=== PATIENT | male | born 1950 | race Caucasian/White ===

== ENCOUNTER 2020-05-26 09:57 | Day surgery (SDC) | payer MEDICARE, SELFPAY ==
[2020-05-01 14:41] VITALS: BMI 26.6
--- NOTE | 2020-05-25 09:42 | P.CONAN_ITS ---
HPI - Anesthesia Eval Consult details Narrative: 70yo M for EGD and Colonoscopy: gastritis, screening Pending cardiac and pulmonary clearance [facility] Past Medical History Medical History (Updated 05/01/20 @ 14:38 by Yamila Delgado) Back pain CAD (coronary artery disease) Cardiomyopathy CHF (congestive heart failure) Chronic renal insufficiency COPD (chronic obstructive pulmonary disease) Diabetes Elevated cholesterol GERD (gastroesophageal reflux disease) HTN (hypertension) Hx of gastritis Hx of ventricular tachycardia Pacemaker Spondylosis Surgical History Surgical History (Updated 05/01/20 @ 14:23 by Yamila Delgado) AICD (automatic cardioverter/defibrillator) present H/O cystoscopy Hx of colonoscopy Hx of right inguinal hernia repair Social History Social History Smoking Status: Former smoker Use of substances other than those prescribed or required for medical reasons: No Advance Directives: No Advance Directives Information Provided: No Advance Directives on File: No Meds Allergies Allergy/AdvReac Type Severity Reaction Status Date / Time valsartan [Diovan] Allergy Unknown Verified 02/25/13 00:00 No Known Allergies Allergy Unverified 04/20/20 15:12 simvastatin AdvReac Unknown increased Verified 02/25/13 00:00 liver enzymes Home Medications Medication Instructions Recorded Confirmed Type albuterol sulfate 2 puff PO Q4-6H PRN 05/01/20 05/01/20 History amiodarone 1 tab PO DAILY 05/01/20 05/01/20 History amitriptyline 1 tab PO BEDTIME 05/01/20 05/01/20 History aspirin 1 tab PO BEDTIME 05/01/20 05/01/20 History calcium carbonate-vitamin D3 1 tab PO DAILY 05/01/20 05/01/20 History carvedilol [Coreg] 3.125 mg PO BID 05/01/20 05/01/20 History cyanocobalamin (vitamin B-12) 1 tab PO DAILY 05/01/20 05/01/20 History docusate sodium 1 cap PO DAILY PRN 05/01/20 05/01/20 History fluticasone propionate 2 spray INTRANASAL DAILY 05/01/20 05/01/20 History folic acid 1 tab PO DAILY 05/01/20 05/01/20 History furosemide 1 tab PO DAILY PRN 05/01/20 05/01/20 History glipizide mg PO 05/01/20 History insulin glargine [Lantus Solostar 10 unit SUBCUT DAILY 05/01/20 05/01/20 History U-100 Insulin] ipratropium-albuterol [Combivent INHALATION 05/01/20 History Respimat] loratadine 1 tab PO DAILY 05/01/20 05/01/20 History rosuvastatin 1 tab PO DAILY 05/01/20 05/01/20 History tramadol 1 tab PO Q12H PRN 05/01/20 05/01/20 History Exam Exam Date and Time: May 25, 2020 0942 Height,Weight and Vital Signs: Height 5 ft 5 in Weight 72.575 kg Pertinent Lab Results Pertinent Lab Results: Laboratory Tests 09/15/19 09/15/19 14:15 14:15 WBC 5.2 Hgb 12.2 L Hct 38.9 L Plt Count 289 Sodium 138 Potassium 4.5 Chloride 102 BUN 13 Creatinine 2.01 H Narrative Narrative: ECHO 02/2020: LVEF 25-30%, severe global hypokinesis, no change from 2019 ECHO
== END 2020-05-26 23:59 ==
LOC: HO.SSS 09:58
PROVIDERS: PCP Family Medicine; Visit Provider Internal Medicine Gastroenterology
DX: Z12.11 Encounter for screening for malignant neoplasm of colon (principal); K29.70 Gastritis, unspecified, without bleeding; Z53.9 Procedure and treatment not carried out, unspecified reason

== ENCOUNTER 2021-06-06 14:18 | Emergency (ER) | payer MEDICARE, SELFPAY ==
[2021-06-06] VITALS (7 sets, daily range): BP systolic 92–168; BP diastolic 25–83; PULSE 66–74; RESP 18; TEMP 36.1; O2SAT 98–100; BMI 24.4
--- NOTE | 2021-06-06 | ECG_ITS ---
Test Reason : SYNCOPE Blood Pressure : / mmHG Vent. Rate : 062 BPM Atrial Rate : 062 BPM P-R Int : 164 ms QRS Dur : 160 ms QT Int : 518 ms P-R-T Axes : 041 -67 040 degrees QTc Int : 525 ms Normal sinus rhythm Right bundle branch block Left anterior fascicular block Bifascicular block Abnormal ECG No significant changes seen Referred By: Generic ED Physician Electronically Signed By:MONTY FLORES MD
[2021-06-06 16:54] LABS: MANUAL DIFF FLAG NO
[2021-06-06 16:58] LABS: Basophils Percent Auto 0.1 % (0-2); Hematocrit 35.2 % (42.0-52.0); Hemoglobin 10.7 g/dl (14.0-18.0); Imm Gran Abs Auto 0.04 X10*3/uL (0.00-0.03); Imm Gran Pct Auto 0.6 % (0.0-0.4); Lymphocytes Absolute Auto 1.2 X10*3/uL (1.2-4.9); Mean Corpuscular HGB Conc 30.4 g/dl (31.0-36.0); Mean Corpuscular Hemoglobin 29.2 pg (27.0-33.0); Mean Corpuscular Volume 96.2 fL (80.0-98.0); Mean Platelet Volume 10.8 fL (9.4-12.4); Monocytes Absolute Auto 0.6 X10*3/uL (0.1-1.2); Monocytes Percent Auto 7.8 % (2-11); Neutrophils Absolute Auto 5.27 x10*3/uL (2.0-8.3); Neutrophils Percent Auto 74.5 % (45-73); Platelet Count 237 X10*3/uL (160-400); Red Blood Count 3.66 X10*6/uL (4.60-5.80); Red Cell Distribution Width 16.1 % (11.0-16.0); White Blood Count 7.1 X10*3/uL (4.8-10.8)
[2021-06-06 17:17] LABS: Anion Gap 10 (12-20); Blood Urea Nitrogen 17 mg/dL (9-16); Carbon Dioxide 28 mmol/L (22-29); Chloride 105 mmol/L (96-108); Creatinine Clr Calc Pharmacy 24.2; Estimated Glomerular Filt Rate 26; Glucose Random 97 mg/dL (60-115); Potassium 4.1 mmol/L (3.3-5.1); Sodium 139 mmol/L (135-145)
--- NOTE | 2021-06-06 20:09 | ED.SYNCOPE ---
HPI - Syncope General Chief Complaint: Syncope Stated Complaint: low blood pressure, low back pain Time Seen by Provider: 06/06/21 20:03 Source: patient and family Mode of arrival: ambulatory Limitations: no limitations History of Present Illness HPI narrative: Patient's history of orthostatic hypotension on my read in 10 mg 3 times a day which were increased and twice daily in the past was at the store notice back pain and passed out patient had similar episode few days ago when he was in bathroom. Symptoms been going on for several months in follow-up with habitat conservation planner and PCP no head injury no any other significant injury no chest pain or palpitation on arrival patient was positive for orthostatics patient did take his a.m. but missed his medicine at lunchtime Related Data Home Medications Medication Instructions Recorded Confirmed albuterol sulfate 90 mcg/actuation 2 puff PO Q4-6H PRN 05/01/20 05/01/20 aerosol inhaler amiodarone 200 mg tablet 1 tab PO DAILY 05/01/20 05/01/20 amitriptyline 50 mg tablet 1 tab PO BEDTIME 05/01/20 05/01/20 aspirin 81 mg tablet,delayed 1 tab PO BEDTIME 05/01/20 05/01/20 release calcium carbonate 600 mg (1,500 1 tab PO DAILY 05/01/20 05/01/20 mg)-vitamin D3 400 unit tablet carvedilol 3.125 mg tablet (Coreg) 3.125 mg PO BID 05/01/20 05/01/20 cyanocobalamin (vitamin B-12) 1 tab PO DAILY 05/01/20 05/01/20 1,000 mcg tablet docusate sodium 100 mg capsule 1 cap PO DAILY PRN 05/01/20 05/01/20 fluticasone propionate 50 2 spray INTRANASAL DAILY 05/01/20 05/01/20 mcg/actuation nasal spray,suspension folic acid 1 mg tablet 1 tab PO DAILY 05/01/20 05/01/20 furosemide 40 mg tablet 1 tab PO DAILY PRN 05/01/20 05/01/20 glipizide 10 mg tablet mg PO 05/01/20 insulin glargine 100 unit/mL (3 10 unit SUBCUT DAILY 05/01/20 05/01/20 mL) subcutaneous pen (Lantus Solostar U-100 Insulin) ipratropium 20 mcg-albuterol 100 INHALATION 05/01/20 mcg/actuation mist for inhalation (Combivent Respimat) loratadine 10 mg tablet 1 tab PO DAILY 05/01/20 05/01/20 rosuvastatin 40 mg tablet 1 tab PO DAILY 05/01/20 05/01/20 tramadol 50 mg tablet 1 tab PO Q12H PRN 05/01/20 05/01/20 Allergies Allergy/AdvReac Type Severity Reaction Status Date / Time valsartan [Diovan] Allergy Unknown Verified 02/25/13 00:00 No Known Allergies Allergy Unverified 04/20/20 15:12 simvastatin AdvReac Unknown increased Verified 02/25/13 00:00 liver enzymes Review of Systems Review of Systems: Yes all other systems are reviewed and are negative [facility] Past Medical History Medical History Back pain CAD (coronary artery disease) Cardiomyopathy CHF (congestive heart failure) Chronic renal insufficiency COPD (chronic obstructive pulmonary disease) Diabetes Elevated cholesterol GERD (gastroesophageal reflux disease) HTN (hypertension) Hx of gastritis Hx of ventricular tachycardia Pacemaker Spondylosis Surgical History AICD (automatic cardioverter/defibrillator) present H/O cystoscopy Hx of colonoscopy Hx of right inguinal hernia repair Social History Social History Alcohol intake: never Patient Tobacco Use Status: Former Tobacco user Smoked in Last 30 Days: Yes Use of substances other than those prescribed or required for medical reasons: No Advance Directives: No Physical Exam Vital Signs: Vital Signs: Last Vital Signs Temp 97 F 06/06/21 15:04 Pulse 68 06/07/21 00:09 Resp 18 06/07/21 00:00 BP 138/68 06/07/21 00:09 Pulse Ox 98 06/07/21 00:00 Body Mass Index 24.4 Appearance: Alert. Oriented X3. No acute distress. Eyes: PERRLA, No Nystagmus no pallor or icterus ENT: Pharynx normal. Oral Mucosa moist Neck: Normal inspection. Neck supple. CVS: Normal heart rate and rhythm. Pulses normal. Respiratory: No respiratory distress. Equal air entry bilateral, no wheezing/rales/rhonchi Abdomen: Soft and nontender. Bowel sounds are present, no mass palpable, no CVA tenderness Skin: Skin warm and dry. Normal skin color. Normal skin turgor. Extremities: No lower extremity edema. No calf tenderness Neuro: Oriented X 3. No motor deficit. No sensory deficit.No cerebellar signs , cranial nerves II-XII intact Course Reevaluation(s) Reevaluation #1: Patient with significant orthostatic hypotension on midodrine 10 mg 4 times a day came here with syncope episode similar to that in the past with blood pressure drops on standing. During stay in the ER patient was orthostatic but is less symptomatic received 2 L of IV fluids orthostatics improved was given 2 tablets of 10 mg mitral drain. Will discharge patient home advised to drink plenty of fluids take midodrine on time Time: 00:03 MDM - Syncope Lab Data Attestation: I reviewed the patient's lab results. Result diagrams: 06/06/21 16:49 06/06/21 16:49 Labs: Lab Results 06/06/21 06/06/21 06/06/21 Range/Units 16:49 16:49 16:49 WBC 7.1 (4.8-10.8) X10*3/uL RBC 3.66 L (4.60-5.80) X10*6/uL Hgb 10.7 L (14.0-18.0) g/dl Hct 35.2 L (42.0-52.0) % MCV 96.2 (80.0-98.0) fL MCH 29.2 (27.0-33.0) pg MCHC 30.4 L (31.0-36.0) g/dl RDW 16.1 H (11.0-16.0) % Plt Count 237 (160-400) X10*3/uL MPV 10.8 (9.4-12.4) fL Immature Gran % (Auto) 0.6 H (0.0-0.4) % Neut % (Auto) 74.5 H (45-73) % Lymph % (Auto) 17.0 L (20-40) % Bartholomew % (Auto) 7.8 (2-11) % Eos % (Auto) 0.0 (0-4) % Baso % (Auto) 0.1 (0-2) % Lymph # (Auto) 1.2 (1.2-4.9) X10*3/uL Bartholomew # (Auto) 0.6 (0.1-1.2) X10*3/uL Eos # (Auto) 0.0 (0.0-0.4) X10*3/uL Baso # (Auto) 0.0 (0.0-0.2) X10*3/uL Abs Immat Gran (auto) 0.04 H (0.00-0.03) X10*3/uL Absolute Neuts (auto) 5.27 (2.0-8.3) x10*3/uL Absolute Nucleated RBC 0.000 (0.0-0.012) X10*3/uL Nucleated RBC % (auto) 0.0 (0.0-0.2) /100WBC Sodium 139 (135-145) mmol/L Potassium 4.1 (3.3-5.1) mmol/L Chloride 105 (96-108) mmol/L Carbon Dioxide 28 (22-29) mmol/L Anion Gap 10 L (12-20) BUN 17 H (9-16) mg/dL Creatinine 2.47 H (0.5-1.4) mg/dL Estim Creat Clear Calc 24.2 Estimated GFR 26 Random Glucose 97 (60-115) mg/dL Calcium 9.0 (8.4-10.2) mg/dL Troponin I High Sens 32.0 (<3.5-35.0) ng/L ECG Data Attestation: I personally reviewed and interpreted this ECG as follows: Interpretation: Heart rate 62 beats per minute right bundle-branch block left anterior fascicular block no acute ischemic changes Discharge Plan Discharge Clinical Impression: Syncope due to orthostatic hypotension Patient Disposition: Home, Self-Care Instructions: Syncope (ED), Hypotension (ED) Additional Instructions: Drink plenty of fluids Do not miss your midodrine, take it as advised Do not stand up all of a sudden take your time and if you feel dizzy sit down Follow-up with your habitat conservation planner Prescriptions: No Action furosemide 40 mg tablet 1 tab PO DAILY PRN (Reason: Edema) RF: 0 amiodarone 200 mg tablet 1 tab PO DAILY RF: 0 glipizide 10 mg tablet PO RF: 0 cyanocobalamin (vitamin B-12) 1,000 mcg tablet 1 tab PO DAILY RF: 0 aspirin 81 mg tablet,delayed release (DR/EC) 1 tab PO BEDTIME RF: 0 tramadol 50 mg tablet 1 tab PO Q12H PRN (Reason: severe pain) RF: 0 amitriptyline 50 mg tablet 1 tab PO BEDTIME RF: 0 carvedilol [Coreg] 3.125 mg Tablet 3.125 mg PO BID RF: 0 docusate sodium 100 mg capsule 1 cap PO DAILY PRN (Reason: constipation) RF: 0 folic acid 1 mg tablet 1 tab PO DAILY RF: 0 albuterol sulfate 90 mcg/actuation HFA aerosol inhaler 2 puff PO Q4-6H PRN (Reason: wheezing) RF: 0 fluticasone propionate 50 mcg/actuation spray,suspension 2 spray intranasal DAILY RF: 0 loratadine 10 mg tablet 1 tab PO DAILY RF: 0 rosuvastatin 40 mg tablet 1 tab PO DAILY RF: 0 calcium carbonate-vitamin D3 600 mg(1,500mg) -400 unit tablet 1 tab PO DAILY RF: 0 Lantus Solostar U-100 Insulin 100 unit/mL (3 mL) insulin pen 10 unit subcut DAILY RF: 0 Combivent Respimat 20-100 mcg/actuation mist inhalation RF: 0 Interventions: ED Discharge Assessment Last Done: 06/07/21 00:11 Discharge Date/Time: 06/07/21 00:15
[2021-06-06] MEDS: Midodrine HCl 10 MG TABLET PO (21:11)
[2021-06-06] MEDS: 0.9 % Sodium Chloride 1,000 ML 999 ML IVCONT ×2 (21:11→22:45)
[2021-06-07] VITALS: BP 138/68; PULSE 67; RESP 18; O2SAT 98
--- NOTE | 2021-06-07 00:03 | PC.NURSE ---
after pt received the 2l on ns, pt was asked to stand at the bedside, bp taken wnl. provider at bedside and pt denies dizziness. need to drink water reviewed with pt. urine color has improved with ivf.
[2021-06-07 00:09] VITALS: BP 138/68; PULSE 68
[2021-06-07] MEDS: Midodrine HCl 10 MG TABLET PO (00:09)
== END 2021-06-07 00:15 | disposition home or self-care (01) ==
PROVIDERS: Emergency Provider Internal Medicine; PCP Family Medicine
DX: I95.1 Orthostatic hypotension (principal); E11.22 Type 2 diabetes mellitus with diabetic chronic kidney disease; I13.0 Hypertensive heart and chronic kidney disease with heart failure and stage 1 through stage 4 chronic kidney disease, or unspecified chronic kidney disease; N18.9 Chronic kidney disease, unspecified; I50.9 Heart failure, unspecified; I25.10 Atherosclerotic heart disease of native coronary artery without angina pectoris; J44.9 Chronic obstructive pulmonary disease, unspecified; Z95.0 Presence of cardiac pacemaker
CPT/HCPCS: 36415; 80048; 84484; 85025; 93005; 96360; 96361; 99284; 99285

== ENCOUNTER 2021-06-25 10:36 | Outpatient (REF) | payer MEDICARE, SELFPAY ==
--- NOTE | 2021-06-27 10:17 | MHC.AU.ANO ---
Adult Audiological Evaluation Date of Visit: 06/25/21 Sales Administration Specialist Used: Declined by Patient Reason for Appointment: Audiologic evaluation due to question of hearing loss. Denzel is accompanied by his granddaughter Lula who reports the family frequently needs to repeat speech and he needs the television volume to be loud. Does patient feel they have a hearing loss?: Unsure When Was Hearing Difficulty First Noticed?: Has been experiencing more difficulty over the past 5-6 months Has hearing been tested previously?: No Hearing Handicap Inventory: HHIE SCORE: 10 Based on HHIE score, patient has: Mild to moderate perceived hearing handicap Ear History: Unremarkable Medical History: Medical History: Diabetes, Heart Problems, High Blood Pressure, Orthostatic Hypotension which causes unsteadiness, Hyperlipidemia, Cardioinverter-Defibrillator, COngestive Heart Failure, COPD Medication List: Amiodarone, Midodrine, Claritin, Ventolin, Baclofen, Calcium-Vitamin D3, Flonase, Crestor, Combivent, Aspirin, Folic Acid, Lyrica, Vitamin B-12, Amitriptyline, Shingrix Otoscopy: Right Ear: Unremarkable Left Ear: Unremarkable Tympanometry: Tympanometry performed due to: To assess integrity of the middle ear system Right Ear: Normal Middle Ear System (Type A) Left Ear: Hypercompliant Middle Ear System (Type Ad) Otoacoustic Emissions Not performed at today's visit. Hearing Evaluation: Transducer(s) Used: Insert Earphones Bone Conduction Method: Conventional Audiometry Stimuli Used: Pure Tones Right Ear: Description of Hearing: Mild to moderate low frequency, sloping to moderately-severe sensorineural hearing loss. Left Ear: Description of Hearing: Mild sloping to severe sensorineural hearing loss. Speech Recognition Threshold (SRT): Method Used: Monitored Live Voice Stimuli Used: Dutch Trisyllable Words Right Ear: 35 dB HL Left Ear: 35 dB HL Word Discrimination: Method: Recorded Lists Word Lists Used: Lista Bisil?bica (Dutch) Right Ear: 92% at 75 dB HL Left Ear: 96% at 75 dB HL Interpretation of Results: With the bilateral mild sloping to severe sensorineural hearing loss, Denzel is able to hear when people speak; however, he will experience difficulty understanding what is said. Discussed Communication Strategies the family can use to improve his speech understanding and Denzel would like to try hearing aids. As Denzel has manual dexterity trouble, binaural [facility] custom [id number] rechargeable hearing aids are recommended. Recommendations: Trial with amplification is recommended. Prior authorization will be obtained from Denzel's insurance. Medical clearance from a physician is required before fitting. Hearing Aid Fitting will be scheduled when all materials arrive. Audiological re-evaluation in one year. Will send a reminder card. Diagnosis: Primary Diagnosis: H90.3 Bilateral Sensorineural Hearing Loss Services Performed: Comprehensive Audiological Evaluation (CPT 74490) Tympanometry (CPT 83044) Signature: Provider: Nikhil Naik, CCC-A
--- NOTE | 2021-06-27 11:39 | MHC.AU.HAS ---
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 Hearing Aid Prescription: Based on the individual?s shared listening needs, communication environments, dexterity, desire for connectivity, and personal preferences, the following prescription for amplification has been made: Right ear: School Bus Driver: [employer] Model: [employer] AI 1600 ITC-R Battery Size: Rechargeable Color: Black Left ear: School Bus Driver: [employer] Model: [employer] AI 1600 ITC-R Battery Size: Rechargeable Color: Black Plan of Care: Patient wishes to purchase hearing aids as prescribed Action Taken/Action Needed: [place] Impressions Taken Prior authorization to be requested Medical Clearance to be requested from PCP/ENT Hearing Instrument Fitting to be scheduled when materials arrive Primary Diagnosis: H90.3 Bilateral Sensorineural Hearing Loss Signature: Provider: Nikhil Naik, CCC-A
--- NOTE | 2021-06-27 11:41 | MHC.AU.MED ---
Medical Clearance for Hearing Instrumentation Date: 06/27/21 Patient Name: Denzel Pendleton Date of : 1950 Primary Care Provider: Referring Provider: Susy Rashid, DO We have seen your patient on 06/25/21 and have determined that they are a candidate for amplification (See accompanying report). Specifically, they would benefit from: Hearing aid use in both ears There is a statute that addresses Medical Evaluation Requirements prior to fitting a patient with a hearing aid. According to [place] statute 265 CMR:6.03(1), (a) General. Except as provided in 265 CMR 6.03(1)(b), a shearing machine tender shall not sell a hearing aid unless the prospective user has presented to the shearing machine tender a written statement signed by a licensed physician that states that the patient's hearing loss has been medically evaluated and the patient may be considered a candidate for a hearing aid. The medical evaluation must have taken place within the preceding six months. Please note: Due to the [place] Statute referenced above, we cannot accept a signature other than that of a licensed physician. DIE CAST ENGINEER and PA signatures cannot be accepted. I am in agreement with the above recommendation. There is no medical contraindication for hearing instrumentation. Physician Signature Date Physician Name (Printed)
== END 2021-06-25 10:37 | disposition home or self-care (01) ==
LOC: HO.SH 10:36
PROVIDERS: Visit Provider Family Medicine
DX: H90.3 Sensorineural hearing loss, bilateral (principal)
CPT/HCPCS: 92557; 92567; 92591; V5275

== ENCOUNTER 2021-06-27 10:13 | Emergency (ER) | payer MEDICARE, SELFPAY ==
--- NOTE | ~2021-06-27 | XR_ITS ---
EXAMINATION: XR CHEST CLINICAL INFORMATION: Productive cough, brown sputum COMPARISON: Chest radiographs 04/19/2015, 10/12/2014 TECHNIQUE: 2 views of the chest were obtained. FINDINGS: There is mild coarsening bronchiolar markings lower zones may related to bronchitis. There is no lobar or segmental airspace consolidation or groundglass opacity. The vascularity is normal. There is no effusion. There is borderline prominent cardiopericardial silhouette with the folder AICD. Multi leveled degenerative changes present thoracic spine. XR/XR chest 2V IMPRESSION: 1. Coarsening bronchiolar markings lower zones, possibly related to bronchitis. No hyperinflation, airspace consolidation, or effusion. 2. AICD. Pulmonary vascularity normal.
[2021-06-27 10:21] VITALS: BP 101/60; PULSE 90; RESP 20; TEMP 36.8; O2SAT 99; BMI 24.4
--- NOTE | 2021-06-27 10:29 | ED.GENADULT ---
HPI - General Adult General Chief complaint: Fall Stated complaint: low blood pressure Time Seen by Provider: 06/27/21 10:29 Source: patient Mode of arrival: ambulatory Limitations: language barrier History of Present Illness HPI narrative: patient states that he has fallen 10 times. Yesterday he fell in the bathroom and the kitchen. patient states he is not losing consciousness. He denies chest pain or shortness of breath. he feels too weak to get up at times. Patient feels that he has changes to his medications but doesn't know what it is. Patient states that he is coughing brown. Onset (ago): week(s) Severity: moderate Relieving factors: none Associated symptoms: malaise and weakness Related Data Home Medications Medication Instructions Recorded Confirmed albuterol sulfate 90 mcg/actuation 2 puff PO Q4-6H PRN 05/01/20 05/01/20 aerosol inhaler amiodarone 200 mg tablet 1 tab PO DAILY 05/01/20 05/01/20 amitriptyline 50 mg tablet 1 tab PO BEDTIME 05/01/20 05/01/20 aspirin 81 mg tablet,delayed 1 tab PO BEDTIME 05/01/20 05/01/20 release calcium carbonate 600 mg (1,500 1 tab PO DAILY 05/01/20 05/01/20 mg)-vitamin D3 400 unit tablet carvedilol 3.125 mg tablet (Coreg) 3.125 mg PO BID 05/01/20 05/01/20 cyanocobalamin (vitamin B-12) 1 tab PO DAILY 05/01/20 05/01/20 1,000 mcg tablet docusate sodium 100 mg capsule 1 cap PO DAILY PRN 05/01/20 05/01/20 fluticasone propionate 50 2 spray INTRANASAL DAILY 05/01/20 05/01/20 mcg/actuation nasal spray,suspension folic acid 1 mg tablet 1 tab PO DAILY 05/01/20 05/01/20 furosemide 40 mg tablet 1 tab PO DAILY PRN 05/01/20 05/01/20 glipizide 10 mg tablet mg PO 05/01/20 insulin glargine 100 unit/mL (3 10 unit SUBCUT DAILY 05/01/20 05/01/20 mL) subcutaneous pen (Lantus Solostar U-100 Insulin) ipratropium 20 mcg-albuterol 100 INHALATION 05/01/20 mcg/actuation mist for inhalation (Combivent Respimat) loratadine 10 mg tablet 1 tab PO DAILY 05/01/20 05/01/20 rosuvastatin 40 mg tablet 1 tab PO DAILY 05/01/20 05/01/20 tramadol 50 mg tablet 1 tab PO Q12H PRN 05/01/20 05/01/20 Allergies Allergy/AdvReac Type Severity Reaction Status Date / Time valsartan [Diovan] Allergy Unknown Verified 02/25/13 00:00 No Known Allergies Allergy Unverified 04/20/20 15:12 simvastatin AdvReac Unknown increased Verified 02/25/13 00:00 liver enzymes Review of Systems Constitutional: Constitutional: Reports no additional constitutional complaints Eyes: Eyes: Reports no additional eye complaints ENT: Denies dizziness Cardiovascular: Cardiovascular: Reports no additional cardiovascular complaints Respiratory: Respiratory: Reports as per HPI Gastrointestinal: Gastrointestinal: Reports no additional gastrointestinal complaints Musculoskeletal: Musculoskeletal: Reports no additional musculoskeletal complaints Integumentary/Breasts: Skin/Breast: Denies rash Neurologic: Reports system reviewed and no additional complaints, except as documented, Denies dizziness and Denies Sensory deficit (Neuro) Psychiatric: Psychiatric: Denies anxiety PMFSH Past Medical History Medical History Back pain CAD (coronary artery disease) Cardiomyopathy CHF (congestive heart failure) Chronic renal insufficiency COPD (chronic obstructive pulmonary disease) Diabetes Elevated cholesterol GERD (gastroesophageal reflux disease) HTN (hypertension) Hx of gastritis Hx of ventricular tachycardia Pacemaker Spondylosis Surgical History AICD (automatic cardioverter/defibrillator) present H/O cystoscopy Hx of colonoscopy Hx of right inguinal hernia repair Social History Social History Alcohol intake: never Patient Tobacco Use Status: Former Tobacco user Use of substances other than those prescribed or required for medical reasons: No Advance Directives: No Physical Exam Vital Signs: Vital Signs: Last Vital Signs Temp 98.3 F 06/27/21 10:21 Pulse 69 06/27/21 13:14 Resp 18 06/27/21 13:14 BP 124/68 06/27/21 13:14 Pulse Ox 98 06/27/21 13:14 Body Mass Index 24.4 Const: Other: elderly Nutritional Appearance: average body habitus Orientation/consciousness: oriented to person and patient oriented x3 Limitations: no limitations HENMT: Head: Yes normal to inspection Ears: external ears normal General nose exam: Normal external nose present Mouth: Normal oral and palatal mucosa present and oropharynx normal Throat: Yes posterior oropharynx normal Eyes: General: appearance normal, both eyes and all related structures Neck: Other: supple Neck: Yes normal visual inspection Chest: Chest palpation & inspection: normal inspection of the chest Resp: Auscultation: clear to auscultation bilaterally Cardio: Jugular venous distension: no JVD Rate: regular rate Rhythm: regular rhythm Heart sounds: S1 normal heart sound present and S2 normal heart sound present GI: Inspection: Yes normal to inspection Palpation (GI): Soft to palpation, nontender and No hepatosplenomegaly present Auscultation: normal bowel sounds : General: Yes no CVA tenderness Back/Spine/Pelvis: Back: no CVA tenderness Skin: General skin exam: no rashes or lesions noted Neuro: Other: patient ambulated in and is nonfocal General: oriented to person and patient oriented x3 Cranial nerves: Yes CN's II-XII intact bilaterally Motor exam (neuro): 5/5 motor strength present throughout Sensory Exam: No Sensory deficit (Neuro) Extrem: General: Yes normal to inspection Psych: Appearance: grossly normal Course Reevaluation(s) Reevaluation #1: labs, EKG all normal, Ua normal, did not find any acute reason for his falling Time: 15:16 Medical Decision Making Lab Data Result diagrams: 06/27/21 11:11 06/27/21 11:11 Labs: Lab Results 06/27/21 06/27/21 06/27/21 Range/Units 11:11 11:11 11:11 WBC 5.7 (4.8-10.8) X10*3/uL RBC 3.65 L (4.60-5.80) X10*6/uL Hgb 10.6 L (14.0-18.0) g/dl Hct 35.0 L (42.0-52.0) % MCV 95.9 (80.0-98.0) fL MCH 29.0 (27.0-33.0) pg MCHC 30.3 L (31.0-36.0) g/dl RDW 15.4 (11.0-16.0) % Plt Count 236 (160-400) X10*3/uL MPV 11.3 (9.4-12.4) fL Immature Gran % (Auto) 0.7 H (0.0-0.4) % Neut % (Auto) 69.0 (45-73) % Lymph % (Auto) 16.8 L (20-40) % [place]ack[place] % (Auto) 13.3 H (2-11) % Eos % (Auto) 0.0 (0-4) % Baso % (Auto) 0.2 (0-2) % Lymph # (Auto) 1.0 L (1.2-4.9) X10*3/uL Bracken # (Auto) 0.8 (0.1-1.2) X10*3/uL Eos # (Auto) 0.0 (0.0-0.4) X10*3/uL Baso # (Auto) 0.0 (0.0-0.2) X10*3/uL Abs Immat Gran (auto) 0.04 H (0.00-0.03) X10*3/uL Absolute Neuts (auto) 3.9 (2.0-8.3) x10*3/uL Absolute Nucleated RBC 0.000 (0.0-0.012) X10*3/uL Nucleated RBC % (auto) 0.0 (0.0-0.2) /100WBC Sodium 140 (135-145) mmol/L Potassium 4.0 (3.3-5.1) mmol/L Chloride 109 H (96-108) mmol/L Carbon Dioxide 22 (22-29) mmol/L Anion Gap 13 (12-20) BUN 24 H (9-16) mg/dL Creatinine 2.76 H (0.5-1.4) mg/dL Estim Creat Clear Calc 21.6 Estimated GFR 23 Random Glucose 255 H D (60-115) mg/dL Calcium 8.4 D (8.4-10.2) mg/dL Troponin I High Sens 14.1 D (<3.5-35.0) ng/L Urine Color Urine Appearance Urine pH (5.0-8.0) Ur Specific [place] (1.005-1.025) Urine Protein (NEG-TRACE) MG/DL Urine Glucose (UA) (NEG) MG/DL Urine Ketones (NEG) MG/DL Urine Blood (NEG) Urine Nitrite (NEG) Ur Leukocyte Esterase (NEG) Urine RBC (0) /HPF Urine WBC (0-4) /HPF Ur Squamous Epith Cells /LPF Amorphous Sediment /LPF Urine Bacteria /LPF Hyaline Casts /LPF Urine Mucus /LPF 06/27/ Range/Units 14:37 WBC (4.8-10.8) X10*3/uL RBC (4.60-5.80) X10*6/uL Hgb (14.0-18.0) g/dl Hct (42.0-52.0) % MCV (80.0-98.0) fL MCH (27.0-33.0) pg MCHC (31.0-36.0) g/dl RDW (11.0-16.0) % Plt Count (160-400) X10*3/uL MPV (9.4-12.4) fL Immature Gran % (Auto) (0.0-0.4) % Neut % (Auto) (45-73) % Lymph % (Auto) (20-40) % [place]ack[place] % (Auto) (2-11) % Eos % (Auto) (0-4) % Baso % (Auto) (0-2) % Lymph # (Auto) (1.2-4.9) X10*3/uL [place]acken # (Auto) (0.1-1.2) X10*3/uL Eos # (Auto) (0.0-0.4) X10*3/uL Baso # (Auto) (0.0-0.2) X10*3/uL Abs Immat Gran (auto) (0.00-0.03) X10*3/uL Absolute Neuts (auto) (2.0-8.3) x10*3/uL Absolute Nucleated RBC (0.0-0.012) X10*3/uL Nucleated RBC % (auto) (0.0-0.2) /100WBC Sodium (135-145) mmol/L Potassium (3.3-5.1) mmol/L Chloride (96-108) mmol/L Carbon Dioxide (22-29) mmol/L Anion Gap (12-20) BUN (9-16) mg/dL Creatinine (0.5-1.4) mg/dL Estim Creat Clear Calc Estimated GFR Random Glucose (60-115) mg/dL Calcium (8.4-10.2) mg/dL Troponin I High Sens (<3.5-35.0) ng/L Urine Color YELLOW Urine Appearance HAZY Urine pH 6.0 (5.0-8.0) Ur Specific [place] 1.025 (1.005-1.025) Urine Protein 2+ H (NEG-TRACE) MG/DL Urine Glucose (UA) 500 H (NEG) MG/DL Urine Ketones NEG (NEG) MG/DL Urine Blood 2+ H (NEG) Urine Nitrite NEG (NEG) Ur Leukocyte Esterase NEG (NEG) Urine RBC 1-4 (0) /HPF Urine WBC 1-4 (0-4) /HPF Ur Squamous Epith Cells 1+ /LPF Amorphous Sediment 1+ /LPF Urine Bacteria 1+ /LPF Hyaline Casts 5-9 /LPF Urine Mucus 1+ /LPF ECG Data Attestation: I personally reviewed and interpreted this ECG as follows: Interpretation: sinus 80, RBBB, no st or twave changes no change from 06/06/21 Discharge Plan Discharge Clinical Impression: Weakness, Falling Patient Disposition: Home, Self-Care Instructions: Weakness (ED) Prescriptions: No Action furosemide 40 mg tablet 1 tab PO DAILY PRN (Reason: Edema) RF: 0 amiodarone 200 mg tablet 1 tab PO DAILY RF: 0 glipizide 10 mg tablet PO RF: 0 cyanocobalamin (vitamin B-12) 1,000 mcg tablet 1 tab PO DAILY RF: 0 aspirin 81 mg tablet,delayed release (DR/EC) 1 tab PO BEDTIME RF: 0 tramadol 50 mg tablet 1 tab PO Q12H PRN (Reason: severe pain) RF: 0 amitriptyline 50 mg tablet 1 tab PO BEDTIME RF: 0 carvedilol [Coreg] 3.125 mg Tablet 3.125 mg PO BID RF: 0 docusate sodium 100 mg capsule 1 cap PO DAILY PRN (Reason: constipation) RF: 0 folic acid 1 mg tablet 1 tab PO DAILY RF: 0 albuterol sulfate 90 mcg/actuation HFA aerosol inhaler 2 puff PO Q4-6H PRN (Reason: wheezing) RF: 0 fluticasone propionate 50 mcg/actuation spray,suspension 2 spray intranasal DAILY RF: 0 loratadine 10 mg tablet 1 tab PO DAILY RF: 0 rosuvastatin 40 mg tablet 1 tab PO DAILY RF: 0 calcium carbonate-vitamin D3 600 mg(1,500mg) -400 unit tablet 1 tab PO DAILY RF: 0 Lantus Solostar U-100 Insulin 100 unit/mL (3 mL) insulin pen 10 unit subcut DAILY RF: 0 Combivent Respimat 20-100 mcg/actuation mist inhalation RF: 0 Referrals: Susy Rashid DO [Primary Care Provider] - 1 week
--- NOTE | 2021-06-27 10:44 | ECG_ITS ---
Test Reason : fall Blood Pressure : / mmHG Vent. Rate : 080 BPM Atrial Rate : 080 BPM P-R Int : 160 ms QRS Dur : 164 ms QT Int : 476 ms P-R-T Axes : 046 -69 080 degrees QTc Int : 548 ms Normal sinus rhythm Right bundle branch block Left anterior fascicular block Bifascicular block T wave abnormality, consider lateral ischemia Abnormal ECG When compared with ECG of 06-JUN-2021 16:40, No significant changes seen Referred By: Ray Sam Electronically Signed By:MONTY FLORES MD
[2021-06-27 11:14] VITALS: BP 113/62; PULSE 78; RESP 16; O2SAT 99
[2021-06-27 11:15] LABS: MANUAL DIFF FLAG NO
[2021-06-27 11:17] LABS: Basophils Percent Auto 0.2 % (0-2); Hemoglobin 10.6 g/dl (14.0-18.0); Imm Gran Abs Auto 0.04 X10*3/uL (0.00-0.03); Imm Gran Pct Auto 0.7 % (0.0-0.4); Lymphocytes Percent Auto 16.8 % (20-40); Mean Corpuscular HGB Conc 30.3 g/dl (31.0-36.0); Mean Corpuscular Volume 95.9 fL (80.0-98.0); Mean Platelet Volume 11.3 fL (9.4-12.4); Monocytes Absolute Auto 0.8 X10*3/uL (0.1-1.2); Monocytes Percent Auto 13.3 % (2-11); Neutrophils Absolute Auto 3.9 x10*3/uL (2.0-8.3); Platelet Count 236 X10*3/uL (160-400); Red Blood Count 3.65 X10*6/uL (4.60-5.80); Red Cell Distribution Width 15.4 % (11.0-16.0); White Blood Count 5.7 X10*3/uL (4.8-10.8)
[2021-06-27 11:31] LABS: Anion Gap 13 (12-20); Blood Urea Nitrogen 24 mg/dL (9-16); Calcium 8.4 mg/dL (8.4-10.2); Carbon Dioxide 22 mmol/L (22-29); Chloride 109 mmol/L (96-108); Creatinine Clr Calc Pharmacy 21.6; Estimated Glomerular Filt Rate 23; Glucose Random 255 mg/dL (60-115); Sodium 140 mmol/L (135-145)
[2021-06-27 11:38] LABS: Troponin-I High Sensitivity 14.1 ng/L (<3.5-35.0)
[2021-06-27 13:14] VITALS: BP 124/68; PULSE 69; RESP 18; O2SAT 98
--- NOTE | 2021-06-27 13:15 | PC.NURSE ---
PT resting comfortably BPs WNL.
[2021-06-27 14:53] LABS: Appearance Urine HAZY; Color Urine YELLOW; Glucose Urine UA 500 MG/DL (NEG); Leukocyte Esterase Urine NEG (NEG); Nitrite Urine NEG (NEG); Specific Gravity - Urine 1.025 (1.005-1.025); UACC Culture Trigger NO; Urine Blood 2+ (NEG); Urine Ketones NEG (NEG); Urine Protein 2+ MG/DL (NEG-TRACE)
[2021-06-27 15:03] LABS: Squamous Epithelial Cell Urine 1+ /LPF
[2021-06-27 15:04] LABS: Bacteria Urine 1+ /LPF; Mucus Urine 1+ /LPF
[2021-06-27 15:05] LABS: Amorphous Sediment Urine 1+ /LPF
== END 2021-06-27 15:38 | disposition home or self-care (01) ==
PROVIDERS: Emergency Provider Emergency Medicine; PCP Family Medicine
DX: I95.9 Hypotension, unspecified (principal); R05.9 Cough, unspecified; R53.81 Other malaise; Z91.81 History of falling; Z79.899 Other long term (current) drug therapy; Z87.891 Personal history of nicotine dependence
CPT/HCPCS: 36415; 71046; 80048; 81001; 84484; 85025; 93005; 99283; 99284

== ENCOUNTER 2021-07-11 09:18 | Outpatient (REF) | payer MEDICARE, SELFPAY ==
--- NOTE | ~2021-07-11 | US_ITS ---
EXAMINATION: ANKLE-BRACHIAL INDICES CLINICAL INFORMATION: Pain in left leg COMPARISON: None TECHNIQUE: Ankle-brachial indices were obtained bilaterally. FINDINGS: The right ankle-brachial index is 1.31. The left ankle-brachial index is 1.23. The pulse volume recordings at the ankles are normal. US/US JAYDEN complete IMPRESSION: Normal ankle-brachial indices.
== END 2021-07-11 09:19 | disposition home or self-care (01) ==
LOC: HO.US 09:18
PROVIDERS: PCP Family Medicine; Visit Provider Family Medicine
DX: M79.605 Pain in left leg (principal)
CPT/HCPCS: 93923

== ENCOUNTER 2021-07-30 12:57 | Outpatient (REF) | payer MEDICARE, SELFPAY | END 2021-07-30 12:58 | disposition home or self-care (01) | LOC: HO.HAP 12:57 | PROVIDERS: Visit Provider Family Medicine | DX: Z46.1 Encounter for fitting and adjustment of hearing aid (principal); H90.3 Sensorineural hearing loss, bilateral | CPT/HCPCS: V5011; V5020; V5160; V5259 ==

== ENCOUNTER 2021-08-13 10:30 | Outpatient (REF) | payer MEDICARE, SELFPAY | END 2021-08-13 10:31 | disposition home or self-care (01) | LOC: HO.HAP 10:30 | PROVIDERS: Visit Provider Family Medicine | DX: Z13.89 Encounter for screening for other disorder (principal) ==

== ENCOUNTER 2021-08-27 12:19 | Outpatient (REF) | payer SELFPAY ==
--- NOTE | 2021-08-27 12:48 | MHC.AU.HFU ---
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 Used: Granddaughter interpreted as she did previous appointments Right Ear: Cryptographic Clerk: [email or web address] Model: Evolve AI 1600 ITC-R Serial Number: [id number] Repair Warranty: 08/23/2024 Battery Size: Rechargeable Color: Black Type of Wax Guard: HearClear Dispensed By: [facility] Date of Fittin07/30/2021 Left Ear: Cryptographic Clerk: Jimmie Model: Evolve AI 1600 ITC-R Serial Number: [id number] Repair Warranty: 08/23/2024 Battery Size: Rechargeable Color: Black Type of Wax Guard: HearClear Dispensed By: [facility] Date of Fittin07/30/2021 Follow-Up Summary: Patient arrives today with the hearing aids in the wrong ears. When the aids are in properly, patient says he does well. He wants to wear the aids but has trouble knowing which aid goes in which ear. Sending both aids for remake to get red and blue shells with black faceplates. Recommendations: Call [facility] [phone] when remakes are in. Diagnosis Code(s): Primary Diagnosis: H90.3 Bilateral Sensorineural Hearing Loss Signature: Provider: Levi Naik, CCC-A
== END 2021-08-27 12:20 | disposition home or self-care (01) ==
LOC: HO.HAP 12:19
PROVIDERS: Visit Provider Family Medicine
DX: Z13.89 Encounter for screening for other disorder (principal)

== ENCOUNTER 2021-09-25 11:01 | Outpatient (REF) | payer SELFPAY | END 2021-09-25 11:02 | disposition home or self-care (01) | LOC: HO.HAP 11:01 | PROVIDERS: Visit Provider Family Medicine | DX: Z13.89 Encounter for screening for other disorder (principal) ==

== ENCOUNTER → 2021-10-16 10:00 | Outpatient (BNVA) | payer MEDICARE, SELFPAY | PROVIDERS: PCP Family Medicine; Visit Provider Nurse Practitioner Family | DX: G20 Parkinson's disease (principal); G90.3 Multi-system degeneration of the autonomic nervous system | CPT/HCPCS: 99212 ==

== ENCOUNTER → 2021-12-07 10:05 | Outpatient (BNVA) | payer MEDICARE, SELFPAY | PROVIDERS: PCP Family Medicine; Visit Provider Urology | DX: Z13.89 Encounter for screening for other disorder (principal) ==

== ENCOUNTER 2021-12-07 10:53 | Emergency (ER) | payer MEDICARE, SELFPAY ==
[2021-12-07] VITALS (11 sets, daily range): BP systolic 75–146; BP diastolic 39–67; PULSE 57–78; RESP 16–18; TEMP 36.4–36.7; O2SAT 95–100; BMI 25.6
--- NOTE | 2021-12-07 10:57 | ECG_ITS ---
Test Reason : HYPOTENSION Blood Pressure : / mmHG Vent. Rate : 077 BPM Atrial Rate : 077 BPM P-R Int : 166 ms QRS Dur : 180 ms QT Int : 468 ms P-R-T Axes : 003 -69 086 degrees QTc Int : 529 ms Normal sinus rhythm Right bundle branch block Left anterior fascicular block Bifascicular block Septal infarct (cited on or before 07-DEC-2021) Abnormal ECG When compared with ECG of 27-JUN-2021 11:08, Serial changes of Septal infarct Present Referred By: Generic ED Physician Electronically Signed By:DIMPLE CISSE MD
[2021-12-07 11:12] LABS: Glucose, Whole Blood 314 mg/dL (60-115)
[2021-12-07 11:14] LABS: MANUAL DIFF FLAG NO
[2021-12-07 11:18] LABS: Basophils Percent Auto 0.3 % (0-2); Eosinophils Percent Auto 0.2 % (0-4); Hematocrit 35.3 % (42.0-52.0); Imm Gran Abs Auto 0.09 X10*3/uL (0.00-0.03); Imm Gran Pct Auto 1.4 % (0.0-0.4); Lymphocytes Absolute Auto 1.3 X10*3/uL (1.2-4.9); Lymphocytes Percent Auto 19.8 % (20-40); Mean Corpuscular HGB Conc 31.2 g/dl (31.0-36.0); Mean Corpuscular Hemoglobin 28.7 pg (27.0-33.0); Mean Corpuscular Volume 92.2 fL (80.0-98.0); Mean Platelet Volume 11.4 fL (9.4-12.4); Monocytes Absolute Auto 0.7 X10*3/uL (0.1-1.2); Monocytes Percent Auto 11.7 % (2-11); Neutrophils Absolute Auto 4.2 x10*3/uL (2.0-8.3); Neutrophils Percent Auto 66.6 % (45-73); Platelet Count 238 X10*3/uL (160-400); Red Blood Count 3.83 X10*6/uL (4.60-5.80); White Blood Count 6.3 X10*3/uL (4.8-10.8)
[2021-12-07 11:35] LABS: Alanine Aminotransferase 21 U/L (0-40); Albumin Level 3.8 g/dL (3.5-5.0); Alkaline Phosphatase 134 U/L (39-117); Anion Gap 13 (12-20); Aspartate Amino Transferase 20 U/L (5-37); Bilirubin Total 0.5 mg/dL (0.0-1.0); Blood Urea Nitrogen 27 mg/dL (9-16); Calcium 9.1 mg/dL (8.4-10.2); Carbon Dioxide 21 mmol/L (22-29); Chloride 107 mmol/L (96-108); Creatinine Clr Calc Pharmacy 19.7; Estimated Glomerular Filt Rate 21; Glucose Random 338 mg/dL (60-115); Potassium 4.6 mmol/L (3.3-5.1); Sodium 136 mmol/L (135-145); Total Protein 7.2 g/dL (6.5-8.0)
[2021-12-07 15:56] LABS: Glucose, Whole Blood 268 mg/dL (60-115)
--- NOTE | 2021-12-07 16:07 | ED_ITS ---
HPI - General Adult General Chief complaint: General Medical Stated complaint: Low blood pressure/Vision loss/High blood sugar Time Seen by Provider: 12/07/21 11:04 Source: patient Mode of arrival: ambulatory Limitations: no limitations History of Present Illness HPI narrative: Patient comes to the emergency room by wheelchair. Earlier today, patient was in the urology office for a follow-up. His vitals were taking, patient's blood pressure was in the low 70s. Patient was brought to the emergency room. Shalonda ent states that sometimes he has blurry vision but this time his vision is normal. Patient is known to have episodes of hypotension, patient takes midodrine 10 mg 4 times a day. Patient skipped a dose at noon due to his appointment with Urology. At this time patient is asymptomatic, patient states that he feels well. Related Data Home Medications Medication Instructions Recorded Confirmed albuterol sulfate 90 mcg/actuation 2 puff PO Q4-6H PRN 05/01/20 10/16/21 aerosol inhaler amiodarone 200 mg tablet 1 tab PO DAILY 05/01/20 10/16/21 amitriptyline 50 mg tablet 1 tab PO BEDTIME 05/01/20 10/16/21 aspirin 81 mg tablet,delayed 1 tab PO BEDTIME 05/01/20 10/16/21 release calcium carbonate 600 mg-vitamin 1 tab PO DAILY 05/01/20 10/16/21 D3 10 mcg (400 unit) tablet carvedilol 3.125 mg tablet (Coreg) 3.125 mg PO BID 05/01/20 05/01/20 cyanocobalamin (vitamin B-12) 1 tab PO DAILY 05/01/20 10/16/21 1,000 mcg tablet docusate sodium 100 mg capsule 1 cap PO DAILY PRN 05/01/20 05/01/20 fluticasone propionate 50 2 spray INTRANASAL DAILY 05/01/20 05/01/20 mcg/actuation nasal spray,suspension folic acid 1 mg tablet 1 tab PO DAILY 05/01/20 05/01/20 furosemide 40 mg tablet 1 tab PO DAILY PRN 05/01/20 05/01/20 glipizide 10 mg tablet mg PO 05/01/20 insulin glargine 100 unit/mL (3 10 unit SUBCUT DAILY 05/01/20 05/01/20 mL) subcutaneous pen (Lantus Solostar U-100 Insulin) ipratropium 20 mcg-albuterol 100 INHALATION 05/01/20 mcg/actuation mist for inhalation (Combivent Respimat) loratadine 10 mg tablet 1 tab PO DAILY 05/01/20 05/01/20 rosuvastatin 40 mg tablet 1 tab PO DAILY 05/01/20 10/16/21 tramadol 50 mg tablet 1 tab PO Q12H PRN 05/01/20 05/01/20 folic acid 1 mg tablet 1 mg PO DAILY 10/16/21 10/16/21 midodrine 10 mg tablet 0 mg PO BID PRN 10/16/21 10/16/21 pregabalin 50 mg capsule 50 mg PO TID 10/16/21 10/16/21 alcohol swabs (Alcohol Prep Pads) 1 pad TOPICAL TID 12/07/21 blood sugar diagnostic (FreeStyle #10 ea 12/07/21 Lite Strips) lancets 33 gauge (TRUEplus Lancets) #100 ea 12/07/21 pen needle, diabetic 32 gauge x #50 ea 12/07/21/32 (BD Ultra-Fine Vidya Pen Needle) Previous Rx's Medication Instructions Recorded quetiapine 25 mg tablet 12.5 mg PO BEDTIME 28 Days #14 tab 10/16/21 Allergies Allergy/AdvReac Type Severity Reaction Status Date / Time valsartan [Diovan] Allergy Unknown Unknown Verified 12/07/21 10:30 No Known Allergies Allergy Verified 12/07/21 10:30 simvastatin AdvReac Unknown increased Verified 12/07/21 10:30 liver enzymes Review of Systems Review of Systems: Constitutional : No Weight loss, No Fever, No Chills, No Night Sweats, No Fatigue, No Malaise ENT/Mouth : No Hearing loss, No Ear Pain, No Nasal Congestion, No Sinus Pain, No Hoarseness, No sore throat, No Rhinorrhea, No Swallowing Difficulty Eyes: No Eye Pain, No Swelling, No Redness, No Foreign Body, No Discharge, earlier today had blurry vision, back to normal now. Cardiovascular : No Chest Pain, No SOB, No Dyspnea on Exertion, No Orthopnea, No Edema, No Palpitations Respiratory : No Cough, No Sputum, No Wheezing, No Smoke Exposure, No Dyspnea Gastrointestinal : No Nausea, No Vomiting, No Diarrhea, No Constipation, No abdominal Pain, No Hematochezia, No Melena Genitourinary : no irregular bleeding, No Dysuria, No Urinary Frequency, No Hematuria, No Urinary Incontinence, No Urgency, No Flank Pain, complaining of chronic difficulty urinating, No Hesitancy Musculoskeletal : No joint pain, No Myalgias, No Joint Swelling Skin : No Skin Lesions, No rash Neuro : No Weakness, No Numbness, No Paresthesias, No Loss of Consciousness, No Dizziness, No Headache Psych : No Anxiety/Panic, No Depression, No SI/HI/AH/VH, No Social Issues, Heme/Lymph: No Bruising, No Bleeding,No Lymphadenopathy Endocrine : No Polyuria, No Polydipsia, No Temperature Intolerance [facility] Past Medical History Medical History Back pain CAD (coronary artery disease) Cardiomyopathy CHF (congestive heart failure) Chronic renal insufficiency COPD (chronic obstructive pulmonary disease) Diabetes Elevated cholesterol GERD (gastroesophageal reflux disease) HTN (hypertension) Hx of gastritis Hx of ventricular tachycardia Pacemaker Spondylosis Surgical History AICD (automatic cardioverter/defibrillator) present H/O cystoscopy Hx of colonoscopy Hx of right inguinal hernia repair Social History Social History Household Members: Spouse Alcohol intake: never Patient Tobacco Use Status: Former Tobacco user Advance Directives: No Physical Exam ED Vital Signs: Vital Signs - 24 hr 12/07/21 10:58 12/07/21 16:55 12/07/21 16:58 Temperature 98.1 F 97.6 F Pulse Rate 78 64 69 Respiratory Rate 18 18 Blood Pressure 135/60 100/47 L 79/39 L Pulse Oximetry 98 100 12/07/21 17:00 12/07/21 19:55 12/07/21 20:47 Temperature 97.6 F Pulse Rate 68 57 59 Respiratory Rate 16 Blood Pressure 96/48 L 120/56 L 119/66 Pulse Oximetry 95 12/07/21 20:48 12/07/21 20:51 12/07/21 21:41 Temperature Pulse Rate 69 65 58 Respiratory Rate Blood Pressure 117/57 L 75/42 L 146/67 H Pulse Oximetry 12/07/21 21:44 12/07/21 21:46 Temperature Pulse Rate 62 67 Respiratory Rate Blood Pressure 119/53 L 125/67 Pulse Oximetry BMI result Body Mass Index 25.6 Const Other: Appearance: Alert. Oriented X3. No acute distress. Eyes: Pupils equal, round and reactive to light. ENT: Pharynx normal. Neck: Normal inspection. Neck supple. No lymph nodes noted. No crepitus CVS: Normal heart rate and rhythm. Pulses normal. Normal S1 and S2 Respiratory: No respiratory distress. Breath sounds normal. No Wheezing. No rales Abdomen: Soft and nontender. No rigidity. No distention. Skin: Skin warm and dry. Normal skin color. Normal skin turgor. Extremities: No lower extremity edema. No Lacerations. No Rash Neuro: Oriented X 3. No motor deficit. No sensory deficit. Moving all extremities. No slurred speech. CN 2 through 12 grossly intact Psych: calm, cooperative, normal affect Course Course Course Narrative: Patient's blood pressure on arrival 135/60, by time I saw the patient it was rep eated, 145 systolic. Patient asymptomatic. Some of the labs are pending Creatinine is at baseline. Troponin also at baseline pleural Patient's orthostatics were positive, patient received IV fluids and his dose of midodrine 10 mg. After IV fluids, his orthostatics no longer positive. patient is feeling much better. Patient ready for discharge. Medical Decision Making Lab Data Result diagrams: 12/07/21 11:08 12/07/21 11:08 Labs: Lab Results 12/07/21 12/07/21 12/07/21 Range/Units 11:08 11:08 11:09 WBC 6.3 (4.8-10.8) X10*3/uL RBC 3.83 L (4.60-5.80) X10*6/uL Hgb 11.0 L (14.0-18.0) g/dl Hct 35.3 L (42.0-52.0) % MCV 92.2 (80.0-98.0) fL MCH 28.7 (27.0-33.0) pg MCHC 31.2 (31.0-36.0) g/dl RDW 15.0 (11.0-16.0) % Plt Count 238 (160-400) X10*3/uL MPV 11.4 (9.4-12.4) fL Immature Gran % (Auto) 1.4 H (0.0-0.4) % Neut % (Auto) 66.6 (45-73) % Lymph % (Auto) 19.8 L (20-40) % Wallace % (Auto) 11.7 H (2-11) % Eos % (Auto) 0.2 (0-4) % Baso % (Auto) 0.3 (0-2) % Lymph # (Auto) 1.3 (1.2-4.9) X10*3/uL Wallace # (Auto) 0.7 (0.1-1.2) X10*3/uL Eos # (Auto) 0.0 (0.0-0.4) X10*3/uL Baso # (Auto) 0.0 (0.0-0.2) X10*3/uL Abs Immat Gran (auto) 0.09 H (0.00-0.03) X10*3/uL Absolute Neuts (auto) 4.2 (2.0-8.3) x10*3/uL Absolute Nucleated RBC 0.000 (0.0-0.012) X10*3/uL Nucleated RBC % (auto) 0.0 (0.0-0.2) /100WBC Sodium 136 (135-145) mmol/L Potassium 4.6 (3.3-5.1) mmol/L Chloride 107 (96-108) mmol/L Carbon Dioxide 21 L (22-29) mmol/L Anion Gap 13 (12-20) BUN 27 H (9-16) mg/dL Creatinine 3.03 H (0.5-1.4) mg/dL Estim Creat Clear Calc 19.7 Estimated GFR 21 POC Glucose 314 H (60-115) mg/dL Random Glucose 338 H (60-115) mg/dL Calcium 9.1 D (8.4-10.2) mg/dL Total Bilirubin 0.5 (0.0-1.0) mg/dL AST 20 (5-37) U/L ALT 21 (0-40) U/L Alkaline Phosphatase 134 H (39-117) U/L Troponin I High Sens (<3.5-35.0) ng/L B-Natriuretic Peptide (<100) pg/mL Total Protein 7.2 (6.5-8.0) g/dL Albumin 3.8 (3.5-5.0) g/dL Urine Color Urine Appearance Urine pH (5.0-8.0) Ur Specific [place] (1.005-1.025) Urine Protein (NEG-TRACE) MG/DL Urine Glucose (UA) (NEG) MG/DL Urine Ketones (NEG) MG/DL Urine Blood (NEG) Urine Nitrite (NEG) Ur Leukocyte Esterase (NEG) Urine RBC (0) /HPF Urine WBC (0-4) /HPF Ur Squamous Epith Cells /LPF Amorphous Sediment /LPF Urine Bacteria /LPF Granular Casts /LPF 12/07/21 12/07/21 12/07/21 Range/Units 15:53 16:27 16:27 WBC (4.8-10.8) X10*3/uL RBC (4.60-5.80) X10*6/uL Hgb (14.0-18.0) g/dl Hct (42.0-52.0) % MCV (80.0-98.0) fL MCH (27.0-33.0) pg MCHC (31.0-36.0) g/dl RDW (11.0-16.0) % Plt Count (160-400) X10*3/uL MPV (9.4-12.4) fL Immature Gran % (Auto) (0.0-0.4) % Neut % (Auto) (45-73) % Lymph % (Auto) (20-40) % Wallace % (Auto) (2-11) % Eos % (Auto) (0-4) % Baso % (Auto) (0-2) % Lymph # (Auto) (1.2-4.9) X10*3/uL Wallace # (Auto) (0.1-1.2) X10*3/uL Eos # (Auto) (0.0-0.4) X10*3/uL Baso # (Auto) (0.0-0.2) X10*3/uL Abs Immat Gran (auto) (0.00-0.03) X10*3/uL Absolute Neuts (auto) (2.0-8.3) x10*3/uL Absolute Nucleated RBC (0.0-0.012) X10*3/uL Nucleated RBC % (auto) (0.0-0.2) /100WBC Sodium (135-145) mmol/L Potassium (3.3-5.1) mmol/L Chloride (96-108) mmol/L Carbon Dioxide (22-29) mmol/L Anion Gap (12-20) BUN (9-16) mg/dL Creatinine (0.5-1.4) mg/dL Estim Creat Clear Calc Estimated GFR POC Glucose 268 H (60-115) mg/dL Random Glucose (60-115) mg/dL Calcium (8.4-10.2) mg/dL Total Bilirubin (0.0-1.0) mg/dL AST (5-37) U/L ALT (0-40) U/L Alkaline Phosphatase (39-117) U/L Troponin I High Sens 9.4 (<3.5-35.0) ng/L B-Natriuretic Peptide 115 H (<100) pg/mL Total Protein (6.5-8.0) g/dL Albumin (3.5-5.0) g/dL Urine Color YELLOW Urine Appearance CLEAR Urine pH 6.0 (5.0-8.0) Ur Specific [place] 1.025 (1.005-1.025) Urine Protein 2+ H (NEG-TRACE) MG/DL Urine Glucose (UA) >=1000 H (NEG) MG/DL Urine Ketones NEG (NEG) MG/DL Urine Blood 2+ H (NEG) Urine Nitrite NEG (NEG) Ur Leukocyte Esterase NEG (NEG) Urine RBC 0-2 (0) /HPF Urine WBC 0-2 (0-4) /HPF Ur Squamous Epith Cells TRACE /LPF Amorphous Sediment 1+ /LPF Urine Bacteria TRACE /LPF Granular Casts 5-9 /LPF 12/07/21 Range/Units 19:13 WBC (4.8-10.8) X10*3/uL RBC (4.60-5.80) X10*6/uL Hgb (14.0-18.0) g/dl Hct (42.0-52.0) % MCV (80.0-98.0) fL MCH (27.0-33.0) pg MCHC (31.0-36.0) g/dl RDW (11.0-16.0) % Plt Count (160-400) X10*3/uL MPV (9.4-12.4) fL Immature Gran % (Auto) (0.0-0.4) % Neut % (Auto) (45-73) % Lymph % (Auto) (20-40) % Wallace % (Auto) (2-11) % Eos % (Auto) (0-4) % Baso % (Auto) (0-2) % Lymph # (Auto) (1.2-4.9) X10*3/uL Wallace # (Auto) (0.1-1.2) X10*3/uL Eos # (Auto) (0.0-0.4) X10*3/uL Baso # (Auto) (0.0-0.2) X10*3/uL Abs Immat Gran (auto) (0.00-0.03) X10*3/uL Absolute Neuts (auto) (2.0-8.3) x10*3/uL Absolute Nucleated RBC (0.0-0.012) X10*3/uL Nucleated RBC % (auto) (0.0-0.2) /100WBC Sodium (135-145) mmol/L Potassium (3.3-5.1) mmol/L Chloride (96-108) mmol/L Carbon Dioxide (22-29) mmol/L Anion Gap (12-20) BUN (9-16) mg/dL Creatinine (0.5-1.4) mg/dL Estim Creat Clear Calc Estimated GFR POC Glucose 187 H (60-115) mg/dL Random Glucose (60-115) mg/dL Calcium (8.4-10.2) mg/dL Total Bilirubin (0.0-1.0) mg/dL AST (5-37) U/L ALT (0-40) U/L Alkaline Phosphatase (39-117) U/L Troponin I High Sens (<3.5-35.0) ng/L B-Natriuretic Peptide (<100) pg/mL Total Protein (6.5-8.0) g/dL Albumin (3.5-5.0) g/dL Urine Color Urine Appearance Urine pH (5.0-8.0) Ur Specific [place] (1.005-1.025) Urine Protein (NEG-TRACE) MG/DL Urine Glucose (UA) (NEG) MG/DL Urine Ketones (NEG) MG/DL Urine Blood (NEG) Urine Nitrite (NEG) Ur Leukocyte Esterase (NEG) Urine RBC (0) /HPF Urine WBC (0-4) /HPF Ur Squamous Epith Cells /LPF Amorphous Sediment /LPF Urine Bacteria /LPF Granular Casts /LPF Discharge Plan Discharge Clinical Impression: Orthostatic hypotension Patient Disposition: Home, Self-Care Instructions: Hypotension (ED) Additional Instructions: Please follow-up with your primary care physician tomorrow. If you have any worsening or new symptoms, please return to the emergency room or call 911 Prescriptions: No Action furosemide 40 mg tablet 1 tab PO DAILY PRN (Reason: Edema) 0RF amiodarone 200 mg tablet 1 tab PO DAILY 0RF glipizide 10 mg tablet PO 0RF cyanocobalamin (vitamin B-12) 1,000 mcg tablet 1 tab PO DAILY 0RF aspirin 81 mg tablet,delayed release (DR/EC) 1 tab PO BEDTIME 0RF tramadol 50 mg tablet 1 tab PO Q12H PRN (Reason: severe pain) 0RF amitriptyline 50 mg tablet 1 tab PO BEDTIME 0RF carvedilol [Coreg] 3.125 mg Tablet 3.125 mg PO BID 0RF docusate sodium 100 mg capsule 1 cap PO DAILY PRN (Reason: constipation) 0RF folic acid 1 mg tablet 1 tab PO DAILY 0RF albuterol sulfate 90 mcg/actuation HFA aerosol inhaler 2 puff PO Q4-6H PRN (Reason: wheezing) 0RF fluticasone propionate 50 mcg/actuation spray,suspension 2 spray intranasal DAILY 0RF loratadine 10 mg tablet 1 tab PO DAILY 0RF rosuvastatin 40 mg tablet 1 tab PO DAILY 0RF calcium carbonate-vitamin D3 600 mg(1,500mg) -400 unit tablet 1 tab PO DAILY 0RF Lantus Solostar U-100 Insulin 100 unit/mL (3 mL) insulin pen 10 unit subcut DAILY 0RF Combivent Respimat 20-100 mcg/actuation mist inhalation 0RF pregabalin 50 mg capsule 50 mg PO TID 0RF midodrine 10 mg tablet 0 mg PO BID PRN0RF folic acid 1 mg tablet 1 mg PO DAILY 0RF quetiapine 25 mg tablet 12.5 mg PO BEDTIME 28 Days Qty: 14 3RF (DME) lancets [TRUEplus Lancets] 33 gauge misc See Rx Instructions ea topical .MEDSUPPLY Qty: 100 0RF Rx Instructions: As directed alcohol swabs [Alcohol Prep Pads] Pads, Medicated 1 pad topical TID 0RF (DME) FreeStyle Lite Strips Strip See Rx Instructions ea Not Applicable .MEDSUPPLY Qty: 10 0RF Rx Instructions: As directed (DME) pen needle, diabetic [BD Ultra-Fine Vidya Pen Needle] 32 gauge x 5/32 needle See Rx Instructions ea subcut DAILY Qty: 50 0RF Rx Instructions: As directed
[2021-12-07 16:36] LABS: Appearance Urine CLEAR; Color Urine YELLOW; Glucose Urine UA >=1000 MG/DL (NEG); Leukocyte Esterase Urine NEG (NEG); Nitrite Urine NEG (NEG); Specific Gravity - Urine 1.025 (1.005-1.025); UACC Culture Trigger NO; Urine Blood 2+ (NEG); Urine Ketones NEG (NEG); Urine Protein 2+ MG/DL (NEG-TRACE)
[2021-12-07 16:49] LABS: Squamous Epithelial Cell Urine TRACE /LPF
[2021-12-07 16:50] LABS: Bacteria Urine TRACE /LPF
[2021-12-07 16:51] LABS: Amorphous Sediment Urine 1+ /LPF; RBC Urine 0-2 /HPF (0); WBC Urine 0-2 /HPF (0-4)
[2021-12-07 16:54] LABS: B Type Natriuretic Peptide 115 pg/mL (<100); Troponin-I High Sensitivity 9.4 ng/L (<3.5-35.0)
[2021-12-07] MEDS: Midodrine HCl 10 MG TABLET PO (17:32)
[2021-12-07 19:25] LABS: Glucose, Whole Blood 187 mg/dL (60-115)
[2021-12-07] MEDS: 0.9 % Sodium Chloride 1,000 ML 999 ML IVCONT (19:46)
== END 2021-12-07 22:22 | disposition home or self-care (01) ==
PROVIDERS: Emergency Provider Emergency Medicine; PCP Family Medicine
DX: I95.1 Orthostatic hypotension (principal); R31.29 Other microscopic hematuria; E11.22 Type 2 diabetes mellitus with diabetic chronic kidney disease; I13.0 Hypertensive heart and chronic kidney disease with heart failure and stage 1 through stage 4 chronic kidney disease, or unspecified chronic kidney disease; N18.9 Chronic kidney disease, unspecified; I50.9 Heart failure, unspecified; I25.10 Atherosclerotic heart disease of native coronary artery without angina pectoris; I42.9 Cardiomyopathy, unspecified; J44.9 Chronic obstructive pulmonary disease, unspecified; Z79.899 Other long term (current) drug therapy; Z95.810 Presence of automatic (implantable) cardiac defibrillator
CPT/HCPCS: 36415; 80053; 81001; 82947; 83880; 84484; 85025; 93005; 96360; 99212; 99284

== ENCOUNTER 2021-12-27 09:19 | Outpatient (REF) | payer OTHER, SELFPAY ==
[2021-12-27 11:14] LABS: INTERNATIONAL NORM RATIO 1.1 (0.9-1.1); Prothrombin Time 12.3 SEC (9.9-13.0)
[2021-12-28 21:32] LABS: Myeloperoxidase Antibody <1.0 AI; Proteinase 3 PR3 Antibodies <1.0 AI
[2021-12-31 15:21] LABS: Prot Elec - Albumin 3.8 g/dL (3.8-4.8); Prot Elec - Alpha1 0.4 g/dL (0.2-0.3); Prot Elec - Beta 1 0.4 g/dL (0.4-0.6); Prot Elec - Beta 2 0.4 g/dL (0.2-0.5); Prot Elec - Gamma 1.3 g/dL (0.8-1.7); Prot Elec - Total Protein 7.2 g/dL (6.1-8.1)
[2022-01-01 14:15] LABS: Smooth Muscle Antibody <20 U (<20)
[2022-01-01 15:42] LABS: Mitochondrial Antibodies NEGATIVE (NEGATIVE)
== END 2021-12-27 09:20 | disposition home or self-care (01) ==
LOC: HO.LAB 09:19
PROVIDERS: PCP Family Medicine; Referring Provider Family Medicine; Visit Provider Internal Medicine Gastroenterology
DX: Z01.818 Encounter for other preprocedural examination (principal); R74.8 Abnormal levels of other serum enzymes; K21.9 Gastro-esophageal reflux disease without esophagitis; K31.A0 Gastric intestinal metaplasia, unspecified; R14.0 Abdominal distension (gaseous); K59.09 Other constipation
CPT/HCPCS: 36415; 84165; 85610; 86015; 86021; 86255; 86256; 99212

== ENCOUNTER 2022-01-11 09:46 | Outpatient (REF) | payer OTHER, SELFPAY ==
--- NOTE | ~2022-01-11 | US_ITS ---
EXAMINATION: US ABDOMEN COMPLETE CLINICAL INFORMATION: Abdominal distention (gaseous). COMPARISON: Ultrasound abdomen 04/15/2019, CT abdomen and pelvis 05/28/2018. TECHNIQUE: Real-time imaging of the abdominal viscera. FINDINGS: PANCREAS: Normal. ABDOMINAL AORTA: The proximal, mid, and distal segments are normal in caliber. INFERIOR VENA CAVA: Visualized portions are normal. LIVER: The liver is normal in size. The liver contour is normal. There is diffuse increased liver echogenicity. No focal hepatic lesion. There is no intrahepatic biliary duct dilatation seen. There is no free fluid visualized GALLBLADDER: The gallbladder is physiologically distended. Multiple mobile gallstones are present. No evidence of gallbladder wall thickening or pericholecystic fluid. The gallbladder wall thickness is 0.28 seen. COMMON BILE DUCT: Normal in caliber measuring 0.3 cm in diameter. RIGHT KIDNEY: Normal. No hydronephrosis. No renal calculi or focal parenchymal lesions. The kidney measures 9.0 cm in maximum dimension. LEFT KIDNEY: Normal. No hydronephrosis. No renal calculi or focal parenchymal lesions. The kidney measures 9.4 cm in maximum dimension. SPLEEN: Normal. The spleen measures 10.5 cm in maximum dimension. FREE FLUID: None. US/US abdomen complete IMPRESSION: There is no free fluid. Hepatic steatosis without focal lesions. Cholelithiasis without wall thickening.
== END 2022-01-11 09:47 | disposition home or self-care (01) ==
LOC: HO.HMGCX 09:46
PROVIDERS: PCP Family Medicine; Visit Provider Internal Medicine Gastroenterology
DX: R14.0 Abdominal distension (gaseous) (principal)
CPT/HCPCS: 76700

== ENCOUNTER → 2022-01-16 10:57 | Outpatient (BNVA) | payer OTHER, SELFPAY | PROVIDERS: PCP Family Medicine; Visit Provider Anesthesiology | DX: G89.4 Chronic pain syndrome (principal); M47.816 Spondylosis without myelopathy or radiculopathy, lumbar region; M54.50 Low back pain, unspecified | CPT/HCPCS: 99202 ==

== ENCOUNTER 2022-02-26 06:13 | Outpatient (REF) | payer OTHER, SELFPAY | END 2022-02-26 06:14 | disposition home or self-care (01) | LOC: HO.RADIR 06:13 | PROVIDERS: Visit Provider Anesthesiology | DX: Z13.89 Encounter for screening for other disorder (principal) ==

== ENCOUNTER 2022-03-28 12:55 | Outpatient (REF) | payer OTHER, SELFPAY ==
--- NOTE | ~2022-03-28 | XR_ITS ---
EXAMINATION: XR LUMBOSACRAL SPINE WITH OBLIQUES CLINICAL INFORMATION: Spondylosis COMPARISON: Previous x-ray March 2020 TECHNIQUE: AP, both oblique, and lateral views of the lumbar spine. Lateral view of the lumbosacral junction. FINDINGS: There is mild curvature of the lumbar sacral spine to the right. There is mild 2 mm anterior subluxation of L4 with respect L5. Bone alignment is otherwise normal. No fracture or dislocation. There is multilevel degenerative spondylosis lower thoracic and upper lumbar spine. There is degenerative disc disease at L4-L5. There is lower lumbar spine facet arthritis. There is evidence of atherosclerotic disease. XR/XR lumbar spine 4V min IMPRESSION: Degenerative changes.
== END 2022-03-28 12:56 | disposition home or self-care (01) ==
LOC: HO.XRAY 12:55
PROVIDERS: Visit Provider Family Medicine
DX: M47.816 Spondylosis without myelopathy or radiculopathy, lumbar region (principal)
CPT/HCPCS: 72110

== ENCOUNTER → 2022-04-02 09:40 | Outpatient (BNVA) | payer MEDICARE, SELFPAY | PROVIDERS: PCP Family Medicine; Visit Provider Nurse Practitioner Family | DX: G20 Parkinson's disease (principal); G90.3 Multi-system degeneration of the autonomic nervous system | CPT/HCPCS: 99212 ==

== ENCOUNTER 2022-04-06 21:12 | Inpatient (IN) | payer MEDICARE, SELFPAY ==
--- NOTE | ~2022-04-06 | XR_ITS ---
EXAMINATION: XR CHEST CLINICAL INFORMATION: Shortness of breath COMPARISON: 06/27/2021 TECHNIQUE: Frontal view of the chest was obtained. FINDINGS: Single lead AICD stably position. Small bilateral pleural effusions with accompanying atelectasis. No pneumothorax. Normal heart size and pulmonary vascularity. No acute osseous abnormalities. XR/XR chest 1V IMPRESSION: Small bilateral pleural effusions with accompanying atelectasis.
--- NOTE | 2022-04-06 21:20 | ECG_ITS ---
Test Reason : difficulty breathing Blood Pressure : / mmHG Vent. Rate : 085 BPM Atrial Rate : 085 BPM P-R Int : 172 ms QRS Dur : 172 ms QT Int : 500 ms P-R-T Axes : 057 -69 091 degrees QTc Int : 595 ms Normal sinus rhythm Possible Left atrial enlargement Right bundle branch block Left anterior fascicular block Bifascicular block Anteroseptal infarct (cited on or before 07-DEC-2021) T wave abnormality, consider lateral ischemia Abnormal ECG When compared with ECG of 07-DEC-2021 10:55, Questionable change in initial forces of Anterior leads T wave amplitude has increased in Lateral leads QT has lengthened Referred By: Darleen Morales Electronically Signed By:CARROLL JUNIOR
[2022-04-06 21:25] VITALS: BP 132/74; BP 176/97; PULSE 104; PULSE 80; RESP 26; O2SAT 96; BMI 24.6
[2022-04-06 21:31] LABS: MANUAL DIFF FLAG NO
[2022-04-06 21:36] LABS: Basophils Percent Auto 0.3 % (0-2); Eosinophils Percent Auto 0.2 % (0-4); Hematocrit 37.7 % (42.0-52.0); Hemoglobin 11.8 g/dl (14.0-18.0); Imm Gran Abs Auto 0.08 X10*3/uL (0.00-0.03); Imm Gran Pct Auto 0.8 % (0.0-0.4); Lymphocytes Absolute Auto 2.9 X10*3/uL (1.2-4.9); Lymphocytes Percent Auto 27.6 % (20-40); Mean Corpuscular HGB Conc 31.3 g/dl (31.0-36.0); Mean Corpuscular Hemoglobin 28.8 pg (27.0-33.0); Mean Platelet Volume 11.5 fL (9.4-12.4); Monocytes Absolute Auto 0.9 X10*3/uL (0.1-1.2); Monocytes Percent Auto 8.9 % (2-11); Neutrophils Absolute Auto 6.5 x10*3/uL (2.0-8.3); Neutrophils Percent Auto 62.2 % (45-73); Platelet Count 349 X10*3/uL (160-400); Red Cell Distribution Width 15.6 % (11.0-16.0); White Blood Count 10.5 X10*3/uL (4.8-10.8)
[2022-04-06] MEDS: Albuterol Sulfate 7.5 MG, Albuterol Sulfate (0.083%) 2.5 MG 10 MG INHALE (21:38)
[2022-04-06] MEDS: methylPREDNISolone Sod Succ 125 MG/2 ML VIAL IVPUSH (21:39)
[2022-04-06 21:41] VITALS: PULSE 77; RESP 24; O2SAT 97
[2022-04-06 21:41] LABS: VBG Base Excess -0.7 mmol/L; VBG HCO3 23 mmol/L (22-26); VBG pCO2 38 mmHg; VBG pO2 130 mmHg
[2022-04-06 21:42] LABS: INTERNATIONAL NORM RATIO 1.1 (0.9-1.1); Prothrombin Time 12.5 SEC (10.0-13.1)
[2022-04-06 21:43] LABS: Venous Blood Gas Refer to POC result
[2022-04-06 22:00] VITALS: BP 120/50; PULSE 75; RESP 18; O2SAT 96
[2022-04-06 22:04] LABS: Alanine Aminotransferase 18 U/L (0-40); Alkaline Phosphatase 131 U/L (39-117); Anion Gap 17 (12-20); Aspartate Amino Transferase 26 U/L (5-37); Bilirubin Total 0.7 mg/dL (0.0-1.0); Blood Urea Nitrogen 18 mg/dL (9-16); Calcium 8.4 mg/dL (8.4-10.2); Carbon Dioxide 21 mmol/L (22-29); Chloride 106 mmol/L (96-108); Creatinine Clr Calc Pharmacy 32.2; Estimated Glomerular Filt Rate 37; Glucose Random 203 mg/dL (60-115); Potassium 3.2 mmol/L (3.3-5.1); Sodium 141 mmol/L (135-145); Total Protein 7.6 g/dL (6.5-8.0)
--- NOTE | 2022-04-06 22:07 | ED_ITS ---
HPI - SOB/Dyspnea General Chief Complaint: Dyspnea Stated Complaint: SOB Time Seen by Provider: 04/06/22 21:19 Source: patient and family Mode of arrival: EMS History of Present Illness HPI Narrative: 72-year-old male with history of COPD, diabetes, high blood pressure is brought in by EMS for complaints of worsening shortness of breath over the past 3 weeks. Patient does have some complaints right-sided abdominal pain, EMS states that he has been pale, received 1 DuoNeb EN route and had been started on CPAP. Initially, they were unable to obtain an oxygen saturation. Patient denies any fever, chills and denies any chest pain. Related Data Home Medications Medication Instructions Recorded Confirmed albuterol sulfate 90 mcg/actuation 2 puff PO Q4-6H PRN wheezing 05/01/20 04/05/22 aerosol inhaler amiodarone 200 mg tablet 1 tab PO DAILY 05/01/20 04/05/22 amitriptyline 50 mg tablet 1 tab PO BEDTIME 05/01/20 04/05/22 aspirin 81 mg tablet,delayed 1 tab PO BEDTIME 05/01/20 04/05/22 release calcium carbonate 600 mg-vitamin 1 tab PO DAILY 05/01/20 04/05/22 D3 10 mcg (400 unit) tablet fluticasone propionate 50 2 spray intranasal DAILY 05/01/20 04/05/22 mcg/actuation nasal spray,suspension insulin glargine 100 unit/mL (3 10 unit subcut DAILY 05/01/20 04/05/22 mL) subcutaneous pen (Lantus Solostar U-100 Insulin) ipratropium 20 mcg-albuterol 100 inhalation 05/01/20 12/27/21 mcg/actuation mist for inhalation (Combivent Respimat) rosuvastatin 40 mg tablet 1 tab PO DAILY 05/01/20 04/05/22 folic acid 1 mg tablet 1 mg PO DAILY 10/16/21 04/05/22 pregabalin 50 mg capsule 50 mg PO TID 10/16/21 04/05/22 alcohol swabs (Alcohol Prep Pads) 1 pad topical TID 12/07/21 12/27/21 blood sugar diagnostic (FreeStyle #10 ea 12/07/21 12/27/21 Lite Strips) lancets 33 gauge (TRUEplus Lancets) #100 ea 12/07/21 12/27/21 pen needle, diabetic 32 gauge x #50 ea 12/07/21 12/27/21/32 (BD Ultra-Fine Vidya Pen Needle) cyanocobalamin (vitamin B-12) 1,000 mcg PO DAILY 02/26/22 04/05/22 1,000 mcg tablet fludrocortisone 0.1 mg tablet 0.1 mg PO QAM 02/26/22 04/05/22 sennosides 8.6 mg tablet (senna) 17.2 mg PO BEDTIME PRN constipation 02/26/22 Previous Rx's Medication Instructions Recorded bisacodyl 5 mg tablet,delayed 10 mg PO ONCE 3 days #6 tabs 12/27/21 release (Dulcolax (bisacodyl)) polyethylene glycol 3350 17 17 g PO DAILY colon prep 1 day 12/27/21 gram/dose oral powder (Miralax) #238 grams sennosides 8.6 mg capsule (senna) 17.2 mg PO DAILY PRN constipation 12/27/21 30 days #60 caps midodrine 10 mg tablet 10 mg PO QID 30 days #120 tabs 03/11/22 Allergies Allergy/AdvReac Type Severity Reaction Status Date / Time valsartan [Diovan] Allergy Unknown Unknown Verified 04/02/22 09:58 simvastatin AdvReac Unknown increased Verified 04/02/22 09:58 liver enzymes Review of Systems Review of Systems: Pertinent positives and negatives as stated in HPI 10 point review of systems is otherwise negative. [facility] [place] Past Medical History Source: nursing notes reviewed Medical History Back pain CAD (coronary artery disease) Cardiomyopathy CHF (congestive heart failure) Chronic renal insufficiency COPD (chronic obstructive pulmonary disease) Diabetes Elevated cholesterol GERD (gastroesophageal reflux disease) HTN (hypertension) Hx of gastritis Hx of ventricular tachycardia Pacemaker Spondylosis Surgical History AICD (automatic cardioverter/defibrillator) present H/O cystoscopy Hx of colonoscopy Hx of right inguinal hernia repair Family History Family History Mother No known health problems Father No known health problems Social History Social History Household Members: Spouse Alcohol intake: never Patient Tobacco Use Status: Former Tobacco user Advance Directives: No Advance Directives Information Provided: No Physical Exam Vital Signs: Vital Signs: Last Vital Signs Pulse 77 04/06/22 23:42 Resp 21 H 04/06/22 23:42 BP 140/71 H 04/06/22 23:42 Pulse Ox 97 04/07/22 00:11 O2 Del Method 04/07/22 00:11 O2 Flow Rate 3 04/07/22 00:11 FiO2 45 04/06/22 21:25 BMI result Body Mass Index 24.6 VITAL SIGNS: Reviewed. GENERAL: Well developed, well nourished, in severe distress. HEAD: Normocephalic/atraumatic EYES: PERRLA, EOMI EARS: Ext canals without abnormality OROPHARYNX: no oral lesions noted, posterior pharynx clear NECK: Supple, no adenopathy LUNGS: decreased breath sounds, increased work of breathing, patient on CPAP, SpO2<96> CARDIOVASCULAR: Regular rate and rhythm without noted murmurs, no JVD but b ilateral 1+ lower extremity edema. ABDOMEN: Soft, non-tender, non-distended with bowel sounds. MUSCULOSKELETAL: No tenderness, deformities, or effusions noted on gross inspection. EXTREMITIES: No cyanosis, clubbing or edema. SKIN: Inspection of the skin reveals no rashes NEUROLOGIC: Alert and oriented x 4. Strength and sensation to light touch were grossly intact x 4. Course Course Course Narrative: 72-year-old male with history and clinical presentation consistent with suspected CHF exacerbation. patient was able to be finally removed from the BiPAP machine, clinically and objectively consistent with CHF exacerbation, currently requiring nasal cannula but oxygenating well and appears comfortable. Patient received Lasix. I discussed case with the inpatient hospitalist who accepts admission. MDM - SOB/Dyspnea Lab Data Result diagrams: 04/06/22 21:25 04/06/22 21:25 Labs: Lab Results 04/06/22 04/06/22 04/06/22 Range/Units 21:25 21:25 21:25 WBC 10.5 (4.8-10.8) X10*3/uL RBC 4.10 L (4.60-5.80) X10*6/uL Hgb 11.8 L (14.0-18.0) g/dl Hct 37.7 L (42.0-52.0) % MCV 92.0 (80.0-98.0) fL MCH 28.8 (27.0-33.0) pg MCHC 31.3 (31.0-36.0) g/dl RDW 15.6 (11.0-16.0) % Plt Count 349 D (160-400) X10*3/uL MPV 11.5 (9.4-12.4) fL Immature Gran % (Auto) 0.8 H (0.0-0.4) % Neut % (Auto) 62.2 (45-73) % Lymph % (Auto) 27.6 (20-40) % [place] % (Auto) 8.9 (2-11) % Eos % (Auto) 0.2 (0-4) % Baso % (Auto) 0.3 (0-2) % Lymph # (Auto) 2.9 (1.2-4.9) X10*3/uL [place] # (Auto) 0.9 (0.1-1.2) X10*3/uL Eos # (Auto) 0.0 (0.0-0.4) X10*3/uL Baso # (Auto) 0.0 (0.0-0.2) X10*3/uL Abs Immat Gran (auto) 0.08 H (0.00-0.03) X10*3/uL Absolute Neuts (auto) 6.5 (2.0-8.3) x10*3/uL Absolute Nucleated RBC 0.000 (0.0-0.012) X10*3/uL Nucleated RBC % (auto) 0.0 (0.0-0.2) /100WBC PT 12.5 (10.0-13.1) SEC INR 1.1 (0.9-1.1) VBG pH (7.32-7.43) VBG pCO2 mmHg VBG pO2 mmHg VBG HCO3 (22-26) mmol/L VBG O2 Saturation % VBG Base Excess mmol/L Sodium (135-145) mmol/L Potassium (3.3-5.1) mmol/L Chloride (96-108) mmol/L Carbon Dioxide (22-29) mmol/L Anion Gap (12-20) BUN (9-16) mg/dL Creatinine (0.5-1.4) mg/dL Estim Creat Clear Calc Estimated GFR Random Glucose (60-115) mg/dL Lactic Acid (0.5-2.0) mmol/L Calcium (8.4-10.2) mg/dL Magnesium (1.6-2.6) mg/dL Total Bilirubin (0.0-1.0) mg/dL AST (5-37) U/L ALT (0-40) U/L Alkaline Phosphatase (39-117) U/L Troponin I High Sens (<3.5-35.0) ng/L B-Natriuretic Peptide 849 H (<100) pg/mL Total Protein (6.5-8.0) g/dL Albumin (3.5-5.0) g/dL COVID-19 (SHELIA) (Negative) COVID-19 Clin Com 04/06/22 04/06/22 04/06/22 Range/Units 21:25 21:25 21:25 WBC (4.8-10.8) X10*3/uL RBC (4.60-5.80) X10*6/uL Hgb (14.0-18.0) g/dl Hct (42.0-52.0) % MCV (80.0-98.0) fL MCH (27.0-33.0) pg MCHC (31.0-36.0) g/dl RDW (11.0-16.0) % Plt Count (160-400) X10*3/uL MPV (9.4-12.4) fL Immature Gran % (Auto) (0.0-0.4) % Neut % (Auto) (45-73) % Lymph % (Auto) (20-40) % [place] % (Auto) (2-11) % Eos % (Auto) (0-4) % Baso % (Auto) (0-2) % Lymph # (Auto) (1.2-4.9) X10*3/uL [place] # (Auto) (0.1-1.2) X10*3/uL Eos # (Auto) (0.0-0.4) X10*3/uL Baso # (Auto) (0.0-0.2) X10*3/uL Abs Immat Gran (auto) (0.00-0.03) X10*3/uL Absolute Neuts (auto) (2.0-8.3) x10*3/uL Absolute Nucleated RBC (0.0-0.012) X10*3/uL Nucleated RBC % (auto) (0.0-0.2) /100WBC PT (10.0-13.1) SEC INR (0.9-1.1) VBG pH (7.32-7.43) VBG pCO2 mmHg VBG pO2 mmHg VBG HCO3 (22-26) mmol/L VBG O2 Saturation % VBG Base Excess mmol/L Sodium 141 (135-145) mmol/L Potassium 3.2 L D (3.3-5.1) mmol/L Chloride 106 (96-108) mmol/L Carbon Dioxide 21 L (22-29) mmol/L Anion Gap 17 (12-20) BUN 18 H (9-16) mg/dL Creatinine 1.83 H (0.5-1.4) mg/dL Estim Creat Clear Calc 32.2 Estimated GFR 37 Random Glucose 203 H D (60-115) mg/dL Lactic Acid 2.0 (0.5-2.0) mmol/L Calcium 8.4 D (8.4-10.2) mg/dL Magnesium 1.9 (1.6-2.6) mg/dL Total Bilirubin 0.7 (0.0-1.0) mg/dL AST 26 (5-37) U/L ALT 18 (0-40) U/L Alkaline Phosphatase 131 H (39-117) U/L Troponin I High Sens 19.0 D (<3.5-35.0) ng/L B-Natriuretic Peptide (<100) pg/mL Total Protein 7.6 (6.5-8.0) g/dL Albumin 4.0 (3.5-5.0) g/dL COVID-19 (SHELIA) (Negative) COVID-19 Clin Com 04/06/22 04/06/22 Range/Units 21:25 21:32 WBC (4.8-10.8) X10*3/uL RBC (4.60-5.80) X10*6/uL Hgb (14.0-18.0) g/dl Hct (42.0-52.0) % MCV (80.0-98.0) fL MCH (27.0-33.0) pg MCHC (31.0-36.0) g/dl RDW (11.0-16.0) % Plt Count (160-400) X10*3/uL MPV (9.4-12.4) fL Immature Gran % (Auto) (0.0-0.4) % Neut % (Auto) (45-73) % Lymph % (Auto) (20-40) % [place] % (Auto) (2-11) % Eos % (Auto) (0-4) % Baso % (Auto) (0-2) % Lymph # (Auto) (1.2-4.9) X10*3/uL [place] # (Auto) (0.1-1.2) X10*3/uL Eos # (Auto) (0.0-0.4) X10*3/uL Baso # (Auto) (0.0-0.2) X10*3/uL Abs Immat Gran (auto) (0.00-0.03) X10*3/uL Absolute Neuts (auto) (2.0-8.3) x10*3/uL Absolute Nucleated RBC (0.0-0.012) X10*3/uL Nucleated RBC % (auto) (0.0-0.2) /100WBC PT (10.0-13.1) SEC INR (0.9-1.1) VBG pH 7.40 (7.32-7.43) VBG pCO2 38 mmHg VBG pO2 130 mmHg VBG HCO3 23 (22-26) mmol/L VBG O2 Saturation 100.0 % VBG Base Excess -0.7 mmol/L Sodium (135-145) mmol/L Potassium (3.3-5.1) mmol/L Chloride (96-108) mmol/L Carbon Dioxide (22-29) mmol/L Anion Gap (12-20) BUN (9-16) mg/dL Creatinine (0.5-1.4) mg/dL Estim Creat Clear Calc Estimated GFR Random Glucose (60-115) mg/dL Lactic Acid (0.5-2.0) mmol/L Calcium (8.4-10.2) mg/dL Magnesium (1.6-2.6) mg/dL Total Bilirubin (0.0-1.0) mg/dL AST (5-37) U/L ALT (0-40) U/L Alkaline Phosphatase (39-117) U/L Troponin I High Sens (<3.5-35.0) ng/L B-Natriuretic Peptide (<100) pg/mL Total Protein (6.5-8.0) g/dL Albumin (3.5-5.0) g/dL COVID-19 (SHELIA) Negative (Negative) COVID-19 Clin Com See Note ECG Data Attestation: I personally reviewed and interpreted this ECG as follows: Prior ECG tracings: available for review Interpretation: Normal sinus rhythm, HR - 85, RBBB, no STEMI, UT is within normal limits Critical Care Time Critical Care Time Critical Care Time: Yes Total Critical Care Time: 30 Attestation: I personally attest to this time spent taking care of the patient. Discharge Plan Discharge Clinical Impression: Acute respiratory failure, CHF exacerbation, Hypoxia Patient Disposition: Admitted As Inpatient Prescriptions: No Action midodrine 10 mg tablet 10 mg PO QID 30 Days Qty: 120 6RF amiodarone 200 mg tablet 1 tab PO DAILY aspirin 81 mg tablet,delayed release (DR/EC) 1 tab PO BEDTIME amitriptyline 50 mg tablet 1 tab PO BEDTIME albuterol sulfate 90 mcg/actuation HFA aerosol inhaler 2 puff PO Q4-6H PRN (Reason: wheezing) fluticasone propionate 50 mcg/actuation spray,suspension 2 spray intranasal DAILY rosuvastatin 40 mg tablet 1 tab PO DAILY calcium carbonate-vitamin D3 600 mg(1,500mg) -400 unit tablet 1 tab PO DAILY insulin glargine [Lantus Solostar U-100 Insulin] 100 unit/mL (3 mL) insulin pen 10 unit subcut DAILY Combivent Respimat 20-100 mcg/actuation mist inhalation senna 8.6 mg capsule 17.2 mg PO DAILY PRN (Reason: constipation) 30 Days Qty: 60 2RF Rx Instructions: Take 2 capsules by mouth at bedtime as needed for constipation bisacodyl [Dulcolax (bisacodyl)] 5 mg tablet,delayed release (DR/EC) 10 mg PO ONCE 3 Days Qty: 6 0RF Rx Instructions: Take 2 tablets at 12 pm starting 3 days before colonoscopy polyethylene glycol 3350 [Miralax] 17 gram/dose powder 17 g PO DAILY 1 Days Qty: 238 0RF Rx Instructions: Mix Miralax with 64 oz(8 cups) of Crystal light. Take 2 tablets of Dulcolax qt 12 pm. Wait to have your 1st bowel movement, then begin drinking Miralax. Drink a glass of Miralax every 10-15 minutes until you are finished. You will drink at least another 4 cups of clear liquid of your choice over the next 2 hours. Please drink as many clear liquids as possible You may have clear liquids up to four hours before your procedure pregabalin 50 mg capsule 50 mg PO TID folic acid 1 mg tablet 1 mg PO DAILY (DME) lancets [TRUEplus Lancets] 33 gauge misc See Rx Instructions topical .MEDSUPPLY Qty: 100 Rx Instructions: As directed alcohol swabs [Alcohol Prep Pads] Pads, Medicated 1 pad topical TID (DME) FreeStyle Lite Strips Strip See Rx Instructions Not Applicable .MEDSUPPLY Qty: 10 Rx Instructions: As directed (DME) pen needle, diabetic [BD Ultra-Fine Vidya Pen Needle] 32 gauge x 5/32 needle See Rx Instructions subcut DAILY Qty: 50 Rx Instructions: As directed cyanocobalamin (vitamin B-12) 1,000 mcg tablet 1,000 mcg PO DAILY sennosides [senna] 8.6 mg tablet 17.2 mg PO BEDTIME PRN (Reason: constipation) fludrocortisone 0.1 mg tablet 0.1 mg PO QAM
[2022-04-06 22:23] LABS: B Type Natriuretic Peptide 849 pg/mL (<100)
[2022-04-06 22:34] LABS: COVID-19 Test Negative (Negative)
[2022-04-06 23:17] LABS: Magnesium 1.9 mg/dL (1.6-2.6)
[2022-04-06] MEDS: Furosemide 100 MG/10 ML VIAL 60 MG IVPUSH (23:32)
[2022-04-06] MEDS: Potassium Chloride/H20 10 MEQ/100 ML PIGGYBACK 100 MEQ IV (23:33)
[2022-04-06 23:42] VITALS: BP 140/71; PULSE 77; RESP 21; O2SAT 95
[2022-04-07] VITALS (12 sets, daily range): BP systolic 98–147; BP diastolic 51–76; PULSE 70–92; RESP 16–20; TEMP 36.4–37.1; O2SAT 95–100; BMI 24.9
[2022-04-07] MEDS: Potassium Chloride/H20 10 MEQ/100 ML PIGGYBACK 100 MEQ IV ×3 (01:53→05:54)
--- NOTE | 2022-04-07 03:29 | P.HPHOSP_ITS ---
History of Present Illness Date of Service: 04/07/22 Chief Complaint: sob 72-year-old male with a past medical history of hypertension, hyperlipidemia, CAD, CHF, diabetes, GERD, gastritis, history of ventricular tachycardia status post pacemaker, CKD, chronic back pain, spondylosis presented to the hospital today with a chief complaint of shortness of breath. Patient reports that the today he had an episode of acute shortness of breath, associated dry cough. Mentioned that he had severe shortness of breath that he had fell on the ground because of shortness of breath. Mentions that he has history of COPD and tried his home inhalers with no significant improvement. Denied any history of home oxygen use. Denies any nausea vomiting or diarrhea. Denies any chest pain or palpitations. Denies any urinary symptoms. Review of all other systems is negative except mentioned above ER course: Per ER team patient on presentation was in acute short of breath, was briefly on the BiPAP, as respiratory status improved patient was placed on supplemental oxygen. Chest x-ray showed bilateral small pleural effusions, noted to have mildly elevated proBNP. Given a dose of Lasix. Admitted to the hospital for further management [facility] Medical History Back pain CAD (coronary artery disease) Cardiomyopathy CHF (congestive heart failure) Chronic renal insufficiency COPD (chronic obstructive pulmonary disease) Diabetes Elevated cholesterol GERD (gastroesophageal reflux disease) HTN (hypertension) Hx of gastritis Hx of ventricular tachycardia Pacemaker Spondylosis Family History Mother No known health problems Father No known health problems Surgical History AICD (automatic cardioverter/defibrillator) present H/O cystoscopy Hx of colonoscopy Hx of right inguinal hernia repair Social History Household Members: Spouse Alcohol intake: never Patient Tobacco Use Status: Former Tobacco user Advance Directives: No Advance Directives Information Provided: No Meds Allergies Allergy/AdvReac Type Severity Reaction Status Date / Time valsartan [Diovan] Allergy Unknown Unknown Verified 04/02/22 09:58 simvastatin AdvReac Unknown increased Verified 04/02/22 09:58 liver enzymes Active Medications: Current Medications Acetaminophen (Acetaminophen 325 Mg Tablet) 650 mg PO Q6H PRN PRN Reason: Pain, Mild (Pain Scale 1-3) Albuterol/Ipratropium (Albuterol/Iprat 2.5/0.5mg 3 Ml Ampul.Neb) 3 ml INHALE RQ4H WHILE AWAKE DEVI Azithromycin (Azithromycin 500 Mg Tablet) 500 mg PO Q24H DEVI Melatonin (Melatonin 3 Mg Tablet) 6 mg PO BEDTIME PRN PRN Reason: Insomnia Methylprednisolone Sodium Succinate (Methylprednisolone Sod Succ 40 Mg/Ml Vial) 40 mg IVPUSH Q6H DEVI Senna (Sennosides 8.6 Mg Tablet) 17.2 mg PO BEDTIME PRN PRN Reason: Constipation Sodium Chloride (0.9 % Sodium Chloride Flush 3 Ml Syringe) 3 ml IVFLUSH QSHIFT [facility] Home Medications Medication Instructions Recorded Confirmed Last Taken Type albuterol sulfate 90 mcg/actuation 2 puff PO Q4-6H PRN wheezing 05/01/20 04/05/22 Unknown History aerosol inhaler amiodarone 200 mg tablet 1 tab PO DAILY 05/01/20 04/05/22 Unknown History amitriptyline 50 mg tablet 1 tab PO BEDTIME 05/01/20 04/05/22 Unknown History aspirin 81 mg tablet,delayed 1 tab PO BEDTIME 05/01/20 04/05/22 Unknown History release calcium carbonate 600 mg-vitamin 1 tab PO DAILY 05/01/20 04/05/22 Unknown History D3 10 mcg (400 unit) tablet fluticasone propionate 50 2 spray intranasal DAILY 05/01/20 04/05/22 Unknown History mcg/actuation nasal spray,suspension insulin glargine 100 unit/mL (3 10 unit subcut DAILY 05/01/20 04/05/22 Unknown History mL) subcutaneous pen (Lantus Solostar U-100 Insulin) ipratropium 20 mcg-albuterol 100 inhalation 05/01/20 12/27/21 Unknown History mcg/actuation mist for inhalation (Combivent Respimat) rosuvastatin 40 mg tablet 1 tab PO DAILY 05/01/20 04/05/22 Unknown History folic acid 1 mg tablet 1 mg PO DAILY 10/16/21 04/05/22 Unknown History pregabalin 50 mg capsule 50 mg PO TID 10/16/21 04/05/22 Unknown History alcohol swabs (Alcohol Prep Pads) 1 pad topical TID 12/07/21 12/27/21 Unknown History blood sugar diagnostic (FreeStyle #10 ea 12/07/21 12/27/21 Unknown History Lite Strips) lancets 33 gauge (TRUEplus Lancets) #100 ea 12/07/21 12/27/21 Unknown History pen needle, diabetic 32 gauge x #50 ea 12/07/21 12/27/21 Unknown History (BD Ultra-Fine Vidya Pen Needle) cyanocobalamin (vitamin B-12) 1,000 mcg PO DAILY 02/26/22 04/05/22 Unknown History 1,000 mcg tablet fludrocortisone 0.1 mg tablet 0.1 mg PO QAM 02/26/22 04/05/22 Unknown History sennosides 8.6 mg tablet (senna) 17.2 mg PO BEDTIME PRN constipation 02/26/22 Unknown History Physical Exam Vital Signs and Narrative: Vital Signs: Last Vital Signs Pulse 71 04/07/22 02:00 Resp 17 04/07/22 02:00 BP 138/74 04/07/22 02:00 Pulse Ox 99 04/07/22 02:00 O2 Del Method 04/07/22 02:00 O2 Flow Rate 3 04/07/22 00:11 FiO2 45 04/06/22 21:25 BMI result Body Mass Index 24.6 Gen: Appears be in no acute distress HEENT: NCAT, Moist mucosa. Pulmonary: Coarse breath sounds CVS: Normal S1-S2 Abdomen: BS+, Soft, Nontender Extremities: Warm well perfused Neuro: Alert and awake. Results Labs CBC and Chem 7: 04/06/22 21:25 04/06/22 21:25 Labs: Laboratory Results - last 24 hr 04/06/22 04/06/22 04/06/22 21:25 21:25 21:25 MCV 92.0 MCH 28.8 MCHC 31.3 RDW 15.6 Plt Count 349 D MPV 11.5 Immature Gran % (Auto) 0.8 H Neut % (Auto) 62.2 Lymph % (Auto) 27.6 [place] % (Auto) 8.9 Eos % (Auto) 0.2 Baso % (Auto) 0.3 Lymph # (Auto) 2.9 [place] # (Auto) 0.9 Eos # (Auto) 0.0 Baso # (Auto) 0.0 Abs Immat Gran (auto) 0.08 H Absolute Neuts (auto) 6.5 Absolute Nucleated RBC 0.000 Nucleated RBC % (auto) 0.0 PT 12.5 INR 1.1 VBG pH VBG pCO2 VBG pO2 VBG HCO3 VBG O2 Saturation VBG Base Excess Anion Gap Estim Creat Clear Calc Estimated GFR Random Glucose Lactic Acid Calcium Magnesium Total Bilirubin AST ALT Alkaline Phosphatase B-Natriuretic Peptide 849 H Total Protein Albumin COVID-19 (SHELIA) COVID-19 Clin Com 04/06/22 04/06/22 04/06/22 21:25 21:25 21:25 MCV MCH MCHC RDW Plt Count MPV Immature Gran % (Auto) Neut % (Auto) Lymph % (Auto) [place] % (Auto) Eos % (Auto) Baso % (Auto) Lymph # (Auto) [place] # (Auto) Eos # (Auto) Baso # (Auto) Abs Immat Gran (auto) Absolute Neuts (auto) Absolute Nucleated RBC Nucleated RBC % (auto) PT INR VBG pH VBG pCO2 VBG pO2 VBG HCO3 VBG O2 Saturation VBG Base Excess Anion Gap 17 Estim Creat Clear Calc 32.2 Estimated GFR 37 Random Glucose 203 H D Lactic Acid 2.0 Calcium 8.4 D Magnesium 1.9 Total Bilirubin 0.7 AST 26 ALT 18 Alkaline Phosphatase 131 H B-Natriuretic Peptide Total Protein 7.6 Albumin 4.0 COVID-19 (SHELIA) Negative COVID-19 Clin Com See Note 04/06/22 21:32 MCV MCH MCHC RDW Plt Count MPV Immature Gran % (Auto) Neut % (Auto) Lymph % (Auto) [place] % (Auto) Eos % (Auto) Baso % (Auto) Lymph # (Auto) [place] # (Auto) Eos # (Auto) Baso # (Auto) Abs Immat Gran (auto) Absolute Neuts (auto) Absolute Nucleated RBC Nucleated RBC % (auto) PT INR VBG pH 7.40 VBG pCO2 38 VBG pO2 130 VBG HCO3 23 VBG O2 Saturation 100.0 VBG Base Excess -0.7 Anion Gap Estim Creat Clear Calc Estimated GFR Random Glucose Lactic Acid Calcium Magnesium Total Bilirubin AST ALT Alkaline Phosphatase B-Natriuretic Peptide Total Protein Albumin COVID-19 (SHELIA) COVID-19 Clin Com Imaging Radiologist's Impressions: Impressions Chest X-Ray 04/07/22 02:05 IMPRESSION: Small bilateral pleural effusions with accompanying atelectasis. Assessment and Plan (1) Acute respiratory failure: Status: Acute Plan 72-year-old male with a past medical history of hypertension, hyperlipidemia, CAD, CHF, diabetes, GERD, gastritis, history of ventricular tachycardia status post pacemaker, CKD, chronic back pain, spondylosis presented to the hospital today with a chief complaint of shortness of breath. Noted to be in acute hypoxic respiratory failure. Admitted for further management. Acute hypoxic respiratory failure: In the setting of COPD/CHF Noted to have mildly elevated proBNP, small bilateral pleural effusions/atelectasis on the chest x-ray. Given a dose of Lasix in the ER. Will give the patient on Solu-Medrol IV q.i.d. Nebulizations standing and p.r.n. Diuresis based on daily assessment Continue supplemental oxygen with goal oxygen saturation 93% History of hypertension/hyperlipidemia: Continue home medications History of diabetes: Insulin sliding scale DVT prophylaxis: Lovenox Code status: Full code Quality Stroke Does the patient have a stroke diagnosis?: No VTE Prior VTE?: No VTE Risk Level:: Medical - moderate - high VTE Device Contraindication: Treatment Not Indicated VTE Drug Contraindication: N/A - Med Ordered
--- NOTE | 2022-04-07 04:41 | PC.NURSE ---
Patient c/o burning in IV. Potassium running with NS KVO @25ML/hr without much relief. Potassium lowered to a slower than prescribed rate d/t patient inability to tolerate.
[2022-04-07] MEDS: Azithromycin 500 MG TABLET PO (05:54)
[2022-04-07] MEDS: methylPREDNISolone Sod Succ 40 MG/ML VIAL IVPUSH ×3 (05:54→19:37)
[2022-04-07 06:16] LABS: MANUAL DIFF FLAG NO
[2022-04-07 06:20] LABS: Hematocrit 35.9 % (42.0-52.0); Hemoglobin 11.1 g/dl (14.0-18.0); Imm Gran Abs Auto 0.03 X10*3/uL (0.00-0.03); Imm Gran Pct Auto 0.8 % (0.0-0.4); Lymphocytes Absolute Auto 0.3 X10*3/uL (1.2-4.9); Mean Corpuscular HGB Conc 30.9 g/dl (31.0-36.0); Mean Corpuscular Hemoglobin 28.8 pg (27.0-33.0); Mean Corpuscular Volume 93.2 fL (80.0-98.0); Mean Platelet Volume 11.5 fL (9.4-12.4); Monocytes Absolute Auto 0.1 X10*3/uL (0.1-1.2); Monocytes Percent Auto 1.6 % (2-11); Neutrophils Absolute Auto 3.4 x10*3/uL (2.0-8.3); Neutrophils Percent Auto 89.6 % (45-73); Platelet Count 337 X10*3/uL (160-400); Red Blood Count 3.85 X10*6/uL (4.60-5.80); Red Cell Distribution Width 15.8 % (11.0-16.0); White Blood Count 3.8 X10*3/uL (4.8-10.8)
--- NOTE | 2022-04-07 06:26 | PHA.MEDREC ---
Pharmacy Consult ? Medication Reconciliation Pharmacy has reviewed the medication reconciliation complete MONICA Gallego. Removed duplicate meds and one time bisacodyl prescription. Elo Varner, HectorD
[2022-04-07 06:36] LABS: Anion Gap 21 (12-20); Blood Urea Nitrogen 18 mg/dL (9-16); Calcium 8.5 mg/dL (8.4-10.2); Carbon Dioxide 22 mmol/L (22-29); Chloride 104 mmol/L (96-108); Creatinine Clr Calc Pharmacy 28.7; Estimated Glomerular Filt Rate 32; Glucose Random 250 mg/dL (60-115); Potassium 4.2 mmol/L (3.3-5.1); Sodium 143 mmol/L (135-145)
[2022-04-07 08:34] LABS: Glucose, Whole Blood 197 mg/dL (60-115)
--- NOTE | 2022-04-07 08:52 | PC.NURSE ---
pt sis a/o x 4 no sob/bakari noted skin pink warm speaks in full sentences. lungs - diminished. heart sound - reegular. bs + x 4 quads, soft n/t. dr. stewart at bedside pt aware of plan of care. pt is eating breakfast. poc 197, insulin coverage 2 units.
[2022-04-07] MEDS: Insulin Lispro 100 UNIT/ML 3 ML VIAL SUBCUT ×3 (09:03→19:56)
[2022-04-07] MEDS: Midodrine HCl 10 MG TABLET PO ×4 (09:04→19:37)
[2022-04-07] MEDS: polyethylene glycoL 3350 17 GM POWD.PACK PO (09:04)
[2022-04-07] MEDS: Amiodarone HCL 200 MG TABLET PO (09:04)
[2022-04-07] MEDS: Folic Acid 1 MG TABLET PO (09:04)
[2022-04-07] MEDS: Pregabalin 50 MG CAPSULE PO ×3 (09:04→19:37)
[2022-04-07] MEDS: Atorvastatin Calcium 80 MG TABLET PO (09:04)
[2022-04-07] MEDS: 0.9 % Sodium Chloride Flush 3 ML SYRINGE IVFLUSH ×2 (09:05→15:25)
[2022-04-07] MEDS: Calcium + Vitamin D 250 MG TABLET 500 MG PO (09:05)
[2022-04-07] MEDS: Cyanocobalamin (Vitamin B-12) 1,000 MCG TABLET 1000 MCG PO (09:05)
[2022-04-07] MEDS: Insulin Glargine,Hum.rec.anlog 100 UNIT/ML 10 ML VIAL SUBCUT (09:28)
[2022-04-07] MEDS: Fludrocortisone Acetate 0.1 MG TABLET PO (10:01)
[2022-04-07] MEDS: Fluticasone Propionate Nasal 16 GM SPRAY 2 SPRAY NOSTRIL-B (10:01)
[2022-04-07] MEDS: Albuterol/Iprat 2.5/0.5MG 3 ML AMPUL.NEB INHALE ×3 (11:06→18:53)
[2022-04-07 13:08] LABS: Glucose, Whole Blood 222 mg/dL (60-115)
[2022-04-07] MEDS: QUEtiapine Fumarate 25 MG TABLET 12.5 MG PO (19:37)
[2022-04-07] MEDS: Aspirin Enteric Coated 81 MG TABLET.DR PO (19:37)
[2022-04-07] MEDS: Amitriptyline HCl 50 MG TABLET PO (19:37)
[2022-04-07] MEDS: Melatonin 3 MG TABLET 6 MG PO (19:56)
[2022-04-07 20:02] LABS: Glucose, Whole Blood 328 mg/dL (60-115)
[2022-04-08] VITALS (9 sets, daily range): BP systolic 101–136; BP diastolic 55–65; PULSE 66–88; RESP 14–20; TEMP 36.1–36.6; O2SAT 94–97
[2022-04-08] MEDS: 0.9 % Sodium Chloride Flush 3 ML SYRINGE IVFLUSH ×4 (00:12→21:23)
[2022-04-08] MEDS: methylPREDNISolone Sod Succ 40 MG/ML VIAL IVPUSH ×4 (00:12→23:28)
[2022-04-08 07:38] LABS: Glucose, Whole Blood 209 mg/dL (60-115)
[2022-04-08] MEDS: Insulin Lispro 100 UNIT/ML 3 ML VIAL SUBCUT ×4 (08:47→21:23)
[2022-04-08] MEDS: Azithromycin 500 MG TABLET PO (08:48)
[2022-04-08] MEDS: Folic Acid 1 MG TABLET PO (08:48)
[2022-04-08] MEDS: Pregabalin 50 MG CAPSULE PO ×3 (08:48→21:22)
[2022-04-08] MEDS: Fludrocortisone Acetate 0.1 MG TABLET PO (08:48)
[2022-04-08] MEDS: Amiodarone HCL 200 MG TABLET PO (08:48)
[2022-04-08] MEDS: Atorvastatin Calcium 80 MG TABLET PO (08:48)
[2022-04-08] MEDS: Midodrine HCl 10 MG TABLET PO ×4 (08:48→21:22)
[2022-04-08] MEDS: Calcium + Vitamin D 250 MG TABLET 500 MG PO (08:48)
[2022-04-08] MEDS: Cyanocobalamin (Vitamin B-12) 1,000 MCG TABLET 1000 MCG PO (08:48)
[2022-04-08] MEDS: Insulin Glargine,Hum.rec.anlog 100 UNIT/ML 10 ML VIAL SUBCUT (08:59)
[2022-04-08 11:42] LABS: Glucose, Whole Blood 236 mg/dL (60-115)
[2022-04-08] MEDS: polyethylene glycoL 3350 17 GM POWD.PACK PO (11:49)
--- NOTE | 2022-04-08 11:55 | HO.PM.IMPN ---
Subjective Subjective Date of Service: 04/08/22 Interval History: f/u sob, copd exacerbation interval history: no longer sob, comfortable, off O2 Review of Systems no sob no chest pain Physical Exam Vital Signs: Vital Signs: Last Vital Signs Temp 97.8 F 04/08/22 11:17 Pulse 77 04/08/22 11:17 Resp 19 04/08/22 11:17 BP 136/61 04/08/22 11:17 Pulse Ox 95 04/08/22 11:17 O2 Del Method 04/08/22 11:17 O2 Flow Rate 2 04/08/22 07:18 FiO2 45 04/06/22 21:25 BMI result Body Mass Index 24.9 Objective Data Active Medications Acetaminophen (Acetaminophen 325 Mg Tablet) 650 mg PO Q6H PRN PRN Reason: Pain, Mild (Pain Scale 1-3) Albuterol/Ipratropium (Albuterol/Iprat 2.5/0.5mg 3 Ml Ampul.Neb) 3 ml INHALE RQ4H WHILE AWAKE [facility] Last Admin: 04/08/22 07:52 Dose: Not Given Documented By: JOHN Non-Admin Reason: Patient Asleep Amiodarone HCl (Amiodarone Hcl 200 Mg Tablet) 200 mg PO DAILY [facility] Last Admin: 04/08/22 08:48 Dose: 200 mg Documented By: ARMANDO Amitriptyline HCl (Amitriptyline Hcl 50 Mg Tablet) 50 mg PO BEDTIME [facility] Last Admin: 04/07/22 19:37 Dose: 50 mg Documented By: CORI Aspirin (Aspirin Enteric Coated 81 Mg Tablet.) 81 mg PO BEDTIME [facility] Last Admin: 04/07/22 19:37 Dose: 81 mg Documented By: CORI Atorvastatin Calcium (Atorvastatin Calcium 80 Mg Tablet) 80 mg PO DAILY [facility] Last Admin: 04/08/22 08:48 Dose: 80 mg Documented By: ARMANDO Azithromycin (Azithromycin 500 Mg Tablet) 500 mg PO DAILY [facility] Last Admin: 04/08/22 08:48 Dose: 500 mg Documented By: ARMANDO Calcium Carbonate/Cholecalciferol (Calcium + Vitamin D 250 Mg Tablet) 500 mg PO DAILY [facility] Last Admin: 04/08/22 08:48 Dose: 500 mg Documented By: ARMANDO Cyanocobalamin (Cyanocobalamin (Vitamin B-12) 1,000 Mcg Tablet) 1,000 mcg PO DAILY [facility] Last Admin: 04/08/22 08:48 Dose: 1,000 mcg Documented By: ARMANDO Dextrose (Dextrose 50 % 25 Gm/50 Ml Syringe) 25 gm IVPUSH Q15M PRN; Protocol PRN Reason: per Hypoglycemia Standing Ord. Fludrocortisone Acetate (Fludrocortisone Acetate 0.1 Mg Tablet) 0.1 mg PO DAILY [facility] Last Admin: 04/08/22 08:48 Dose: 0.1 mg Documented By: ARMANDO Fluticasone Propionate (Fluticasone Propionate Nasal 16 Gm [place]) 2 spray NOSTRIL-B DAILY [facility] Last Admin: 04/08/22 08:49 Dose: Not Given Documented By: ARMANDO Non-Admin Reason: Patient Refused Folic Acid (Folic Acid 1 Mg Tablet) 1 mg PO DAILY [facility] Last Admin: 04/08/22 08:48 Dose: 1 mg Documented By: ARMANDO Glucose (Glucose Gel 15 Gm Gel..Gram.) 15 gm PO Q15M PRN; Protocol PRN Reason: per Hypoglycemia Standing Ord. Insulin Glargine (Insulin Glargine,Hum.Rec.Anlog 100 Unit/Ml 10 Ml Vial) 5 unit SUBCUT DAILY [facility] Last Admin: 04/08/22 08:59 Dose: 5 unit Documented By: ARMANDO Insulin Human Lispro (Insulin Lispro 100 Unit/Ml 3 Ml Vial) 0 unit SUBCUT QIDACHS [facility]; Protocol Last Admin: 04/08/22 11:49 Dose: 4 unit Documented By: ARMANDO Melatonin (Melatonin 3 Mg Tablet) 6 mg PO BEDTIME PRN PRN Reason: Insomnia Last Admin: 04/07/22 19:56 Dose: 6 mg Documented By: CORI Methylprednisolone Sodium Succinate (Methylprednisolone Sod Succ 40 Mg/Ml Vial) 40 mg IVPUSH Q6H [facility] Last Admin: 04/08/22 11:50 Dose: 40 mg Documented By: ARMANDO Midodrine (Midodrine Hcl 10 Mg Tablet) 10 mg PO QID [facility] Last Admin: 04/08/22 11:50 Dose: 10 mg Documented By: ARMANDO Polyethylene Glycol (Polyethylene Glycol 3350 17 Gm Powd.Pack) 17 gm PO DAILY [facility] Last Admin: 04/08/22 11:49 Dose: 17 gm Documented By: ARMANDO Pregabalin (Pregabalin 50 Mg Capsule) 50 mg PO TID [facility] Last Admin: 04/08/22 08:48 Dose: 50 mg Documented By: ARMANDO Quetiapine Fumarate (Quetiapine Fumarate 25 Mg Tablet) 12.5 mg PO BEDTIME [facility] Last Admin: 04/07/22 19:37 Dose: 12.5 mg Documented By: CORI Senna (Sennosides 8.6 Mg Tablet) 17.2 mg PO BEDTIME PRN PRN Reason: Constipation Senna (Sennosides 8.6 Mg Tablet) 17.2 mg PO BEDTIME PRN PRN Reason: constipation Sodium Chloride (0.9 % Sodium Chloride Flush 3 Ml Syringe) 3 ml IVFLUSH QSHIFT [facility] Last Admin: 04/08/22 08:49 Dose: 3 ml Documented By: ARMANDO Labs CBC & Chem 7: 04/07/22 06:10 04/07/22 06:10 Labs: Laboratory Results - last 24 hr 04/07/22 04/07/22 04/08/22 13:05 19:52 07:22 POC Glucose 222 H 328 H 209 H 04/08/22 11:19 POC Glucose 236 H Microbiology Microbiology Results: Microbiology 04/06/22 21:49 Blood Culture - Preliminary Blood - Venous No growth after 24 hours. 04/06/22 21:49 Blood Culture - Preliminary Blood - Venous No growth after 24 hours. Assessment and Plan (1) Acute respiratory failure: Status: Acute (2) CHF exacerbation: Status: Acute (3) Hypoxia: Status: Acute Plan 72-year-old male with a past medical history of hypertension, hyperlipidemia, CAD, CHF, diabetes, GERD, gastritis, history of ventricular tachycardia status post pacemaker, CKD, chronic back pain, spondylosis presented to the hospital today with a chief complaint of shortness of breath.? Noted to be in acute hypoxic respiratory failure.? Admitted for further management.? Acute hypoxic respiratory failure: In the setting of COPD/CHF Noted to have mildly elevated proBNP, small bilateral pleural effusions/atelectasis on the chest x-ray.? Given a dose of Lasix in the ER.? Will give the patient on Solu-Medrol IV q.i.d. Nebulizations standing and p.r.n. Diuresis based on daily assessment Continue supplemental oxygen with goal oxygen saturation 93% History of hypertension/hyperlipidemia: Continue home medications History of diabetes:? Insulin sliding scale DVT prophylaxis:? Lovenox Code status:? Full code Quality Stroke Does the patient have a stroke diagnosis?: No VTE Prior VTE?: No VTE Risk Level:: Medical - moderate - high VTE Device Contraindication: Treatment Not Indicated VTE Drug Contraindication: N/A - Med Ordered
[2022-04-08] MEDS: Albuterol/Iprat 2.5/0.5MG 3 ML AMPUL.NEB INHALE ×3 (11:57→20:05)
--- NOTE | 2022-04-08 13:53 | MHC.CM.PN ---
IMM 04/08/22 Male 72 DX Spondylosis Patient lives with his . He uses a walker. He has a [facility] [employer] thru [facility]. He has been vaccinated. A HCP was documented and placed on chart. DP resume [employer] will transport home at discharge.
[2022-04-08 16:20] LABS: Glucose, Whole Blood 215 mg/dL (60-115)
[2022-04-08 20:20] LABS: Glucose, Whole Blood 283 mg/dL (60-115)
[2022-04-08] MEDS: Aspirin Enteric Coated 81 MG TABLET.DR PO (21:22)
[2022-04-08] MEDS: QUEtiapine Fumarate 25 MG TABLET 12.5 MG PO (21:22)
[2022-04-08] MEDS: Amitriptyline HCl 50 MG TABLET PO (21:22)
[2022-04-09] VITALS (10 sets, daily range): BP systolic 93–136; BP diastolic 51–71; PULSE 72–80; RESP 16–20; TEMP 36.4–36.9; O2SAT 94–99
[2022-04-09] MEDS: methylPREDNISolone Sod Succ 40 MG/ML VIAL IVPUSH ×3 (05:51→16:24)
[2022-04-09 07:38] LABS: Glucose, Whole Blood 190 mg/dL (60-115)
[2022-04-09] MEDS: polyethylene glycoL 3350 17 GM POWD.PACK PO (08:01)
[2022-04-09] MEDS: Azithromycin 500 MG TABLET PO (08:02)
[2022-04-09] MEDS: Cyanocobalamin (Vitamin B-12) 1,000 MCG TABLET 1000 MCG PO (08:02)
[2022-04-09] MEDS: Fludrocortisone Acetate 0.1 MG TABLET PO (08:02)
[2022-04-09] MEDS: Folic Acid 1 MG TABLET PO (08:02)
[2022-04-09] MEDS: Midodrine HCl 10 MG TABLET PO ×4 (08:02→21:38)
[2022-04-09] MEDS: Pregabalin 50 MG CAPSULE PO ×3 (08:02→21:37)
[2022-04-09] MEDS: Atorvastatin Calcium 80 MG TABLET PO (08:02)
[2022-04-09] MEDS: Amiodarone HCL 200 MG TABLET PO (08:02)
[2022-04-09] MEDS: Calcium + Vitamin D 250 MG TABLET 500 MG PO (08:02)
[2022-04-09] MEDS: Insulin Lispro 100 UNIT/ML 3 ML VIAL SUBCUT ×4 (08:03→21:37)
[2022-04-09] MEDS: Insulin Glargine,Hum.rec.anlog 100 UNIT/ML 10 ML VIAL SUBCUT (08:03)
[2022-04-09] MEDS: 0.9 % Sodium Chloride Flush 3 ML SYRINGE IVFLUSH ×2 (08:03→16:25)
[2022-04-09 09:53] LABS: Hematocrit 35.3 % (42.0-52.0); Hemoglobin 10.8 g/dl (14.0-18.0); Mean Corpuscular HGB Conc 30.6 g/dl (31.0-36.0); Mean Corpuscular Hemoglobin 28.4 pg (27.0-33.0); Mean Corpuscular Volume 92.9 fL (80.0-98.0); Mean Platelet Volume 11.7 fL (9.4-12.4); Platelet Count 325 X10*3/uL (160-400); Red Cell Distribution Width 16.4 % (11.0-16.0)
[2022-04-09 10:13] LABS: Anion Gap 15 (12-20); Blood Urea Nitrogen 41 mg/dL (9-16); Calcium 8.6 mg/dL (8.4-10.2); Carbon Dioxide 26 mmol/L (22-29); Chloride 102 mmol/L (96-108); Estimated Glomerular Filt Rate 30; Glucose Random 283 mg/dL (60-115); Potassium 5.2 mmol/L (3.3-5.1); Sodium 138 mmol/L (135-145)
[2022-04-09 10:15] LABS: B Type Natriuretic Peptide 332 pg/mL (<100)
[2022-04-09] MEDS: Albuterol/Iprat 2.5/0.5MG 3 ML AMPUL.NEB INHALE ×3 (11:19→18:58)
[2022-04-09 11:26] LABS: Glucose, Whole Blood 212 mg/dL (60-115)
[2022-04-09] MEDS: Heparin Sodium,Porcine 5,000 UNIT/ML VIAL 5000 UNIT SUBCUT (12:37)
[2022-04-09 16:03] LABS: Glucose, Whole Blood 199 mg/dL (60-115)
--- NOTE | 2022-04-09 19:24 | P.PNIM_ITS ---
Subjective Subjective Date of Service: 04/09/22 Interval History: copd/chf Review of Systems Patient still is short of breath is minimal exertion, has some dry cough, denies any chest pain or abdominal pain or nausea vomiting. Physical Exam Vital Signs: Vital Signs: Last Vital Signs Temp 97.5 F 04/09/22 19:04 Pulse 80 04/09/22 19:04 Resp 18 04/09/22 19:04 BP 119/60 04/09/22 19:04 Pulse Ox 98 04/09/22 19:04 O2 Del Method 04/09/22 19:04 O2 Flow Rate 2 04/09/22 19:04 FiO2 45 04/06/22 21:25 BMI result Body Mass Index 24.9 Appearance: Alert.? Oriented X3.? not in distress.?. cvs: rrr, [id number] , no murmur res:diminshed at bases ,has few rales at bases abd: no rebound or guarding ,nt, bs present. ext pulses present , no cyanosis. neuro: axo3 , nonfocal. Objective Data Active Medications Acetaminophen (Acetaminophen 325 Mg Tablet) 650 mg PO Q6H PRN PRN Reason: Pain, Mild (Pain Scale 1-3) Albuterol/Ipratropium (Albuterol/Iprat 2.5/0.5mg 3 Ml Ampul.Neb) 3 ml INHALE RQ4H WHILE AWAKE [facility] Last Admin: 04/09/22 18:58 Dose: 3 ml Documented By: KAYKAY Amiodarone HCl (Amiodarone Hcl 200 Mg Tablet) 200 mg PO DAILY [facility] Last Admin: 04/09/22 08:02 Dose: 200 mg Documented By: ARMANDO Amitriptyline HCl (Amitriptyline Hcl 50 Mg Tablet) 50 mg PO BEDTIME [facility] Last Admin: 04/08/22 21:22 Dose: 50 mg Documented By: BALA Aspirin (Aspirin Enteric Coated 81 Mg Tablet.) 81 mg PO BEDTIME [facility] Last Admin: 04/08/22 21:22 Dose: 81 mg Documented By: BALA Atorvastatin Calcium (Atorvastatin Calcium 80 Mg Tablet) 80 mg PO DAILY [facility] Last Admin: 04/09/22 08:02 Dose: 80 mg Documented By: ARMANDO Azithromycin (Azithromycin 500 Mg Tablet) 500 mg PO DAILY [facility] Last Admin: 04/09/22 08:02 Dose: 500 mg Documented By: ARMANDO Calcium Carbonate/Cholecalciferol (Calcium + Vitamin D 250 Mg Tablet) 500 mg PO DAILY [facility] Last Admin: 04/09/22 08:02 Dose: 500 mg Documented By: ARMANDO Cyanocobalamin (Cyanocobalamin (Vitamin B-12) 1,000 Mcg Tablet) 1,000 mcg PO DAILY [facility] Last Admin: 04/09/22 08:02 Dose: 1,000 mcg Documented By: ARMANDO Dextrose (Dextrose 50 % 25 Gm/50 Ml Syringe) 25 gm IVPUSH Q15M PRN; Protocol PRN Reason: per Hypoglycemia Standing Ord. Fludrocortisone Acetate (Fludrocortisone Acetate 0.1 Mg Tablet) 0.1 mg PO DAILY [facility] Last Admin: 04/09/22 08:02 Dose: 0.1 mg Documented By: ARMANDO Fluticasone Propionate (Fluticasone Propionate Nasal 16 Gm [place]) 2 spray NOSTRIL-B DAILY [facility] Last Admin: 04/09/22 08:04 Dose: Not Given Documented By: ARMANDO Non-Admin Reason: Patient Refused Folic Acid (Folic Acid 1 Mg Tablet) 1 mg PO DAILY [facility] Last Admin: 04/09/22 08:02 Dose: 1 mg Documented By: ARMANDO Glucose (Glucose Gel 15 Gm Gel..Gram.) 15 gm PO Q15M PRN; Protocol PRN Reason: per Hypoglycemia Standing Ord. Heparin Sodium (Porcine) (Heparin Sodium,Porcine 5,000 Unit/Ml Vial) 5,000 unit SUBCUT Q8H [facility] Last Admin: 04/09/22 18:40 Dose: Not Given Documented By: ARMANDO Non-Admin Reason: Patient Refused Insulin Glargine (Insulin Glargine,Hum.Rec.Anlog 100 Unit/Ml 10 Ml Vial) 5 unit SUBCUT DAILY [facility] Last Admin: 04/09/22 08:03 Dose: 5 unit Documented By: ARAMNDO Insulin Human Lispro (Insulin Lispro 100 Unit/Ml 3 Ml Vial) 0 unit SUBCUT QIDACHS [facility]; Protocol Last Admin: 04/09/22 16:25 Dose: 2 unit Documented By: ARMANDO Melatonin (Melatonin 3 Mg Tablet) 6 mg PO BEDTIME PRN PRN Reason: Insomnia Last Admin: 04/07/22 19:56 Dose: 6 mg Documented By: CORI Methylprednisolone Sodium Succinate (Methylprednisolone Sod Succ 40 Mg/Ml Vial) 40 mg IVPUSH Q6H [facility] Last Admin: 04/09/22 16:24 Dose: 40 mg Documented By: ARMANDO Midodrine (Midodrine Hcl 10 Mg Tablet) 10 mg PO QID [facility] Last Admin: 04/09/22 16:25 Dose: 10 mg Documented By: ARMANDO Polyethylene Glycol (Polyethylene Glycol 3350 17 Gm Powd.Pack) 17 gm PO DAILY [facility] Last Admin: 04/09/22 08:01 Dose: 17 gm Documented By: ARMANDO Pregabalin (Pregabalin 50 Mg Capsule) 50 mg PO TID [facility] Last Admin: 04/09/22 16:25 Dose: 50 mg Documented By: ARMANDO Quetiapine Fumarate (Quetiapine Fumarate 25 Mg Tablet) 12.5 mg PO BEDTIME [facility] Last Admin: 04/08/22 21:22 Dose: 12.5 mg Documented By: BALA Senna (Sennosides 8.6 Mg Tablet) 17.2 mg PO BEDTIME PRN PRN Reason: Constipation Senna (Sennosides 8.6 Mg Tablet) 17.2 mg PO BEDTIME PRN PRN Reason: constipation Sodium Chloride (0.9 % Sodium Chloride Flush 3 Ml Syringe) 3 ml IVFLUSH QSHIFT [facility] Last Admin: 04/09/22 16:25 Dose: 3 ml Documented By: ARMANDO Sodium Zirconium Cyclosilicate (Sodium Zirconium Cyclosilicate 5 Gm Powd.Pack) 5 gm PO ONCE ONE Stop: 04/09/22 19:23 Labs CBC & Chem 7: 04/09/22 09:37 04/09/22 09:37 Labs: Laboratory Results - last 24 hr 04/08/22 04/09/22 04/09/22 20:18 07:18 09:37 MCV 92.9 MCH 28.4 MCHC 30.6 L RDW 16.4 H Plt Count 325 MPV 11.7 Absolute Nucleated RBC 0.000 Nucleated RBC % (auto) 0.0 Anion Gap Estim Creat Clear Calc Estimated GFR POC Glucose 283 H 190 H Random Glucose Calcium B-Natriuretic Peptide 04/09/22 04/09/22 04/09/22 09:37 09:37 11:07 MCV MCH MCHC RDW Plt Count MPV Absolute Nucleated RBC Nucleated RBC % (auto) Anion Gap 15 Estim Creat Clear Calc 27.0 Estimated GFR 30 POC Glucose 212 H Random Glucose 283 H Calcium 8.6 B-Natriuretic Peptide 332 H 04/09/22 15:54 MCV MCH MCHC RDW Plt Count MPV Absolute Nucleated RBC Nucleated RBC % (auto) Anion Gap Estim Creat Clear Calc Estimated GFR POC Glucose 199 H Random Glucose Calcium B-Natriuretic Peptide Microbiology Microbiology Results: Microbiology 04/06/22 21:49 Blood Culture - Preliminary Blood - Venous No growth after 48 hours. 04/06/22 21:49 Blood Culture - Preliminary Blood - Venous No growth after 48 hours. Assessment and Plan (1) Acute respiratory failure: Status: Acute (2) CHF exacerbation: Status: Acute (3) COPD exacerbation: Status: Acute Plan 72-year-old male with a past medical history of hypertension, hyperlipidemia, CAD, CHF, diabetes, GERD, gastritis, history of ventricular tachycardia status post pacemaker, CKD, chronic back pain, spondylosis presented to the hospital today with a chief complaint of shortness of breath.? Noted to be in acute hypoxic respiratory failure.? Admitted for further management.? Acute hypoxic respiratory failure: In the setting of COPD/CHF with low ef (35%)possible systolic disfuction. Noted to have mildly elevated proBNP, small bilateral pleural effusions/atelectasis on the chest x-ray.? Given a dose of Lasix in the ER.? Will give the patient on Solu-Medrol IV q.i.d. Nebulizations standing and p.r.n. Diuresis based on daily assessment -i/o is total 2.5liter neg will continue iv lasix,echo Continue supplemental oxygen with goal oxygen saturation 93% Mild elevated leukocytosis secondary to some steroids use. History of hypertension/hyperlipidemia: Continue home medications History of diabetes:? Insulin sliding scale DVT prophylaxis:? Lovenox Code status:? Full code inaptient need : Acute hypoxic respiratory failure sec to chf /copd excetebation Quality Stroke Does the patient have a stroke diagnosis?: No VTE Prior VTE?: No VTE Risk Level:: Medical - moderate - high VTE Device Contraindication: Treatment Not Indicated VTE Drug Contraindication: N/A - Med Ordered
[2022-04-09 19:54] LABS: Glucose, Whole Blood 260 mg/dL (60-115)
[2022-04-09] MEDS: Aspirin Enteric Coated 81 MG TABLET.DR PO (21:38)
[2022-04-09] MEDS: QUEtiapine Fumarate 25 MG TABLET 12.5 MG PO (21:38)
[2022-04-09] MEDS: Sodium Zirconium Cyclosilicate 5 GM POWD.PACK PO (21:38)
[2022-04-09] MEDS: Amitriptyline HCl 50 MG TABLET PO (21:41)
[2022-04-10] VITALS (9 sets, daily range): BP systolic 120–123; BP diastolic 59–68; PULSE 71–80; RESP 16–20; TEMP 36–36.6; O2SAT 92–98
[2022-04-10] MEDS: methylPREDNISolone Sod Succ 40 MG/ML VIAL IVPUSH ×4 (00:15→17:08)
[2022-04-10] MEDS: Heparin Sodium,Porcine 5,000 UNIT/ML VIAL 5000 UNIT SUBCUT ×3 (00:15→17:09)
[2022-04-10] MEDS: 0.9 % Sodium Chloride Flush 3 ML SYRINGE IVFLUSH ×2 (00:16→08:48)
[2022-04-10 06:31] LABS: Hematocrit 34.4 % (42.0-52.0); Hemoglobin 10.5 g/dl (14.0-18.0); Mean Corpuscular HGB Conc 30.5 g/dl (31.0-36.0); Mean Platelet Volume 11.3 fL (9.4-12.4); Platelet Count 279 X10*3/uL (160-400); Red Blood Count 3.62 X10*6/uL (4.60-5.80); Red Cell Distribution Width 16.2 % (11.0-16.0); White Blood Count 10.3 X10*3/uL (4.8-10.8)
[2022-04-10 06:50] LABS: B Type Natriuretic Peptide 583 pg/mL (<100)
--- NOTE | 2022-04-10 07:00 | CA_ITS ---
Transthoracic Echocardiogram Patient (Last, First, Middle): Denzel Pendleton, Gender: Male Date of : 1950 Age: 72 Procedure Date: 04/10/2022 Procedure Type: Transthoracic Echocardiogram Location: [facility] [place] Height: 165.1 cm Weight: 67.59 kg BSA: 1.75 m2 Heart Rate: bpm BP: 120 / 68 mmHg Continuous Dryout Operator: TO Referring MD: Anthony Alan MD Symptoms: chf Study Quality: Fair ECG Rhythm: Sinus Conclusions: - There is normal left ventricular wall thickness. The left ventricular systolic function is severely decreased. The visually estimated ejection fraction is between 20-25%. - The basal anteroseptal and mid anteroseptal segments are hypokinetic. - The inferior wall, the apex, and apical septum segments are akinetic. - Normal right ventricular cavity size and systolic function. - Significantly elevated right atrial pressure. Findings Procedure Information Contrast agent, definity, is being given per protocol without apparent complications. Left Ventricle There is normal left ventricular wall thickness. The left ventricular systolic function is severely decreased. The visually estimated ejection fraction is between 20-25%. There is evidence of regional wall motion abnormalities. There is moderate global hypokinesis. There is paradoxical septal motion consistent with a right ventricular pacemaker. Diastolic function is indeterminate on the basis of available data. Left ventricle is dilated. Wall Motion Rest Echo Findings The basal anteroseptal and mid anteroseptal segments are hypokinetic. The inferior wall, the apex, and apical septum segments are akinetic. Right Ventricle Normal right ventricular cavity size and systolic function. Atria The left atrium is moderately dilated. Aortic Valve Normal aortic valve structure and function. There is no aortic valve stenosis. There is no aortic valve regurgitation. Mitral Valve Normal mitral valve structure and function. There is trace mitral valve regurgitation. There is no mitral valve stenosis. Pulmonic Valve Normal pulmonic valve structure and function. There is trace pulmonic valve regurgitation. Tricuspid Valve Normal tricuspid valve structure and function. There is mild tricuspid valve regurgitation. Significantly elevated right atrial pressure. There is no evidence of pulmonary hypertension. Great Vessels All visible segments of the aorta are normal in size. The visualized portions of the pulmonary artery and branches are normal. Venous The inferior vena cava is dilated and collapses less than 50% with inspiration. Pericardium/Pleural There is no evidence of pericardial effusion. Prior Study Comparison No prior study available for comparison. Measurements 2D Linear Measurements IVSd: 0.90 0.6-0.9/0.6-1.0 cm LVIDd: 6.19 3.9-5.3/4.2-5.9 cm LVIDd Index: 3.54 2.4-3.2/2.2-3.1 cm/m2 LVIDs: 4.34 2.0-3.6 cm LVPWd: 0.97 0.7-1.1 cm LA Diam: 4.10 2.7-3.8/3.0-4.0 cm LAIDs Index: 2.34 1.5-2.3 cm/m2 LV Mass: 297.28 67-162/88-224 g LV Mass Index: 169.87 43-95/49-115 g/m2 LVOT Diam: 2.00 3.0+(-)1.3 cm 2D Systolic Function EF 4C: 31.10 >55% EF 2C: 32.30 >55% EF BiP: 32.00 >55% Mitral Valve MV Pk E: 1.07 MV PK A: 0.89 MV Decel Time: 208.00 E/A: 1.20 E'Lateral: 5.44 E'Medial: 7.62 E/E' Med: 14.00 E/E' Lat: 19.70 PHT: 61.00 MVA PHT: 3.61 Decel [place]: 5.14 Aortic Valve AoV Pk Ronnie: 1.40 AoV Mn Ronnie: 1.04 AoV VTI: 0.33 AoV Pk Grad: 8.00 Aov Mn Grad: 5.00 DELROY Cont.VTI: 1.79 LVOT LVOT Pk Ronnie: 0.89 LVOT Mn Ronine: 0.55 LVOT VTI: 0.19 LVOT Pk Grad: 3.00 LVOT Mn Grad: 1.00 LVOT Diam: 2.00 LVOT Area: 3.14 Diastolic Function MV Pk E: 1.07 MV Pk A: 0.89 E/A: 1.20 E'Medial: 7.62 E/E' Med: 14.00 E' Laterial: 5.44 E/E' Lat: 19.70 Right Ventricle TAPSE (mm): 18.40 TVS' Ronnie: 11.00 Tricuspid Valve TR Pk Ronnie: 2.14 TR Pk Grad: 18.00 RA Press: 8.00 RVSP: 36.00 Great Vessels Aorta Sinus of Valsalva: 3.71 2.0-3.[address] [place]: 2.37 1.7-3.4 cm Ao Asc: 3.30 2.1-3.4 cm Updated in Other Vendor System with Status of Final Raj Roldan MD electronically signed on 04/10/2022 5:07:00 PM with status of Final
[2022-04-10 07:03] LABS: Anion Gap 16 (12-20); Blood Urea Nitrogen 42 mg/dL (9-16); Calcium 8.1 mg/dL (8.4-10.2); Carbon Dioxide 24 mmol/L (22-29); Chloride 105 mmol/L (96-108); Creatinine Clr Calc Pharmacy 30.8; Estimated Glomerular Filt Rate 35; Glucose Random 224 mg/dL (60-115); Potassium 4.6 mmol/L (3.3-5.1); Sodium 140 mmol/L (135-145)
[2022-04-10 07:22] LABS: Glucose, Whole Blood 214 mg/dL (60-115)
[2022-04-10] MEDS: Albuterol/Iprat 2.5/0.5MG 3 ML AMPUL.NEB INHALE ×4 (07:43→18:54)
--- NOTE | 2022-04-10 08:11 | P.CDIC_ITS ---
CDI Concurrent Query Documentation Clarification: PHYSICIAN'S DOCUMENTATION REQUEST Date of Query: 04/10/22811 Patient Name: Denzel Pendleton Admit Date: 04/07/22 Dear Doctor, A review of the medical record indicates additional documentation may be needed. Please review below and update the documentation accordingly. Clinical Indicators: Risk Factors/Clinical Indicators/Treatments Diabetic - POC glucose - 328 283 IV Insulin Please clarify the following regarding Diabetes Mellitus (DM): Diabetes - Type I, Type II or other * Hyperglycemia * Hypoglycemia * No complications of DM * Other complication ? please specify * Unable to determine Use of terms such as suspected, likely, concern for, or probable (associated with a specific diagnosis that is being evaluated, monitored, or treated as if it exists) are acceptable and can be coded in the inpatient setting, when documented at the time of discharge. Thank you, Betty Parekh [facility], CDIS Extension: [phone] Please use your independent medical judgment in providing your response. THIS QUERY IS PART OF THE PERMANENT MEDICAL RECORD Provider Response: Other Other Diagnosis: dmtype 2.
--- NOTE | 2022-04-10 08:17 | MHC.CDI.CONC ---
CDI Concurrent Query Documentation Clarification: PHYSICIAN'S DOCUMENTATION REQUEST Date of Query: 04/10/22 0817 Patient Name: Denzel Pendleton Admit Date: 04/07/22 Dear Doctor, A review of the medical record indicates additional documentation may be needed. Please review below and update the documentation accordingly. Clinical Indicators: Risk Factors/Clinical Indicators/Treatments Labs: potassium 5.2 H [place] Based on the above, could you clarify in the Progress Notes the appropriate diagnosis, if significant, that supports the above abnormalities and additional evaluation, monitoring, and/or treatment rendered: Hyperkalemia or other etiology of lab findings Labs indicate a diagnosis of (please specify) Other (please specify) Unable to determine Use of terms such as suspected, likely, concern for, or probable (associated with a specific diagnosis that is being evaluated, monitored, or treated as if it exists) are acceptable and can be coded in the inpatient setting, when documented at the time of discharge. Thank you, Betty Parekh [facility], CDIS Extension: [phone] Please use your independent medical judgment in providing your response. THIS QUERY IS PART OF THE PERMANENT MEDICAL RECORD Provider Response: Other Other Diagnosis: hyperkalemia
[2022-04-10] MEDS: Pregabalin 50 MG CAPSULE PO ×3 (08:46→21:49)
[2022-04-10] MEDS: Atorvastatin Calcium 80 MG TABLET PO (08:46)
[2022-04-10] MEDS: Midodrine HCl 10 MG TABLET PO ×4 (08:46→21:49)
[2022-04-10] MEDS: Fludrocortisone Acetate 0.1 MG TABLET PO (08:46)
[2022-04-10] MEDS: Azithromycin 500 MG TABLET PO (08:46)
[2022-04-10] MEDS: Amiodarone HCL 200 MG TABLET PO (08:47)
[2022-04-10] MEDS: polyethylene glycoL 3350 17 GM POWD.PACK PO (08:47)
[2022-04-10] MEDS: Folic Acid 1 MG TABLET PO (08:47)
[2022-04-10] MEDS: Calcium + Vitamin D 250 MG TABLET 500 MG PO (08:47)
[2022-04-10] MEDS: Cyanocobalamin (Vitamin B-12) 1,000 MCG TABLET 1000 MCG PO (08:47)
[2022-04-10] MEDS: Insulin Glargine,Hum.rec.anlog 100 UNIT/ML 10 ML VIAL SUBCUT (08:48)
[2022-04-10] MEDS: Insulin Lispro 100 UNIT/ML 3 ML VIAL SUBCUT ×4 (08:48→21:49)
[2022-04-10] MEDS: Furosemide 20 MG/2 ML VIAL IVPUSH (08:48)
--- NOTE | 2022-04-10 10:22 | P.CDIC_ITS ---
CDI Concurrent Query Documentation Clarification: PHYSICIAN'S DOCUMENTATION REQUEST Date of Query: 04/10/22 1022 Patient Name: Denzel Pendleton Admit Date: 04/07/22 Dear Doctor, A review of the medical record indicates additional documentation may be needed. Please review below and update the documentation accordingly. Clinical Indicators: Documentation in the record includes the diagnosis of CKD. Risk Factors/Clinical Indicators/Treatments H&P: 04/08 - PMH: Chronic renal insufficiency Plan - CKD CR: 2.18 GFR: 30 BUN: 41 IV fluids Please clarify which of the following most accurately represents the patient's renal status: * Chronic kidney disease Stage 1-5 (specify stage) * Acute on chronic kidney disease Stage 1-5 * Other (please specify) * Unable to determine Criteria for BRENDA* Stages of Chronic Kidney Disease* 1. Increase in serum creatinine by ? 0.3 mg/dL Level Description GFR (?26.5 micromol/L) within 48 hours, or G1 Normal or High > 90 2. Increase in serum creatinine to ?1.5 times baseline, G2 Mildly decreased 60 ? 89 which is known or presumed to have occurred within 7 days, or G3a Mildly to moderately decreased 45 ? 59 3. Urine volume <0.5 mL/kg/hour for six hours G3b Moderately to severely decreased 30 - 44 G4 Severely decreased 15 ? 29 G5 Kidney failure < 15 *Source: Kidney Disease: Improving Global Outcomes (KDIGO) 2012 Use of terms such as suspected, likely, concern for, or probable (associated with a specific diagnosis that is being evaluated, monitored, or treated as if it exists) are acceptable and can be coded in the inpatient setting, when docum ented at the time of discharge. Thank you, Betty Parekh [facility], CDIS Extension: [phone] Please use your independent medical judgment in providing your response. THIS QUERY IS PART OF THE PERMANENT MEDICAL RECORD Provider Response: Other Other Diagnosis: ckd -possible stage 3.
[2022-04-10 12:12] LABS: Glucose, Whole Blood 251 mg/dL (60-115)
--- NOTE | 2022-04-10 13:23 | MHC.CM.PN ---
Per ROUNDS discussion, Patient is not yet medically cleared for dc (IV Lasix, IV Solu Medrol); Home/resume agile tester is the goal and CM will continue to follow.
--- NOTE | 2022-04-10 15:39 | HO.PM.IMPN ---
Subjective Subjective Date of Service: 04/10/22 Interval History: copd/chf Review of Systems sob similar to yesterday has dry cough Denies any chest pain or nausea or vomiting or abdominal pain. Physical Exam Vital Signs: Vital Signs: Last Vital Signs Temp 96.8 F 04/10/22 15:33 Pulse 75 04/10/22 15:33 Resp 20 04/10/22 15:33 BP 123/60 04/10/22 15:33 Pulse Ox 95 04/10/22 15:33 O2 Del Method 04/10/22 15:33 O2 Flow Rate 2 04/10/22 11:14 FiO2 45 04/06/22 21:25 BMI result Body Mass Index 24.9 Appearance: Alert.? Oriented X3.? not in distress.?. cvs: rrr, [id number] , no murmur res:diminshed at bases ,has few rales at bases abd: no rebound or guarding ,nt, bs present. ext pulses present , no cyanosis. neuro: axo3 , nonfocal. Objective Data Active Medications Acetaminophen (Acetaminophen 325 Mg Tablet) 650 mg PO Q6H PRN PRN Reason: Pain, Mild (Pain Scale 1-3) Albuterol/Ipratropium (Albuterol/Iprat 2.5/0.5mg 3 Ml Ampul.Neb) 3 ml INHALE RQ4H WHILE AWAKE [facility] Last Admin: 04/10/22 12:04 Dose: 3 ml Documented By: EVGENY Amiodarone HCl (Amiodarone Hcl 200 Mg Tablet) 200 mg PO DAILY [facility] Last Admin: 04/10/22 08:47 Dose: 200 mg Documented By: MALORIE Amitriptyline HCl (Amitriptyline Hcl 50 Mg Tablet) 50 mg PO BEDTIME [facility] Last Admin: 04/09/22 21:41 Dose: 50 mg Documented By: GEETA Aspirin (Aspirin Enteric Coated 81 Mg Tablet.Dr) 81 mg PO BEDTIME [facility] Last Admin: 04/09/22 21:38 Dose: 81 mg Documented By: GEETA Atorvastatin Calcium (Atorvastatin Calcium 80 Mg Tablet) 80 mg PO DAILY [facility] Last Admin: 04/10/22 08:46 Dose: 80 mg Documented By: MALORIE Azithromycin (Azithromycin 500 Mg Tablet) 500 mg PO DAILY [facility] Last Admin: 04/10/22 08:46 Dose: 500 mg Documented By: MALORIE Calcium Carbonate/Cholecalciferol (Calcium + Vitamin D 250 Mg Tablet) 500 mg PO DAILY [facility] Last Admin: 04/10/22 08:47 Dose: 500 mg Documented By: MALORIE Cyanocobalamin (Cyanocobalamin (Vitamin B-12) 1,000 Mcg Tablet) 1,000 mcg PO DAILY [facility] Last Admin: 04/10/22 08:47 Dose: 1,000 mcg Documented By: MALORIE Dextrose (Dextrose 50 % 25 Gm/50 Ml Syringe) 25 gm IVPUSH Q15M PRN; Protocol PRN Reason: per Hypoglycemia Standing Ord. Fludrocortisone Acetate (Fludrocortisone Acetate 0.1 Mg Tablet) 0.1 mg PO DAILY [facility] Last Admin: 04/10/22 08:46 Dose: 0.1 mg Documented By: MALORIE Fluticasone Propionate (Fluticasone Propionate Nasal 16 Gm [place]) 2 spray NOSTRIL-B DAILY [facility] Last Admin: 04/10/22 08:58 Dose: Not Given Documented By: MALORIE Non-Admin Reason: Med Not Available Folic Acid (Folic Acid 1 Mg Tablet) 1 mg PO DAILY [facility] [place] Last Admin: 04/10/22 08:47 Dose: 1 mg Documented By: MALORIE Furosemide (Furosemide 20 Mg/2 Ml Vial) 20 mg IVPUSH DAILY [facility]; Protocol Last Admin: 04/10/22 08:48 Dose: 20 mg Documented By: MALORIE Glucose (Glucose Gel 15 Gm Gel..Gram.) 15 gm PO Q15M PRN; Protocol PRN Reason: per Hypoglycemia Standing Ord. Heparin Sodium (Porcine) (Heparin Sodium,Porcine 5,000 Unit/Ml Vial) 5,000 unit SUBCUT Q8H [facility] Last Admin: 04/10/22 08:47 Dose: 5,000 unit Documented By: MALORIE Insulin Glargine (Insulin Glargine,Hum.Rec.Anlog 100 Unit/Ml 10 Ml Vial) 5 unit SUBCUT DAILY [facility] [place] Last Admin: 04/10/22 08:48 Dose: 5 unit Documented By: MALORIE Insulin Human Lispro (Insulin Lispro 100 Unit/Ml 3 Ml Vial) 0 unit SUBCUT QIDACHS [facility] [place]; Protocol Last Admin: 04/10/22 12:23 Dose: 6 unit Documented By: MALORIE Melatonin (Melatonin 3 Mg Tablet) 6 mg PO BEDTIME PRN PRN Reason: Insomnia Last Admin: 04/07/22 19:56 Dose: 6 mg Documented By: CORI Methylprednisolone Sodium Succinate (Methylprednisolone Sod Succ 40 Mg/Ml Vial) 40 mg IVPUSH Q6H [facility] [place] Last Admin: 04/10/22 12:23 Dose: 40 mg Documented By: MALORIE Midodrine (Midodrine Hcl 10 Mg Tablet) 10 mg PO QID [facility] Last Admin: 04/10/22 12:23 Dose: 10 mg Documented By: MALORIE Polyethylene Glycol (Polyethylene Glycol 3350 17 Gm Powd.Pack) 17 gm PO DAILY [facility] Last Admin: 04/10/22 08:47 Dose: 17 gm Documented By: MALORIE Pregabalin (Pregabalin 50 Mg Capsule) 50 mg PO TID [facility] [place] Last Admin: 04/10/22 15:37 Dose: 50 mg Documented By: MALORIE Quetiapine Fumarate (Quetiapine Fumarate 25 Mg Tablet) 12.5 mg PO BEDTIME [facility] Last Admin: 04/09/22 21:38 Dose: 12.5 mg Documented By: GEETA Senna (Sennosides 8.6 Mg Tablet) 17.2 mg PO BEDTIME PRN PRN Reason: Constipation Senna (Sennosides 8.6 Mg Tablet) 17.2 mg PO BEDTIME PRN PRN Reason: constipation Sodium Chloride (0.9 % Sodium Chloride Flush 3 Ml Syringe) 3 ml IVFLUSH QSHIFT [facility] Last Admin: 04/10/22 15:37 Dose: 3 ml Documented By: MALORIE Labs CBC & Chem 7: 04/10/22 05:53 04/10/22 05:53 Labs: Laboratory Results - last 24 hr 04/09/22 04/09/22 04/10/22 15:54 19:46 05:53 MCV 95.0 MCH 29.0 MCHC 30.5 L RDW 16.2 H Plt Count 279 MPV 11.3 Absolute Nucleated RBC 0.000 Nucleated RBC % (auto) 0.0 Anion Gap Estim Creat Clear Calc Estimated GFR POC Glucose 199 H 260 H Random Glucose Calcium B-Natriuretic Peptide 04/10/22 04/10/22 04/10/22 05:53 05:53 07:12 MCV MCH MCHC RDW Plt Count MPV Absolute Nucleated RBC Nucleated RBC % (auto) Anion Gap 16 Estim Creat Clear Calc 30.8 Estimated GFR 35 POC Glucose 214 H Random Glucose 224 H Calcium 8.1 L B-Natriuretic Peptide 583 H 04/10/22 11:12 MCV MCH MCHC RDW Plt Count MPV Absolute Nucleated RBC Nucleated RBC % (auto) Anion Gap Estim Creat Clear Calc Estimated GFR POC Glucose 251 H Random Glucose Calcium B-Natriuretic Peptide Assessment and Plan (1) COPD exacerbation: Status: Acute (2) Diabetes: Status: Acute (3) Acute respiratory failure: Status: Acute (4) CHF exacerbation: Status: Acute Plan 72-year-old male with a past medical history of hypertension, hyperlipidemia, CAD, CHF, diabetes, GERD, gastritis, history of ventricular tachycardia status post pacemaker, CKD, chronic back pain, spondylosis presented to the hospital today with a chief complaint of shortness of breath.? Noted to be in acute hypoxic respiratory failure.? Admitted for further management.? Acute hypoxic respiratory failure: In the setting of COPD/CHF with low ef (35%)possible systolic disfuction. Noted to have mildly elevated proBNP, small bilateral pleural effusions/atelectasis on the chest x-ray.? Given a dose of Lasix in the ER.? Will give the patient on Solu-Medrol IV q.i.d. Nebulizations standing and p.r.n. Diuresis based on daily assessment -i/o is total 3.5liter neg will continue iv? lasix,echo pending Continue supplemental oxygen with goal oxygen saturation 93% ? Mild elevated leukocytosis secondary to some steroids use. History of hypertension/hyperlipidemia: Continue home medications. History of diabetes possible type 2:?fs slactuating, Insulin sliding scale/adjusted lantus. ckd possible stage 3: moniter bmp. Hyperkalemia resolved with Lokelma. DVT prophylaxis:? Lovenox Code status:? Full code inaptient need : Acute hypoxic respiratory failure sec to chf /copd excetebation Quality Stroke Does the patient have a stroke diagnosis?: No VTE Prior VTE?: No VTE Risk Level:: Medical - moderate - high VTE Device Contraindication: Treatment Not Indicated VTE Drug Contraindication: N/A - Med Ordered
[2022-04-10 16:16] LABS: Glucose, Whole Blood 216 mg/dL (60-115)
[2022-04-10 21:09] LABS: Glucose, Whole Blood 188 mg/dL (60-115)
[2022-04-10] MEDS: Amitriptyline HCl 50 MG TABLET PO (21:49)
[2022-04-10] MEDS: Aspirin Enteric Coated 81 MG TABLET.DR PO (21:49)
[2022-04-10] MEDS: QUEtiapine Fumarate 25 MG TABLET 12.5 MG PO (21:49)
[2022-04-11] VITALS (10 sets, daily range): BP systolic 118–142; BP diastolic 56–70; PULSE 68–75; RESP 14–28; TEMP 35.7–36.6; O2SAT 93–97
[2022-04-11] MEDS: Heparin Sodium,Porcine 5,000 UNIT/ML VIAL 5000 UNIT SUBCUT ×3 (01:07→16:15)
[2022-04-11] MEDS: methylPREDNISolone Sod Succ 40 MG/ML VIAL IVPUSH ×2 (01:07→05:57)
[2022-04-11] MEDS: 0.9 % Sodium Chloride Flush 3 ML SYRINGE IVFLUSH ×3 (01:07→16:53)
[2022-04-11] MEDS: Albuterol/Iprat 2.5/0.5MG 3 ML AMPUL.NEB INHALE ×4 (07:13→20:53)
[2022-04-11 07:22] LABS: Glucose, Whole Blood 189 mg/dL (60-115)
[2022-04-11] MEDS: Pregabalin 50 MG CAPSULE PO ×3 (08:12→20:37)
[2022-04-11] MEDS: Azithromycin 500 MG TABLET PO (08:12)
[2022-04-11] MEDS: Folic Acid 1 MG TABLET PO (08:13)
[2022-04-11] MEDS: Amiodarone HCL 200 MG TABLET PO (08:13)
[2022-04-11] MEDS: Fludrocortisone Acetate 0.1 MG TABLET PO (08:13)
[2022-04-11] MEDS: Calcium + Vitamin D 250 MG TABLET 500 MG PO (08:13)
[2022-04-11] MEDS: Midodrine HCl 10 MG TABLET PO ×4 (08:13→20:37)
[2022-04-11] MEDS: Atorvastatin Calcium 80 MG TABLET PO (08:13)
[2022-04-11] MEDS: polyethylene glycoL 3350 17 GM POWD.PACK PO (08:13)
[2022-04-11] MEDS: Cyanocobalamin (Vitamin B-12) 1,000 MCG TABLET 1000 MCG PO (08:13)
[2022-04-11] MEDS: Furosemide 20 MG/2 ML VIAL IVPUSH (08:14)
[2022-04-11] MEDS: Insulin Lispro 100 UNIT/ML 3 ML VIAL SUBCUT ×4 (08:17→20:37)
[2022-04-11] MEDS: Insulin Glargine,Hum.rec.anlog 100 UNIT/ML 10 ML VIAL 8 UNIT SUBCUT (08:18)
[2022-04-11] MEDS: predniSONE 20 MG TABLET 40 MG PO (09:27)
--- NOTE | 2022-04-11 10:06 | P.CONCA_ITS ---
History of Present Illness History of Present Illness Date of Service: 04/11/22 Requesting physician: Anthony Alan Chief complaint: Acute systolic heart failure Narrative: 72-year-old gentleman who is presenting for sudden-onset shortness of breath. He has background history of COPD, diabetes, reported history of coronary disease and previous DC, Parkinson's disease and permanent pacemaker. He developed shortness of breath and came to the hospital. His chest x-ray showed bilateral effusions. He was treated for COPD and was also given diuretics. He underwent echocardiography which showed EF of 20 25% we were consulted. No previous echocardiography in our system. 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 I reviewed his chart in [facility] system. He underwent cardiac catheterization in 2006 when it appears he presented with acute DC. He had plaque rupture in the proximal LAD and apical LAD was occluded. He underwent PCI to proximal LAD. He had echocardiography in 2019 which showed EF of 15 20%. He follows up with Dr. Bush. He is feeling better after diuretics. Clinically looks euvolemic. He is on fludrocortisone and midodrine outpatient. He also has been on amiodarone. [facility] Past Medical History Medical History Back pain CAD (coronary artery disease) Cardiomyopathy CHF (congestive heart failure) Chronic renal insufficiency COPD (chronic obstructive pulmonary disease) Diabetes Elevated cholesterol GERD (gastroesophageal reflux disease) HTN (hypertension) Hx of gastritis Hx of ventricular tachycardia Pacemaker Spondylosis Family History Family History Mother No known health problems Father No known health problems Surgical History Surgical History AICD (automatic cardioverter/defibrillator) present H/O cystoscopy Hx of colonoscopy Hx of right inguinal hernia repair Social History Social History Household Members: Spouse Housing: House Do you presently have visiting nurse or other home services: Yes Alcohol intake: never Patient Tobacco Use Status: Former Tobacco user Smoked in Last 30 Days: No Patient Interested in Nicotine Replacement: No Patient Given Instructions on How to Stop Smoking: No Second Hand Smoke Exposure: No Use of substances other than those prescribed or required for medical reasons: No Currently Displaying Signs/Symptoms of Drug Intoxication Withdrawal: No Have you been hit, kicked, punched, or otherwise hurt by someone within the past year? If so, by whom?: No Do you feel safe in your current relationship?: Yes Is there a partner from a previous relationship who is making you feel unsafe now?: No Are you made to feel afraid or neglected: No Advance Directives: No Advance Directives Information Provided: No Do you have thoughts of harming others: None Do you have a plan to hurt others: No Plan Recently lost weight without trying: No How much weight loss: Not applicable Eating poorly because of decreased appetite: No Nutrition screen score: 0 Nutrition Risks: No Nutritional Risk Poor oral hygiene: No service: No Current occupational status: disabled Meds Allergies Allergy/AdvReac Type Severity Reaction Status Date / Time valsartan [Diovan] Allergy Unknown Unknown Verified 04/02/22 09:58 simvastatin AdvReac Unknown increased Verified 04/02/22 09:58 liver enzymes Active Medications: Current Medications Acetaminophen (Acetaminophen 325 Mg Tablet) 650 mg PO Q6H PRN PRN Reason: Pain, Mild (Pain Scale 1-3) Albuterol/Ipratropium (Albuterol/Iprat 2.5/0.5mg 3 Ml Ampul.Neb) 3 ml INHALE RQ4H WHILE AWAKE [facility] Last Admin: 04/11/22 07:13 Dose: 3 ml Amiodarone HCl (Amiodarone Hcl 200 Mg Tablet) 200 mg PO DAILY [facility] Last Admin: 04/11/22 08:13 Dose: 200 mg Amitriptyline HCl (Amitriptyline Hcl 50 Mg Tablet) 50 mg PO BEDTIME [facility] Last Admin: 04/10/22 21:49 Dose: 50 mg Aspirin (Aspirin Enteric Coated 81 Mg Tablet.Dr) 81 mg PO BEDTIME [facility] Last Admin: 04/10/22 21:49 Dose: 81 mg Atorvastatin Calcium (Atorvastatin Calcium 80 Mg Tablet) 80 mg PO DAILY [facility] Last Admin: 04/11/22 08:13 Dose: 80 mg Azithromycin (Azithromycin 500 Mg Tablet) 500 mg PO DAILY [facility] Last Admin: 04/11/22 08:12 Dose: 500 mg Calcium Carbonate/Cholecalciferol (Calcium + Vitamin D 250 Mg Tablet) 500 mg PO DAILY [facility] Last Admin: 04/11/22 08:13 Dose: 500 mg Cyanocobalamin (Cyanocobalamin (Vitamin B-12) 1,000 Mcg Tablet) 1,000 mcg PO DAILY [facility] Last Admin: 04/11/22 08:13 Dose: 1,000 mcg Dextrose (Dextrose 50 % 25 Gm/50 Ml Syringe) 25 gm IVPUSH Q15M PRN; Protocol PRN Reason: per Hypoglycemia Standing Ord. Fludrocortisone Acetate (Fludrocortisone Acetate 0.1 Mg Tablet) 0.1 mg PO DAILY [facility] Last Admin: 04/11/22 08:13 Dose: 0.1 mg Fluticasone Propionate (Fluticasone Propionate Nasal 16 Gm [place]) 2 spray NOSTRIL-B DAILY [facility] Last Admin: 04/11/22 08:30 Dose: Not Given Folic Acid (Folic Acid 1 Mg Tablet) 1 mg PO DAILY [facility] Last Admin: 04/11/22 08:13 Dose: 1 mg Glucose (Glucose Gel 15 Gm Gel..Gram.) 15 gm PO Q15M PRN; Protocol PRN Reason: per Hypoglycemia Standing Ord. Heparin Sodium (Porcine) (Heparin Sodium,Porcine 5,000 Unit/Ml Vial) 5,000 unit SUBCUT Q8H [facility] Last Admin: 04/11/22 08:13 Dose: 5,000 unit Insulin Glargine (Insulin Glargine,Hum.Rec.Anlog 100 Unit/Ml 10 Ml Vial) 8 unit SUBCUT DAILY [facility] Last Admin: 04/11/22 08:18 Dose: 8 unit Insulin Human Lispro (Insulin Lispro 100 Unit/Ml 3 Ml Vial) 0 unit SUBCUT QIDACHS [facility]; Protocol Last Admin: 04/11/22 08:17 Dose: 2 unit Melatonin (Melatonin 3 Mg Tablet) 6 mg PO BEDTIME PRN PRN Reason: Insomnia Last Admin: 04/07/22 19:56 Dose: 6 mg Midodrine (Midodrine Hcl 10 Mg Tablet) 10 mg PO QID [facility] Last Admin: 04/11/22 08:13 Dose: 10 mg Polyethylene Glycol (Polyethylene Glycol 3350 17 Gm Powd.Pack) 17 gm PO DAILY [facility] Last Admin: 04/11/22 08:13 Dose: 17 gm Prednisone (Prednisone 20 Mg Tablet) 40 mg PO DAILY [facility] Last Admin: 04/11/22 09:27 Dose: 40 mg Pregabalin (Pregabalin 50 Mg Capsule) 50 mg PO TID [facility] Last Admin: 04/11/22 08:12 Dose: 50 mg Quetiapine Fumarate (Quetiapine Fumarate 25 Mg Tablet) 12.5 mg PO BEDTIME [facility] Last Admin: 04/10/22 21:49 Dose: 12.5 mg Senna (Sennosides 8.6 Mg Tablet) 17.2 mg PO BEDTIME PRN PRN Reason: Constipation Senna (Sennosides 8.6 Mg Tablet) 17.2 mg PO BEDTIME PRN PRN Reason: constipation Sodium Chloride (0.9 % Sodium Chloride Flush 3 Ml Syringe) 3 ml IVFLUSH QSHIFT [facility] Last Admin: 04/11/22 08:14 Dose: 3 ml Home Medications Medication Instructions Recorded Confirmed Last Taken Type albuterol sulfate 90 mcg/actuation 2 puff PO Q4-6H PRN wheezing 05/01/20 04/07/22 Unknown History aerosol inhaler amiodarone 200 mg tablet 1 tab PO DAILY 05/01/20 04/07/22 Unknown History amitriptyline 50 mg tablet 1 tab PO BEDTIME 05/01/20 04/07/22 Unknown History aspirin 81 mg tablet,delayed 1 tab PO BEDTIME 05/01/20 04/07/22 Unknown History release calcium carbonate 600 mg-vitamin 1 tab PO DAILY 05/01/20 04/07/22 Unknown History D3 10 mcg (400 unit) tablet fluticasone propionate 50 2 spray intranasal DAILY 05/01/20 04/07/22 Unknown History mcg/actuation nasal spray,suspension ipratropium 20 mcg-albuterol 100 1 puff inhalation NEEDED PRN 05/01/20 04/07/22 Unknown History mcg/actuation mist for inhalation Shortness Of Breath (Combivent Respimat) rosuvastatin 40 mg tablet 1 tab PO DAILY 05/01/20 04/07/22 Unknown History folic acid 1 mg tablet 1 mg PO DAILY 10/16/21 04/07/22 Unknown History pregabalin 50 mg capsule 50 mg PO TID 10/16/21 04/07/22 Unknown History blood sugar diagnostic (FreeStyle #10 ea 12/07/21 12/27/21 Unknown History Lite Strips) lancets 33 gauge (TRUEplus Lancets) #100 ea 12/07/21 12/27/21 Unknown History pen needle, diabetic 32 gauge x #50 ea 12/07/21 12/27/21 Unknown History (BD Ultra-Fine Vidya Pen Needle) cyanocobalamin (vitamin B-12) 1,000 mcg PO DAILY 02/26/22 04/07/22 Unknown History 1,000 mcg tablet fludrocortisone 0.1 mg tablet 0.1 mg PO QAM 02/26/22 04/07/22 Unknown History sennosides 8.6 mg tablet (senna) 17.2 mg PO BEDTIME PRN constipation 02/26/22 04/07/22 Unknown History insulin glargine 100 unit/mL 5 unit subcut DAILY 04/07/22 04/07/22 Unknown History subcutaneous cartridge quetiapine 25 mg tablet 12.5 mg PO BEDTIME 04/07/22 04/07/22 Unknown History Physical Exam Vital Signs: Vital Signs: Last Vital Signs Temp 97 F 04/11/22 07:37 Pulse 69 04/11/22 07:37 Resp 18 04/11/22 07:37 BP 119/62 04/11/22 07:37 Pulse Ox 95 04/11/22 07:37 O2 Del Method 04/11/22 07:37 O2 Flow Rate 1 04/11/22 07:37 FiO2 45 04/06/22 21:25 BMI result Body Mass Index 24.9 GENERAL APPEARANCE: in no acute distress, pleasant. NECK: no carotid bruit, no jugular venous distention. SKIN: no suspicious lesions, warm and dry. HEART: no murmurs, regular rate and rhythm. LUNGS: clear to auscultation bilaterally. ABDOMEN: soft, nontender. EXTREMITIES: no edema. PERIPHERAL PULSES: equal. NEUROLOGIC: No gross deficits, AAO X 3 Objective Labs and Meds Result diagrams: 04/10/22 05:53 04/10/22 05:53 Lab results: Laboratory Results - last 24 hr 04/10/22 04/10/22 04/10/22 11:12 16:05 21:06 POC Glucose 251 H 216 H 188 H 04/11/22 07:07 POC Glucose 189 H Assessment and Plan (1) CHF exacerbation: Status: Acute Plan 72-year-old gentleman who had previous myocardial infarction in 2006 and based on echocardiography in 2019 had ejection fraction of 15-20%. He also has a pacemaker. He also had ventricular tachycardia in the past based on chart review and has been on amiodarone. He has Parkinson's disease and has been on fludrocortisone and midodrine. It is possible that he has dysautonomia but is difficult to say what his exact reason he is on these medications. In any case the fludrocortisone should be stopped for now. Start him on 40 mg Lasix once a day. He has allergy to valsartan so it appears he cannot get Entresto. I would let him see Dr. Bush in follow-up. Based on his ECHO at [facility], this is not a new problem and he has known cardiomyopathy. Signing off for now. Thank you for allowing me to participate in the care of your patient. Please feel free to contact me if you have any questions. Procedures Date of Service Date of Service: 04/11/22
[2022-04-11 11:18] LABS: Glucose, Whole Blood 286 mg/dL (60-115)
--- NOTE | 2022-04-11 15:02 | HO.PM.IMPN ---
Subjective Subjective Date of Service: 04/11/22 Interval History: chf /copd excerebation, Review of Systems sob seems improving has drycough Physical Exam Vital Signs: Vital Signs: Last Vital Signs Temp 96.3 F L 04/11/22 12:00 Pulse 75 04/11/22 12:00 Resp 18 04/11/22 12:00 BP 127/60 04/11/22 12:00 Pulse Ox 96 04/11/22 12:00 O2 Del Method 04/11/22 12:00 O2 Flow Rate 1 04/11/22 12:00 FiO2 45 04/06/22 21:25 BMI result Body Mass Index 24.9 ?Appearance: Alert.? Oriented X3.? not in distress.?. cvs: rrr, [id number] , no murmur res:diminshed at bases , few sacttere d rales abd: no rebound or guarding ,nt, bs present. ext pulses present , no cyanosis. neuro: axo3 , nonfocal. Objective Data Active Medications Acetaminophen (Acetaminophen 325 Mg Tablet) 650 mg PO Q6H PRN PRN Reason: Pain, Mild (Pain Scale 1-3) Albuterol/Ipratropium (Albuterol/Iprat 2.5/0.5mg 3 Ml Ampul.Neb) 3 ml INHALE RQ4H WHILE AWAKE [facility] Last Admin: 04/11/22 11:24 Dose: 3 ml Documented By: MAYCO Amiodarone HCl (Amiodarone Hcl 200 Mg Tablet) 200 mg PO DAILY [facility] Last Admin: 04/11/22 08:13 Dose: 200 mg Documented By: MALORIE Amitriptyline HCl (Amitriptyline Hcl 50 Mg Tablet) 50 mg PO BEDTIME [facility] Last Admin: 04/10/22 21:49 Dose: 50 mg Documented By: ANTONIO Aspirin (Aspirin Enteric Coated 81 Mg Tablet.) 81 mg PO BEDTIME [facility] Last Admin: 04/10/22 21:49 Dose: 81 mg Documented By: ANTONIO Atorvastatin Calcium (Atorvastatin Calcium 80 Mg Tablet) 80 mg PO DAILY [facility] Last Admin: 04/11/22 08:13 Dose: 80 mg Documented By: MALORIE Azithromycin (Azithromycin 500 Mg Tablet) 500 mg PO DAILY [facility] Last Admin: 04/11/22 08:12 Dose: 500 mg Documented By: MALORIE Calcium Carbonate/Cholecalciferol (Calcium + Vitamin D 250 Mg Tablet) 500 mg PO DAILY [facility] Last Admin: 04/11/22 08:13 Dose: 500 mg Documented By: MALORIE Cyanocobalamin (Cyanocobalamin (Vitamin B-12) 1,000 Mcg Tablet) 1,000 mcg PO DAILY [facility] Last Admin: 04/11/22 08:13 Dose: 1,000 mcg Documented By: MALORIE Dextrose (Dextrose 50 % 25 Gm/50 Ml Syringe) 25 gm IVPUSH Q15M PRN; Protocol PRN Reason: per Hypoglycemia Standing Ord. Fludrocortisone Acetate (Fludrocortisone Acetate 0.1 Mg Tablet) 0.1 mg PO DAILY [facility] Last Admin: 04/11/22 08:13 Dose: 0.1 mg Documented By: MALORIE Fluticasone Propionate (Fluticasone Propionate Nasal 16 Gm [place]) 2 spray NOSTRIL-B DAILY [facility] Last Admin: 04/11/22 08:30 Dose: Not Given Documented By: MALORIE Non-Admin Reason: Med Not Available Folic Acid (Folic Acid 1 Mg Tablet) 1 mg PO DAILY [facility] Last Admin: 04/11/22 08:13 Dose: 1 mg Documented By: MALORIE Glucose (Glucose Gel 15 Gm Gel..Gram.) 15 gm PO Q15M PRN; Protocol PRN Reason: per Hypoglycemia Standing Ord. Heparin Sodium (Porcine) (Heparin Sodium,Porcine 5,000 Unit/Ml Vial) 5,000 unit SUBCUT Q8H [facility] Last Admin: 04/11/22 08:13 Dose: 5,000 unit Documented By: MALORIE Insulin Glargine (Insulin Glargine,Hum.Rec.Anlog 100 Unit/Ml 10 Ml Vial) 8 unit SUBCUT DAILY [facility] Last Admin: 04/11/22 08:18 Dose: 8 unit Documented By: MALORIE Insulin Human Lispro (Insulin Lispro 100 Unit/Ml 3 Ml Vial) 0 unit SUBCUT QIDACHS [facility]; Protocol Last Admin: 04/11/22 12:03 Dose: 6 unit Documented By: MALORIE Melatonin (Melatonin 3 Mg Tablet) 6 mg PO BEDTIME PRN PRN Reason: Insomnia Last Admin: 04/07/22 19:56 Dose: 6 mg Documented By: CORI Midodrine (Midodrine Hcl 10 Mg Tablet) 10 mg PO QID [facility] Last Admin: 04/11/22 12:03 Dose: 10 mg Documented By: MALORIE Polyethylene Glycol (Polyethylene Glycol 3350 17 Gm Powd.Pack) 17 gm PO DAILY [facility] Last Admin: 04/11/22 08:13 Dose: 17 gm Documented By: MALORIE Prednisone (Prednisone 20 Mg Tablet) 40 mg PO DAILY [facility] Last Admin: 04/11/22 09:27 Dose: 40 mg Documented By: MALORIE Pregabalin (Pregabalin 50 Mg Capsule) 50 mg PO TID [facility] Last Admin: 04/11/22 14:18 Dose: 50 mg Documented By: MALORIE Quetiapine Fumarate (Quetiapine Fumarate 25 Mg Tablet) 12.5 mg PO BEDTIME [facility] Last Admin: 04/10/22 21:49 Dose: 12.5 mg Documented By: ANTONIO Senna (Sennosides 8.6 Mg Tablet) 17.2 mg PO BEDTIME PRN PRN Reason: Constipation Senna (Sennosides 8.6 Mg Tablet) 17.2 mg PO BEDTIME PRN PRN Reason: constipation Sodium Chloride (0.9 % Sodium Chloride Flush 3 Ml Syringe) 3 ml IVFLUSH QSHIFT [facility] Last Admin: 04/11/22 08:14 Dose: 3 ml Documented By: MALORIE Labs CBC & Chem 7: 04/10/22 05:53 04/10/22 05:53 Labs: Laboratory Results - last 24 hr 04/10/22 04/10/22 04/11/22 16:05 21:06 07:07 POC Glucose 216 H 188 H 189 H 04/11/22 11:00 POC Glucose 286 H Assessment and Plan (1) COPD exacerbation: Status: Acute (2) Acute respiratory failure: Status: Acute (3) CHF exacerbation: Status: Acute Plan 72-year-old male with a past medical history of hypertension, hyperlipidemia, CAD, CHF, diabetes, GERD, gastritis, history of ventricular tachycardia status post pacemaker, CKD, chronic back pain, spondylosis presented to the hospital today with a chief complaint of shortness of breath.? Noted to be in acute hypoxic respiratory failure.? Admitted for further management.? Acute hypoxic respiratory failure: In the setting of COPD/CHF with low ef (35%)possible systolic disfuction. Noted to have mildly elevated proBNP, small bilateral pleural effusions/atelectasis on the chest x-ray.? Given a dose of Lasix in the ER.? Will give the patient on Solu-Medrol IV q.i.d. Nebulizations standing and p.r.n. Diuresis based on daily assessment -i/o is total 4liter neg will continue iv? lasix,echo pending Continue supplemental oxygen with goal oxygen saturation 93% ? Mild elevated leukocytosis secondary to some steroids use. echo ef: 20% ?cmp added cardiology eval History of hypertension/hyperlipidemia: Continue home medications. History of diabetes possible type 2:?fs slactuating, Insulin sliding scale/adjusted lantus. ckd possible stage 3: neema collier. ? Hyperkalemia resolved with Lokelma. DVT prophylaxis:? Lovenox Code status:? Full code inaptient need : Acute hypoxic respiratory failure sec to chf /copd excetebation,abnormal echo Quality Stroke Does the patient have a stroke diagnosis?: No VTE Prior VTE?: No VTE Risk Level:: Medical - moderate - high VTE Device Contraindication: Treatment Not Indicated VTE Drug Contraindication: N/A - Med Ordered
[2022-04-11 16:27] LABS: Glucose, Whole Blood 231 mg/dL (60-115)
[2022-04-11 20:13] LABS: Glucose, Whole Blood 163 mg/dL (60-115)
[2022-04-11] MEDS: QUEtiapine Fumarate 25 MG TABLET 12.5 MG PO (20:37)
[2022-04-11] MEDS: Amitriptyline HCl 50 MG TABLET PO (20:37)
[2022-04-11] MEDS: Aspirin Enteric Coated 81 MG TABLET.DR PO (20:37)
[2022-04-12] VITALS (7 sets, daily range): BP systolic 113–125; BP diastolic 59–68; PULSE 65–91; RESP 16–20; TEMP 36.2–36.6; O2SAT 92–99
[2022-04-12] MEDS: Heparin Sodium,Porcine 5,000 UNIT/ML VIAL 5000 UNIT SUBCUT ×2 (01:13→08:52)
[2022-04-12] MEDS: 0.9 % Sodium Chloride Flush 3 ML SYRINGE IVFLUSH ×2 (01:13→08:50)
[2022-04-12] MEDS: Albuterol/Iprat 2.5/0.5MG 3 ML AMPUL.NEB INHALE ×2 (07:11→11:17)
[2022-04-12 07:26] LABS: Glucose, Whole Blood 155 mg/dL (60-115)
[2022-04-12] MEDS: Insulin Lispro 100 UNIT/ML 3 ML VIAL SUBCUT ×2 (08:50→11:56)
[2022-04-12] MEDS: Insulin Glargine,Hum.rec.anlog 100 UNIT/ML 10 ML VIAL 8 UNIT SUBCUT (08:50)
[2022-04-12] MEDS: Folic Acid 1 MG TABLET PO (08:51)
[2022-04-12] MEDS: Amiodarone HCL 200 MG TABLET PO (08:51)
[2022-04-12] MEDS: Atorvastatin Calcium 80 MG TABLET PO (08:51)
[2022-04-12] MEDS: Calcium + Vitamin D 250 MG TABLET 500 MG PO (08:51)
[2022-04-12] MEDS: Midodrine HCl 10 MG TABLET PO ×2 (08:51→14:13)
[2022-04-12] MEDS: Pregabalin 50 MG CAPSULE PO ×2 (08:51→14:13)
[2022-04-12] MEDS: Cyanocobalamin (Vitamin B-12) 1,000 MCG TABLET 1000 MCG PO (08:51)
[2022-04-12] MEDS: predniSONE 20 MG TABLET 40 MG PO (08:51)
[2022-04-12] MEDS: polyethylene glycoL 3350 17 GM POWD.PACK PO (08:51)
[2022-04-12] MEDS: Azithromycin 500 MG TABLET PO (08:51)
[2022-04-12 11:36] LABS: Glucose, Whole Blood 194 mg/dL (60-115)
--- NOTE | 2022-04-12 13:52 | PM.DS ---
DS: Providers Provider Date of Service: 04/12/22 Date of admission: 04/07/22 03:23 Primary care physician: Susy Rashid DO Consults: 04/11/22 08:43 Consult to Cardiology Routine Consulting Provider: aRj Roldan Reason for consultation: chf new?,abnormal echo Has provider been notified: No DS: Diagnosis Discharge Diagnosis (1) COPD exacerbation: Status: Acute (2) Acute respiratory failure: Status: Acute (3) CHF exacerbation: Status: Acute DS: Summary Hospital Course Hospital Course: 72-year-old male with a past medical history of hypertension, hyperlipidemia, CAD, CHF, diabetes, GERD, gastritis, history of ventricular tachycardia status post pacemaker, CKD, chronic back pain, spondylosis presented to the hospital today with a chief complaint of shortness of breath.? Noted to be in acute hypoxic respiratory failure.? Admitted for further management.? hopsital course: Acute hypoxemic respiratory failure possibly related to COPD exacerbation also have component of possible systolic CHF exacerbation. Patient was treated with nebs, steroids, antibiotics-seems to be improved. Home oxygen evaluation was done does not qualify. CHF kolb patient received IV diuresis -responded well. Seen by Cardiology and recommended-to follow up outpatient with patient's own street light repairer helper Dr. Bush. echo done ( please see imaging section)seems similar to before. Also added p.o. Lasix upon discharge. plan: Please complete the course of steroids, Monitor renal function and electrolytes out patiently with PCP since on Lasix. Further management of cardiomyopathy and CHF out patiently with street light repairer helper Dr. Bush. Above management discussed with the patient in detail length she understand and in agreement with the above plan, time spent 50 minutes and 50% time spent on counseling. Time Spent with Patient Time attestation: Total time spent providing and/or coordinating discharge services: Discharge coordination time: Greater than 30 minutes Quality: Safe Use of Opioids Does Pt have an Active Cancer Diagnosis on the Problem List?: No Quality: Stroke Does the patient have a stroke diagnosis?: No Physical Exam Vital Signs: Vital Signs: Last Vital Signs Temp 97.2 F 04/12/22 11:33 Pulse 80 04/12/22 11:33 Resp 20 04/12/22 11:33 BP 125/64 04/12/22 11:33 Pulse Ox 96 04/12/22 11:33 O2 Del Method 04/12/22 11:33 O2 Flow Rate 2 04/12/22 11:33 FiO2 45 04/06/22 21:25 BMI result Body Mass Index 24.9 Appearance: Alert.? Oriented X3.? not in distress.?. cvs: rrr, [id number] , no murmur res:clear to ausculatation,nor rales or wheezing. abd: no rebound or guarding ,nt, bs present. ext pulses present , no cyanosis. neuro: axo3 , nonfocal. DS: Data Data Completed and Pending Labs on day of discharge: Laboratory Results - last 24 hr 04/11/22 04/11/22 04/12/22 16:02 20:03 07:23 POC Glucose 231 H 163 H 155 H 04/12/22 11:31 POC Glucose 194 H ? 04/09/22 04/09/22 04/10/22 ? 15:54 19:46 05:53 MCV ? ? ?95.0 MCH ? ? ?29.0 MCHC ? ? ?30.5 L RDW ? ? ?16.2 H Plt Count ? ? ?279 MPV ? ? ?11.3 Absolute Nucleated RBC ? ? ?0.000 Nucleated RBC % (auto) ? ? ?0.0 Anion Gap ? ? ? Estim Creat Clear Calc ? ? ? Estimated GFR ? ? ? POC Glucose ?199 H ?260 H ? Random Glucose ? ? ? Calcium ? ? ? B-Natriuretic Peptide ? 04/10/22 04/10/22 04/10/22 ? 05:53 05:53 07:12 MCV ? ? ? MCH ? ? ? MCHC ? ? ? RDW ? ? ? Plt Count ? ? ? MPV ? ? ? Absolute Nucleated RBC ? ? ? Nucleated RBC % (auto) ? ? ? Anion Gap ?16 ? ? Estim Creat Clear Calc ?30.8 ? ? Estimated GFR ?35 ? ? POC Glucose ? ? ?214 H Random Glucose ?224 H ? ? Calcium ?8.1 L ? ? B-Natriuretic Peptide ? ?583 H ? ? 04/10/22 ? 11:12 MCV ? MCH ? MCHC ? RDW ? Plt Count ? MPV ? Absolute Nucleated RBC ? Nucleated RBC % (auto) ? Anion Gap ? Estim Creat Clear Calc ? Estimated GFR ? POC Glucose ?251 H Random Glucose ? Calcium ? B-Natriuretic Peptide ? Additional Comments Additional comments: ?XR/XR chest 1V IMPRESSION: Small bilateral pleural effusions with accompanying atelectasis. echo: - There is normal left ventricular wall thickness.? The left ? ? ventricular systolic function is severely decreased.? The? visually estimated ejection fraction is between 20-25%.? - The basal anteroseptal and mid anteroseptal segments are ? ? ? hypokinetic. ? - The inferior wall, the apex, and apical septum segments are? ? akinetic.? - Normal right ventricular cavity size and systolic function.? ? - Significantly elevated right atrial pressur Discharge Plan Discharge Anticipated Discharge Date/Time: 04/08/22 11:17 Patient Disposition: Home, Self-Care Discharge Diagnosis: Possible systolic CHF, COPD exacerbation. Referrals: Javier Bush MD [Physician] - 1 Week (follow up outpatiently) PhysicianJuan Jose [Physician] - 1 Week Discharge Medications: New prednisone 20 mg tablet 20 mg PO DAILY 2 Days Qty: 2 0RF furosemide [Lasix] 40 mg tablet 40 mg PO DAILY Qty: 30 0RF Continued midodrine 10 mg tablet 10 mg PO QID 30 Days Qty: 120 6RF amiodarone 200 mg tablet 1 tab PO DAILY aspirin 81 mg tablet,delayed release (DR/EC) 1 tab PO BEDTIME amitriptyline 50 mg tablet 1 tab PO BEDTIME albuterol sulfate 90 mcg/actuation HFA aerosol inhaler 2 puff PO Q4-6H PRN (Reason: wheezing) rosuvastatin 40 mg tablet 1 tab PO DAILY calcium carbonate-vitamin D3 600 mg(1,500mg) -400 unit tablet 1 tab PO DAILY Combivent Respimat 20-100 mcg/actuation mist 1 puff inhalation NEEDED PRN (Reason: Shortness Of Breath) quetiapine 25 mg Tablet 12.5 mg PO BEDTIME Rx Instructions: 1/2 of 25mg tab insulin glargine 100 unit/mL Cartridge 5 unit SUBCUT DAILY polyethylene glycol 3350 [Miralax] 17 gram/dose powder 17 g PO DAILY 1 Days Qty: 238 0RF Rx Instructions: Mix Miralax with 64 oz(8 cups) of Crystal light. Take 2 tablets of Dulcolax qt 12 pm. Wait to have your 1st bowel movement, then begin drinking Miralax. Drink a glass of Miralax every 10-15 minutes until you are finished. You will drink at least another 4 cups of clear liquid of your choice over the next 2 hours. Please drink as many clear liquids as possible You may have clear liquids up to four hours before your procedure pregabalin 50 mg capsule 50 mg PO TID folic acid 1 mg tablet 1 mg PO DAILY (DME) lancets [TRUEplus Lancets] 33 gauge misc See Rx Instructions topical .MEDSUPPLY Qty: 100 Rx Instructions: As directed (DME) FreeStyle Lite Strips Strip See Rx Instructions Not Applicable .MEDSUPPLY Qty: 10 Rx Instructions: As directed (DME) pen needle, diabetic [BD Ultra-Fine Vidya Pen Needle] 32 gauge x 5/32 needle See Rx Instructions subcut DAILY Qty: 50 Rx Instructions: As directed cyanocobalamin (vitamin B-12) 1,000 mcg tablet 1,000 mcg PO DAILY sennosides [senna] 8.6 mg tablet 17.2 mg PO BEDTIME PRN (Reason: constipation) fludrocortisone 0.1 mg tablet 0.1 mg PO QAM Discontinued fluticasone propionate 50 mcg/actuation spray,suspension 2 spray intranasal DAILY Discharge Orders: Discharge Order (Routine); Ordered 04/12/22 Ordered By: Anthony Alan Diet: Advance to usual diet Activity on Discharge: As tolerated Stand Alone Forms: Patient Portal Discharge page Care Plan Goals: Acute hypoxemic respiratory failure possibly related to COPD exacerbation also have component of possible systolic CHF exacerbation. Patient was treated with nebs, steroids, antibiotics-seems to be improved. Home oxygen evaluation was done does not qualify. CHF kolb patient received IV diuresis -responded well. Seen by Cardiology and recommended-to follow up outpatient with patient's own street light repairer helper Dr. Bush. Also added p.o. Lasix upon discharge. Health Concerns: If patient develops new shortness of breath or fever or cough or any new symptoms please come to the nearest emergency room for further evaluation. Plan of Treatment: Monitor BMP out patiently, continue Lasix, complete course steroids. Follow-up with Cardiology out patiently Assessment: As above. Discharge Date/Time: 04/12/22 16:34
--- NOTE | 2022-04-12 14:01 | MHC.CM.PN ---
PT TO DC HOME TODAY WITH NO NEW SERVICES HE WILL SELF RESUME [employer] TO TRANSPORT
== END 2022-04-12 16:34 | disposition home or self-care (01) | DRG 291 ==
LOC: HO.ED 04-07 01:50 → HO.EDOVER 04-07 03:30 → HO.IMC 04-07 17:25
PROVIDERS: Internal Medicine; Admitting Provider Hospitalist; Emergency Provider Student in an Organized Health Care Education/Training Program; PCP Family Medicine; Visit Provider Internal Medicine
DX: I13.0 Hypertensive heart and chronic kidney disease with heart failure and stage 1 through stage 4 chronic kidney disease, or unspecified chronic kidney disease (principal); I50.23 Acute on chronic systolic (congestive) heart failure; J96.01 Acute respiratory failure with hypoxia; J44.1 Chronic obstructive pulmonary disease with (acute) exacerbation; I47.2 Ventricular tachycardia; I42.9 Cardiomyopathy, unspecified; I25.10 Atherosclerotic heart disease of native coronary artery without angina pectoris; E78.5 Hyperlipidemia, unspecified; K21.9 Gastro-esophageal reflux disease without esophagitis; E11.65 Type 2 diabetes mellitus with hyperglycemia; E87.5 Hyperkalemia; E11.22 Type 2 diabetes mellitus with diabetic chronic kidney disease; N18.30 Chronic kidney disease, stage 3 unspecified; G20 Parkinson's disease; Z20.822 Contact with and (suspected) exposure to COVID-19; I25.2 Old myocardial infarction; Z95.810 Presence of automatic (implantable) cardiac defibrillator; Z87.891 Personal history of nicotine dependence; Z79.82 Long term (current) use of aspirin; Z79.4 Long term (current) use of insulin; Z79.52 Long term (current) use of systemic steroids; Z79.899 Other long term (current) drug therapy
CPT/HCPCS: 36415; 71045; 80048; 80053; 82803; 82947; 83605; 83735; 83880; 84484; 85025; 85027; 85610; 87040; 87635; 93005; 93306; 94640; 97161; 99285; J1940; J2920; J2930; Q9957

== ENCOUNTER 2022-07-31 10:55 | Outpatient (REF) | payer OTHER, SELFPAY ==
--- NOTE | ~2022-07-31 | XR_ITS ---
EXAMINATION: XR CHEST CLINICAL INFORMATION: Cough. Covid infection. COMPARISON: Previous chest x-ray most recent April 2022 TECHNIQUE: 2 views of the chest were obtained. FINDINGS: The cardiac and mediastinal contours are stable. There is a left subclavian pacemaker AICD device that appears unchanged. The lungs are clear. There is a small right pleural effusion. There is no pneumothorax. There are degenerative changes of the spine. XR/XR chest 2V IMPRESSION: Small right pleural effusion.
== END 2022-07-31 10:56 | disposition home or self-care (01) ==
LOC: HO.XRAY 10:55
PROVIDERS: PCP Family Medicine; Visit Provider Emergency Medicine
DX: U07.1 COVID-19 (principal); R05.9 Cough, unspecified
CPT/HCPCS: 71046

== ENCOUNTER → 2022-11-28 13:20 | Outpatient (BNVA) | payer OTHER, SELFPAY | PROVIDERS: PCP Family Medicine; Visit Provider Hospitalist | DX: Z23 Encounter for immunization (principal); J44.9 Chronic obstructive pulmonary disease, unspecified; I42.9 Cardiomyopathy, unspecified; I50.9 Heart failure, unspecified; R06.00 Dyspnea, unspecified | CPT/HCPCS: 90471; 90677; 99202 ==

== ENCOUNTER 2023-01-12 00:35 | Inpatient (IN) | payer OTHER, SELFPAY ==
[2023-01-12] VITALS (10 sets, daily range): BP systolic 109–160; BP diastolic 53–94; PULSE 67–92; RESP 16–28; TEMP 36.1–36.7; O2SAT 83–100; BMI 23.3; BMI 24.8
--- NOTE | ~2023-01-12 | XR_ITS ---
EXAMINATION: XR CHEST CLINICAL INFORMATION: Acute dyspnea COMPARISON: 07/23/2022 TECHNIQUE: Frontal view of the chest was obtained. FINDINGS: Left chest wall pacer with lead overlying the right ventricle. Cardiac leads overlie the chest. The lungs are well expanded. Increased hazy opacity of the right base. Bronchial wall thickening. No pneumothorax. Blunting at the right costophrenic angle appears chronic. No definite pleural effusion. The cardiomediastinal silhouette is unchanged. XR/XR chest 1V IMPRESSION: Bronchial wall thickening can be seen with a small airways process such as asthma or atypical/viral infection. Increased hazy opacity at the right base could represent superimposed atelectasis or pneumonia.
--- NOTE | ~2023-01-12 | XR_ITS ---
EXAMINATION: XR CHEST CLINICAL INFORMATION: Follow-up post diuresis COMPARISON: Previous chest x-ray most recent from yesterday TECHNIQUE: Frontal view of the chest was obtained. FINDINGS: The cardiac silhouette is upper normal in size but stable. Left subclavian pacemaker AICD device appears unchanged. MEMS device projects over the left pulmonary hilum. There is interval decrease in pulmonary venous redistribution and perihilar airspace disease suggestive of improving pulmonary edema. No pleural effusion. Degenerative changes of the spine. XR/XR chest 1V IMPRESSION: Improving pulmonary edema
--- NOTE | 2023-01-12 00:43 | ECG_ITS ---
Test Reason : SOB Blood Pressure : / mmHG Vent. Rate : 090 BPM Atrial Rate : 090 BPM P-R Int : 156 ms QRS Dur : 166 ms QT Int : 456 ms P-R-T Axes : 063 -66 101 degrees QTc Int : 557 ms Poor data quality Normal sinus rhythm Possible Left atrial enlargement Right bundle branch block Left anterior fascicular block Bifascicular block Left ventricular hypertrophy with repolarization abnormality ( R in aVL ) Abnormal ECG When compared with ECG of 06-APR-2022 21:11, Poor data quality in current ECG precludes serial comparison Referred By: Mane Livingston Electronically Signed By:Raj Roldan
--- NOTE | 2023-01-12 01:22 | ED_ITS ---
HPI - SOB/Dyspnea General Chief Complaint: Dyspnea Stated Complaint: shortness of breath/chest pain Time Seen by Provider: 01/12/23 00:39 Source: patient and EMS Mode of arrival: EMS Limitations: no limitations History of Present Illness HPI Narrative: 72-year-old male with history of COPD and coronary artery disease presents with shortness of breath. Symptoms started today. They are severe. They are associated with orthopnea, PND, dyspnea on exertion. He also has been describing a sharp right-sided chest pain. Pain is brief and intermittent. Not associated with exertion. Patient has a nonproductive cough. He has had no fevers or chills. No sick contacts. Related Data Home Medications Medication Instructions Recorded Confirmed albuterol sulfate 90 mcg/actuation 2 puff PO Q4-6H PRN wheezing 05/01/20 04/07/22 aerosol inhaler amiodarone 200 mg tablet 1 tab PO DAILY 05/01/20 04/07/22 aspirin 81 mg tablet,delayed 1 tab PO BEDTIME 05/01/20 04/07/22 release calcium carbonate 600 mg-vitamin 1 tab PO DAILY 05/01/20 04/07/22 D3 10 mcg (400 unit) tablet pregabalin 50 mg capsule 50 mg PO TID 10/16/21 04/07/22 blood sugar diagnostic (FreeStyle #10 ea 12/07/21 12/27/21 Lite Strips) lancets 33 gauge (TRUEplus Lancets) #100 ea 12/07/21 12/27/21 pen needle, diabetic 32 gauge x #50 ea 12/07/21 12/27/21 5/32 (BD Ultra-Fine Vidya Pen Needle) cyanocobalamin (vitamin B-12) 1,000 mcg PO DAILY 02/26/22 04/07/22 1,000 mcg tablet fludrocortisone 0.1 mg tablet 0.1 mg PO QAM 02/26/22 04/07/22 insulin glargine 100 unit/mL 5 unit subcut DAILY 04/07/22 04/07/22 subcutaneous cartridge atorvastatin 80 mg tablet 80 mg PO DAILY 11/28/22 nebulizers 11/28/22 Previous Rx's Medication Instructions Recorded polyethylene glycol 3350 17 17 g PO DAILY colon prep 1 day 12/27/21 gram/dose oral powder (Miralax) #238 grams midodrine 10 mg tablet 10 mg PO QID 30 days #120 tabs 03/11/22 furosemide 40 mg tablet (Lasix) 40 mg PO DAILY #30 tabs 04/12/22 fluticasone fur. 100 mcg-umeclid 1 inh inhalation DAILY 30 days #60 11/28/22 62.5 mcg-vilant 25 mcg ea inhalat.powder (Trelegy Ellipta) Allergies Allergy/AdvReac Type Severity Reaction Status Date / Time valsartan [Diovan] Allergy Unknown Unknown Verified 11/28/22 13:35 simvastatin AdvReac Unknown increased Verified 11/28/22 13:35 liver enzymes Review of Systems Review of Systems: CONSTITUTIONAL: Denies weight loss, fever and chills. HEENT: Denies changes in vision and hearing. RESPIRATORY: Positive for SOB and cough. CV: Denies palpitations positive CP. GI: Denies abdominal pain, nausea, vomiting and diarrhea. : Denies dysuria and urinary frequency. MSK: Denies myalgia and joint pain. SKIN: Denies rash and pruritus. NEUROLOGICAL: Denies headache and syncope. PSYCHIATRIC: Denies recent changes in mood. Denies anxiety and depression. All other ROS are negative unless in HPI PMFSH Past Medical History Medical History Back pain CAD (coronary artery disease) Cardiomyopathy CHF (congestive heart failure) Chronic renal insufficiency COPD (chronic obstructive pulmonary disease) Diabetes Dyspnea Elevated cholesterol GERD (gastroesophageal reflux disease) HTN (hypertension) Hx of gastritis Hx of ventricular tachycardia Pacemaker Parkinson disease Pleural effusion due to congestive heart failure Spondylosis Surgical History AICD (automatic cardioverter/defibrillator) present H/O cystoscopy Hx of colonoscopy Hx of right inguinal hernia repair Family History Family History Mother No known health problems Father No known health problems Social History Social History Household Members: Spouse Housing: House Do you presently have visiting nurse or other home services: Yes Alcohol intake: never Patient Tobacco Use Status: Former Tobacco user Second Hand Smoke Exposure: No Advance Directives: No Advance Directives Information Provided: Yes service: No Current occupational status: disabled Physical Exam Vital Signs: Vital Signs: Last Vital Signs Temp 98.0 F 01/12/23 01:18 Pulse 88 01/12/23 01:18 Resp 23 H 01/12/23 01:18 BP 158/88 H 01/12/23 01:18 Pulse Ox 90 L 01/12/23 01:18 O2 Del Method Nasal Cannula 01/12/23 01:18 O2 Flow Rate 4 01/12/23 01:18 BMI result Body Mass Index 23.3 GEN: Well developed, moderate acute distress, alert, oriented HEENT: Normocephalic, atraumatic, normal external ears, nose appears normal, no oropharyngeal edema or exudates Eyes: Normal to appearance Neck: Supple, no lymphadenopathy Respiratory: Unable to talk in complete sentences, accessory muscle use, t achypnea, crackles throughout all lung jain Cardiovascular: Regular rate and rhythm, no murmurs rubs or gallops Abdomen: Soft, nontender, nondistended, no guarding, no rebound Back: No CVA tenderness Extremities: No clubbing cyanosis positive 1+ pitting edema Neurologic: No focal neurologic deficits, cranial nerves 2-12 intact, strength is 5/5 bilaterally Skin: No rash Course Course Course Narrative: Patient presents with shortness breath, orthopnea, PND and lower extremity edema. Cardiac examination revealed regular rate rhythm, lungs crackles throughout all lung jain. Suspect CHF based on x-ray. Patient is hypoxic however, he is on oxygen at home and does have a history of COPD. I believe patient in fact has CHF exacerbation as opposed to COPD exacerbation. Will treat with Lasix and nitro paste and re-evaluate. Based on the way the patient appears, patient will likely need to be admitted to the hospital. Reevaluation(s) Reevaluation #1: Will put patient on CPAP for CHF. Applying Nitropaste and IV lasix Time: 01:26 Medical Decision Making Medical Decision Making MDM Narrative: 72-year-old male with history of COPD and CHF presents with shortness of breath. Differential diagnosis includes CHF, pulmonary edema, pneumonia, pleural effusion, cardiac, bronchitis, PE Plan: Chest x-ray, laboratory analysis, EKG Disposition: Likely admission Differential Diagnosis Differential Diagnoses: The differential diagnosis associated with the presentation includes (See above) Admission/Observation Consideration of admission/observation: Escalation of care including admission/observation considered Consult Healthcare Provider Management of the patient was discussed with: Hospitalist Lab Data MDM Lab Attestation statement: I reviewed the patient's lab results. 01/12/23 01:19 01/12/23 01:19 Independent Interpretation I performed an independent interpretation of an: EKG (Normal sinus rhythm heart rate 90, right bundle-branch block, poor baseline what is interpretable is similar to 04/06/2022) and Plain X-Ray (Chest: Pulmonary edema consistent with CHF possible small pleural effusions) Independent Historian Clinical information obtained from an independent historian. History obtained from or confirmed by: EMS External Record Review External record reviewed: Prior outpatient radiology Conclusions: - There is normal left ventricular wall thickness.? The left ? ? ventricular systolic function is severely decreased.? The? visually estimated ejection fraction is between 20-25%.? - The basal anteroseptal and mid anteroseptal segments are ? ? ? hypokinetic. ? - The inferior wall, the apex, and apical septum segments are? ? akinetic.? - Normal right ventricular cavity size and systolic function.? ? - Significantly elevated right atrial pressure.? Prescription Management I considered prescription management with: Antibiotic Chronic Conditions Patient?s care impacted by: Other (CHF) Critical Care Time Critical Care Time Critical Care Time: Yes Total Critical Care Time: 40 Attestation: Critical care time with bedside evaluation, reassessment, review of medical data, interpretation medical data, medical intervention for potentially life- threatening or severe morbid risk condition. Discharge Plan Discharge Clinical Impression: CHF exacerbation Patient Disposition: Admitted As Inpatient
[2023-01-12 01:32] LABS: MANUAL DIFF FLAG NO
[2023-01-12 01:35] LABS: Basophils Percent Auto 0.2 % (0-2); Hematocrit 36.2 % (42.0-52.0); Imm Gran Abs Auto 0.04 X10*3/uL (0.00-0.03); Imm Gran Pct Auto 0.7 % (0.0-0.4); Lymphocytes Absolute Auto 1.4 X10*3/uL (1.2-4.9); Lymphocytes Percent Auto 25.7 % (20-40); Mean Corpuscular HGB Conc 30.4 g/dl (31.0-36.0); Mean Corpuscular Hemoglobin 26.3 pg (27.0-33.0); Mean Corpuscular Volume 86.6 fL (80.0-98.0); Mean Platelet Volume 11.4 fL (9.4-12.4); Monocytes Absolute Auto 0.5 X10*3/uL (0.1-1.2); Monocytes Percent Auto 9.1 % (2-11); Neutrophils Absolute Auto 3.6 x10*3/uL (2.0-8.3); Neutrophils Percent Auto 64.3 % (45-73); Platelet Count 326 X10*3/uL (160-400); Red Blood Count 4.18 X10*6/uL (4.60-5.80); Red Cell Distribution Width 18.7 % (11.0-16.0); White Blood Count 5.6 X10*3/uL (4.8-10.8)
[2023-01-12] MEDS: Furosemide 40 MG/4 ML VIAL IVPUSH ×3 (01:41→16:39)
[2023-01-12] MEDS: Nitroglycerin 2 % Oint 1 GM Packet 1 INCH TRANSDERMA (01:41)
[2023-01-12 01:43] LABS: Lactic Acid 1.9 mmol/L (0.5-2.0)
[2023-01-12 01:45] LABS: VBG Base Excess 7.2 mmol/L; VBG HCO3 33 mmol/L (22-26); VBG pCO2 51 mmHg; VBG pH 7.41 (7.32-7.43); VBG pO2 37 mmHg
[2023-01-12 01:46] LABS: Venous Blood Gas Refer to POC result
[2023-01-12 01:48] LABS: Alanine Aminotransferase 16 U/L (0-40); Albumin Level 4.2 g/dL (3.5-5.0); Alkaline Phosphatase 147 U/L (39-117); Anion Gap 13 (12-20); Aspartate Amino Transferase 23 U/L (5-37); Blood Urea Nitrogen 19 mg/dL (9-16); COVID-19 Test Negative (Negative); Calcium 9.3 mg/dL (8.4-10.2); Carbon Dioxide 30 mmol/L (22-29); Chloride 103 mmol/L (96-108); Creatinine Clr Calc Pharmacy 30.2; Estimated Glomerular Filt Rate 34; Glucose Random 243 mg/dL (60-115); IDNOW Serial# BCCEAD1C; Potassium 3.2 mmol/L (3.3-5.1); Sodium 143 mmol/L (135-145)
--- NOTE | 2023-01-12 01:50 | PC.NURSE ---
pt currently on c-pap. tolerating well. iv established, medicated with lasix and [place]
[2023-01-12 01:53] LABS: Troponin-I High Sensitivity 20.2 ng/L (<3.5-35.0)
[2023-01-12] MEDS: Potassium Chloride Packet 20 MEQ PACKET 40 MEQ PO ×2 (02:07→03:53)
[2023-01-12 02:23] LABS: B Type Natriuretic Peptide 1679 pg/mL (<100)
[2023-01-12 02:51] LABS: Appearance Urine Clear; Color Urine Yellow; Glucose Urine UA 250 mg/dL (Negative); Leukocyte Esterase Urine Negative (Negative); Nitrite Urine Negative (Negative); PH 7.5 (5.0-9.0); Urine Blood Negative (Negative); Urine Ketones Negative (Negative); Urine Protein Negative (Neg-Trace)
--- NOTE | 2023-01-12 03:10 | P.HPHOSP_ITS ---
History of Present Illness Date of Service: 01/12/23 Chief Complaint: Dyspnea This is a 72-year-old male with pertinent history of congestive heart failure with reduced ejection fraction, insulin-dependent diabetes mellitus, chronic hypoxemic respiratory failure due to COPD, mixed hyperlipidemia who presents to the emergency department for evaluation of dyspnea. Patient states he woke up from sleep due to shortness of breath. It started on the day of presentation. Admits orthopnea and PND. Also has bilateral lower extremity edema. Denies fever, chills, cough. States he is compliant with his p.o. medications including Lasix. He denies nausea, vomiting, abdominal pain, palpitations, changes in urinary or bowel habits. In the emergency department, BNP found to be significantly elevated and x-ray concerning for pulmonary edema. Patient was placed on non-rebreather in the ER Review of Systems Constitutional: Constitutional: Reports no additional constitutional complaints Cardiovascular: Cardiovascular: Reports orthopnea and Reports paroxysmal nocturnal dyspnea Respiratory: Respiratory: Reports no additional respiratory complaints Gastrointestinal: Gastrointestinal: Reports no additional gastrointestinal complaints Genitourinary: Genitourinary: Reports no additional male genitourinary complaints [facility] Medical History (Updated 01/12/23 @ 03:14 by Daniel Cyr MD) Back pain CAD (coronary artery disease) Cardiomyopathy CHF (congestive heart failure) Chronic renal insufficiency COPD (chronic obstructive pulmonary disease) Diabetes Dyspnea Elevated cholesterol GERD (gastroesophageal reflux disease) HTN (hypertension) Hx of gastritis Hx of ventricular tachycardia Pacemaker Parkinson disease Pleural effusion due to congestive heart failure Spondylosis Family History Mother No known health problems Father No known health problems Surgical History AICD (automatic cardioverter/defibrillator) present H/O cystoscopy Hx of colonoscopy Hx of right inguinal hernia repair Social History Household Members: Spouse Housing: House Do you presently have visiting nurse or other home services: Yes Alcohol intake: never Patient Tobacco Use Status: Former Tobacco user Second Hand Smoke Exposure: No Advance Directives: No Advance Directives Information Provided: Yes service: No Current occupational status: disabled Meds Allergies Allergy/AdvReac Type Severity Reaction Status Date / Time valsartan [Diovan] Allergy Unknown Unknown Verified 11/28/22 13:35 simvastatin AdvReac Unknown increased Verified 11/28/22 13:35 liver enzymes Active Medications: Current Medications Pharmacy Consult (Consult Rx Perform Med Rec) 1 each MISCELLANE ONCE PRN PRN Reason: Consult order Home Medications Medication Instructions Recorded Confirmed Last Taken Type albuterol sulfate 90 mcg/actuation 2 puff PO Q4-6H PRN wheezing 05/01/20 04/07/22 Unknown History aerosol inhaler amiodarone 200 mg tablet 1 tab PO DAILY 05/01/20 04/07/22 Unknown History aspirin 81 mg tablet,delayed 1 tab PO BEDTIME 05/01/20 04/07/22 Unknown History release calcium carbonate 600 mg-vitamin 1 tab PO DAILY 05/01/20 04/07/22 Unknown History D3 10 mcg (400 unit) tablet pregabalin 50 mg capsule 50 mg PO TID 10/16/21 04/07/22 Unknown History blood sugar diagnostic (FreeStyle #10 ea 12/07/21 12/27/21 Unknown History Lite Strips) lancets 33 gauge (TRUEplus Lancets) #100 ea 12/07/21 12/27/21 Unknown History pen needle, diabetic 32 gauge x #50 ea 12/07/21 12/27/21 Unknown History (BD Ultra-Fine Vidya Pen Needle) cyanocobalamin (vitamin B-12) 1,000 mcg PO DAILY 02/26/22 04/07/22 Unknown History 1,000 mcg tablet fludrocortisone 0.1 mg tablet 0.1 mg PO QAM 02/26/22 04/07/22 Unknown History insulin glargine 100 unit/mL 5 unit subcut DAILY 04/07/22 04/07/22 Unknown History subcutaneous cartridge atorvastatin 80 mg tablet 80 mg PO DAILY 11/28/22 Unknown History nebulizers 11/28/22 Unknown History Physical Exam Vital Signs and Narrative: Vital Signs: Last Vital Signs Temp 98.0 F 01/12/23 01:18 Pulse 88 01/12/23 01:18 Resp 28 H 01/12/23 01:35 BP 158/88 H 01/12/23 01:18 Pulse Ox 90 L 01/12/23 01:18 O2 Del Method Nasal Cannula 06/11/23 01:18 O2 Flow Rate 4 01/12/23 01:18 BMI result Body Mass Index 23.3 Elderly male lying in bed in mild distress on supplemental oxygen DVT present Regular rate and rhythm, S1-S2 heard Bilateral crackles without wheezing Abdomen soft nontender, no guarding, no rigidity Patient is awake, alert and oriented to self, place, time and person ; no focal motor deficit Psych: Normal mood Bilateral pedal edema Results Labs 01/12/23 01:19 01/12/23 01:19 Labs: Laboratory Results - last 24 hr 01/12/23 01/12/23 01/12/23 01:19 01:19 01:19 MCV 86.6 MCH 26.3 L MCHC 30.4 L RDW 18.7 H Plt Count 326 MPV 11.4 Immature Gran % (Auto) 0.7 H Neut % (Auto) 64.3 Lymph % (Auto) 25.7 [place] % (Auto) 9.1 Eos % (Auto) 0.0 Baso % (Auto) 0.2 Lymph # (Auto) 1.4 [place] # (Auto) 0.5 Eos # (Auto) 0.0 Baso # (Auto) 0.0 Abs Immat Gran (auto) 0.04 H Absolute Neuts (auto) 3.6 Absolute Nucleated RBC 0.000 Nucleated RBC % (auto) 0.0 VBG pH VBG pCO2 VBG pO2 VBG HCO3 VBG O2 Saturation VBG Base Excess Anion Gap 13 Estim Creat Clear Calc 30.2 Estimated GFR 34 Random Glucose 243 H Lactic Acid 1.9 Calcium 9.3 D Total Bilirubin 1.0 AST 23 ALT 16 Alkaline Phosphatase 147 H Troponin I High Sens B-Natriuretic Peptide Total Protein 8.0 Albumin 4.2 Urine Color Urine Appearance Urine pH Ur Specific [place] Urine Protein Urine Glucose (UA) Urine Ketones Urine Blood Urine Nitrite Ur Leukocyte Esterase COVID-19 ([facility]) COVID-19 Clin Com 01/12/23 01/12/23 01/12/23 01:19 01:19 01:19 MCV MCH MCHC RDW Plt Count MPV Immature Gran % (Auto) Neut % (Auto) Lymph % (Auto) [place] % (Auto) Eos % (Auto) Baso % (Auto) Lymph # (Auto) [place] # (Auto) Eos # (Auto) Baso # (Auto) Abs Immat Gran (auto) Absolute Neuts (auto) Absolute Nucleated RBC Nucleated RBC % (auto) VBG pH VBG pCO2 VBG pO2 VBG HCO3 VBG O2 Saturation VBG Base Excess Anion Gap Estim Creat Clear Calc Estimated GFR Random Glucose Lactic Acid Calcium Total Bilirubin AST ALT Alkaline Phosphatase Troponin I High Sens 20.2 B-Natriuretic Peptide 1679 H Total Protein Albumin Urine Color Urine Appearance Urine pH Ur Specific [place] Urine Protein Urine Glucose (UA) Urine Ketones Urine Blood Urine Nitrite Ur Leukocyte Esterase COVID-19 ([facility]) Negative COVID-19 Clin Com See Note 01/12/23 01/12/23 01:30 02:42 MCV MCH MCHC RDW Plt Count MPV Immature Gran % (Auto) Neut % (Auto) Lymph % (Auto) [place] % (Auto) Eos % (Auto) Baso % (Auto) Lymph # (Auto) [place] # (Auto) Eos # (Auto) Baso # (Auto) Abs Immat Gran (auto) Absolute Neuts (auto) Absolute Nucleated RBC Nucleated RBC % (auto) VBG pH 7.41 VBG pCO2 51 VBG pO2 37 VBG HCO3 33 H VBG O2 Saturation 51.0 VBG Base Excess 7.2 Anion Gap Estim Creat Clear Calc Estimated GFR Random Glucose Lactic Acid Calcium Total Bilirubin AST ALT Alkaline Phosphatase Troponin I High Sens B-Natriuretic Peptide Total Protein Albumin Urine Color Yellow Urine Appearance Clear Urine pH 7.5 Ur Specific [place] 1.010 Urine Protein Negative Urine Glucose (UA) 250 H Urine Ketones Negative Urine Blood Negative Urine Nitrite Negative Ur Leukocyte Esterase Negative COVID-19 ([facility]) COVID-19 Clin Com Imaging Radiologist's Impressions: Impressions Chest X-Ray 01/12/23 01:08 IMPRESSION: Bronchial wall thickening can be seen with a small airways process such as asthma or atypical/viral infection. Increased hazy opacity at the right base could represent superimposed atelectasis or pneumonia. Assessment and Plan (1) CHF (congestive heart failure): Status: Acute Plan This is a 72-year-old male with pertinent history of congestive heart failure with reduced ejection fraction, insulin-dependent diabetes mellitus, chronic hypoxemic respiratory failure due to COPD, mixed hyperlipidemia who presents to the emergency department for evaluation of dyspnea. #. Acute on chronic hypoxemic respiratory failure due to acute exacerbation of congestive heart failure with reduced ejection fraction. Will admit patient and initiate IV Lasix. Obtaining echocardiogram and consult Cardiology. Low-salt diet and strict I's and O's. Monitor oxygen saturation and wean as tolerated, maintain oxygen saturation greater than 88% #. Insulin-dependent diabetes mellitus with hyperglycemia. Initiating Accu- Cheks with sliding scale insulin before meals and at bedtime #. Chronic kidney disease. Creatinine at baseline. Monitor creatinine and urine output with IV diuresis. Avoid nephrotoxins #. Chronic obstructive pulmonary disease. No exacerbation on admission. Continue home inhalers #. Mixed hyperlipidemia. On statin #. Hypokalemia. Repleted #. Chronic normocytic anemia Med rec pending DVT prophylaxis: Lovenox Full code Cardiac diet Admit as inpatient and will require two night minimum hospital stay for supplemental oxygen and IV diuresis Time Spent With Patient Time: Total time managing care of this patient today ____ minutes. Quality Stroke Does the patient have a stroke diagnosis?: No VTE Prior VTE?: No VTE Risk Level:: Medical - moderate - high VTE Device Contraindication: Treatment Not Indicated VTE Drug Contraindication: N/A - Med Ordered
[2023-01-12] MEDS: Enoxaparin Sodium 30 MG/0.3 ML SYRINGE SUBCUT (03:53)
--- NOTE | 2023-01-12 04:02 | PC.NURSE ---
c-pap d/c per pt. resp therapy aware, placed on 4 liters of o2 NC
[2023-01-12 05:04] LABS: MANUAL DIFF FLAG NO
[2023-01-12 05:05] LABS: Basophils Percent Auto 0.2 % (0-2); Eosinophils Percent Auto 0.1 % (0-4); Hematocrit 37.1 % (42.0-52.0); Hemoglobin 11.2 g/dl (14.0-18.0); Imm Gran Abs Auto 0.03 X10*3/uL (0.00-0.03); Imm Gran Pct Auto 0.4 % (0.0-0.4); Lymphocytes Absolute Auto 1.5 X10*3/uL (1.2-4.9); Lymphocytes Percent Auto 18.1 % (20-40); Mean Corpuscular HGB Conc 30.2 g/dl (31.0-36.0); Mean Corpuscular Hemoglobin 26.4 pg (27.0-33.0); Mean Corpuscular Volume 87.3 fL (80.0-98.0); Mean Platelet Volume 11.1 fL (9.4-12.4); Monocytes Absolute Auto 0.9 X10*3/uL (0.1-1.2); Monocytes Percent Auto 10.3 % (2-11); Neutrophils Absolute Auto 5.8 x10*3/uL (2.0-8.3); Neutrophils Percent Auto 70.9 % (45-73); Platelet Count 337 X10*3/uL (160-400); Red Blood Count 4.25 X10*6/uL (4.60-5.80); Red Cell Distribution Width 18.9 % (11.0-16.0); White Blood Count 8.2 X10*3/uL (4.8-10.8)
[2023-01-12 05:28] LABS: Anion Gap 15 (12-20); Blood Urea Nitrogen 17 mg/dL (9-16); Calcium 9.2 mg/dL (8.4-10.2); Carbon Dioxide 29 mmol/L (22-29); Chloride 105 mmol/L (96-108); Creatinine Clr Calc Pharmacy 32.3; Estimated Glomerular Filt Rate 37; Glucose Random 179 mg/dL (60-115); Potassium 4.1 mmol/L (3.3-5.1); Sodium 145 mmol/L (135-145)
[2023-01-12] MEDS: Albuterol/Iprat 2.5/0.5MG 3 ML AMPUL.NEB INHALE ×3 (08:07→15:28)
--- NOTE | 2023-01-12 08:45 | P.PNIM_ITS ---
Subjective Subjective Date of Service: 01/12/23 Interval History: sob improving Physical Exam Vital Signs: Vital Signs: Last Vital Signs Temp 97.3 F 01/12/23 07:24 Pulse 77 01/12/23 08:09 Resp 16 01/12/23 08:09 BP 137/77 01/12/23 07:24 Pulse Ox 100 01/12/23 07:24 O2 Del Method Nasal Cannula 01/12/23 07:24 O2 Flow Rate 5 01/12/23 07:24 BMI result Body Mass Index 23.3 minimal accesory muscle,s ao times 3 crackles Objective Data Active Medications Acetaminophen (Acetaminophen 325 Mg Tablet) 650 mg PO Q6H PRN PRN Reason: Pain, Mild (Pain Scale 1-3) Albuterol/Ipratropium (Albuterol/Iprat 2.5/0.5mg 3 Ml Ampul.Neb) 3 ml INHALE Q4H PRN PRN Reason: Wheezing Albuterol/Ipratropium (Albuterol/Iprat 2.5/0.5mg 3 Ml Ampul.Neb) 3 ml INHALE RQ4H WHILE AWAKE [facility] Last Admin: 01/12/23 08:07 Dose: 3 ml Documented By: MICHAEL Enoxaparin Sodium (Enoxaparin Sodium 30 Mg/0.3 Ml Syringe) 30 mg SUBCUT Q24H [facility] Last Admin: 01/12/23 03:53 Dose: 30 mg Documented By: NARESH Furosemide (Furosemide 40 Mg/4 Ml Vial) 40 mg IVPUSH BID@0900,1800 [facility]; Protocol Glucose (Glucose Gel 15 Gm Gel..Gram.) 15 gm PO Q15M PRN; Protocol PRN Reason: per Hypoglycemia Standing Ord. Dextrose (D10) 250 mls @ 750 mls/hr IV Q15M PRN; Protocol PRN Reason: per Hypoglycemia Standing Ord. Insulin Human Lispro (Insulin Lispro 100 Unit/Ml 3 Ml Vial) 0 unit SUBCUT QIDACHS [facility]; Protocol Melatonin (Melatonin 3 Mg Tablet) 6 mg PO BEDTIME PRN PRN Reason: Insomnia Ondansetron HCl (Ondansetron Hcl 4 Mg/2 Ml Vial) 4 mg IVPUSH Q8H PRN PRN Reason: Nausea and Vomiting Pharmacy Consult (Consult Rx Perform Med Rec) 1 each MISCELLANE ONCE PRN PRN Reason: Consult order Sodium Chloride (0.9 % Sodium Chloride Flush 3 Ml Syringe) 3 ml IVFLUSH QSHIFT [facility] Labs 01/12/23 04:58 01/12/23 04:58 Labs: Laboratory Results - last 24 hr 01/12/23 01/12/23 01/12/23 01:19 01:19 01:19 MCV 86.6 MCH 26.3 L MCHC 30.4 L RDW 18.7 H Plt Count 326 MPV 11.4 Immature Gran % (Auto) 0.7 H Neut % (Auto) 64.3 Lymph % (Auto) 25.7 [place] % (Auto) 9.1 Eos % (Auto) 0.0 Baso % (Auto) 0.2 Lymph # (Auto) 1.4 [place] # (Auto) 0.5 Eos # (Auto) 0.0 Baso # (Auto) 0.0 Abs Immat Gran (auto) 0.04 H Absolute Neuts (auto) 3.6 Absolute Nucleated RBC 0.000 Nucleated RBC % (auto) 0.0 VBG pH VBG pCO2 VBG pO2 VBG HCO3 VBG O2 Saturation VBG Base Excess Anion Gap 13 Estim Creat Clear Calc 30.2 Estimated GFR 34 Random Glucose 243 H Lactic Acid 1.9 Calcium 9.3 D Total Bilirubin 1.0 AST 23 ALT 16 Alkaline Phosphatase 147 H Troponin I High Sens B-Natriuretic Peptide Total Protein 8.0 Albumin 4.2 Urine Color Urine Appearance Urine pH Ur Specific [place] Urine Protein Urine Glucose (UA) Urine Ketones Urine Blood Urine Nitrite Ur Leukocyte Esterase COVID-19 ([facility]) COVID-19 Clin Com 01/12/23 01/12/23 01/12/23 01:19 01:19 01:19 MCV MCH MCHC RDW Plt Count MPV Immature Gran % (Auto) Neut % (Auto) Lymph % (Auto) [place] % (Auto) Eos % (Auto) Baso % (Auto) Lymph # (Auto) [place] # (Auto) Eos # (Auto) Baso # (Auto) Abs Immat Gran (auto) Absolute Neuts (auto) Absolute Nucleated RBC Nucleated RBC % (auto) VBG pH VBG pCO2 VBG pO2 VBG HCO3 VBG O2 Saturation VBG Base Excess Anion Gap Estim Creat Clear Calc Estimated GFR Random Glucose Lactic Acid Calcium Total Bilirubin AST ALT Alkaline Phosphatase Troponin I High Sens 20.2 B-Natriuretic Peptide 1679 H Total Protein Albumin Urine Color Urine Appearance Urine pH Ur Specific [place] Urine Protein Urine Glucose (UA) Urine Ketones Urine Blood Urine Nitrite Ur Leukocyte Esterase COVID-19 ([facility]) Negative COVID-19 Clin Com See Note 01/12/23 01/12/23 01/12/23 01:30 02:42 04:58 MCV 87.3 MCH 26.4 L MCHC 30.2 L RDW 18.9 H Plt Count 337 MPV 11.1 Immature Gran % (Auto) 0.4 Neut % (Auto) 70.9 Lymph % (Auto) 18.1 L [place] % (Auto) 10.3 Eos % (Auto) 0.1 Baso % (Auto) 0.2 Lymph # (Auto) 1.5 [place] # (Auto) 0.9 Eos # (Auto) 0.0 Baso # (Auto) 0.0 Abs Immat Gran (auto) 0.03 Absolute Neuts (auto) 5.8 Absolute Nucleated RBC 0.000 Nucleated RBC % (auto) 0.0 VBG pH 7.41 VBG pCO2 51 VBG pO2 37 VBG HCO3 33 H VBG O2 Saturation 51.0 VBG Base Excess 7.2 Anion Gap Estim Creat Clear Calc Estimated GFR Random Glucose Lactic Acid Calcium Total Bilirubin AST ALT Alkaline Phosphatase Troponin I High Sens B-Natriuretic Peptide Total Protein Albumin Urine Color Yellow Urine Appearance Clear Urine pH 7.5 Ur Specific [place] 1.010 Urine Protein Negative Urine Glucose (UA) 250 H Urine Ketones Negative Urine Blood Negative Urine Nitrite Negative Ur Leukocyte Esterase Negative COVID-19 ([facility]) COVID-19 Clin Com 01/12/23 04:58 MCV MCH MCHC RDW Plt Count MPV Immature Gran % (Auto) Neut % (Auto) Lymph % (Auto) [place] % (Auto) Eos % (Auto) Baso % (Auto) Lymph # (Auto) [place] # (Auto) Eos # (Auto) Baso # (Auto) Abs Immat Gran (auto) Absolute Neuts (auto) Absolute Nucleated RBC Nucleated RBC % (auto) VBG pH VBG pCO2 VBG pO2 VBG HCO3 VBG O2 Saturation VBG Base Excess Anion Gap 15 Estim Creat Clear Calc 32.3 Estimated GFR 37 Random Glucose 179 H Lactic Acid Calcium 9.2 Total Bilirubin AST ALT Alkaline Phosphatase Troponin I High Sens B-Natriuretic Peptide Total Protein Albumin Urine Color Urine Appearance Urine pH Ur Specific [place] Urine Protein Urine Glucose (UA) Urine Ketones Urine Blood Urine Nitrite Ur Leukocyte Esterase COVID-19 ([facility]) COVID-19 Clin Com Assessment and Plan (1) CHF (congestive heart failure): Status: Acute Plan 72M PMH chronic systolic chf, chronic hypoxic respiratory failure due to copd, hld, dm, presented with sob acute on chronic hypoxic respiratory failure due to chf with reduced EF IV lasix, echo, cardio eval wean o2 as toelrated copd stbale, nebs as needed CKD IV at baseline, monitor history of VT s/p aicd hypokalemia replace and monitor DM insulin, pocs dvt prophylaxis - lovenox full code reason for continued hospitalization:iv diuresis, weaning o2 Time Spent With Patient Time: Total time managing care of this patient today ____ minutes. Quality Stroke Does the patient have a stroke diagnosis?: No VTE Prior VTE?: No VTE Risk Level:: Medical - moderate - high VTE Device Contraindication: Treatment Not Indicated VTE Drug Contraindication: N/A - Med Ordered
[2023-01-12 09:00] LABS: Glucose, Whole Blood 178 mg/dL (60-115)
[2023-01-12] MEDS: Acetaminophen 325 MG TABLET 650 MG PO (09:01)
[2023-01-12] MEDS: 0.9 % Sodium Chloride Flush 3 ML SYRINGE IVFLUSH ×3 (09:02→20:05)
--- NOTE | 2023-01-12 11:40 | PM.CNCAR ---
History of Present Illness History of Present Illness Date of Service: 01/12/23 Requesting physician: Tejinder Conrad Chief complaint: Dyspnea Narrative: [age] gentleman with known history of cardiomyopathy and congestive heart failure who is presenting with shortness of breath. He said he was doing fine till yesterday when he started having wheezing. He does have background of asthma by report. Is saying that his breathing worsened after that he came to the emergency department. He was felt to be volume overloaded and was started on IV diuretics. His BNP was elevated too. It appears he follows with the [facility]. Is denying any dietary noncompliance. Denying any chest discomfort or any other complaints currently. On IV diuretics. Still on supplemental oxygen. [facility] Past Medical History Medical History (Updated 01/12/23 @ 03:14 by Daniel Cry MD) Back pain CAD (coronary artery disease) Cardiomyopathy CHF (congestive heart failure) Chronic renal insufficiency COPD (chronic obstructive pulmonary disease) Diabetes Dyspnea Elevated cholesterol GERD (gastroesophageal reflux disease) HTN (hypertension) Hx of gastritis Hx of ventricular tachycardia Pacemaker Parkinson disease Pleural effusion due to congestive heart failure Spondylosis Family History Family History Mother No known health problems Father No known health problems Surgical History Surgical History AICD (automatic cardioverter/defibrillator) present H/O cystoscopy Hx of colonoscopy Hx of right inguinal hernia repair Social History Social History Household Members: Spouse Housing: House Do you presently have visiting nurse or other home services: Yes Alcohol intake: never Patient Tobacco Use Status: Former Tobacco user Second Hand Smoke Exposure: No service: No Current occupational status: disabled Meds Allergies Allergy/AdvReac Type Severity Reaction Status Date / Time valsartan [Diovan] Allergy Unknown Unknown Verified 11/28/22 13:35 simvastatin AdvReac Unknown increased Verified 11/28/22 13:35 liver enzymes Active Medications: Current Medications Acetaminophen (Acetaminophen 325 Mg Tablet) 650 mg PO Q6H PRN PRN Reason: Pain, Mild (Pain Scale 1-3) Last Admin: 01/12/23 09:01 Dose: 650 mg Albuterol/Ipratropium (Albuterol/Iprat 2.5/0.5mg 3 Ml Ampul.Neb) 3 ml INHALE Q4H PRN PRN Reason: Wheezing Albuterol/Ipratropium (Albuterol/Iprat 2.5/0.5mg 3 Ml Ampul.Neb) 3 ml INHALE RQ4H WHILE [facility]WAKE [facility] Last Admin: 01/12/23 11:33 Dose: 3 ml Enoxaparin Sodium (Enoxaparin Sodium 30 Mg/0.3 Ml Syringe) 30 mg SUBCUT Q24H [facility] Last Admin: 01/12/23 03:53 Dose: 30 mg Furosemide (Furosemide 40 Mg/4 Ml Vial) 40 mg IVPUSH BID@0900,1800 [facility]; Protocol Last Admin: 01/12/23 09:02 Dose: 40 mg Glucose (Glucose Gel 15 Gm Gel..Gram.) 15 gm PO Q15M PRN; Protocol PRN Reason: per Hypoglycemia Standing Ord. Dextrose (D10) 250 mls @ 750 mls/hr IV Q15M PRN; Protocol PRN Reason: per Hypoglycemia Standing Ord. Insulin Human Lispro (Insulin Lispro 100 Unit/Ml 3 Ml Vial) 0 unit SUBCUT QIDACHS [facility]; Protocol Last Admin: 01/12/23 08:56 Dose: Not Given Melatonin (Melatonin 3 Mg Tablet) 6 mg PO BEDTIME PRN PRN Reason: Insomnia Ondansetron HCl (Ondansetron Hcl 4 Mg/2 Ml Vial) 4 mg IVPUSH Q8H PRN PRN Reason: Nausea and Vomiting Pharmacy Consult (Consult Rx Perform Med Rec) 1 each MISCELLANE ONCE PRN PRN Reason: Consult order Sodium Chloride (0.9 % Sodium Chloride Flush 3 Ml Syringe) 3 ml IVFLUSH QSHIFT [facility] Last Admin: 01/12/23 09:02 Dose: 3 ml Home Medications Medication Instructions Recorded Confirmed Last Taken Type albuterol sulfate 90 mcg/actuation 2 puff PO Q4-6H PRN wheezing 05/01/20 04/07/22 Unknown History aerosol inhaler amiodarone 200 mg tablet 1 tab PO DAILY 05/01/20 04/07/22 Unknown History aspirin 81 mg tablet,delayed 1 tab PO BEDTIME 05/01/20 04/07/22 Unknown History release calcium carbonate 600 mg-vitamin 1 tab PO DAILY 05/01/20 04/07/22 Unknown History D3 10 mcg (400 unit) tablet pregabalin 50 mg capsule 50 mg PO TID 10/16/21 04/07/22 Unknown History blood sugar diagnostic (FreeStyle #10 ea 12/07/21 12/27/21 Unknown History Lite Strips) lancets 33 gauge (TRUEplus Lancets) #100 ea 12/07/21 12/27/21 Unknown History pen needle, diabetic 32 gauge x #50 ea 12/07/21 12/27/21 Unknown History (BD Ultra-Fine Vidya Pen Needle) cyanocobalamin (vitamin B-12) 1,000 mcg PO DAILY 02/26/22 04/07/22 Unknown History 1,000 mcg tablet fludrocortisone 0.1 mg tablet 0.1 mg PO QAM 02/26/22 04/07/22 Unknown History insulin glargine 100 unit/mL 5 unit subcut DAILY 04/07/22 04/07/22 Unknown History subcutaneous cartridge atorvastatin 80 mg tablet 80 mg PO DAILY 11/28/22 Unknown History nebulizers 11/28/22 Unknown History Physical Exam Vital Signs: Vital Signs: Last Vital Signs Temp 97.3 F 01/12/23 07:24 Pulse 67 01/12/23 11:35 Resp 18 01/12/23 11:35 BP 137/77 01/12/23 07:24 Pulse Ox 100 01/12/23 07:24 O2 Del Method Nasal Cannula 01/12/23 07:24 O2 Flow Rate 5 01/12/23 07:24 BMI result Body Mass Index 23.3 GENERAL APPEARANCE: in no acute distress, pleasant. On supplemental oxygen. NECK: no carotid bruit, + jugular venous distention. SKIN: no suspicious lesions, warm and dry. HEART: no murmurs, regular rate and rhythm. LUNGS: Mild expiratory wheezes. ABDOMEN: soft, nontender. EXTREMITIES: no edema. PERIPHERAL PULSES: equal. NEUROLOGIC: No gross deficits, AAO X 3 Objective Labs and Meds 01/12/23 04:58 01/12/23 04:58 Lab results: Laboratory Results - last 24 hr 01/12/23 01/12/23 01/12/23 01:19 01:19 01:19 WBC 5.6 RBC 4.18 L Hgb 11.0 L Hct 36.2 L MCV 86.6 MCH 26.3 L MCHC 30.4 L RDW 18.7 H Plt Count 326 MPV 11.4 Immature Gran % (Auto) 0.7 H Neut % (Auto) 64.3 Lymph % (Auto) 25.7 Faulk % (Auto) 9.1 Eos % (Auto) 0.0 Baso % (Auto) 0.2 Lymph # (Auto) 1.4 Faulk # (Auto) 0.5 Eos # (Auto) 0.0 Baso # (Auto) 0.0 Abs Immat Gran (auto) 0.04 H Absolute Neuts (auto) 3.6 Absolute Nucleated RBC 0.000 Nucleated RBC % (auto) 0.0 VBG pH VBG pCO2 VBG pO2 VBG HCO3 VBG O2 Saturation VBG Base Excess Sodium 143 Potassium 3.2 L D Chloride 103 Carbon Dioxide 30 H Anion Gap 13 BUN 19 H Creatinine 1.95 H Estim Creat Clear Calc 30.2 Estimated GFR 34 POC Glucose Random Glucose 243 H Lactic Acid 1.9 Calcium 9.3 D Total Bilirubin 1.0 AST 23 ALT 16 Alkaline Phosphatase 147 H Troponin I High Sens B-Natriuretic Peptide Total Protein 8.0 Albumin 4.2 Urine Color Urine Appearance Urine pH Ur Specific [place] Urine Protein Urine Glucose (UA) Urine Ketones Urine Blood Urine Nitrite Ur Leukocyte Esterase COVID-19 (SHELIA) COVID-19 Clin Com 01/12/23 01/12/23 01/12/23 01:19 01:19 01:19 WBC RBC Hgb Hct MCV MCH MCHC RDW Plt Count MPV Immature Gran % (Auto) Neut % (Auto) Lymph % (Auto) Faulk % (Auto) Eos % (Auto) Baso % (Auto) Lymph # (Auto) Faulk # (Auto) Eos # (Auto) Baso # (Auto) Abs Immat Gran (auto) Absolute Neuts (auto) Absolute Nucleated RBC Nucleated RBC % (auto) VBG pH VBG pCO2 VBG pO2 VBG HCO3 VBG O2 Saturation VBG Base Excess Sodium Potassium Chloride Carbon Dioxide Anion Gap BUN Creatinine Estim Creat Clear Calc Estimated GFR POC Glucose Random Glucose Lactic Acid Calcium Total Bilirubin AST ALT Alkaline Phosphatase Troponin I High Sens 20.2 B-Natriuretic Peptide 1679 H Total Protein Albumin Urine Color Urine Appearance Urine pH Ur Specific [place] Urine Protein Urine Glucose (UA) Urine Ketones Urine Blood Urine Nitrite Ur Leukocyte Esterase COVID-19 ([facility]HELIA) Negative COVID-19 Clin Com See Note 01/12/23 01/12/23 01/12/23 01:30 02:42 04:58 WBC 8.2 RBC 4.25 L Hgb 11.2 L Hct 37.1 L MCV 87.3 MCH 26.4 L MCHC 30.2 L RDW 18.9 H Plt Count 337 MPV 11.1 Immature Gran % (Auto) 0.4 Neut % (Auto) 70.9 Lymph % (Auto) 18.1 L Faulk % (Auto) 10.3 Eos % (Auto) 0.1 Baso % (Auto) 0.2 Lymph # (Auto) 1.5 Faulk # (Auto) 0.9 Eos # (Auto) 0.0 Baso # (Auto) 0.0 Abs Immat Gran (auto) 0.03 Absolute Neuts (auto) 5.8 Absolute Nucleated RBC 0.000 Nucleated RBC % (auto) 0.0 VBG pH 7.41 VBG pCO2 51 VBG pO2 37 VBG HCO3 33 H VBG O2 Saturation 51.0 VBG Base Excess 7.2 Sodium Potassium Chloride Carbon Dioxide Anion Gap BUN Creatinine Estim Creat Clear Calc Estimated GFR POC Glucose Random Glucose Lactic Acid Calcium Total Bilirubin AST ALT Alkaline Phosphatase Troponin I High Sens B-Natriuretic Peptide Total Protein Albumin Urine Color Yellow Urine Appearance Clear Urine pH 7.5 Ur Specific [place] 1.010 Urine Protein Negative Urine Glucose (UA) 250 H Urine Ketones Negative Urine Blood Negative Urine Nitrite Negative Ur Leukocyte Esterase Negative COVID-19 ([facility]HELIA) COVID-19 Clin Com 01/12/23 01/12/23 04:58 08:55 WBC RBC Hgb Hct MCV MCH MCHC RDW Plt Count MPV Immature Gran % (Auto) Neut % (Auto) Lymph % (Auto) Faulk % (Auto) Eos % (Auto) Baso % (Auto) Lymph # (Auto) Faulk # (Auto) Eos # (Auto) Baso # (Auto) Abs Immat Gran (auto) Absolute Neuts (auto) Absolute Nucleated RBC Nucleated RBC % (auto) VBG pH VBG pCO2 VBG pO2 VBG HCO3 VBG O2 Saturation VBG Base Excess Sodium 145 Potassium 4.1 D Chloride 105 Carbon Dioxide 29 Anion Gap 15 BUN 17 H Creatinine 1.82 H Estim Creat Clear Calc 32.3 Estimated GFR 37 POC Glucose 178 H Random Glucose 179 H Lactic Acid Calcium 9.2 Total Bilirubin AST ALT Alkaline Phosphatase Troponin I High Sens B-Natriuretic Peptide Total Protein Albumin Urine Color Urine Appearance Urine pH Ur Specific [place] Urine Protein Urine Glucose (UA) Urine Ketones Urine Blood Urine Nitrite Ur Leukocyte Esterase COVID-19 ([facility]IA) COVID-19 Clin Com Imaging Radiologist's impression: Impressions Chest X-Ray 01/12/23 01:08 IMPRESSION: Bronchial wall thickening can be seen with a small airways process such as asthma or atypical/viral infection. Increased hazy opacity at the right base could represent superimposed atelectasis or pneumonia. Assessment and Plan (1) CHF (congestive heart failure): Status: Acute Plan [age] year gentleman presenting for wheezing and shortness of breath. Clinically volume overloaded and heart failure. Agree with IV diuretics currently. Blood pressure control is reasonable. It appears he is on midodrine and Florinef for history of orthostasis. Florinef definitely is a problem because it is going to lead to volume overload. 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 He has known history of coronary disease and should be on baby aspirin. Thank you for allowing me to participate in the care of your patient. Please feel free to contact me if you have any questions. Time Spent With Patient Time: Total time managing care of this patient today ____ minutes. Procedures Date of Service Date of Service: 01/12/23
[2023-01-12 11:54] LABS: Glucose, Whole Blood 170 mg/dL (60-115)
--- NOTE | 2023-01-12 14:36 | PHA.MEDREC ---
Pharmacy Consult ? Medication Reconciliation Pharmacy has completed the medication reconciliation. spoke with patients granddaughter who obtained his medications from his house. She was able to confirm his meds over the phone.
[2023-01-12 16:16] LABS: Glucose, Whole Blood 160 mg/dL (60-115)
[2023-01-12] MEDS: Insulin Lispro 100 UNIT/ML 3 ML VIAL SUBCUT ×2 (16:39→20:02)
[2023-01-12 20:00] LABS: Glucose, Whole Blood 197 mg/dL (60-115)
[2023-01-12] MEDS: Aspirin Enteric Coated 81 MG TABLET.DR PO (20:02)
[2023-01-12] MEDS: Pregabalin 50 MG CAPSULE PO (20:02)
[2023-01-13] VITALS (7 sets, daily range): BP systolic 125–139; BP diastolic 60–65; PULSE 63–86; RESP 16–18; TEMP 36–37; O2SAT 92–98
[2023-01-13] MEDS: Enoxaparin Sodium 30 MG/0.3 ML SYRINGE SUBCUT (05:00)
[2023-01-13 05:12] LABS: Hematocrit 31.7 % (42.0-52.0); Hemoglobin 9.9 g/dl (14.0-18.0); Mean Corpuscular HGB Conc 31.2 g/dl (31.0-36.0); Mean Corpuscular Volume 86.4 fL (80.0-98.0); Mean Platelet Volume 10.6 fL (9.4-12.4); Platelet Count 255 X10*3/uL (160-400); Red Blood Count 3.67 X10*6/uL (4.60-5.80); Red Cell Distribution Width 18.7 % (11.0-16.0)
[2023-01-13 05:24] LABS: Anion Gap 13 (12-20); Blood Urea Nitrogen 17 mg/dL (9-16); Calcium 9.4 mg/dL (8.4-10.2); Carbon Dioxide 31 mmol/L (22-29); Chloride 103 mmol/L (96-108); Creatinine Clr Calc Pharmacy 34.2; Estimated Glomerular Filt Rate 39; Glucose Fasting 118 mg/dL (60-99); Potassium 3.5 mmol/L (3.3-5.1); Sodium 143 mmol/L (135-145)
--- NOTE | 2023-01-13 07:00 | CA_ITS ---
Transthoracic Echocardiogram Patient (Last, First, Middle): Denzel Pendleton, Gender: Male Date of : 1950 Age: 72 Procedure Date: 01/13/2023 Procedure Type: Transthoracic Echocardiogram Location: S3E Height: 165.1 cm Weight: 67.59 kg BSA: 1.75 m2 Heart Rate: 82 bpm BP: 139 / 65 mmHg Header Set Up Operator: Referring MD: Daniel Cyr MD Cns: Frederick Mcknight MD Symptoms: CHF Study Quality: Fair/Contrast ECG Rhythm: Sinus Conclusions: - 1. Mildly dilated left ventricle with severely reduced LV ejection fraction 15-20% with pseudonormal filling pattern 2. At least mildly dilated left atrium 3. Cardiac valvular Dopplers within normal limits 4. Normal calculated RV systolic pressure 5. No gross pericardial effusion Findings Procedure Information Contrast agent, definity, is being given per protocol without apparent complications. Left Ventricle Mildly increased left ventricular cavity size. There is normal left ventricular wall thickness. The left ventricular systolic function is severely decreased. The visually estimated ejection fraction is between 15 20%. There is evidence of regional wall motion abnormalities. Spectral Doppler is indicative of a pseudonormal filling pattern. E/E prime ratio is between 8 and 15 consistent with indeterminate filling pressures. Right Ventricle Normal right ventricular cavity size and systolic function. There is an ICD wire seen in the right ventricle. Atria The left atrium is mildly dilated. Interatrial shunt cannot be excluded. The right atrium is likely dilated. Aortic Valve Normal aortic valve structure and function. There is no aortic valve stenosis. There is no aortic valve regurgitation. Mitral Valve There is mild anterior and posterior mitral leaflet thickening. There is trace mitral valve regurgitation. There is no mitral valve stenosis. Pulmonic Valve The pulmonic valve is likely normal. There is trace pulmonic valve regurgitation. Tricuspid Valve Normal tricuspid valve structure. The right ventricular systolic pressure is normal. The right ventricular systolic pressure is 28 mmHg. Normal right atrial pressure. There is no evidence of pulmonary hypertension. Great Vessels All visible segments of the aorta are normal in size. The pulmonary artery was not well visualized. Venous The inferior vena cava is normal in size. Pericardium/Pleural There is no evidence of pericardial effusion. Prior Study Comparison Changes noted compared to prior study dated: 04/10/2022. LV systolic function is further reduced Measurements 2D Linear Measurements IVSd: 1.10 0.6-0.9/0.6-1.0 cm LVIDd: 6.16 3.9-5.3/4.2-5.9 cm LVIDd Index: 3.52 2.4-3.2/2.2-3.1 cm/m2 LVIDs: 4.86 2.0-3.6 cm LVPWd: 1.02 0.7-1.1 cm LA Diam: 4.40 2.7-3.8/3.0-4.0 cm LAIDs Index: 2.51 1.5-2.3 cm/m2 LV Mass: 347.28 67-162/88-224 g LV Mass Index: 198.44 43-95/49-115 g/m2 LVOT Diam: 2.10 3.0+(-)1.3 cm 2D Systolic Function EF 4C: 28.20 >55% EF 2C: 6.92 >55% EF BiP: 18.30 >55% Mitral Valve MV Pk E: 0.85 MV PK A: 0.86 MV Decel Time: 195.00 E/A: 1.00 E'Lateral: 7.40 E'Medial: 4.57 E/E' Med: 18.70 E/E' Lat: 11.50 PHT: 57.00 MVA PHT: 3.86 Decel [place]: 4.38 Aortic Valve AoV Pk Ronnie: 1.81 AoV Mn Ronnie: 1.13 AoV VTI: 0.38 AoV Pk Grad: 13.00 Aov Mn Grad: 7.00 DELROY Cont.VTI: 1.55 LVOT LVOT Pk Ronnie: 0.87 LVOT Mn Ronnie: 0.61 LVOT VTI: 0.17 LVOT Pk Grad: 3.00 LVOT Mn Grad: 2.00 LVOT Diam: 2.10 LVOT Area: 3.46 Diastolic Function MV Pk E: 0.85 MV Pk A: 0.86 E/A: 1.00 E'Medial: 4.57 E/E' Med: 18.70 E' Laterial: 7.40 E/E' Lat: 11.50 Right Ventricle TAPSE (mm): 21.90 TVS' Ronnie: 12.30 Tricuspid Valve TR Pk Ronnie: 2.52 TR Pk Grad: 25.00 RA Press: 3.00 RVSP: 28.00 Great Vessels Aorta Sinus of Valsalva: 3.50 2.0-3.5 cm Ao Asc: 3.00 2.1-3.4 cm Pulmonary Valve PV Pk Ronnie: 1.10 Peak PV Grad: 5.00 Updated in Other Vendor System with Status of Final Frederick Mcknight MD electronically signed on 01/13/2023 2:11:47 PM with status of Final
[2023-01-13 07:13] LABS: Glucose, Whole Blood 116 mg/dL (60-115)
[2023-01-13] MEDS: 0.9 % Sodium Chloride Flush 3 ML SYRINGE IVFLUSH ×3 (07:32→21:28)
[2023-01-13] MEDS: Atorvastatin Calcium 80 MG TABLET PO (07:32)
[2023-01-13] MEDS: Pregabalin 50 MG CAPSULE PO ×3 (07:32→21:26)
[2023-01-13] MEDS: Amiodarone HCL 200 MG TABLET PO (07:32)
[2023-01-13] MEDS: Cyanocobalamin (Vitamin B-12) 1,000 MCG TABLET 1000 MCG PO (07:33)
[2023-01-13] MEDS: Furosemide 40 MG/4 ML VIAL IVPUSH (07:33)
[2023-01-13] MEDS: Albuterol/Iprat 2.5/0.5MG 3 ML AMPUL.NEB INHALE ×2 (07:47→20:03)
--- NOTE | 2023-01-13 07:57 | HO.PM.IMPN ---
Subjective Subjective Date of Service: 01/13/23 Interval History: epigatric pain, productive cough sob much better Physical Exam Vital Signs: Vital Signs: Last Vital Signs Temp 98 F 01/13/23 07:04 Pulse 72 01/13/23 07:49 Resp 16 01/13/23 07:49 BP 139/65 01/13/23 07:04 Pulse Ox 97 01/13/23 07:04 O2 Del Method Room Air 01/13/23 07:04 O2 Flow Rate 5 01/12/23 07:24 BMI result Body Mass Index 24.8 General: AO X 3, no acute distress Resp: CTA bilateral, no accessory muscles used CVS: S1,S2,RRR GI: soft, non tender, non distended Neuro: motor grossly intact, alert Psych: appropriate affect, appropriate insight Objective Data Active Medications Acetaminophen (Acetaminophen 325 Mg Tablet) 650 mg PO Q6H PRN PRN Reason: Pain, Mild (Pain Scale 1-3) Last Admin: 01/12/23 09:01 Dose: 650 mg Documented By: GEOVANNA Albuterol/Ipratropium (Albuterol/Iprat 2.5/0.5mg 3 Ml Ampul.Neb) 3 ml INHALE Q4H PRN PRN Reason: Wheezing Albuterol/Ipratropium (Albuterol/Iprat 2.5/0.5mg 3 Ml Ampul.Neb) 3 ml INHALE RQ4H WHILE AWAKE [facility] Last Admin: 01/13/23 07:47 Dose: 3 ml Documented By: YOSVANY Amiodarone HCl (Amiodarone Hcl 200 Mg Tablet) 200 mg PO DAILY [facility] Last Admin: 01/13/23 07:32 Dose: 200 mg Documented By: KAM Aspirin (Aspirin Enteric Coated 81 Mg Tablet.) 81 mg PO BEDTIME [facility] Last Admin: 01/12/23 20:02 Dose: 81 mg Documented By: ALICIA Atorvastatin Calcium (Atorvastatin Calcium 80 Mg Tablet) 80 mg PO DAILY [facility] Last Admin: 01/13/23 07:32 Dose: 80 mg Documented By: KAM Cyanocobalamin (Cyanocobalamin (Vitamin B-12) 1,000 Mcg Tablet) 1,000 mcg PO DAILY [facility] Last Admin: 01/13/23 07:33 Dose: 1,000 mcg Documented By: KAM Enoxaparin Sodium (Enoxaparin Sodium 30 Mg/0.3 Ml Syringe) 30 mg SUBCUT Q24H [facility] Last Admin: 01/13/23 05:00 Dose: 30 mg Documented By: ALICIA Furosemide (Furosemide 40 Mg/4 Ml Vial) 40 mg IVPUSH BID@0900,1800 [facility]; Protocol Last Admin: 01/13/23 07:33 Dose: 40 mg Documented By: KAM Glucose (Glucose Gel 15 Gm Gel..Gram.) 15 gm PO Q15M PRN; Protocol PRN Reason: per Hypoglycemia Standing Ord. Dextrose (D10) 250 mls @ 750 mls/hr IV Q15M PRN; Protocol PRN Reason: per Hypoglycemia Standing Ord. Insulin Human Lispro (Insulin Lispro 100 Unit/Ml 3 Ml Vial) 0 unit SUBCUT QIDACHS [facility]; Protocol Last Admin: 01/13/23 07:32 Dose: Not Given Documented By: KAM Non-Admin Reason: No Insulin Coverage Melatonin (Melatonin 3 Mg Tablet) 6 mg PO BEDTIME PRN PRN Reason: Insomnia Ondansetron HCl (Ondansetron Hcl 4 Mg/2 Ml Vial) 4 mg IVPUSH Q8H PRN PRN Reason: Nausea and Vomiting Pharmacy Consult (Consult Rx Perform Med Rec) 1 each MISCELLANE ONCE PRN PRN Reason: Consult order Pregabalin (Pregabalin 50 Mg Capsule) 50 mg PO TID [facility] Last Admin: 01/13/23 07:32 Dose: 50 mg Documented By: KAM Sodium Chloride (0.9 % Sodium Chloride Flush 3 Ml Syringe) 3 ml IVFLUSH QSHIFT [facility] Last Admin: 01/13/23 07:32 Dose: 3 ml Documented By: KAM Labs 01/13/23 05:01 01/13/23 05:01 Labs: Laboratory Results - last 24 hr 01/12/23 01/12/23 01/12/23 08:55 11:51 16:13 MCV MCH MCHC RDW Plt Count MPV Absolute Nucleated RBC Nucleated RBC % (auto) Anion Gap Estim Creat Clear Calc Estimated GFR POC Glucose 178 H 170 H 160 H Fasting Glucose Calcium Magnesium 01/12/23 01/13/23 01/13/23 19:37 05:01 05:01 MCV 86.4 MCH 27.0 MCHC 31.2 RDW 18.7 H Plt Count 255 MPV 10.6 Absolute Nucleated RBC 0.000 Nucleated RBC % (auto) 0.0 Anion Gap 13 Estim Creat Clear Calc 34.2 Estimated GFR 39 POC Glucose 197 H Fasting Glucose 118 H Calcium 9.4 Magnesium 2.0 01/13/23 07:03 MCV MCH MCHC RDW Plt Count MPV Absolute Nucleated RBC Nucleated RBC % (auto) Anion Gap Estim Creat Clear Calc Estimated GFR POC Glucose 116 H Fasting Glucose Calcium Magnesium Microbiology Microbiology Results: Microbiology 01/12/23 01:19 Blood Culture - Preliminary Blood - Venous No growth after 24 hours. 01/12/23 01:25 Blood Culture - Preliminary Blood - Venous No growth after 24 hours. Assessment and Plan (1) CHF (congestive heart failure): Status: Acute Plan 72M PMH chronic systolic chf, chronic hypoxic respiratory failure due to copd, hld, dm, presented with sob acute on chronic hypoxic respiratory failure due to chf with reduced EF improved, change to po lasix now off o2 check repeat CXR copd stable, nebs as needed CKD IV at baseline, monitor history of VT s/p aicd hypokalemia replace and monitor DM insulin, pocs orhtostatic hypotension hodling midodrine and florinef, monitor dvt prophylaxis - lovenox full code reason for continued hospitalization:still with sob, epigastric pain Time Spent With Patient Time: Total time managing care of this patient today ____ minutes. Quality Stroke Does the patient have a stroke diagnosis?: No VTE Prior VTE?: No VTE Risk Level:: Medical - moderate - high VTE Device Contraindication: Treatment Not Indicated VTE Drug Contraindication: N/A - Med Ordered
[2023-01-13] MEDS: Omeprazole 20 MG CAPSULE.DR PO (09:14)
[2023-01-13 11:04] LABS: Glucose, Whole Blood 231 mg/dL (60-115)
--- NOTE | 2023-01-13 11:14 | PM.PNCARD ---
Subjective Subjective Date of Service: 01/13/23 Principal diagnosis: Decompensated congestive heart failure Interval history: Patient says he is breathing better but still appears to be short of breath. Diuresing well. Overall negative balance of about 2400 cc. Blood pressure is stable at this point time. His creatinine is marginally improved. No significant arrhythmias. Denies any chest pain or lightheadedness. Last echocardiogram done here showed LVEF of about 25% with regional wall motion abnormality. He follows with [facility]. Review of Systems Constitutional: Reports no additional constitutional complaints Cardiovascular: Denies rapid heart rate, Denies lightheadedness, Denies Loss of Consciousness and Reports dyspnea Respiratory: Reports no additional respiratory complaints and Reports dyspnea Gastrointestinal: Reports no additional gastrointestinal complaints Musculoskeletal: Reports no additional musculoskeletal complaints Reports system reviewed and no additional complaints, except as documented Allergic/Immunologic: Reports no additional allergic/immunologic complaints Physical Exam Vital Signs: Last Vital Signs Temp 98 F 01/13/23 07:04 Pulse 72 01/13/23 07:49 Resp 16 01/13/23 07:49 BP 139/65 01/13/23 07:04 Pulse Ox 97 01/13/23 07:04 O2 Del Method Room Air 01/13/23 07:04 O2 Flow Rate 5 01/12/23 07:24 BMI result Body Mass Index 24.8 Const General: cooperative, alert, awake and in distress mild and respiratory Nutritional Appearance: thin Orientation/consciousness: patient oriented x3 Neck Neck: Yes trachea midline, Yes supple and Yes JVD Resp Effort & Inspection: normal respiratory effort Auscultation: rales bilateral at the base Cardio Jugular venous distension: JVD Palpation: abnormal PMI displaced PMI Rate: regular rate Rhythm: regular rhythm Heart sounds: S1 normal heart sound present, S2 normal heart sound present, no click, no gallops, no murmurs and no rubs GI Auscultation: normal bowel sounds Neuro General: patient oriented x3 and no focal motor deficits Objective Labs and Meds 01/13/23 05:01 01/13/23 05:01 Lab results: Laboratory Results - last 24 hr 01/12/23 01/12/23 01/12/23 11:51 16:13 19:37 WBC RBC Hgb Hct MCV MCH MCHC RDW Plt Count MPV Absolute Nucleated RBC Nucleated RBC % (auto) Sodium Potassium Chloride Carbon Dioxide Anion Gap BUN Creatinine Estim Creat Clear Calc Estimated GFR POC Glucose 170 H 160 H 197 H Fasting Glucose Calcium Magnesium 01/13/23 01/13/23 01/13/23 05:01 05:01 07:03 WBC 6.0 RBC 3.67 L Hgb 9.9 L Hct 31.7 L MCV 86.4 MCH 27.0 MCHC 31.2 RDW 18.7 H Plt Count 255 MPV 10.6 Absolute Nucleated RBC 0.000 Nucleated RBC % (auto) 0.0 Sodium 143 Potassium 3.5 Chloride 103 Carbon Dioxide 31 H Anion Gap 13 BUN 17 H Creatinine 1.72 H Estim Creat Clear Calc 34.2 Estimated GFR 39 POC Glucose 116 H Fasting Glucose 118 H Calcium 9.4 Magnesium 2.0 01/13/23 10:58 WBC RBC Hgb Hct MCV MCH MCHC RDW Plt Count MPV Absolute Nucleated RBC Nucleated RBC % (auto) Sodium Potassium Chloride Carbon Dioxide Anion Gap BUN Creatinine Estim Creat Clear Calc Estimated GFR POC Glucose 231 H Fasting Glucose Calcium Magnesium Imaging Radiologist's impression: Impressions Chest X-Ray 01/13/23 09:30 IMPRESSION: Improving pulmonary edema Progress Note: A&P Assessment and plan (1) CHF exacerbation: Status: Acute Assessment and Plan: Patient with decompensated congestive heart failure with prior severe LV systolic dysfunction suspected to be ischemic cardiomyopathy. Clinically improving and diuresing. Continue IV diuresis for 1 more day. Strict intake and output chart needs to be pursued. Continue monitor renal function and would trend BNP tomorrow. He has had intolerance to neurohormonal modulation the past. This could be an issue. Add Jardiance 10 mg to his regimen. Also can add low-dose metoprolol 12.5 mg b.i.d. starting tomorrow. Listed as having valsartan allergy, unclear whether this is due to hypotension order allergic reaction. He also has renal insufficiency and would add low-dose hydralazine 10 mg b.i.d. for afterload reduction. Follow blood pressure closely. Will continue to follow with you Time Spent With Patient Time: Total time managing care of this patient today ____ minutes. Progress Note: Quality Stroke Does the patient have a stroke diagnosis?: No Procedures Date of Service Date of Service: 01/13/23
--- NOTE | 2023-01-13 11:28 | MHC.CM.PN ---
PT REPORTS HE LIVES WITH HIS AND HAS [employer] DAILY HE REPORTS HE USES A WALKER TO AMBULATE AND NO OTHER DME PT HAS A HCP ON FILE AND VERIFIED TO BE ACCURATE HIS PCP IS [facility] IMM DELIVERED DCP: HOME RESUME [employer] TO TRANSPORT PER MD ROUNDS, PT WILL POSSIBLE DC ON Friday01/14/23
[2023-01-13] MEDS: Insulin Lispro 100 UNIT/ML 3 ML VIAL SUBCUT (11:36)
[2023-01-13 16:15] LABS: Glucose, Whole Blood 92 mg/dL (60-115)
[2023-01-13] MEDS: Furosemide 40 MG TABLET PO (17:14)
[2023-01-13 21:03] LABS: Glucose, Whole Blood 148 mg/dL (60-115)
[2023-01-13] MEDS: oxyCODONE HCl Immed Release 5 MG TABLET PO (21:26)
[2023-01-13] MEDS: Aspirin Enteric Coated 81 MG TABLET.DR PO (21:27)
[2023-01-14 03:51] VITALS: BP 128/60; PULSE 65; RESP 18; TEMP 37.1; O2SAT 98
[2023-01-14 05:35] LABS: Hematocrit 32.9 % (42.0-52.0); Hemoglobin 9.9 g/dl (14.0-18.0); Mean Corpuscular HGB Conc 30.1 g/dl (31.0-36.0); Mean Corpuscular Hemoglobin 26.3 pg (27.0-33.0); Mean Corpuscular Volume 87.5 fL (80.0-98.0); Mean Platelet Volume 11.1 fL (9.4-12.4); Platelet Count 237 X10*3/uL (160-400); Red Blood Count 3.76 X10*6/uL (4.60-5.80); Red Cell Distribution Width 18.6 % (11.0-16.0); White Blood Count 4.3 X10*3/uL (4.8-10.8)
[2023-01-14] MEDS: Enoxaparin Sodium 30 MG/0.3 ML SYRINGE SUBCUT (05:57)
[2023-01-14 06:00] LABS: Anion Gap 14 (12-20); Blood Urea Nitrogen 19 mg/dL (9-16); Calcium 9.2 mg/dL (8.4-10.2); Carbon Dioxide 30 mmol/L (22-29); Chloride 101 mmol/L (96-108); Creatinine Clr Calc Pharmacy 34.2; Estimated Glomerular Filt Rate 39; Glucose Fasting 96 mg/dL (60-99); Potassium 3.2 mmol/L (3.3-5.1); Sodium 142 mmol/L (135-145)
[2023-01-14 07:16] VITALS: BP 132/64; PULSE 67; RESP 16; TEMP 36.8; O2SAT 94
[2023-01-14 07:23] LABS: Glucose, Whole Blood 105 mg/dL (60-115)
[2023-01-14] MEDS: Furosemide 40 MG TABLET PO (07:30)
[2023-01-14] MEDS: Atorvastatin Calcium 80 MG TABLET PO (07:30)
[2023-01-14] MEDS: Amiodarone HCL 200 MG TABLET PO (07:30)
[2023-01-14] MEDS: Potassium Chloride ER 20 MEQ TAB.ER.PRT 40 MEQ PO (07:30)
[2023-01-14] MEDS: Pregabalin 50 MG CAPSULE PO (07:30)
[2023-01-14] MEDS: Cyanocobalamin (Vitamin B-12) 1,000 MCG TABLET 1000 MCG PO (07:30)
[2023-01-14] MEDS: 0.9 % Sodium Chloride Flush 3 ML SYRINGE IVFLUSH (07:31)
[2023-01-14] MEDS: Albuterol/Iprat 2.5/0.5MG 3 ML AMPUL.NEB INHALE (08:09)
[2023-01-14 08:12] VITALS: PULSE 81; RESP 18; O2SAT 98
--- NOTE | 2023-01-14 08:25 | P.DS_ITS ---
DS: Providers Provider Date of Service: 01/14/23 Date of admission: 01/12/23 03:09 Primary care physician: Susy Rashid DO Consults: 01/12/23 03:15 Consult to Cardiology Routine Consulting Provider: [facility] Reason for consultation: CHF Has provider been notified: Yes DS: Diagnosis Discharge Diagnosis (1) CHF exacerbation: Status: Acute DS: Summary Hospital Course Hospital Course: from initial hpi: 72-year-old male with pertinent history of congestive heart failure with reduced ejection fraction, insulin-dependent diabetes mellitus, chronic hypoxemic respiratory failure due to COPD, mixed hyperlipidemia who presents to the emergency department for evaluation of dyspnea.? Patient states he woke up from sleep due to shortness of breath.? It started on the day of presentation.? Admits orthopnea and PND.? Also has bilateral lower extremity edema.? Denies fever, chills, cough.? States he is compliant with his p.o. medications including Lasix.? He denies nausea, vomiting, abdominal pain, palpitations, changes in urinary or bowel habits. In the emergency department, BNP found to be significantly elevated and x-ray concerning for pulmonary edema.? Patient was placed on non-rebreather in the ER hospital course: patient was admitted for acute on chronic hypoxic respiratory failure due to reduced EF. was treated with iv lasix and hypoxia and sob resolved. changed back to oral lasix. for history of orthostatic hypotension, florinef was disconitnued and midodrine held as patient currently normotensive. for copd was stable. for CKDIV remained at baseline. for history of VT he is s/p aicd. for hypokalemia he received replacement. for DM was continued on insulin. patient is feeling better and will be discharged home. Time Spent with Patient Time attestation: Total time managing care of this patient today ____ minutes. Discharge coordination time: Greater than 30 minutes Quality: Safe Use of Opioids Does Pt have an Active Cancer Diagnosis on the Problem List?: No Quality: Stroke Does the patient have a stroke diagnosis?: No Physical Exam Vital Signs: Vital Signs: Last Vital Signs Temp 98.2 F 01/14/23 07:16 Pulse 81 01/14/23 08:12 Resp 18 01/14/23 08:12 BP 132/64 01/14/23 07:16 Pulse Ox 94 01/14/23 07:16 O2 Del Method Room Air 01/14/23 07:16 O2 Flow Rate 5 01/12/23 07:24 BMI result Body Mass Index 24.8 Const: General: cooperative, alert, awake and in distress mild and respiratory Nutritional Appearance: thin Orientation/consciousness: patient oriented x3 Neck: Neck: Yes trachea midline, Yes supple and Yes JVD Resp: Effort & Inspection: normal respiratory effort Auscultation: rales bilateral at the base Cardio: Jugular venous distension: JVD Palpation: abnormal PMI displaced PMI Rate: regular rate Rhythm: regular rhythm Heart sounds: S1 normal heart sound present, S2 normal heart sound present, no click, no gallops, no murmurs and no rubs GI: Auscultation: normal bowel sounds Neuro: General: patient oriented x3 and no focal motor deficits DS: Data Data Completed and Pending Completed studies during hospitalization [Text1]: Procedures Assistance with Respiratory Ventilation, Less than 24 Consecutive Hours, Continuous Positive Airway Pressure (04/07/22) Labs on day of discharge: Laboratory Results - last 24 hr 01/13/23 01/13/23 01/13/23 10:58 16:10 20:59 WBC RBC Hgb Hct MCV MCH MCHC RDW Plt Count MPV Absolute Nucleated RBC Nucleated RBC % (auto) Sodium Potassium Chloride Carbon Dioxide Anion Gap BUN Creatinine Estim Creat Clear Calc Estimated GFR POC Glucose 231 H 92 148 H Fasting Glucose Calcium 01/14/23 01/14/23 01/14/23 04:55 04:55 07:19 WBC 4.3 L RBC 3.76 L Hgb 9.9 L Hct 32.9 L MCV 87.5 MCH 26.3 L MCHC 30.1 L RDW 18.6 H Plt Count 237 MPV 11.1 Absolute Nucleated RBC 0.000 Nucleated RBC % (auto) 0.0 Sodium 142 Potassium 3.2 L Chloride 101 Carbon Dioxide 30 H Anion Gap 14 BUN 19 H Creatinine 1.72 H Estim Creat Clear Calc 34.2 Estimated GFR 39 POC Glucose 105 Fasting Glucose 96 Calcium 9.2 Preliminary micro results at discharge 01/12/23 01:19 Blood Culture - Preliminary Blood - Venous No growth after 48 hours. 01/12/23 01:25 Blood Culture - Preliminary Blood - Venous No growth after 48 hours. Discharge Plan Discharge Anticipated Discharge Date/Time: 01/14/23 08:22 Patient Disposition: Home, Self-Care Discharge Diagnosis: chf Referrals: Susy Rashid DO [Primary Care Provider] - 1 Week Discharge Medications: Continued amiodarone 200 mg tablet 1 tab PO DAILY aspirin 81 mg tablet,delayed release (DR/EC) 1 tab PO BEDTIME albuterol sulfate 90 mcg/actuation HFA aerosol inhaler 2 puff PO Q4-6H PRN (Reason: wheezing) calcium carbonate-vitamin D3 600 mg(1,500mg) -400 unit tablet 1 tab PO DAILY furosemide 40 mg tablet 40 mg PO DAILY@1200 albuterol sulfate 2.5 mg /3 mL (0.083 %) solution for nebulization 2.5 mg inhalation Q4H PRN (Reason: wheezing) trazodone 50 mg tablet 50 mg PO BEDTIME acetaminophen [Pain Relief ES (acetaminophen)] 500 mg tablet 500 mg PO Q6H PRN (Reason: pain) ferrous sulfate [FeroSul] 325 mg (65 mg iron) tablet 325 mg PO DAILY docusate sodium 100 mg capsule 100 mg PO BID PRN (Reason: Constipation) budesonide 0.5 mg/2 mL suspension for nebulization 0.5 mg inhalation BID loratadine 10 mg tablet 10 mg PO DAILY PRN (Reason: Allergy Symptoms) insulin glargine [Lantus Solostar U-100 Insulin] 100 unit/mL (3 mL) insulin pen 7 unit subcut DAILY furosemide [Lasix] 40 mg tablet 60 mg PO QAM pregabalin 50 mg capsule 50 mg PO TID (DME) lancets [TRUEplus Lancets] 33 gauge misc See Rx Instructions topical .MEDSUPPLY Qty: 100 Rx Instructions: As directed (DME) FreeStyle Lite Strips Strip See Rx Instructions Not Applicable .MEDSUPPLY Qty: 10 Rx Instructions: As directed (DME) pen needle, diabetic [BD Ultra-Fine Vidya Pen Needle] 32 gauge x 5/32 needle See Rx Instructions subcut DAILY Qty: 50 Rx Instructions: As directed cyanocobalamin (vitamin B-12) 1,000 mcg tablet 1,000 mcg PO DAILY atorvastatin 80 mg tablet 80 mg PO DAILY (DME) nebulizers Misc See Rx Instructions .ROUTE Rx Instructions: As directed Trelegy Ellipta 100-62.5-25 mcg blister with device 1 inh inhalation DAILY 30 Days Qty: 60 11RF Discontinued midodrine 10 mg tablet 10 mg PO TID fludrocortisone 0.1 mg tablet 0.1 mg PO QAM Discharge Orders: Discharge Order (Routine); Ordered 01/14/23 Ordered By: Tejinder Conrad Diet: Advance to usual diet Activity on Discharge: As tolerated Stand Alone Forms: Patient Portal Discharge page Care Plan Goals: recovery Health Concerns: chf Plan of Treatment: stopped florinef, holding midodrine as currently normotensive Assessment: see above
--- NOTE | 2023-01-14 09:30 | MHC.CM.PN ---
pt dcd home no skilled servceis needed
--- NOTE | 2023-01-14 10:04 | P.PNCA_ITS ---
Subjective Subjective Date of Service: 01/14/23 Principal diagnosis: Decompensated congestive heart failure Interval history: Patient breathing a lot better. Blood pressures remained stable. Currently off Florinef which is appropriate given his severe cardiomyopathy and heart failure syndrome and should be completely discontinued in the future. Also blood pres sure remained stable of midodrine therapy. Review of Systems Review of Systems Yes all other systems are reviewed and are negative Physical Exam Vital Signs: Last Vital Signs Temp 98.2 F 01/14/23 07:16 Pulse 81 01/14/23 08:12 Resp 18 01/14/23 08:12 BP 132/64 01/14/23 07:16 Pulse Ox 94 01/14/23 07:16 O2 Del Method Room Air 01/14/23 07:16 O2 Flow Rate 5 01/12/23 07:24 BMI result Body Mass Index 24.8 Const General: cooperative, alert, awake and in distress mild and respiratory Nutritional Appearance: thin Orientation/consciousness: patient oriented x3 Neck Neck: Yes trachea midline, Yes supple and Yes JVD Resp Effort & Inspection: normal respiratory effort Auscultation: rales bilateral at the base Cardio Jugular venous distension: JVD Palpation: abnormal PMI displaced PMI Rate: regular rate Rhythm: regular rhythm Heart sounds: S1 normal heart sound present, S2 normal heart sound present, no click, no gallops, no murmurs and no rubs GI Auscultation: normal bowel sounds Neuro General: patient oriented x3 and no focal motor deficits Objective Labs and Meds 01/14/23 04:55 01/14/23 04:55 Lab results: Laboratory Results - last 24 hr 01/13/23 01/13/23 01/13/23 10:58 16:10 20:59 WBC RBC Hgb Hct MCV MCH MCHC RDW Plt Count MPV Absolute Nucleated RBC Nucleated RBC % (auto) Sodium Potassium Chloride Carbon Dioxide Anion Gap BUN Creatinine Estim Creat Clear Calc Estimated GFR POC Glucose 231 H 92 148 H Fasting Glucose Calcium 01/14/23 01/14/23 01/14/23 04:55 04:55 07:19 WBC 4.3 L RBC 3.76 L Hgb 9.9 L Hct 32.9 L MCV 87.5 MCH 26.3 L MCHC 30.1 L RDW 18.6 H Plt Count 237 MPV 11.1 Absolute Nucleated RBC 0.000 Nucleated RBC % (auto) 0.0 Sodium 142 Potassium 3.2 L Chloride 101 Carbon Dioxide 30 H Anion Gap 14 BUN 19 H Creatinine 1.72 H Estim Creat Clear Calc 34.2 Estimated GFR 39 POC Glucose 105 Fasting Glucose 96 Calcium 9.2 Progress Note: A&P Assessment and plan (1) CHF exacerbation: Status: Acute Assessment and Plan: Acute congestive heart failure in this elderly gentleman with severe ischemic cardiomyopathy with LVEF of 15-20%. Follows with Dr. Bush as outpatient. Will repeat his BNP this morning to see if there is more than 50% reduction then admission BNP. He should not be on Florinef therapy as outpatient continue diuretic regimen. Currently not on any neurohormonal modulation as yet recorded low blood pressures outpatient blood pressures remained stable. Holding midod rine therapy. Advised to monitor blood pressure at home and maintain a log. As outpatient blood pressure remained stable consider addition of afterload reduction with hydralazine slowly and gradually up titrating it. Heart failure management was discussed. Daily weight monitoring avoidance of salt loading was discussed additional diuretics as need be. Consider phase 2 cardiac rehabilitation as outpatient for systolic heart failure. Will sign of the case. Patient ready for discharge. Time Spent With Patient Time: Total time managing care of this patient today ____ minutes. Progress Note: Quality Stroke Does the patient have a stroke diagnosis?: No Procedures Date of Service Date of Service: 01/14/23
== END 2023-01-14 10:30 | disposition home or self-care (01) | DRG 682 ==
LOC: HO.ED 01:51 → HO.EDOVER 03:13 → HO.S3 13:50
PROVIDERS: Admitting Provider Student in an Organized Health Care Education/Training Program; Emergency Provider Emergency Medicine; PCP Family Medicine; Visit Provider Internal Medicine
DX: I12.9 Hypertensive chronic kidney disease with stage 1 through stage 4 chronic kidney disease, or unspecified chronic kidney disease (principal); I50.23 Acute on chronic systolic (congestive) heart failure; J96.21 Acute and chronic respiratory failure with hypoxia; N18.4 Chronic kidney disease, stage 4 (severe); I47.20 Ventricular tachycardia, unspecified; E11.22 Type 2 diabetes mellitus with diabetic chronic kidney disease; E87.6 Hypokalemia; I25.5 Ischemic cardiomyopathy; I25.10 Atherosclerotic heart disease of native coronary artery without angina pectoris; G20 Parkinson's disease; J44.9 Chronic obstructive pulmonary disease, unspecified; E78.2 Mixed hyperlipidemia; D63.1 Anemia in chronic kidney disease; I95.1 Orthostatic hypotension; Z20.822 Contact with and (suspected) exposure to COVID-19; Z95.0 Presence of cardiac pacemaker; Z99.81 Dependence on supplemental oxygen; Z87.891 Personal history of nicotine dependence; Z79.4 Long term (current) use of insulin; Z79.51 Long term (current) use of inhaled steroids; Z79.82 Long term (current) use of aspirin; Z79.899 Other long term (current) drug therapy
CPT/HCPCS: 36415; 71045; 80048; 80053; 81003; 82803; 82947; 83605; 83735; 83880; 84484; 85025; 85027; 87040; 87635; 93005; 93306; 94640; 99285; J1650; J1940; Q9957

== ENCOUNTER 2023-01-15 09:40 | Outpatient (REF) | payer OTHER, SELFPAY ==
--- NOTE | ~2023-01-15 | CT_ITS ---
EXAMINATION: CT HEAD WITHOUT CONTRAST CLINICAL INFORMATION: Memory loss. COMPARISON: Head CT dated 04/13/2018. TECHNIQUE: Contiguous axial imaging was performed from the skullbase to vertex without intravenous administration of contrast. This CT examination was performed using dose optimization techniques as appropriate, variously including the following: *Automated exposure control *Adjustment of mA and/or kV according to patient size (this includes techniques or standardized protocols for targeted exams where dose is matched to indication/reason for exam; i.e. extremities or head) *Use of iterative reconstruction technique DLP: 757 mGy-cm. FINDINGS: There is no evidence of acute intracranial hemorrhage or territorial infarction. No abnormal mass effect or midline shift is seen. No extra-axial fluid collections are identified. Chronic infarct again visible in the left parietal-occipital lobe region. Mild chronic white matter microangiopathy and generalized parenchymal volume loss noted with concordant ex vacuo prominence of the ventricles, further mildly increased since the previous exam. The osseous structures and soft tissues are normal. The mastoid air cells and visualized portions of the paranasal sinuses are fairly well aerated. CT/CT head/brain wo IV con IMPRESSION: No acute intracranial hemorrhage or territorial infarction. Mildly progressed generalized parenchymal volume loss and ex vacuo dilatation of the ventricles. Mild chronic white matter microangiopathy. 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
== END 2023-01-15 09:41 | disposition home or self-care (01) ==
LOC: HO.CT 09:40
PROVIDERS: PCP Family Medicine; Visit Provider Family Medicine
DX: R41.3 Other amnesia (principal)
CPT/HCPCS: 70450

== ENCOUNTER 2023-02-14 12:12 | Outpatient (REF) | payer OTHER, SELFPAY ==
[2023-02-14 12:45] LABS: MANUAL DIFF FLAG NO
[2023-02-14 14:28] LABS: Basophils Percent Auto 0.7 % (0-2); Eosinophils Percent Auto 0.7 % (0-4); Hematocrit 36.4 % (42.0-52.0); Imm Gran Abs Auto 0.03 X10*3/uL (0.00-0.03); Imm Gran Pct Auto 0.7 % (0.0-0.4); Lymphocytes Absolute Auto 1.5 X10*3/uL (1.2-4.9); Lymphocytes Percent Auto 35.6 % (20-40); Mean Corpuscular HGB Conc 30.2 g/dl (31.0-36.0); Mean Corpuscular Hemoglobin 27.5 pg (27.0-33.0); Mean Platelet Volume 11.7 fL (9.4-12.4); Monocytes Absolute Auto 0.8 X10*3/uL (0.1-1.2); Monocytes Percent Auto 17.6 % (2-11); Neutrophils Absolute Auto 1.9 x10*3/uL (2.0-8.3); Neutrophils Percent Auto 44.7 % (45-73); Platelet Count 240 X10*3/uL (160-400); White Blood Count 4.3 X10*3/uL (4.8-10.8)
[2023-02-14 14:34] LABS: Estimated Average Glucose 120 mg/dL; Hemoglobin A1c % 5.8 %
[2023-02-14 15:42] LABS: Anion Gap 12 (12-20); Blood Urea Nitrogen 25 mg/dL (9-16); Carbon Dioxide 30 mmol/L (22-29); Chloride 104 mmol/L (96-108); Estimated Glomerular Filt Rate 33; Iron 109 mcg/dL (45-160); Percent Iron Saturation 39 % (15-50); Potassium 4.1 mmol/L (3.3-5.1); Sodium 142 mmol/L (135-145); Total Iron Binding Capacity 277 mcg/dL (228-428); Unsaturated Iron Binding 168 ug/dL; Uric Acid 7.6 mg/dL (3.4-7.0); Vitamin D 25-OH Total 39.6 ng/mL (>30)
[2023-02-17 15:24] LABS: Calcium (PTHI) 8.8 mg/dL (8.6-10.3); PTHI 58 pg/mL (16-77)
== END 2023-02-14 12:13 | disposition home or self-care (01) ==
LOC: HO.LAB 12:12
PROVIDERS: PCP Family Medicine; Visit Provider Physician Assistant
DX: E11.22 Type 2 diabetes mellitus with diabetic chronic kidney disease (principal); N18.32 Chronic kidney disease, stage 3b; I95.89 Other hypotension; I50.9 Heart failure, unspecified; D50.8 Other iron deficiency anemias; E87.70 Fluid overload, unspecified
CPT/HCPCS: 36415; 80051; 82306; 82565; 83036; 83540; 83970; 84520; 84550; 85025

== ENCOUNTER 2023-02-17 15:47 | Outpatient (REF) | payer OTHER, SELFPAY ==
[2023-02-17 16:00] LABS: Appearance Urine Clear; Color Urine Yellow; Glucose Urine UA 250 mg/dL (Negative); Leukocyte Esterase Urine Negative (Negative); Nitrite Urine Negative (Negative); Specific Gravity - Urine 1.025 (1.005-1.025); UMIC TRIGGER UA YES; Urine Blood Negative (Negative); Urine Ketones Negative (Negative); Urine Protein 30 (1+) mg/dL (Neg-Trace)
[2023-02-17 16:05] LABS: Bacteria Urine None Seen (None Seen); Hyaline Casts Urine 0-2 /LPF (0-2); RBC Urine 0-2 /HPF (0-2); Squamous Epithelial Cell Urine 0-2 /HPF (0-2); WBC Urine 0-5 /HPF (0-5)
[2023-02-17 16:58] LABS: Creatinine Urine 145.46 mg/dL; Protein/Creatinine Ratio, Ur 0.18 (<0.2); Total Protein Urine Random 26 mg/dL (<12)
== END 2023-02-17 15:48 | disposition home or self-care (01) ==
LOC: HO.LNP 15:47
PROVIDERS: Visit Provider Physician Assistant
DX: N18.32 Chronic kidney disease, stage 3b (principal); I95.89 Other hypotension; I50.9 Heart failure, unspecified; D50.8 Other iron deficiency anemias; E87.70 Fluid overload, unspecified
CPT/HCPCS: 81001; 84156

== ENCOUNTER 2023-02-18 08:56 | Outpatient (REF) | payer OTHER, SELFPAY ==
--- NOTE | 2023-02-18 12:55 | PFT_ITS ---
FLOWS: 1. FEV1 83% of predicted at 2.19 L. 2. FVC 71% of predicted at 2.53 L. 3. FEV1 to FVC ratio of 0.87. 4. No bronchodilator response. LUNG VOLUMES: 1. Total lung capacity 80% of predicted at 4.87 L. 2. Residual volume 106% of predicted at 2.35 L. 3. Slow vital capacity 66% of predicted at 2.51 L. 4. Expiratory reserve volume 44% of predicted at 0.42 L. 5. Diffusion capacity is moderately decreased, diffusion capacity corrects to normal after adjustment for alveolar ventilation. IMPRESSION: No obstructive or restrictive ventilatory defect. No bronchodilator response. Khanh Holbrook MD AP/MODL / [id number]
== END 2023-02-18 08:57 | disposition home or self-care (01) ==
LOC: HO.RESP 08:56
PROVIDERS: PCP Family Medicine; Visit Provider Hospitalist
DX: J44.9 Chronic obstructive pulmonary disease, unspecified (principal)
CPT/HCPCS: 94010; 94727; 94729

== ENCOUNTER → 2023-02-18 12:55 | Outpatient (BNV) | payer OTHER, SELFPAY | PROVIDERS: PCP Family Medicine; Visit Provider Internal Medicine Pulmonary Disease | DX: J44.9 Chronic obstructive pulmonary disease, unspecified (principal) | CPT/HCPCS: 94060; 94727; 94729 ==

== ENCOUNTER 2023-02-21 10:02 | Outpatient (AMB) | payer OTHER, SELFPAY ==
[2023-02-21 10:04] VITALS: BP 132/68; PULSE 60; O2SAT 98; BMI 24.0
--- NOTE | 2023-02-21 10:04 | MHC.OFFVIS ---
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 He is status post ICD placement. The patient has had multiple hospitalizations at [facility]. The last time was back in October 2022 where he was taken via ambulance to the hospital. The patient was noted to have a CT scan with bilateral pleural effusions right more than left. He has had thoracentesis in the past although he did not require this time. The patient also had mild emphysema and a small area of pneumonia. The patient was treated and now doing well. Does complaint of dyspnea on exertion. Moderate severity. Also complains of a cough which is usually nonproductive in nature. The patient has not had any pulmonary function studies. During the visit we did go for brief walking oximetry the patient maintain a pulse ox of 96-97% with activity which is reassuring. The patient did not have significant shortness of breath. He did go to [place] for his cardiac disease and he did undergo a study although we do not have the name of the study other results. His family does with them will provide us with the results. 02/21/2023 the patient is here for pulmonary follow-up visit. Overall the patient is doing about the same. Still has dyspnea on exertion. [id number] severity. Primarily with activity. Does get better with rest. The patient did undergo pulmonary function studies which I personally reviewed with him. 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 Explained to him that this is likely the result of underlying pulmonary vascular disease and his congestive heart failure. No evidence of any obstruction or restriction on his PFTs. He also underwent a chest x-ray in January 2023 demonstrating interval improvement of pulmonary edema which is reassuring. At this point most of his symptoms are related to his underlying cardiac disease. He is currently on Trelegy inhaler which also is providing some relief. [facility] Medical History (Updated 01/12/23 @ 03:14 by Daniel Cyr MD) Back pain CAD (coronary artery disease) Cardiomyopathy CHF (congestive heart failure) Chronic renal insufficiency COPD (chronic obstructive pulmonary disease) Diabetes Dyspnea Elevated cholesterol GERD (gastroesophageal reflux disease) HTN (hypertension) Hx of gastritis Hx of ventricular tachycardia Pacemaker Parkinson disease Pleural effusion due to congestive heart failure Spondylosis Surgical History AICD (automatic cardioverter/defibrillator) present H/O cystoscopy Hx of colonoscopy Hx of right inguinal hernia repair Family History Mother No known health problems Father No known health problems Social History Household Members: Spouse Housing: Apartment Do you presently have visiting nurse or other home services: Yes Alcohol intake: never Patient Tobacco Use Status: Former Tobacco user Second Hand Smoke Exposure: No service: No Current occupational status: disabled Review of Systems Const Denies fever(s), Reports headache(s) and Denies weight loss Eyes Denies eye discharge and Denies irritation ENT Reports Normal hearing present, Denies dysphagia, Denies dizziness and Reports headache(s) Card Reports chest pain, Denies leg edema, Reports dyspnea on exertion and Reports other (Palpitations) Resp Denies cough, Reports dyspnea on exertion and Denies wheezing GI Denies abdominal pain, Reports hematochezia, Denies change in bowel habits, Reports constipation, Denies dysphagia, Reports early satiety and Denies heartburn Denies dysuria Musc Denies back pain and Reports arthralgias Skin/Breast Denies pruritus, Denies rash and Denies jaundice Neuro Reports Normal hearing present, Denies Abnormal speech present, Denies dizziness, Reports headache(s) and Denies seizure-like activity Psych Denies anxiety, Denies depression and Denies panic attacks Endo Denies cold intolerance, Denies flushing and Denies heat intolerance Chase/Lymph Denies easy bleeding and Denies easy bruising Aller/Immun Denies wheezing Physical Exam Vital Signs: Last Vital Signs Pulse 60 02/21/23 10:04 BP 132/68 02/21/23 10:04 Pulse Ox 98 07/21/23 10:04 Oxygen Delivery Method Room Air 02/21/23 10:04 BMI result Body Mass Index 24.0 Const General: no acute distress Orientation/consciousness: patient oriented x3 HEENT Head: Yes normocephalic Eyes Sclerae: sclerae normal Pupils: Equal, round and reactive pupils present Neck Neck: Yes supple Chest Chest palpation & inspection: normal inspection of the chest Resp Effort & Inspection: normal respiratory effort Auscultation: diminished lung sounds Cardio Rate: regular rate Rhythm: regular rhythm Heart sounds: S1 normal heart sound present, S2 normal heart sound present and no murmurs GI Palpation (GI): Soft to palpation Skin General skin exam: no rashes or lesions noted Neuro General: patient oriented x3 and moves all extremities Cranial nerves: Yes Equal, round and reactive pupils present and Yes Normal hearing present Speech: No Abnormal speech present Extrem General: Yes no clubbing, cyanosis or edema Psych Appearance: grossly normal Mental Status: mental status grossly normal Assessment & Plan Assessment & Plan (1) COPD (chronic obstructive pulmonary disease): Code(s): J44.9 - Chronic obstructive pulmonary disease, unspecified (2) Cardiomyopathy: Code(s): I42.9 - Cardiomyopathy, unspecified (3) Dyspnea: Code(s): R06.00 - Dyspnea, unspecified (4) Pleural effusion due to congestive heart failure: Code(s): I50.9 - Heart failure, unspecified Plan conitnue Tremariah NICHO as needed Will benefit from Pulmonary rehab cardiac work up in [place] F/U 2-3 months Medications: Discontinued furosemide 40 mg PO DAILY 30 tabs 0RF midodrine 10 mg PO QID 30 days 120 tabs 6RF Coding Level of Care Code Est Pt Level 4 (60149) Diagnoses COPD (chronic obstructive pulmonary disease) J44.9 Cardiomyopathy I42.9 Dyspnea R06.00 Pleural effusion due to congestive heart failure I50.9 Time Spent (min) 18
== END 2023-02-21 10:39 | disposition home or self-care (01) ==
PROVIDERS: PCP Family Medicine; Visit Provider Hospitalist
DX: J44.9 Chronic obstructive pulmonary disease, unspecified (principal); I42.9 Cardiomyopathy, unspecified; R06.00 Dyspnea, unspecified; I50.9 Heart failure, unspecified
CPT/HCPCS: 99214

== ENCOUNTER → 2023-02-21 10:02 | Outpatient (BNVA) | payer OTHER, SELFPAY | PROVIDERS: Visit Provider Hospitalist | DX: J44.9 Chronic obstructive pulmonary disease, unspecified (principal); R06.00 Dyspnea, unspecified; I42.9 Cardiomyopathy, unspecified; I50.9 Heart failure, unspecified; Z79.899 Other long term (current) drug therapy | CPT/HCPCS: 99212 ==

== ENCOUNTER 2023-03-25 08:26 | Outpatient (REF) | payer OTHER, SELFPAY ==
--- NOTE | ~2023-03-25 | US_ITS ---
EXAMINATION: US ABDOMEN COMPLETE CLINICAL INFORMATION: Fatty liver. COMPARISON: Ultrasound abdomen complete 01/11/2022 and 04/15/2019. CT abdomen and pelvis without and with contrast 05/28/2018. TECHNIQUE: Real-time imaging of the abdominal viscera. FINDINGS: PANCREAS: Normal. ABDOMINAL AORTA: The proximal, mid, and distal segments are normal in caliber. INFERIOR VENA CAVA: Visualized portions are normal. LIVER: The liver is normal in size. The liver contour is normal. There is diffuse increased liver parenchymal echogenicity. No focal hepatic lesion. There is no intrahepatic biliary duct dilatation seen. GALLBLADDER: An 8 mm gallstone is situated at the neck portion. The gallbladder is physiologically distended without evidence of sludge, polyps, wall thickening or pericholecystic fluid. COMMON BILE DUCT: Normal in caliber measuring 0.4 cm in diameter. RIGHT KIDNEY: There is pelviectasis, without ashley hydronephrosis. No hydronephrosis. No renal calculi or focal parenchymal lesions. The kidney measures 8.5 cm in maximum dimension. LEFT KIDNEY: There are renal vascular calcifications. No hydronephrosis. No renal calculi or focal parenchymal lesions. The kidney measures 8.9 cm in maximum dimension. SPLEEN: Normal. The spleen measures 10.3 cm in maximum dimension. FREE FLUID: None. US/US abdomen complete IMPRESSION: 1. There is generalized increase in hepatic echotexture, consistent with fatty infiltration or hepatocellular disease. Please correlate clinically. Provided history of fatty infiltration noted. No focal hepatic mass or intrahepatic biliary dilatation is seen. 2. There is cholelithiasis.
== END 2023-03-25 08:27 | disposition home or self-care (01) ==
LOC: HO.US 08:26
PROVIDERS: Visit Provider Family Medicine
DX: K76.0 Fatty (change of) liver, not elsewhere classified (principal)
CPT/HCPCS: 76700

== ENCOUNTER 2023-08-21 10:04 | Outpatient (REF) | payer OTHER, SELFPAY ==
[2023-08-21 11:46] LABS: Appearance Urine Clear; Color Urine Yellow; Glucose Urine UA >=1000 mg/dL (Negative); Leukocyte Esterase Urine Negative (Negative); Nitrite Urine Negative (Negative); UMIC TRIGGER UA YES; Urine Blood Negative (Negative); Urine Ketones Negative (Negative); Urine Protein Negative (Neg-Trace)
[2023-08-21 11:52] LABS: MANUAL DIFF FLAG NO
[2023-08-21 12:08] LABS: Bacteria Urine None Seen (None Seen); Hyaline Casts Urine 0-2 /LPF (0-2); RBC Urine 0-2 /HPF (0-2); Squamous Epithelial Cell Urine 0-2 /HPF (0-2); WBC Urine 0-5 /HPF (0-5)
[2023-08-21 12:09] LABS: Basophils Percent Auto 0.6 % (0-2); Eosinophils Percent Auto 0.6 % (0-4); Hematocrit 41.9 % (42.0-52.0); Hemoglobin 13.1 g/dl (14.0-18.0); Imm Gran Abs Auto 0.04 X10*3/uL (0.00-0.03); Imm Gran Pct Auto 0.6 % (0.0-0.4); Lymphocytes Absolute Auto 2.3 X10*3/uL (1.2-4.9); Lymphocytes Percent Auto 36.2 % (20-40); Mean Corpuscular HGB Conc 31.3 g/dl (31.0-36.0); Mean Corpuscular Hemoglobin 28.8 pg (27.0-33.0); Mean Corpuscular Volume 92.1 fL (80.0-98.0); Mean Platelet Volume 11.5 fL (9.4-12.4); Monocytes Percent Auto 15.4 % (2-11); Neutrophils Percent Auto 46.6 % (45-73); Platelet Count 232 X10*3/uL (160-400); Red Blood Count 4.55 X10*6/uL (4.60-5.80); Red Cell Distribution Width 15.9 % (11.0-16.0); White Blood Count 6.4 X10*3/uL (4.8-10.8)
[2023-08-21 12:16] LABS: Estimated Average Glucose 123 mg/dL; Hemoglobin A1c % 5.9 % (<6.0)
[2023-08-21 12:42] LABS: Alanine Aminotransferase 12 U/L (0-40); Albumin Level 4.3 g/dL (3.5-5.0); Alkaline Phosphatase 154 U/L (39-117); Aspartate Amino Transferase 20 U/L (5-37); Bilirubin Direct 0.3 mg/dL (0.0-0.5); Bilirubin Total 0.7 mg/dL (0.0-1.0); Iron 69 mcg/dL (45-160); Percent Iron Saturation 26 % (15-50); Total Iron Binding Capacity 261 mcg/dL (228-428); Total Protein 8.5 g/dL (6.5-8.0); Unsaturated Iron Binding 192 ug/dL; Uric Acid 6.9 mg/dL (3.4-7.0); Vitamin D 25-OH Total 23.6 ng/mL (>30)
[2023-08-21 13:03] LABS: Parathyroid Hormone Intact 278.9 pg/mL (8.7-77.1)
[2023-08-21 13:06] LABS: Creatinine Urine 26.77 mg/dL; Total Protein Urine Random < 7 mg/dL (<12)
== END 2023-08-21 10:05 | disposition home or self-care (01) ==
LOC: HO.HHCL 10:04
PROVIDERS: Visit Provider Physician Assistant
DX: N18.32 Chronic kidney disease, stage 3b (principal); E11.21 Type 2 diabetes mellitus with diabetic nephropathy; D50.8 Other iron deficiency anemias; I95.89 Other hypotension; I50.9 Heart failure, unspecified
CPT/HCPCS: 36415; 80076; 81001; 82306; 82570; 83036; 83540; 83970; 84156; 84550; 85025

== ENCOUNTER 2023-09-12 09:53 | Outpatient (AMB) | payer MEDICARE, MEDICAID, SELFPAY ==
[2023-09-12 10:16] VITALS: PULSE 60; O2SAT 98; BMI 25.0
--- NOTE | 2023-09-12 10:16 | MHC.OFFVIS ---
Intake Vital Signs 09/12/23 10:16 Height 5 ft 5 in Weight 150 lb BMI 25.0 Pulse 60 Pulse Source Pulse Oximeter Pulse Oximetry (%) 98 Oxygen Delivery Method Room Air Intake Visit Reasons: COPD Mortgage Funder Required: No Allergies valsartan [Diovan] Allergy (Unknown, Verified 09/12/23 10:17) Unknown simvastatin Adverse Reaction (Unknown, Verified 09/12/23 10:17) increased liver enzymes HPI HPI Comments History of Present Illness Details The patient is a 73 year within the home history of COPD in addition to cardiomyopathy with EF of 10%. He is status post ICD placement. The patient has had multiple hospitalizations at [facility]. The last time was back in October 2022 where he was taken via ambulance to the hospital. The patient was noted to have a CT scan with bilateral pleural effusions right more than left. He has had thoracentesis in the past although he did not require this time. The patient also had mild emphysema and a small area of pneumonia. The patient was treated and now doing well. Does complaint of dyspnea on exertion. Moderate severity. Also complains of a cough which is usually nonproductive in nature. The patient has not had any pulmonary function studies. During the visit we did go for brief walking oximetry the patient maintain a pulse ox of 96-97% with activity which is reassuring. The patient did not have significant shortness of breath. He did go to [place] for his cardiac disease and he did undergo a study although we do not have the name of the study other results. His family does with them will provide us with the results. 02/21/2023 the patient is here for pulmonary follow-up visit. Overall the patient is doing about the same. Still has dyspnea on exertion. [id number] severity. Primarily with activity. Does get better with rest. The patient did undergo pulmonary function studies which I personally reviewed with him. 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 Explained to him that this is likely the result of underlying pulmonary vascular disease and his congestive heart failure. No evidence of any obstruction or restriction on his PFTs. He also underwent a chest x-ray in January 2023 demonstrating interval improvement of pulmonary edema which is reassuring. At this point most of his symptoms are related to his underlying cardiac disease. He is currently on Trelegy inhaler which also is providing some relief. 09/12/2023 the patient is here for a pulmonary follow-up visit. Overall the patient is doing fairly well. He continues uses Trelegy inhaler. This has been affecting beneficial. The patient however has not been active and has not been walking. He did started lifting some weights and then started developing some chest pain so therefore he stopped. He is currently being evaluated locally for his cardiac situation. He was supposed to follow in [place] but for some reason did not make the appointment. The patient will undergo a stress test. If his stress test is normal he should continue to stay busy with aerobic activity. I did give him some ideas of ways to do that. The patient had PFTs. They are reassuring. No evidence of any obstruction. His chest x-ray was also demonstrating pulmonary edema. I will have him repeat the x-ray to make sure we have a new baseline. Otherwise patient is doing well will follow-up in a year's time [facility] Medical History (Updated 09/14/23 @ 19:17 by Salvatore Mcfadden MD) Pleural effusion due to congestive heart failure Dyspnea Parkinson disease Diabetes GERD (gastroesophageal reflux disease) Hx of ventricular tachycardia Cardiomyopathy Pacemaker Hx of gastritis Spondylosis Chronic renal insufficiency Back pain COPD (chronic obstructive pulmonary disease) Elevated cholesterol CHF (congestive heart failure) CAD (coronary artery disease) HTN (hypertension) Surgical History Hx of colonoscopy H/O cystoscopy Hx of right inguinal hernia repair AICD (automatic cardioverter/defibrillator) present Family History Mother No known health problems Father No known health problems Social History Household Members: Spouse Housing: Apartment Do you presently have visiting nurse or other home services: Yes Alcohol intake: never Patient Tobacco Use Status: Former Tobacco user Second Hand Smoke Exposure: No service: No Current occupational status: disabled Review of Systems Const Denies fever(s) and Denies weight loss Eyes Denies eye discharge and Denies irritation ENT Reports Normal hearing present, Denies dysphagia and Denies dizziness Card Reports chest pain, Denies leg edema, Reports dyspnea on exertion and Reports other (Palpitations) Resp Reports cough, Reports dyspnea on exertion and Denies wheezing GI Denies abdominal pain, Reports hematochezia, Denies change in bowel habits, Reports constipation, Denies dysphagia, Reports early satiety and Denies heartburn Musc Denies back pain and Reports arthralgias Skin/Breast Denies pruritus, Denies rash and Denies jaundice Neuro Reports Normal hearing present, Denies Abnormal speech present, Denies dizziness and Denies seizure-like activity Psych Denies anxiety, Denies depression and Denies panic attacks Endo Denies cold intolerance, Denies flushing and Denies heat intolerance Chase/Lymph Denies easy bleeding and Denies easy bruising Aller/Immun Denies wheezing Physical Exam Vital Signs: Last Vital Signs Pulse 60 09/12/23 10:16 Pulse Ox 98 09/12/23 10:16 Oxygen Delivery Method Room Air 09/12/23 10:16 BMI result Body Mass Index 25.0 Const General: no acute distress Orientation/consciousness: patient oriented x3 HEENT Head: Yes normocephalic Eyes Sclerae: sclerae normal Pupils: Equal, round and reactive pupils present Neck Neck: Yes supple Chest Chest palpation & inspection: normal inspection of the chest Resp Effort & Inspection: normal respiratory effort Auscultation: diminished lung sounds Cardio Rate: regular rate Rhythm: regular rhythm Heart sounds: S1 normal heart sound present, S2 normal heart sound present and no murmurs GI Palpation (GI): Soft to palpation Skin General skin exam: no rashes or lesions noted Neuro General: patient oriented x3 and moves all extremities Cranial nerves: Yes Equal, round and reactive pupils present and Yes Normal hearing present Speech: No Abnormal speech present Extrem General: Yes no clubbing, cyanosis or edema Psych Appearance: grossly normal Mental Status: mental status grossly normal Assessment & Plan Assessment & Plan (1) COPD (chronic obstructive pulmonary disease): Code(s): J44.9 - Chronic obstructive pulmonary disease, unspecified Qualifiers: COPD type: emphysema Emphysema type: centrilobular Qualified Code(s): J43.2 - Centrilobular emphysema (2) Cardiomyopathy: Code(s): I42.9 - Cardiomyopathy, unspecified Qualifiers: Cardiomyopathy type: unspecified Qualified Code(s): I42.9 - Cardiomyopathy, unspecified (3) Dyspnea: Code(s): R06.00 - Dyspnea, unspecified Qualifiers: Dyspnea type: dyspnea on exertion Qualified Code(s): R06.09 - Other forms of dyspnea (4) Pleural effusion due to congestive heart failure: Code(s): I50.9 - Heart failure, unspecified Plan conitnue Bhavana NICHO as needed Will benefit from Pulmonary rehab cardiac work up in [facility] F/U 10-12 months Coding Level of Care Code Est Pt Level 4 (39019) Diagnoses Centrilobular emphysema J43.2 COPD type: emphysema Emphysema type: centrilobular Cardiomyopathy, unspecified type I42.9 Cardiomyopathy type: unspecified Dyspnea on exertion R06.09 Dyspnea type: dyspnea on exertion Pleural effusion due to congestive heart failure I50.9 Time Spent (min) 17
== END 2023-09-12 10:30 | disposition home or self-care (01) ==
PROVIDERS: PCP Family Medicine; Visit Provider Hospitalist
DX: J43.2 Centrilobular emphysema (principal); I42.9 Cardiomyopathy, unspecified; R06.09 Other forms of dyspnea; I50.9 Heart failure, unspecified
CPT/HCPCS: 99214

== ENCOUNTER → 2023-09-12 09:53 | Outpatient (BNVA) | payer MEDICARE, MEDICAID, SELFPAY | PROVIDERS: PCP Family Medicine; Visit Provider Hospitalist | DX: J43.2 Centrilobular emphysema (principal); R06.09 Other forms of dyspnea; I42.9 Cardiomyopathy, unspecified; I50.9 Heart failure, unspecified | CPT/HCPCS: 99212 ==

== ENCOUNTER 2023-11-20 10:40 | Outpatient (AMB) | payer OTHER, SELFPAY ==
--- NOTE | 2023-11-20 10:49 | MHC.OFFVIS ---
Vital Signs 11/20/23 10:51 Height 5 ft 5 in Weight 147 lb BMI 24.5 BP 106/56 L Blood Pressure Location Lt brachial Position Sitting Pulse 63 Intake Visit Reasons: pt req appointment Intake Note: Patient request follow up for pre colonoscopy screening. Patient denies any GI issues. Spray Worker Required: No Accompanied by: Self / Same As Patient Allergies valsartan [Diovan] Allergy (Unknown, Verified 11/20/23 10:49) Unknown simvastatin Adverse Reaction (Unknown, Verified 11/20/23 10:49) increased liver enzymes Medication List - Last Reconciled 11/20/23 by Juventino Lopes MD acetaminophen (Pain Relief Extra Strength (acetaminophen)) 500 mg PO Q6H PRN albuterol sulfate 90 mcg/actuation 2 puffs PO Q4-6H PRN albuterol sulfate 2.5 mg inhalation Q4H PRN amiodarone 1 tab PO DAILY aspirin 1 tab PO BEDTIME atorvastatin 80 mg PO DAILY blood sugar diagnostic (FreeStyle Lite Strips) As directed budesonide 0.5 mg inhalation BID calcium carbonate-vitamin D3 600 mg-10 mcg (400 unit) 1 tab PO DAILY cyanocobalamin (vitamin B-12) 1,000 mcg PO DAILY dapagliflozin propanediol (Farxiga) 5 mg PO DAILY docusate sodium 100 mg PO BID PRN donepezil 5 mg PO BEDTIME mltbqtrhovo-bgldjvqnj-dqlyrmnz 100-62.5-25 mcg (Trelegy Ellipta) 1 inh inhalation DAILY 30 days furosemide 40 mg PO DAILY@1200 insulin aspart U-100 (Novolog FlexPen U-100 Insulin aspart) 1 sliding scale dose subcut USEASDIRECTD insulin glargine (Lantus Solostar U-100 Insulin) 7 units subcut DAILY lancets (TRUEplus Lancets) As directed nebulizers As directed pen needle, diabetic (BD Ultra-Fine Vidya Pen Needle) As directed pregabalin 50 mg PO TID trazodone 50 mg PO BEDTIME HPI HPI pt req appointment: Details: GI CLINIC VISIT FOR THIS 73-YEAR-OLD POLISH-SPEAKING MALE FOR FOLLOW-UP OF elevated Alk Phosphatase, gastric intestinal metaplasia and colon cancer screening. Patient was scheduled for an upper endoscopy and colonoscopy on 01/18/20 and was a no-show for his appointment. Has not completed lab tests ordered after his last GI Televisit. Pt states someone called him to cancel his procedures?CHRONIC ILLNESSES: coronary artery disease, gastritis, hyperlipidemia, hypertension, diabetes mellitus ?low back pain, congestive heart failure, s/p ICD, microscopic hematuria, COPD ?LABS IN [facility]: 09/15/19 REVIEWED MILD ANEMIA, PLT 289, 12/31/18 mild anemia, CREATININE 2.01, NORMAL LFTS EXCEPT ELEVATED ALKALINE PHOSPHATASE OF 165. Iron studies consistent with anemia of chronic disease with ferritin of 133, chronic mild elevation of alkaline phosphatase in the 120-170 range ?Alkaline for phosphatase isoenzymes showed normal liver fraction of 60 ?IMAGING STUDIES: 04/22 abdominal ultrasound showed: ?LIVER: There is diffuse increased liver parenchymal echogenicity, consistent with hepatic steatosis. The liver is normal in size and contour. No biliary ductal dilatation. ?GALLBLADDER: The gallbladder is physiologically distended. There is an echogenic gallstone measuring 0.7 x 0.8 x 0.6 cm. There is borderline gallbladder wall thickening. No pericholecystic fluid seen. ?TODAY'S VISIT Pt is accompanied by his grand daughter, Lula ([phone]) His GD interpreted for the patient to understand some [place]ian Constipation improved with a stool softeners. Denies rectal bleeding. PAST VISITS: Complains of constipation - has a BM once a day with straining Taking a powder and a stool softener which is not helping Had an episode of rectal bleeding associated with straining Denies dysphagia, heartburn, nausea or vomiting, change in appetite or weight. ?Patient denies change in bowel habits, black stools. ?Denies past history of Jaundice or liver disease. ?Denies known family history of liver disease ?Denies known FH of colon polyps, colon cancer or GI malignancy ?Denies a history of loud snoring, sleep apnea or past problems with anesthesia ?Pt has CAD and COPD. ?Ready to schedule his EGD and Colonoscopy ?Does not have prep at home. ?Needs labs when he comes for his colonoscopy appt ?PAST GI HISTORY BY REVIEW OF MEDICAL RECORDS: ?2009 EGD and colonoscopy were performed by Dr. Pacheco which showed superficial gastritis. Colonoscopy was normal with good prep ?Gastric biopsies showed moderate chronic gastritis with intestinal metaplasia PFSH Medical History (Updated 09/14/23 @ 19:17 by Salvatore Mcfadden MD) Pleural effusion due to congestive heart failure Dyspnea Parkinson disease Diabetes GERD (gastroesophageal reflux disease) Hx of ventricular tachycardia Cardiomyopathy Pacemaker Hx of gastritis Spondylosis Chronic renal insufficiency Back pain COPD (chronic obstructive pulmonary disease) Elevated cholesterol CHF (congestive heart failure) CAD (coronary artery disease) HTN (hypertension) Surgical History Hx of colonoscopy H/O cystoscopy Hx of right inguinal hernia repair AICD (automatic cardioverter/defibrillator) present Family History Mother No known health problems Father No known health problems Social History Household Members: Spouse Housing: Apartment Do you presently have visiting nurse or other home services: Yes Alcohol intake: never Patient Tobacco Use Status: Former Tobacco user Second Hand Smoke Exposure: No service: No Current occupational status: disabled Review of Systems Const All systems reviewed & are unremarkable except as noted in HPI and below Physical Exam Vital Signs: Last Vital Signs Pulse 63 11/20/23 10:51 BP 106/56 L 11/20/23 10:51 BMI result Body Mass Index 24.5 Const General: healthy appearing and no acute distress Nutritional Appearance: average body habitus Orientation/consciousness: patient oriented x3 Limitations: language barrier HEENT Head: Yes normal to inspection Ears: hearing grossly normal bilaterally Eyes Sclerae: sclerae normal Pupils: Equal, round and reactive pupils present Neck Neck: Yes normal visual inspection Chest Chest palpation & inspection: normal inspection of the chest Resp Effort & Inspection: normal respiratory effort Auscultation: clear to auscultation bilaterally Cardio Palpation: normal PMI Rate: regular rate Rhythm: regular rhythm Heart sounds: S1 normal heart sound present, S2 normal heart sound present and no murmurs GI Palpation (GI): Soft to palpation, nontender and No hepatosplenomegaly present Auscultation: normal bowel sounds Rectal Exam - Male: Yes deferred Skin General skin exam: no rashes or lesions noted Neuro General: patient oriented x3, gait normal and moves all extremities Cranial nerves: Yes Equal, round and reactive pupils present Psych Appearance: grossly normal Mental Status: mental status grossly normal Assessment & Plan Assessment & Plan (1) GERD (gastroesophageal reflux disease): Code(s): K21.9 - Gastro-esophageal reflux disease without esophagitis Category: Medical (2) Colon cancer screening: Code(s): Z12.11 - Encounter for screening for malignant neoplasm of colon Category: Medical (3) Gastric intestinal metaplasia: Code(s): K31.A0 - Gastric intestinal metaplasia, unspecified Category: Medical (4) Elevated alkaline phosphatase level: Code(s): R74.8 - Abnormal levels of other serum enzymes Category: Medical (5) Chronic constipation: Code(s): K59.09 - Other constipation Category: Medical Plan 73 year old Gibraltarian-speaking male with coronary artery disease, gastritis, hyperlipidemia, hypertension, diabetes mellitus, low back pain, congestive heart failure, s/p ICD, microscopic hematuria, COPD referred for evaluation of chronic mild elevated alkaline phosphatase with normal remaining LFTs. Increase in alkaline phosphatase may be secondary to primary biliary cholangitis, autoimmune cholangitis or related to medications. Additional lab tests will be obtained for further workup. Patient was diagnosed with intestinal metaplasia on past EGD with biopsies and repeat EGD will be scheduled. Patient is at average risk for colon cancer, denies any known family history of colon polyps or cancer and had a negative colonoscopy 10 years ago. He is over due for her repeat screening colonoscopy (scheduled 2 yrs ago and cancelled since he was not feeling well). EGD and colonoscopy procedures and potential complications including bleeding, perforation, drug reaction, aspiration and missed diagnosis were reviewed with the patient who would like to proceed. Patient has COPD, CHF and has a defibrillator and needs pulmonary and cardiology clearance prior to his procedures. His Grand Daughter Lula ([phone]) is requesting that she be contacted to schedule all his appointments since pt is forgetful 11/20/23 Pt is accompanied by his grand daughter, Lula ([phone]) His GD interpreted for the patient to understand some [place]ian Constipation improved with a stool softeners. Denies rectal bleeding. Pt advised to have stool cologuard checked since last colon was negative and he is high risk for anesthesia (Cardiomyopathy, COPD and EF of 15-20% with pseudonormal filling pattern on echocardiogram) I will contact the pt with Cologuard results. FU in 6 months. Orders: Referrals Cologuard Test Z12.11 - Encounter for screening for malignant neoplasm of colon
[2023-11-20 10:51] VITALS: BP 106/56; PULSE 63; BMI 24.5
== END 2023-11-20 11:32 | disposition home or self-care (01) ==
PROVIDERS: PCP Family Medicine; Visit Provider Internal Medicine Gastroenterology
DX: K21.9 Gastro-esophageal reflux disease without esophagitis (principal); Z12.11 Encounter for screening for malignant neoplasm of colon; K31.A0 Gastric intestinal metaplasia, unspecified; R74.8 Abnormal levels of other serum enzymes; K59.09 Other constipation
CPT/HCPCS: 99214

== ENCOUNTER → 2023-11-20 10:40 | Outpatient (BNVA) | payer OTHER, SELFPAY | PROVIDERS: PCP Family Medicine; Visit Provider Internal Medicine Gastroenterology | DX: Z12.11 Encounter for screening for malignant neoplasm of colon (principal); K21.9 Gastro-esophageal reflux disease without esophagitis; K31.A0 Gastric intestinal metaplasia, unspecified; K59.09 Other constipation; R74.8 Abnormal levels of other serum enzymes | CPT/HCPCS: 99212 ==

== ENCOUNTER 2024-03-23 11:20 | Outpatient (REF) | payer OTHER, SELFPAY | END 2024-03-23 11:21 | disposition home or self-care (01) | LOC: HO.HHCL 11:20 | PROVIDERS: Visit Provider Family Medicine | DX: Z13.89 Encounter for screening for other disorder (principal) ==

== ENCOUNTER 2024-10-27 11:27 | Outpatient (REF) | payer OTHER, SELFPAY ==
[2024-10-27 13:39] LABS: MANUAL DIFF FLAG NO
[2024-10-27 13:52] LABS: Basophils Absolute Auto 0.1 X10*3/uL (0.0-0.2); Basophils Percent Auto 0.8 % (0-2); Eosinophils Percent Auto 0.1 % (0-4); Hematocrit 38.5 % (42.0-52.0); Imm Gran Pct Auto 2.5 % (0.0-0.4); Lymphocytes Absolute Auto 1.6 X10*3/uL (1.2-4.9); Lymphocytes Percent Auto 20.5 % (20-40); Mean Corpuscular HGB Conc 31.2 g/dl (31.0-36.0); Mean Corpuscular Hemoglobin 29.3 pg (27.0-33.0); Mean Corpuscular Volume 94.1 fL (80.0-98.0); Mean Platelet Volume 11.5 fL (9.4-12.4); Monocytes Absolute Auto 1.1 X10*3/uL (0.1-1.2); Monocytes Percent Auto 14.1 % (2-11); Platelet Count 314 X10*3/uL (160-400); Red Blood Count 4.09 X10*6/uL (4.60-5.80); Red Cell Distribution Width 15.1 % (11.0-16.0)
[2024-10-27 13:57] LABS: Estimated Average Glucose 148 mg/dL; Hemoglobin A1c % 6.8 % (<6.0)
[2024-10-27 14:21] LABS: Alanine Aminotransferase 18 U/L (0-40); Albumin Level 4.1 g/dL (3.5-5.0); Alkaline Phosphatase 145 U/L (39-117); Anion Gap 12 (12-20); Aspartate Amino Transferase 28 U/L (5-37); Bilirubin Direct 0.3 mg/dL (0.0-0.5); Bilirubin Total 0.6 mg/dL (0.0-1.0); Blood Urea Nitrogen 28 mg/dL (9-16); Carbon Dioxide 27 mmol/L (22-29); Chloride 107 mmol/L (96-108); Cholesterol 142 mg/dL (<200); Estimated Glomerular Filt Rate 27; Ferritin 145 ng/mL (20-250); Glucose Random 179 mg/dL (60-115); HDL Cholesterol 30 mg/dL (>40); Iron 43 mcg/dL (45-160); LDL Cholesterol Calculated 77 mg/dL (<100); Percent Iron Saturation 18 % (15-50); Potassium 4.1 mmol/L (3.3-5.1); Sodium 142 mmol/L (135-145); Thyroid Stimulating Hormone 1.02 uIU/mL (0.32-4.0); Total Iron Binding Capacity 241 mcg/dL (228-428); Total Protein 8.1 g/dL (6.5-8.0); Triglycerides 178 mg/dL (<150); Unsaturated Iron Binding 198 ug/dL; Vitamin D 25-OH Total 31.2 ng/mL (>30)
[2024-10-27 14:32] LABS: Folate 8.4 ng/mL (> or = 4.0); Vitamin B12 812 pg/mL (200-900)
[2024-10-28 11:24] LABS: Alpha Fetoprotein 3.5 ng/mL (<6.1)
== END 2024-10-27 11:28 | disposition home or self-care (01) ==
LOC: HO.HHCL 11:27
PROVIDERS: Visit Provider Family Medicine
DX: E11.22 Type 2 diabetes mellitus with diabetic chronic kidney disease (principal); N18.30 Chronic kidney disease, stage 3 unspecified; K76.0 Fatty (change of) liver, not elsewhere classified; Z79.4 Long term (current) use of insulin
CPT/HCPCS: 36415; 80048; 80061; 80076; 82105; 82306; 82607; 82728; 82746; 83036; 83540; 84439; 84443; 85025

== ENCOUNTER 2024-11-26 10:37 | Outpatient (AMB) | payer OTHER, SELFPAY ==
[2024-11-26 10:39] VITALS: BP 124/68; PULSE 62; O2SAT 100; BMI 24.6
--- NOTE | 2024-11-26 10:39 | MHC.OFFVIS ---
Vital Signs 11/26/24 10:39 Height 5 ft 5 in Weight 147 lb 11.355 oz BMI 24.6 BP 124/68 Blood Pressure Location Lt brachial Position Sitting Pulse 62 Pulse Source Pulse Oximeter Pulse Oximetry (%) 100 Oxygen Delivery Method Room Air Intake Visit Reasons: 1yr F/U Emphysema Allergies valsartan [Diovan] Allergy (Unknown, Verified 11/26/24 10:41) Unknown simvastatin Adverse Reaction (Unknown, Verified 11/26/24 10:41) increased liver enzymes HPI Comments Details: The patient is a 74 year within the home history of COPD in addition to cardiomyopathy with EF of 10%. He is status post ICD placement. The patient has had multiple hospitalizations at [facility]. The last time was back in October 2022 where he was taken via ambulance to the hospital. The patient was noted to have a CT scan with bilateral pleural effusions right more than left. He has had thoracentesis in the past although he did not require this time. The patient also had mild emphysema and a small area of pneumonia. The patient was treated and now doing well. Does complaint of dyspnea on exertion. Moderate severity. Also complains of a cough which is usually nonproductive in nature. The patient has not had any pulmonary function studies. During the visit we did go for brief walking oximetry the patient maintain a pulse ox of 96-97% with activity which is reassuring. The patient did not have significant shortness of breath. He did go to [facility] for his cardiac disease and he did undergo a study although we do not have the name of the study other results. His family does with them will provide us with the results. 02/21/2023 the patient is here for pulmonary follow-up visit. Overall the patient is doing about the same. Still has dyspnea on exertion. [id number] severity. Primarily with activity. Does get better with rest. The patient did undergo pulmonary function studies which I personally reviewed with him. 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 Explained to him that this is likely the result of underlying pulmonary vascular disease and his congestive heart failure. No evidence of any obstruction or restriction on his PFTs. He also underwent a chest x-ray in January 2023 demonstrating interval improvement of pulmonary edema which is reassuring. At this point most of his symptoms are related to his underlying cardiac disease. He is currently on Trelegy inhaler which also is providing some relief. 11/26/2024 the patient is here for a pulmonary follow-up visit. Overall the patient is doing fairly well. He is not using the Trelegy inhaler. But, he does use the albuterol inhaler several times a day. We need to optimize his respiratory therapy. He does not like the powdered inhalers. The patient however has not been active and has not been walking. He is currently being evaluated locally for his cardiac condition and was also seen in [facility]. The patient had PFTs. They are reassuring. No evidence of any obstruction. His chest x-ray was also demonstrating pulmonary edema. I will have him repeat the x-ray to make sure we have a new baseline. Otherwise patient is doing well will follow-up in 6 months. [facility] Medical History (Updated 09/14/23 @ 19:17 by Salvatore Mcfadden MD) Pleural effusion due to congestive heart failure Dyspnea Parkinson disease Diabetes GERD (gastroesophageal reflux disease) Hx of ventricular tachycardia Cardiomyopathy Pacemaker Hx of gastritis Spondylosis Chronic renal insufficiency Back pain COPD (chronic obstructive pulmonary disease) Elevated cholesterol CHF (congestive heart failure) CAD (coronary artery disease) HTN (hypertension) Surgical History Hx of colonoscopy H/O cystoscopy Hx of right inguinal hernia repair AICD (automatic cardioverter/defibrillator) present Family History Mother No known health problems Father No known health problems Social History Household Members: Spouse Housing: Apartment Do you presently have visiting nurse or other home services: Yes Alcohol intake: never Patient Tobacco Use Status: Former Tobacco user Second Hand Smoke Exposure: No service: No Current occupational status: disabled Review of Systems Const Denies chills, Denies fatigue, Denies fever(s), Denies weight gain and Denies weight loss Eyes Denies eye discharge and Denies irritation ENT Reports Normal hearing present and Denies dizziness Card Denies chest pain, Denies leg edema, Denies lightheadedness, Denies palpitations, Reports dyspnea on exertion, Denies orthopnea and Denies other Resp Reports cough, Reports dyspnea on exertion and Reports wheezing GI Denies hematochezia and Denies change in stool character Musc Denies abnormal gait, Denies muscle weakness, Denies numbness, Denies radiating pain into limb and Denies tingling Skin/Breast Denies pruritus, Denies rash and Denies jaundice Neuro Reports Normal hearing present, Denies Abnormal speech present, Denies abnormal gait, Denies dizziness, Denies numbness and Denies tingling Psych Denies anxiety, Denies depression and Denies panic attacks Endo Denies fatigue and Denies palpitations Chase/Lymph Denies easy bleeding and Denies easy bruising Aller/Immun Reports wheezing Physical Exam Vital Signs: Last Vital Signs Pulse 62 11/26/24 10:39 BP 124/68 11/26/24 10:39 Pulse Ox 100 11/26/24 10:39 Oxygen Delivery Method Room Air 11/26/24 10:39 BMI result Body Mass Index 24.6 Const General: no acute distress Orientation/consciousness: patient oriented x3 HEENT Head: Yes normocephalic Eyes Sclerae: sclerae normal Pupils: Equal, round and reactive pupils present Neck Neck: Yes supple Chest Chest palpation & inspection: normal inspection of the chest Resp Effort & Inspection: normal respiratory effort Auscultation: diminished lung sounds Cardio Rate: regular rate Rhythm: regular rhythm Heart sounds: S1 normal heart sound present, S2 normal heart sound present and no murmurs GI Palpation (GI): Soft to palpation Skin General skin exam: no rashes or lesions noted Neuro General: patient oriented x3 and moves all extremities Cranial nerves: Yes Equal, round and reactive pupils present and Yes Normal hearing present Speech: No Abnormal speech present Extrem General: Yes no clubbing, cyanosis or edema Psych Appearance: grossly normal Mental Status: mental status grossly normal Assessment & Plan Assessment & Plan (1) COPD (chronic obstructive pulmonary disease): Code(s): J44.9 - Chronic obstructive pulmonary disease, unspecified Category: Medical Qualifiers: COPD type: emphysema Emphysema type: centrilobular Qualified Code(s): J43.2 - Centrilobular emphysema (2) Cardiomyopathy: Code(s): I42.9 - Cardiomyopathy, unspecified Category: Medical Qualifiers: Cardiomyopathy type: unspecified Qualified Code(s): I42.9 - Cardiomyopathy, unspecified (3) Dyspnea: Code(s): R06.00 - Dyspnea, unspecified Category: Medical Qualifiers: Dyspnea type: dyspnea on exertion Qualified Code(s): R06.09 - Other forms of dyspnea (4) Pleural effusion due to congestive heart failure: Code(s): I50.9 - Heart failure, unspecified Category: Medical Plan stop Trelegy start Bevespi 2 puff BID NICHO as needed CXR F/U 10-12 months Medications: New glycopyrrolate-formoterol 9-4.8 mcg (Bevespi Aerosphere) 2 puffs inhalation Q12H 30 days 10.7 grams 11RF albuterol sulfate 90 mcg/actuation 2 inhalations inhalation Q6H 30 days PRN 18 grams 12RF shortness of breath or wheezing J44.9 - Chronic obstructive pulmonary disease, unspecified Discontinued [id number]-[id number] 100-62.5-25 mcg (Trelegy Ellipta) Discontinued Reason: Entered in error 1 inh inhalation DAILY 30 days 60 ea 11RF J44.9 - Chronic obstructive pulmonary disease, unspecified Coding Level of Care Code Est Pt Level 4 (86139) Diagnoses Centrilobular emphysema J43.2 COPD type: emphysema Emphysema type: centrilobular Cardiomyopathy, unspecified type I42.9 Cardiomyopathy type: unspecified Dyspnea on exertion R06.09 Dyspnea type: dyspnea on exertion Pleural effusion due to congestive heart failure I50.9 Time Spent (min) 16
--- OUTSIDE RECORDS SUMMARY | 2024-11-26 11:16 | XMS_ITS | Data Portability ---
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 Patient reports 2+ LE, 5 lb weight gain since d/c from hospital 1 week ago for CHF exacerbation. Pt reports adherence to diuretic regimen and notes taking med this AM. On exam, VSS, Lung sounds clear b/l, LE: 2+ pitting edema appreciated. POC CMP Cr 1.3, K 3.8 Given K 18tfif0 and lasix 20mg IV x 1 with sig improvement Acute of chronic exacerbation of HF, sig improvement with IV dose. Primary care team should consider optimizing diuretic regimen to avoid fluid overload. Alarm symptoms reviewed, pt advised to call 911 if onset. Care team, please f/u w patient in 2-3 days. [email or web address] Not available 08/23/2022 14:18:32 10/17/2022 10/17/2022 As noted, we were called to see this patient regarding concerns of cough and wheeze. Evaluation in the field was performed by my intermodal customer service colleague, as noted above, I provided real-time direction and supervision for this visit. The evaluation revealed NAD, mild end expiratory wheeze sat of 100% on RA . Impression: Likely Asthma flare with mild wheezing. PT doing well with HFA Given dose of steroids and prescribed 40mg PO prednisone burst Plan: PRednisone burst and albuterol every 4-6 hours as needed. Primary care, consider: CXR if symptoms not improving Disposition: We discussed the diagnostic uncertainty of home visits and the risk associated with this. In this case, the patient and I felt this to be an acceptable and reasonable amount of risk given the benefit of avoiding an ED visit. We discussed the need to seek care urgently/emergen tly in the setting of any new or worsening serious symptoms, particularly increased SOB [email or web address] Not available 10/17/2022 20:11:18 01/09/2023 01/09/2023 As noted, we were called to see this patient regarding concerns of right hip to leg pain. Evaluation in the field was performed by my intermodal customer service colleague, as noted above, I provided real-time direction and supervision for this visit. The evaluation revealed pain consistent with prior sciatica flares, last one several years ago. vitals and exam otherwise unremarkable. Impression: sciatica flare Plan: plan for toradol x1 (30mg IM) now and starting aleve for afew days. Disposition: We discussed the diagnostic uncertainty of home visits and the risk associated with this. In this case, the patient and I felt this to be an acceptable and reasonable amount of risk given the benefit of avoiding an ED visit. We discussed the need to seek care urgently/emergen tly in the setting of any new or worsening serious symptoms, particularly worsening pain, inability to ambulate. [email or web address] Not available 01/09/2023 15:28:37 01/16/2023 01/16/2023 I provided real -time medical direction via phone for this encounter, and was available for additional phone based assistance as needed. I have reviewed and agree with the Assessment and Plan as documented by the Mat Cleaning Machine Operator. Patient given the opportunity to ask questions. Advised if develops CP/severe SOB/turning blue/ AMS/ syncope/ hi fever to call 911- he verbalized understanding of instructions Not available 01/16/2023 17:29:50 Plan of Treatment Reminders Order Date Submit Date Provider Last Modified By Organization Details Last Modified Time Details Appointments None recorded. Lab cmp, whole blood + arden 2022 023 Replaced by [facility], [address] [place] [address], [phone] 10:19:15 Referral None recorded. Procedures None recorded. Surgeries None recorded. Imaging None recorded. Medication Orders naproxen 250 mg tablet 2022 023 [facility], [address] [place] [address], [id number], 3 15:31:29 prednisone 20 mg tablet 2022 023 [facility], [address], [place], [place], [phone], 3 16:11:27 furosemide 10 mg/mL injection syringe 2022 023 [email or web address] Not available 3 14:19:21 Patient TargetsNo targets recorded. Patient InstructionsNo instructions recorded. Reason for Referral None Reported. Results Created Date Observation Date Name Description Value Unit Range Abnormal Flag Note LastModifiedBy Organization Detail LastModifiedTime 06/14/20 22 06/19/2022 CULTU RE, URINE , ROUTI NE culture, urine, routine SEE NOTE CULTU RE, URINE , ROUTI NE Micro Numbe r: [id number] Test Statu s: Final Speci men Sourc e: Urine Speci men Quali ty: Adequ ate Resul t: Mixed genit al thomas isola mulugeta. These super ficia l bacte karlos are not indic ative of a urina ry tract infec tion. No furth er organ ism ident ifica tion is warra nted on this speci men. If clini aria indic ated, recol lect clean -catc h, mid-s tream urine and trans bryanna immed iatel y to Urine Cultu re Trans port Tube. Not Available [facility] [address] [place] [address] B, [place], [address], 06/19/2022 23:28:52 06/14/20 22 06/14/2022 BMP, serum or plasm a BUN 16 Not Available Main - Ins m[place]get[place] [address] [place] [address], [phone] 06/14/2022 14:44:53 06/14/20 22 06/14/2022 BMP, serum or plasm a Ca I ANNELIESE: 1. 19 Not Available Main - Inst ed [address] [place] [address], [phone] 06/14/2022 14:44:53 06/14/20 22 06/14/2022 BMP, serum or plasm a CI- 102 Not Available Main - Ins [address], [phone] 06/14/2022 14:44:53 06/14/20 22 06/14/2022 BMP, serum or plasm a CRE 1.9( last in old record was 2) Not Available Main - Inst ed [address] [place] [address], [phone] 06/14/2022 14:44:53 06/14/20 22 06/14/2022 BMP, serum or plasm a GLU 130 Not Available Main - Ins [address], [phone] 06/14/2022 14:44:53 06/14/20 22 06/14/2022 BMP, serum or plasm a K+ 3.6 Not Available Main - Ins [address], [phone] 06/14/2022 14:44:53 06/14/20 22 06/14/2022 BMP, serum or plasm a Na+ 143 Not Available Main - Ins [address], [address] 06/14/2022 14:44:53 06/14/20 22 06/14/2022 BMP, serum or plasm a tCO2 27 Not Available Main - Ins [address], [phone] 06/14/2022 14:44:53 06/14/20 22 06/14/2022 urina lysis , dipst ick Leukocytes neg Not Available Main - [address], [address] 06/14/2022 14:39:48 06/14/20 22 06/14/2022 urina lysis , dipst ick Nitrite negati ve Not Available Main - Inst ed [address] [place] [address], [phone] 06/14/2022 14:39:48 06/14/20 22 06/14/2022 urina lysis , dipst ick Urobilinogen neg Not Available [facility] [address] [place] [address], [phone] 06/14/2022 14:39:48 06/14/20 22 06/14/2022 urina lysis , dipst ick Protein trace Not Available Main - Ins [address], [phone] 06/14/2022 14:39:48 06/14/20 22 06/14/2022 urina lysis , dipst ick pH 5 Not Available Main - Ins [address], [phone] 06/14/2022 14:39:48 06/14/20 22 06/14/2022 urina lysis , dipst ick Blood neg Not Available Main - Ins [address], [phone] 06/14/2022 14:39:48 06/14/20 22 06/14/2022 urina lysis , dipst ick Specific [place] 1.010 Not Available Main - Insted [address] [place] [address], [phone] 06/14/2022 14:39:48 06/14/20 22 06/14/2022 urina lysis , dipst ick Ketone neg Not Available Main - Ins [address], [address] 06/14/2022 14:39:48 06/14/20 22 06/14/2022 urina lysis , dipst ick Bilirubin neg Not Available Main - I nsted [address] [place] [address], [phone] 06/14/2022 14:39:48 06/14/20 22 06/14/2022 urina lysis , dipst ick Glucose neg Not Available Main - Ins [address], [address] 06/14/2022 14:39:48 06/14/20 22 06/14/2022 urina lysis , dipst ick Appearance clear Not Available Main - Inst[facility] [address] [place] [address], [phone] 06/14/2022 14:39:48 06/14/20 22 06/14/2022 urina lysis , dipst ick Color yellow Not Available Main - Ins [address], [phone] 06/14/2022 14:39:48 Result Notes None recorded. Medical Equipment None Reported. Allergies Allergen ID Allergen Name Allergen Category Reaction Reaction Severity Criticality Documentation Date Start Date Code Code System Note Provider Name and Address Organization Details Recorded Time 1263 lisinopri l medicatio n cough Not available Not available 06/14/2022 43228 RxNorm Candi York MD [address] [facility],[address], [place], [phone] , [employer], [employer] 2 14:37:41 Medications Name Sig Start Date Stop Date Status Note LastModified by Organization Details LastModified Time medbox status USE DIRECTED active Not Available Not Available No t Available pulse oximet airial [id number] USE EVERY MORNING AND AT BEDTIME DIRECTED active Not Available Not Available Not Available quetiapine 25 mg tablet TAKE 1/2 TABLET BY MOUTH AT BEDTIME active Not Available Not Available No t Available amoxicillin 500 mg capsule TAKE 1 CAPSULE BY MOUTH EVERY 8 HOURS FOR 7 DAYS active Not Available Not Available No t Available furosemide 40 mg tablet TAKE 1 AND 1/2 TABLETS BY MOUTH IN THE MORNING and TAKE 1 TABLET BY MOUTH EVERYDAY AT NOON active Not Available Not Available No t Available fluticasone 250 mcg-salmeter ol 50 mcg/dose blistr powdr for inhalation INHALE 1 PUFF BY MOUTH TWICE DAILY. RINSE MOUTH AFTER USING. active Not Available Not Available No t Available atorvastatin 80 mg tablet TAKE 1 TABLET BY MOUTH EVERY EVENING (for cholesterol ) active Not Available Not Available No t Available torsemide 20 mg tablet TAKE 1 TABLET BY MOUTH ONCE DAILY PER SLIDING SCALE active Not Available Not Available No t Available albuterol sulfate 2.5 mg/3 mL (0.083 %) solution for nebulization active Not Available Not Available Not Available trazodone 50 mg tablet TAKE 1 TABLET BY MOUTH AT BEDTIME active Not Available Not Available No t Available amiodarone 200 mg tablet TAKE 1 TABLET BY MOUTH EVERY MORNING active Not Available Not Available No t Available senna 8.6 mg tablet TAKE 2 TABLETS BY MOUTH AT BEDTIME NEEDED FOR CONSTIPATIO N active Not Available Not Available No t Available prednisone 20 mg tablet Take 2 tablet(s) every day by oral route for 4 days. active Not Available Not Available No t Available naproxen 250 mg tablet TAKE 1 TABLET BY MOUTH TWICE DAILY WITH FOOD FOR 5 DAYS active Not Available Not Available No t Available cyanocobalam in (vit B-12) 1,000 mcg tablet TAKE 1 TABLET BY MOUTH EVERY DAY active Not Available Not Available No t Available aspirin 81 mg tablet,delay ed release TAKE 1 TABLET BY MOUTH EVERY EVENING active Not Available Not Available No t Available amitriptylin e 50 mg tablet TAKE 1 TABLET BY MOUTH AT BEDTIME active Not Available Not Available No t Available tamsulosin 0.4 mg capsule TAKE 1 CAPSULE BY MOUTH EVERY DAY active Not Available Not Available No t Available benzonatate 100 mg capsule TAKE 1 CAPSULE BY MOUTH THREE TIMES DAILY IN THE MORNING, AT NOON, AND AT BEDTIME NEEDED FOR COUGH active Not Available Not Available No t Available lidocaine 5 % topical patch APPLY 1 PATCH TO AFFECTED AREA NEEDED FOR MILD PAIN. WEAR FOR 12 HOURS THEN REMOVE FOR 12 HOURS. REPEAT DAILY. active Not Available Not Available No t Available docusate sodium 100 mg capsule TAKE 1 CAPSULE BY MOUTH TWICE DAILY IN THE MORNING AND IN THE EVENING NEEDED FOR CONSTIPATIO N active Not Available Not Available No t Available budesonide 0.5 mg/2 mL suspension for nebulization INHALE 1 AMPULE USING A NEBULIZER TWICE DAILY. RINSE MOUTH AFTER USING. active Not Available Not Available No t Available folic acid 1 mg tablet TAKE 1 TABLET BY MOUTH EVERYDAY AT NOON active Not Available Not Available No t Available bisacodyl 5 mg tablet,delay ed release TAKE 2 TABLETS BY MOUTH EVERY DAY AT NOON, STARTING 3 DAYS BEFORE COLONOSCOPY active Not Available Not Available Not Available furosemide 20 mg tablet TAKE 1 TABLET DIRECTED BY DOCTOR FOR INCREASE PAP READINGS active Not Available Not Available No t Available polyethylene glycol 3350 17 gram/dose oral powder MIX WITH 64 OUNCES OF CRYSTAL LIGHT. TAKE 2 TABS OF DULCOLAX 1200 THE DAY BEFOR THE SURGERY. THEN TAKE BY MOUTH 1 GLASS OF CRYSTAL LIGHT MIX EVERY 10-15 MINUTES UNTIL FINISHED. active Not Available Not Available No t Available albuterol sulfate HFA 90 mcg/actuatio n aerosol inhaler INHALE 2 PUFFS BY MOUTH EVERY 4 HOURS NEEDED FOR WHEEZING OR SHORTNESS OF BREATH active Not Available Not Available No t Available fluticasone propionate 50 mcg/actuatio n nasal spray,suspen roselia USE 2 SPRAYS IN EACH NOSTRIL ONCE DAILY active Not Available Not Available N ot Available fludrocortis one 0.1 mg tablet TAKE 1 TABLET BY MOUTH EVERY MORNING active Not Available Not Available No t Available loratadine 10 mg tablet TAKE 1 TABLET BY MOUTH EVERY MORNING active Not Available Not Available No t Available amoxicillin 875 mg-potassium clavulanate 125 mg tablet TAKE 1 TABLET BY MOUTH EVERY TWELVE HOURS UNTIL FINISHED (START 08/16/22-FIN KITTY 08/18/22) active Not Available Not Available No t Available midodrine 10 mg tablet TAKE 1 TABLET BY MOUTH THREE TIMES DAILY IN THE MORNING, EVENING, AND BEDTIME active Not Available Not Available Not Available rosuvastatin 40 mg tablet TAKE 1 TABLET BY MOUTH EVERY EVENING (for cholesterol ) active Not Available Not Available No t Available Alcohol Prep Pads USE DIRECTED FOUR TIMES DAILY active Not Available Not Available No t Available Pain Relief Extra Strength (acetaminoph en) 500 mg tablet TAKE 1 TABLET BY MOUTH EVERY 6 HOURS NEEDED FOR PAIN active Not Available Not Available No t Available pregabalin 50 mg capsule TAKE 1 CAPSULE BY MOUTH THREE TIMES DAILY IN THE MORNING, EVENING, AND BEDTIME active Not Available Not Available Not Available calcium 600 mg (as carbonate)-v itamin D3 10 mcg (400 unit) tablet TAKE 1 TABLET BY MOUTH EVERYDAY AT NOON active Not Available Not Available No t Available FreeStyle Lite Strips TEST BLOOD SUGAR THREE TIMES DAILY active Not Available Not Available Not Available FeroSul 325 mg (65 mg iron) tablet TAKE 1 TABLET BY MOUTH EVERY MORNING WITH FOOD OR ORANGE JUICE active Not Available Not Available No t Available Lantus Solostar U-100 Insulin 100 unit/mL (3 mL) subcutaneous pen INJECT 5 UNITS SUBCUTANEOU SLY EVERY DAY active Not Available Not Available No t Available FreeStyle [place] Lite kit TEST BLOOD SUGAR THREE TIMES DAILY active Not Available Not Available Not Available BD Ultra-Fine Vidya Pen Needle 32 gauge x /32 USE DAILY WITH LANTUS active Not Available Not Available Not Available Combivent Respimat 20 mcg-100 mcg/actuatio n solution for inhalation INHALE 1 PUFF 4 TIMES A DAY, MAY TAKE ADDITIONAL PUFFS NEEDED. (MAX OF 6 PUFFS PER DAY) active Not Available Not Available No t Available TRUEplus Lancets 33 gauge TEST BLOOD SUGAR THREE TIMES DAILY active Not Available Not Available Not Available Anoro Ellipta 62.5 mcg-25 mcg/actuatio n powder for inhalation INHALE 1 PUFF DAILY active Not Available Not Available N ot Available Incruse Ellipta 62.5 mcg/actuatio n powder for inhalation INHALE 1 PUFF EVERY DAY AT THE SAME TIME active Not Available Not Available No t Available Trelegy Ellipta 100 mcg-62.5 mcg-25 mcg powder for inhalation INHALE 1 PUFF EVERY DAY AT THE SAME TIME active Not Available Not Available No t Available Vitals Date Recorded Respiratory rate Body weight Heart rate Oxygen saturation Oxygen saturation in Arterial blood by Pulse oximetry Body temperature Systolic blood pressure Diastolic blood pressure Provider Name and Address Organization Details Last Updated DateTime 3 14 /min 55341.6 56 g 64 /min 100 % 100 % 98 [degF] 132 mm[Hg] 69 mm[Hg] Not Available [facility] - [facility] 3 15:21:11 Date Recorded Heart rate Body temperature Body weight Oxygen saturation Oxygen saturation in Arterial blood by Pulse oximetry Respiratory rate Systolic blood pressure Diastolic blood pressure Provider Name and Address Organization Details Last Updated DateTime 3 59 /min 97.7 [degF] 23475.8 4 g 99 % 99 % 16 /min 117 mm[Hg] 61 mm[Hg] Not Available [facility] - [facility] 3 17:24:58 Date Recorded Respiratory rate Heart rate Oxygen saturation Oxygen saturation in Arterial blood by Pulse oximetry Body temperature Systolic blood pressure Diastolic blood pressure Provider Name and Address Organization Details Last Updated DateTime 2 18 /min 67 /min 98 % 98 % 98.4 [degF] 112 mm[Hg] 68 mm[Hg] Not Available [facility] - [facility] 2 14:21:54 Date Recorded Body temperature Oxygen saturation Oxygen saturation in Arterial blood by Pulse oximetry Respiratory rate Heart rate Body temperature Heart rate Oxygen saturation Oxygen saturation in Arterial blood by Pulse oximetry Respiratory rate Respiratory rate Body temperature Oxygen saturation Oxygen saturation in Arterial blood by Pulse oximetry Heart rate Systolic blood pressure Diastolic blood pressure Systolic blood pressure Diastolic blood pressure Systolic blood pressure Diastolic blood pressure Provider Name and Address Organization Details Last Updated DateTime 3 96.6 [degF] 96 % 96 % 20 /min 91 /min 96.6 [degF] 91 /min 96 % 96 % 20 /min 20 /min 96.6 [degF] 96 % 96 % 91 /min 146 mm[Hg] 60 mm[Hg] 146 mm[Hg] 60 mm[Hg] 146 mm[Hg] 60 mm[Hg] Not Available [facility] - [facility] 3 13:25:40 Date Recorded Body weight Oxygen saturation Oxygen saturation in Arterial blood by Pulse oximetry Body temperature Respiratory rate Heart rate Respiratory rate Oxygen saturation Oxygen saturation in Arterial blood by Pulse oximetry Heart rate Body weight Body temperature Systolic blood pressure Diastolic blood pressure Systolic blood pressure Diastolic blood pressure Provider Name and Address Organization Details Last Updated DateTime 3 69495.8 8 g 100 % 100 % 98 [degF] 14 /min 64 /min 14 /min 100 % 100 % 64 /min 97552.8 8 g 98 [degF] 112 mm[Hg] 58 mm[Hg] 112 mm[Hg] 58 mm[Hg] Not Available [facility] - [facility] 3 16:07:38 Social History None recorded. Functional Status None recorded. Mental Status None recorded. Family History Nothing Reported. Medical History No medical history recorded. Past Encounters Encounter ID Performer Location Encounter Start Date Encounter Closed Date Diagnosis/Indication Diagnosis SNOMED-CT Code Diagnosis ICD10 Code Diagnosis Note [id number] Pepe Hugo MD Main - [facility] [address] [place] [phone] 06/13/2022 16:47:10 06/17/2022 13:00:27 Dysuria 69347128 R30.0 Unable to urinate. Will request visit tomorrow for repeat visit to obtain and collect urine [id number] Candi York MD Main - [facility] [address] [place] [phone] 06/14/2022 14:34:20 06/17/2022 12:23:23 Low back pain 017840776 M54.50 dark urine resolved-? if transient blood ? possible passed nephrolith iasis/will send uc to [facility] make sure no subtle infection- will call if +/ will check BUN cr- done and appears stable ckd- aware to f/u w/ PCP Friday- Advised if develops fever/ recurrent dark urine or increasing pain to be rechecked at once. [id number] Pepe Hugo MD Main - [facility] [address] [place] [phone] 07/11/2022 14:16:07 07/15/2022 11:03:24 Dyspnea 640502225 R06.00 Wellness check. Vitals stable. No s/s of heart failure. Continue on current meds [id number] Marina De Leon MD Main - [facility] [address] [place] [phone] 08/23/2022 11:30:25 08/27/2022 19:51:48 Acute on chronic systolic heart failure [id number] I50.23 [id number] Tripp Jean-Baptiste MD Main - [facility] [address] [place] [phone] 10/17/2022 16:01:49 10/21/2022 10:49:23 Exacerbation of moderate persistent asthma 269112062 J45.41 [id number] ARMEN VARGAS MD Main - [facility] [address] [place] [phone] 01/09/2023 15:20:56 01/10/2023 10:53:49 Sciatica 31169240 M54.31 [id number] Candi York MD Main - [facility] [address] [place] [phone] 01/16/2023 17:24:56 01/17/2023 10:03:16 Weight gain 9365616 R63.5 advised to monitor weight- continue meds-reinf orced : low salt diet- call for another visit if he develops s/s- no evidence of acute CHF at this time Health Concerns Section Related Observation LastModified by Organization Detai ls LastModified Time None Recorded Concern Status LastModified by Organization Details LastModified Time None Recorded Advance Directives Directive None Recorded Payers Encounter Date Sequence Insurance Name Policy Number Policy Garber Covered Member ID Garber Member ID Guarantor Name 07/11/2022 1 [facility] - DOS PRIOR TO 2022 - DUAL ELIGIBLE (MEDICARE REPLACEMENT/AD VANTAGE - HMO) Denzel Pendleton [id number] Denzel Pendleton 08/23/2022 1 [facility] [employer] - DOS PRIOR TO 2022 - DUAL ELIGIBLE (MEDICARE REPLACEMENT/AD VANTAGE - HMO) Denzel Pendleton [id number] Denzel Pendleton 10/17/2022 1 [facility] - DOS PRIOR TO 2022 - DUAL ELIGIBLE (MEDICARE REPLACEMENT/AD VANTAGE - HMO) Denzel Pendleton [id number] Denzel Pendleton 01/09/2023 1 [facility] [employer] - DOS ON OR AFTER 2022 - DUAL ELIGIBLE - JAIL OPTIONS AND ONE CARE (MEDICARE REPLACEMENT/AD VANTAGE - HMO) Denzel Pendleton [id number] Denzel Pendleton 01/16/2023 1 [facility] DOS ON OR AFTER 2022 - DUAL ELIGIBLE - JAIL OPTIONS AND ONE CARE (MEDICARE REPLACEMENT/AD VANTAGE - HMO) Denzel Pendleton [id number] Denzel Pendleton Notes Date Note Type Note Provider Name and Address Organization Details Recorded Time 07/11/2022 text/html HPI: Bilingual male with 2 recent hospitalizations for CHF, second hospitalization for CHF and COPD, patient seen today for a routine F/U he reports 2 days of cough, non-productive and 1 day of mild SOB, afebrile, weight at baseline, VSS, some mild JVD seen, lungs clear. Pleas note member historically presents with cough and JVD, no rales or rhonchi. ...................... ...................... ...................... ...................... ...................... ...................... ......... CRC Nursing Assessment: Comments: [facility] Clinical Support ...................... ...................... ...................... ...................... ...................... ...................... ......... Mat Cleaning Machine Operator Note: Pt states he feels fine and just has his regular cough. Denies being SOB, CP, recent weight gain, edema or anything else out of normal. Pt states he gets a little sob when laying down flat, Pt advised to sleep in a more elevated position. C consulted. Red flags discussed ...................... ...................... ...................... ...................... ...................... ...................... ......... Disposition: Fulfilled Pepe Hugo MD [address] [place] [address],[address], [place], [phone], [facility] Referral[facility]IM 07/12/2022 00:27:12 08/23/2022 text/html HPI: Member admitted to [facility] on 08/12/22-08/15/22 for PNA, Lasix was decreased during hospitalization to 20 mg daily, member has had a 3.8 pound weight gain, has lower extremity edema and developed a non-productive cough. PCP was called for Lasix adjustment, she wanted member to be sent back to hospital for Lasix adjustment, member does not want to go to ED ...................... ...................... ...................... ...................... ...................... ...................... ......... CRC Nursing Assessment: Comments: CRC RN did not require any additional information to process this visit. ...................... ...................... ...................... ...................... ...................... ...................... ......... Mat Cleaning Machine Operator Note: ~ Narrative Pt found price to baseline in home. Pt presented normal skin color, temp and condition with patent airway and normal respirations. Pt reports bilateral lower extremity edema for four days with pain in his right leg. Pt appeared in mild discomfort. Labs drawn. Pt given 20MEQ K PO. Pt given 20MG lasix IV. Pt reports improvement with medications. Pt encouraged to follow up with PCP and continue supportive care. ...................... ...................... ...................... ...................... ...................... ...................... ......... Disposition: Fulfilled Marina De Leon MD [address] [place] [address],[address], [place], [address], [employer] Referral.IM 08/23/2022 16:08:42 10/17/2022 text/html [facility] Nursing Assessment: Reason For Request: Covid Flu Like symptoms Chills Runny nose Patient Reports: COPD; Sputum increase ; Cough Denies: Cough, fever greater than 2 days Lower extremity swelling History of asthma, increased use of inhaler COVID Exposure Shortness of breath with exertion Pain with inspiration Chief Complaints: Cough, Fever/Chills, Headache PMH: CHF, COPD/Asthma, Diabetes, Heart Disease, Hypertension Allergies: No Known Comments: Members [facility]NA calling on his behalf to place a referral, member identified via /name. Per nurse member having flu/covid like symptoms. Member with productive cough with greenish phlegm, congestion, runny nose and headache. Member does not wear o2, has no sob, does use an inhaler, no swelling in his legs. Denies fever, but does have the chills, no n/v/d. Member would like to be assessed. ...................... ...................... ...................... ...................... ...................... ...................... ......... Mat Cleaning Machine Operator Note From Hosea Falcon: CO cold like symptoms. Pt was AOX4. No chest pn, neg SOB. Pt has had a productive cough for the last week or so. Yellowish/brown sputum. Pt has been his inhalers to help clear his chest. Slight wheezing heard in upper left lobe, all others clear. Pt was given an Rx of prednisone to help with inflammation. Pt was given 60mg of predisone PO ...................... ...................... ...................... ...................... ...................... ...................... ......... Disposition: Fulfilled Tripp Jean-Baptiste MD [address] [facility],[address], [place], [address], RANDEE POOL 10/17/2022 20:11:39 01/09/2023 text/html HPI: Pt severe pain radiating from right hip down to ankle for the past 2 days>taking tylenol and other over the counter with no improvements. ...................... ...................... ...................... ...................... ...................... ...................... ......... [facility] Nursing Assessment: Comments: Member who woke up 2 days ago with right hip to ankle pain. Member denies fall, trauma or strenuous activity. No redness, warmth or deformities noted. Chronic LE edema, but at baseline. Member is still having pain today upon VNA arrival, has attempted OTC medication with no relief, and now has a limp. Member would like to be evaluated. ...................... ...................... ...................... ...................... ...................... ...................... ......... Mat Cleaning Machine Operator Note From uQincy Hwang: Pt reports two days of traumatic right hip pain that travels down his right leg. Pt sts he has had this pain about two years ago but never saw an MD and the pain resolved on its own. Pt is taking APAP with no relief. Has not tried NSAID's. Pt is alert, no distress. Afebrile. Neuro exam normal. Limp favoring right side. No bruising or evidence of trauma to lower back or leg. No LLE. Strong distal pulses. Pt's sx c/w sciatica. Pt treated with 30 mg IM ketorolac in the right deltoid and naproxen script to pharmacy. Pt advised to only take naproxen for 3 days and if pain persists, to flu with PCP's office. ...................... ...................... ...................... ...................... ...................... ...................... ......... Disposition: Fulfilled ARMEN VARGAS MD [address] [facility],[address], [place], [address], [employer] 01/09/2023 21:07:18 01/16/2023 text/html HPI: Telugu speaking, 72-year-old male member that was treated at [facility] for CHF and Hypoxemia from 01/12/23 ? Discharge Date: 01/14/23, reporting fast wt gain, yesterday 137 and today 141.6, stated asymptomatic but is worried due to having ? severe asthma attack that made him call an ambulance on 01/12. Has a history significant for chronic systolic heart failure as well as COPD and diabetes. Denied fever, chills, stated edema resolved, and has poor appetite and some tiredness today. Other DX below. 1. COPD (chronic obstructive pulmonary disease) - J44.9 2. Cough - R05.9 3. Seasonal allergies - J30.2 4. Coronary artery disease - I25.10 5. Hyperlipemia - E78.5 6. Current use of aspirin - Z79.82 7. Ischemic cardiomyopathy - I25.5 8. Chronic systolic (congestive) heart failure - I50.22 9. Hypotension - I95.9 10. Pacemaker - Z95.0 11. Type 2 diabetes mellitus with diabetic chronic kidney disease, unspecified CKD stage, unspecified whether residential insulin use - E11.22, Recommended by CDI 12. Chronic kidney disease, stage 3b - N18.32 13. Other iron deficiency anemia - D50.8 14. Current use of insulin - Z79.4 15. Chronic gastritis - K29.50 16. Parkinson disease - G20 17. Memory impairment - R41.3 18. Insomnia, idiopathic - F51.01 19. Poor sleep hygiene - Z72.821 20. Bilateral primary osteoarthritis of knee - M17.0 ...................... ...................... ...................... ...................... ...................... ...................... ......... [facility] Nursing Assessment: Comments: Review request no further information needed to process visitSEGMD: Pat has been taking meds- he has no co- no cp/ no sob at rest or exertion- no f/c/sweats- admits to eating more past few days ? contributing to weight gain.................. ...................... ...................... ...................... ...................... ...................... ............. Mat Cleaning Machine Operator Note From Hosea Falcon: Follow - up visit post 3 day hospital stay due to CH exacerbation. Initial dispatch was for unk weight gain and possible medication adjustment. Pt states he has no complaints. Neg Chest pr/SOB/NVD. Pt has been eating more since leaving the hospital, no issues with food intake or fluid intake. Pt states that he feels perfectly fine . AOX4, Neg edema. Vital signs normal, Lungs ZANE. Pt is med compliant. Discussed with Pt on when to go to ED or call 911. Educated Pt on supportive care. Pt understood all instructions. ...................... ...................... ...................... ...................... ...................... ...................... ......... Disposition: Fulfilled Candi York MD [address] [facility],[address], [place], [address], JOZEF - Referral.IM 01/16/2023 17:46:48
--- OUTSIDE RECORDS SUMMARY | 2024-11-26 11:16 | XMS_ITS | Encounter Summary ---
Author Organization [facility], Address [address] [place] [address] Phone Care Team Providers Care Outdoor Education Teacher Name Role Phone Susy Rashid DO Primary Care Provider Unava ilable Encounter Details Date Type Department Care Team (Late st Contact Info) Description 08/07/2021 Documentation Only [facility], [address] [place] [phone] Alek Rinaldi MD [address] [place] [phone] Social History Tobacco Use Types Packs/Day Years Used Date Smoking Tobacco: Former Comments:Smoking History Inf o:Every day Alcohol Use Standard Drinks/Week Comments No 0 (1 standard drink = 0.6 oz pur e alcohol) Sex and Gender Information Value Date Recorded Sex Assigned at Not on file Legal Sex Male 4:31 PM EST Gender Identity Not on file Sexual Orientation Not on file documented as of this encounter Plan of Treatment Not on file documented as of this encounter Visit Diagnoses Not on filedocumented in this encounter Care Teams Outdoor Education Teacher Relationship Specialty Start Date End Date Susy Rashid DO PCP - General 06/08/19 documented as of this encounter
--- OUTSIDE RECORDS SUMMARY | 2024-11-26 11:16 | XMS_ITS | Encounter Summary ---
Author Organization [facility], Address [address] [place] [address] Phone Care Team Providers Care Salt Cutter Name Role Phone Susy Rashid DO Primary Care Provider Unava ilable Encounter Details Date Type Department Care Team (Late st Contact Info) Description 11/16/2024 Documentation Only [facility], [address] [place] [address] Marbella Kumar [address] [place] [phone] Social History Tobacco Use Types Packs/Day Years [...] on filedocumented in this encounter Care Teams Salt Cutter Relationship Specialty Start Date End Date Susy Rashid DO PCP - General 06/08/19 documented as of this encounter
--- OUTSIDE RECORDS SUMMARY | 2024-11-26 11:16 | XMS_ITS | Encounter Summary ---
Author Organization [facility], Address [address] [place] [address] Phone Care Team Providers Care Drums Teacher Name Role Phone Susy Rashid DO Primary Care Provider Unava ilable Encounter Details Date Type Department Care Team (Late st Contact Info) Description 02/18/2023 Documentation Only [facility], [address] [place] [address] Leander Fernández PA Social History Tobacco Use Types Packs/Day Years [...] on filedocumented in this encounter Care Teams Drums Teacher Relationship Specialty Start Date End Date Susy Rashid DO PCP - General 06/08/19 documented as of this encounter
--- OUTSIDE RECORDS SUMMARY | 2024-11-26 11:16 | XMS_ITS | Encounter Summary ---
Author Organization [facility], Address [address] [place] [address] Phone Care Team Providers Care Public Safety Dispatcher Name Role Phone uSsy Rashid DO Primary Care Provider Unava ilable Encounter Details Date Type Department Care Team (Late st Contact Info) Description 06/24/2022 Office Communication [facility], [address] [place] [phone] Alek Rinaldi MD [address] [place] [phone] Social History Tobacco Use Types Packs/Day Years [...] on file documented as of this encounter Miscellaneous Notes * Telephone Encounter - Ana Mcfadden [place] - 07/02/2022 3:12 PM EST Its all set documented in this encounter Plan of Treatment Not on file documented as of this encounter Visit Diagnoses Not on filedocumented in this encounter Care Teams Public Safety Dispatcher Relationship Specialty Start Date End Date Susy Rashid DO PCP - General 06/08/19 documented as of this encounter
--- OUTSIDE RECORDS SUMMARY | 2024-11-26 11:16 | XMS_ITS | Encounter Summary ---
Author Organization [employer] [facility] Address [address] 7t [place] [address] Care Team Providers Care Wash Helper Name Role Phone Susy Rashid DO Primary Care Provider [phone] Reason for Visit * Reason Comments Med Refill Encounter Details Date Type Department Care Team ([facility] Contact Info) Description 11/16/2022 Refill [facility] [address] [place], [place] [phone] Susy Rashid DO [address] [place] [address] Social History Tobacco Use Types Packs/Day Years Used Date Smoking Tobacco: Never Passive Smoke Exposure: Never Smokeless Tobacco: Never Alcohol Use Standard Drinks/Week Comments Never 0 (1 standard drink = 0.6 oz pur e alcohol) Depression Answer Date Recorded Patient Health Questionnaire-9 Score 2 10/24/2022 Depression Answer Date Recorded Patient Health Questionnaire-2 Score 1 10/24/2022 Sex and Gender Information Value Date Recorded Sex Assigned at Male 06/03/2022 10:16 AM EDT Legal Sex Male 10:16 AM EDT Gender Identity Male 06/03/2022 10:16 AM EDT Sexual Orientation Straight 06/03/2022 10 :16 AM EDT COVID-19 Exposure Response Date Recorded In the last 10 days, have yo u been in contact with someone who was confirmed or suspected to have Coronavirus/COVID-19? No / Unsure 10/24/2022 11:02 AM EDT documented as of this encounter Plan of Treatment Not on file documented as of this encounter Visit Diagnoses Not on filedocumented in this encounter Additional Health Concerns Assessment Noted Time PHQ-9 Depression Total Score: 2 10/25/19 23 12:24 PM EDT documented as of this encounter Care Teams Wash Helper Relationship Specialty Start Date End Date Susy Rashid DO [address] [place] [address] PCP - General Family Medicine 07/16/12 documented as of this encounter
--- OUTSIDE RECORDS SUMMARY | 2024-11-26 11:16 | XMS_ITS | Encounter Summary ---
Author Organization [facility], Address [address] [place] [address] Phone Care Team Providers Care Dust Mill Operator Name Role Phone Susy Rashid DO Primary Care Provider Unava ilable Encounter Details Date Type Department Care Team (Late st Contact Info) Description 08/07/2021 Documentation Only [facility], [address] [place] [phone] Alek Rinaldi MD [address] [place] [phone] Social History Tobacco Use Types Packs/Day Years [...] on filedocumented in this encounter Care Teams Dust Mill Operator Relationship Specialty Start Date End Date Susy Rashid DO PCP - General 06/08/19 documented as of this encounter
--- OUTSIDE RECORDS SUMMARY | 2024-11-26 11:16 | XMS_ITS | Encounter Summary ---
Author Organization [facility], Address [address] [place] [address] Phone Care Team Providers Care Mysql Dba Name Role Phone Susy Rashid DO Primary Care Provider Unava ilable Encounter Details Date Type Department Care Team (Late st Contact Info) Description 02/18/2023 Documentation Only [facility], [address] [place] [address] Leander Fernández PA Social History [...] on filedocumented in this encounter Care Teams Mysql Dba Relationship Specialty Start Date End Date Susy Rashid DO PCP - General 06/08/19 documented as of this encounter
--- OUTSIDE RECORDS SUMMARY | 2024-11-26 11:16 | XMS_ITS | Encounter Summary ---
Author Organization [employer] Address [address] [place] [address] Care Team Providers Care Seat Joiner Name Role Phone Susy Rashid DO Primary Care Provider [phone] Encounter Details Date Type Department Care Team ([facility] st Contact Info) Description 08/15/2022 Orders Only [facility] [address] [place], [place] [phone] Susy Ayala LPN Social History Tobacco Use Types Packs/Day Years Used Date Smoking Tobacco: Never Smokeless Tobacco: Never Sex and Gender Information Value Date Recorded [...] suspected to have Coronavirus/COVID-19? No / Unsure 07/30/2022 9:37 AM EST documented as of this encounter Plan of Treatment Not on file documented as of this encounter Visit Diagnoses Not on filedocumented in this encounter Care Teams Seat Joiner Relationship Specialty Start Date End Date Susy Rashid DO [address] [place] [address] PCP - General Family Medicine 07/16/12 documented as of this encounter
--- OUTSIDE RECORDS SUMMARY | 2024-11-26 11:16 | XMS_ITS | Encounter Summary ---
Author Organization [employer] Address [address] [place] [address] Care Team Providers Care City Wellness Coordinator Name Role Phone Susy Rashid DO Primary Care Provider + [phone] Reason for Visit * Reason Comments Med Refill Encounter Details Date Type Department Care Team ([facility] Contact Info) Description 04/07/2024 Refill [facility] [address] [place], [place] [phone] Susy Rashid DO [address] [place] [address] Neuropathy Social History Tobacco Use Types Packs/Day Years Used Date Smoking Tobacco: Former Cigarettes Passive Smoke Exposure: Never Smokeless Tobacco: Never Comments:Stop 10 years ago Alcohol Use Standard Drinks/Week Comments Never 0 (1 standard drink = 0.6 oz pur e alcohol) Depression Answer Date Recorded Patient Health Questionnaire-9 Score 2 10/24/2022 Housing Stability Answer Date Recorded What is your housing situation today? I have mago sarabia 05/20/[address] you li ve. Do you have problems with any of the following? None of the above 05/20/2023 Food Insecurity Answer Date Recorded Within the past 12 months, y ou worried that your food would run out before you got money to buy more: Never True 05/20/2023 Within the past 12 months,th e food you bought just didn't last and you didn't have enough money to get more: Never True Transportation Answer Date Recorded In the past 12 months, has l ack of transportation kept you from medical appts, meetings, work or from getting things needed for daily living? No 05/20/2023 Utilities Answer Date Recorded In the past 12 months, has t he electric, gas, oil or water company threatened to shut off services in your home? No 05/20/2023 Depression Answer Date Recorded Patient Health Questionnaire-2 Score 1 10/24/2022 Sex and Gender Information Value Date Recorded Sex Assigned at Male 06/03/2022 10:16 AM EDT Legal Sex Male 10:16 AM EDT Gender Identity Male 06/03/2022 10:16 AM EDT Sexual Orientation Straight 06/03/2022 10 :16 AM EDT documented as of this encounter Plan of Treatment Not on file documented as of this encounter Visit Diagnoses Diagnosis Neuropathy Mononeuritis of unspecified site documented in this encounter Additional Health Concerns Assessment Noted Time PHQ-9 Depression Total Score: 2 10/25/19 23 12:24 PM EDT documented as of this encounter Care Teams City Wellness Coordinator Relationship Specialty Start Date End Date Susy Rashid DO [address] [place] [address] PCP - General Family Medicine 07/16/12 documented as of this encounter
--- OUTSIDE RECORDS SUMMARY | 2024-11-26 11:16 | XMS_ITS | Encounter Summary ---
Author Organization [facility], Address [address] [place] [address] Phone Care Team Providers Care Entertainment Musician Name Role Phone Susy Rashid DO Primary Care Provider Unava ilable Encounter Details Date Type Department Care Team (Late st Contact Info) Description 08/25/2023 Documentation Only [facility], [address] [place] [address] Kim De Luna [address] [place] [address] Social History Tobacco Use Types Packs/Day Years [...] on filedocumented in this encounter Care Teams Entertainment Musician Relationship Specialty Start Date End Date Susy Rashid DO PCP - General 06/08/19 documented as of this encounter
--- OUTSIDE RECORDS SUMMARY | 2024-11-26 11:16 | XMS_ITS | Encounter Summary ---
Author Organization [facility], Address [address] [place] [address] Phone Care Team Providers Care Bell Ringer Name Role Phone Susy Rashid DO Primary Care Provider Unava ilable Encounter Details Date Type Department Care Team (Late st Contact Info) Description 02/18/2023 Documentation Only [facility], [address] [place] [address] Leander Fernández PA Social History [...] on filedocumented in this encounter Care Teams Bell Ringer Relationship Specialty Start Date End Date Susy Rashid DO PCP - General 06/08/19 documented as of this encounter
--- OUTSIDE RECORDS SUMMARY | 2024-11-26 11:16 | XMS_ITS | Encounter Summary ---
Author Organization [employer] Address [address] [facility] [address] [place] [address] Care Team Providers Care Credit Union Teller Name Role Phone Susy Rashid DO Primary Care Provider + [phone] Reason for Visit * Reason Comments Med Refill Encounter Details Date Type Department Care Team ([facility] Contact Info) Description 12/12/2023 Refill [facility] [address] [place], [place] [phone] Susy Rashid DO [address] [place], [place] [phone] Neuropathy Social History Tobacco Use Types Packs/Day [...] documented as of this encounter Care Teams Credit Union Teller Relationship Specialty Start Date End Date Susy Rashid DO [address] [place] [address] PCP - General Family Medicine 07/16/12 documented as of this encounter
--- OUTSIDE RECORDS SUMMARY | 2024-11-26 11:16 | XMS_ITS | Encounter Summary ---
Author Organization [facility], Address [address] [place] [address] Phone Care Team Providers Care Etcher Electrolytic Name Role Phone Susy Rashid DO Primary Care Provider Unava ilable Encounter Details Date Type Department Care Team (Late st Contact Info) Description 08/08/2021 Documentation Only [facility], [address] [place] [phone] Alek Rinaldi MD [address] [place] [phone] Social History Tobacco Use Types Packs/Day Years [...] on filedocumented in this encounter Care Teams Etcher Electrolytic Relationship Specialty Start Date End Date Susy Rashid DO PCP - General 06/08/19 documented as of this encounter
--- OUTSIDE RECORDS SUMMARY | 2024-11-26 11:16 | XMS_ITS | Encounter Summary ---
Author Organization [facility], Address [address] [place] [address] Phone Care Team Providers Care Desk Editor Name Role Phone Susy Rashid DO Primary Care Provider Unava ilable Encounter Details Date Type Department Care Team (Late st Contact Info) Description 08/06/2021 Documentation Only [facility], [address] [place] [phone] Alek Rinaldi MD [address] [place] [phone] Social History Tobacco Use Types Packs/Day Years [...] on filedocumented in this encounter Care Teams Desk Editor Relationship Specialty Start Date End Date Susy Rashid DO PCP - General 06/08/19 documented as of this encounter
--- OUTSIDE RECORDS SUMMARY | 2024-11-26 11:16 | XMS_ITS | Encounter Summary ---
Author Organization [employer] Address [address] 7[address] [place] [address] Care Team Providers Care Brush Maker Machine Name Role Phone Susy Rashid DO Primary Care Provider [phone] Reason for Visit * Reason Onset Date Comments Call Back Request 06/09/2023 Encounter Details Date Type Department Care Team ([facility] Contact Info) Description 06/09/2023 Telephone [facility] [address] [place], [place] [phone] Susy Rashid DO [address] [place], [place] [phone] Call Back Request Social History Tobacco Use Types Packs/Day Years [...] AM EDT documented as of this encounter Miscellaneous Notes * Telephone Encounter - Aline Gonzalez - 06/09/2023 4:18 PM EST Tc from robert with [facility] requesting a call in regards to orders. States they received recent orders but have yet to receive the older ones and would like to know why they have not been signed. Please contact robert at [phone] documented in this encounter Plan of Treatment Not on file documented as of this encounter Visit Diagnoses Not on filedocumented in this encounter Additional Health Concerns Assessment Noted Time PHQ-9 Depression Total Score: 2 10/25/19 23 12:24 PM EDT documented as of this encounter Care Teams Brush Maker Machine Relationship Specialty Start Date End Date Susy Rashid DO [address] [place] [address] PCP - General Family Medicine 07/16/12 documented as of this encounter
--- OUTSIDE RECORDS SUMMARY | 2024-11-26 11:16 | XMS_ITS | Encounter Summary ---
Author Organization [facility], Address [address] [place] [address] Phone Care Team Providers Care Supervisor Corduroy Cutting Name Role Phone Susy Rashid DO Primary Care Provider Unava ilable Encounter Details Date Type Department Care Team (Late st Contact Info) Description 02/13/2022 Office Communication [facility], [address] [place] [phone] Alek Rinaldi MD [address] [place] [phone] Social History Tobacco Use Types Packs/Day Years [...] on filedocumented in this encounter Care Teams Supervisor Corduroy Cutting Relationship Specialty Start Date End Date Susy Rashid DO PCP - General 06/08/19 documented as of this encounter
--- OUTSIDE RECORDS SUMMARY | 2024-11-26 11:16 | XMS_ITS | Clinical Summary ---
Author Organization [employer] Address [address] [facility] [address] [place] [address] Care Team Providers Care Spiritual Counselor Name Role Phone GaySusy Primary Care Provider + [phone] Allergies Active Allergy Reactions Criticality Noted Date Comments Lisinopril Cough Other reaction(s): Other (see comments) Simvastatin 11/28/2022 Other reaction(s): increased liver enzymes Valsartan 11/28/2022 Other reaction(s): Unknown Medications Misc. Devices (Pulse Oximeter For Finger) miscIndication s:COVID-19 virus infection 1 each in the morning and at bedtime. 1 each 022 Active Blood Glucose Monitoring Suppl (VoltaixStyle [place] Lite) w/Device kit TEST BLOOD SUGAR THREE TIMES DAILY 022 Active glucose-vitami n C 4-6 GM-MG oral gel chew 2-4 tablets PO as needed for hypoglycemia 021 Active amiodarone (Pacerone) 200 MG tablet Take 1 tablet by mouth in the morning. 023 Active furosemide (Lasix) 40 MG tablet TAKE 1 AND 1/2 TABLETS BY MOUTH IN THE MORNING and TAKE 1 TABLET BY MOUTH EVERYDAY AT NOON 023 Active folic acid (Folvite) 1 MG tabletIndicati ons:Anemia, unspecified type TAKE 1 TABLET BY MOUTH EVERYDAY AT NOON 90 tablet 1 023 Active budesonide (Pulmicort) 0.5 MG/2ML nebulizer solution Take 2 mL (0.5 mg) by nebulization 2 times daily. Rinse mouth with water after use to reduce aftertaste and incidence of candidiasis. Do not swallow. 120 mL 5 023 Active albuterol (2.5 MG/3ML) 0.083% nebulizer solution Take 3 mL (2.5 mg) by nebulization every 4 (four) hours if needed for wheezing. 75 mL 3 023 Active docusate sodium (Colace) 100 MG capsuleIndicat ions:Anemia, unspecified type Take 1 capsule (100 mg) by mouth if needed in the morning and at bedtime for constipation. 60 capsule 023 Active Trelegy Ellipta 100-62.5-25 MCG/ACT aerosol powder Take 1 puff by mouth 1 (one) time each day at the same time. Active albuterol 108 (90 Base) MCG/ACT inhalerIndicat ions:Cough in adult patient INHALE 2 PUFFS BY MOUTH EVERY 4 HOURS NEEDED FOR WHEEZING OR SHORTNESS OF BREATH 8.5 g 1 Active FREESTYLE LITE test strip TEST BLOOD SUGAR THREE TIMES DAILY 100 strip 11 Active lidocaine (Lidoderm) 5 % patch APPLY 1 PATCH TO AFFECTED AREA NEEDED FOR MILD PAIN. WEAR FOR 12 HOURS THEN REMOVE FOR 12 HOURS. REPEAT DAILY. 30 patch 5 Active Continuous Glucose [employer] Sheets Supervisor (FreeStyle Simón 2 [place]) device SCAN SENSOR EVERY 8 HOURS 1 each Active triamcinolone (Nasacort) 55 MCG/ACT nasal inhaler Administer 2 sprays into each nostril Once per day. 16.5 g 024 2024 Active Ketotifen Fumarate (Alaway) 0.035 % solution Administer 1 drop into affected eye(s) if needed in the morning and at bedtime (eye itching/allergies ). 10 mL 2 Active Alcohol Swabs (Alcohol Prep) 70 % pads USE DIRECTED FOUR TIMES DAILY 100 each Active TRUEplus Lancets 33G misc TEST BLOOD SUGAR THREE TIMES DAILY 100 each 11 Active Farxiga 5 MG TAKE 1 TABLET BY MOUTH EVERY MORNING 30 tablet 11 Active TechLite Plus Pen [place] 32G X 4 MM misc USE DIRECTED THREE TIMES DAILY 100 each 5 11/20/2 024 Active pregabalin (Lyrica) 50 MG capsuleIndicat ions:Neuropath y TAKE 1 CAPSULE BY MOUTH THREE TIMES DAILY IN THE MORNING, EVENING, AND BEDTIME 90 capsule 3 Active Continuous Glucose Sensor (FreeStyle Simón 2 Sensor) miscIndication s:Type 2 diabetes mellitus with stage 3 chronic kidney disease, with long-term current use of insulin, unspecified whether stage 3a or 3b CKD (CMS/HCC) APPLY 1 SENSOR EVERY 14 DAYS 2 each Active glucose blood (FreeStyle Precision [place] Test) test strip Use to test blood sugar 3 times daily 100 each 025 2025 Active Calcium Carb-Cholecalc iferol 600-10 MG-MCG tabletIndicati ons:Osteopenia , unspecified location TAKE 1 TABLET BY MOUTH EVERYDAY AT NOON 90 tablet 1 Active Aspirin Low Dose 81 MG EC tablet TAKE 1 TABLET BY MOUTH EVERY EVENING 90 tablet Active Ferrous Sulfate (iron) 325 (65 Fe) MG tabletIndicati ons:Anemia, unspecified type TAKE 1 TABLET BY MOUTH EVERY MORNING WITH FOOD OR ORANGE JUICE 30 tablet Active ammonium lactate (Lac-Hydrin) 12 % lotion apply topically to the affected area(s) twice daily Active Baqsimi One Pack 3 MG/DOSE nasal powder USE 1 SPRAY (3MG) IN ONE NOSTRIL FOR A PATIENT WITH SEVERE HYPOGLYCEMIA WHO IS NOT RESPONSIVE AND UNABLE SELF-TREAT WITH GLUCOSE. AFTERWARDS TURN ON SIDE. MAY REPEAT IN 15MINUTES IF PATIENT DOES NOT RESPOND. Active insulin aspart (NovoLOG FLEXPEN) 100 UNIT/ML pen INJECT 14 UNITS SUBCUTANEOUSLY BEFORE DINNER ONLY 15 mL 3 Active cetirizine (ZyrTEC) 10 MG tablet Take 1 tablet (10 mg) by mouth Once per day. 30 tablet 025 2025 Active donepezil (Aricept) 10 MG tablet Take 1 tablet (10 mg) by mouth at bedtime. 30 tablet 025 2025 Active cyanocobalamin (Vitamin B-12) 1000 MCG tablet Take 1 tablet (1,000 mcg) by mouth every other day. 15 tablet 11 025 Active traZODone (Desyrel) 50 MG tabletIndicati ons:Insomnia, unspecified type TAKE 1 TABLET BY MOUTH AT BEDTIME 30 tablet 1 025 Active atorvastatin (Lipitor) 80 MG tablet TAKE 1 TABLET BY MOUTH EVERY EVENING ((for cholesterol)) 90 tablet 1 025 Active cyanocobalamin (Vitamin B-12) 1000 MCG tablet TAKE 1 TABLET BY MOUTH EVERY DAY 90 tablet 1 024 2024 Discontinued(R eorder (will not trigger notification to Pharmacy)) atorvastatin (Lipitor) 80 MG tablet TAKE 1 TABLET BY MOUTH EVERY EVENING (for cholesterol) 90 tablet 1 024 2024 Discontinued traZODone (Desyrel) 50 MG tabletIndicati ons:Insomnia, unspecified type TAKE 1 TABLET BY MOUTH AT BEDTIME 30 tablet 1 025 2024 Discontinued Active Problems Problem Noted Date Diagnosed Date Chronic allergic rhinitis 04/29/2024 Alzheimer's disease 12/08/2023 Healthcare maintenance 12/08/2023 Peripheral polyneuropathy 07/08/2023 CKD (chronic kidney disease), stage III 05/09/20 Chronic constipation 03/03/2023 Gastric intestinal metaplasia 03/03/2023 Parkinson's disease 03/03/2023 Lumbar spondylolysis 03/03/2023 Fatty liver 03/03/2023 History of CVA (cerebrovascular accident) 2022 Cerebral microvascular disease 03/03/2023 History of hypertension 10/24/2022 Microscopic hematuria 10/24/2022 Ischemic cardiomyopathy 10/24/2022 Peripheral vascular disease 10/24/2022 Osteoarthritis 09/18/2022 Assessment & Plan (09/18/2022 1:03 PM EST): Use tylenol prn Start home PT (already done initial eval) Counseled to use cane, DME at home 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 History of COVID-19 07/23/2022 Neurogenic orthostatic hypotension 06/10/2022 Assessment & Plan (03/08/2023 1:33 PM EDT): Off midodrine and fludrocortisone due to HTN/CHF Monitor BP at home and call back prn if BP<100/60 FU w PCP Type 2 diabetes mellitus 09/11/2016 Assessment & Plan (08/30/2022 12:15 PM EST): Controlled. FU with PCP No change in medications. COPD (chronic obstructive pulmonary disease) 05/2016 Assessment & Plan (08/30/2022 12:15 PM EST): See cough above. Chronic gastroesophageal reflux disease 06/12/20 15 Chronic systolic heart failure 06/12/2015 Assessment & Plan (03/08/2023 1:31 PM EDT): Continue lasix 60mg, check BMP and fu with PCP and cardiology Continue amlodipine and amiodarone 200mg Encouraged to use trelegy inh, tight cotnrol of DM Continue MEMS monitoring per cardiology and call back their office if increases weight, they have the protocol and agreed with POC Assessment & Plan (09/18/2022 12:57 PM EST): Lasix recently increased. Patient will add 20mg when weight is >143 Lbs, per cardiology FUd by cardiology Will call cardiology to confirm that he should continue amiodarone. Continue cardio MEMS check with cardiology Assessment & Plan (08/30/2022 12:15 PM EST): Recently had cardioMEMS inplanted and has mild fluid retention. Continue lasix same dose for now, check BMP and BNP, will call with results to adjust medications FU with cardiology Dr. Doss Coronary arteriosclerosis 06/12/2015 ICD (implantable cardioverter-defibrillator) in place 06/12/2015 Hyperlipidemia 06/12/2015 Resolved Problems Problem Noted Date Diagnosed Date Resolved Date BMI 26.0-26.9,adult 07/08/2023 12/08/19 24 Abdominal distension 03/03/2023 023 Cardiomyopathy 03/03/2023 03/03/2023 CHF exacerbation 03/03/2023 03/03/2023 Colon cancer screening 03/03/202303/033 Congestive heart failure 03/03/2023 Dyspnea 03/03/2023 03/03/2023 Elevated alkaline phosphatase level 03/03/2023 03/03/2023 Hypoxia 03/03/2023 03/03/2023 Pleural effusion due to macarena estive heart failure 03/03/2023 03/03/2023 Hypokalemia 01/17/2023 03/03/2023 Absolute anemia 10/24/2022 03/03/2023 Pneumothorax on right 09/18/20222022 Assessment & Plan (09/18/2022 1:00 PM EST): Sp right thoracentesis, patient was stable on discharge. FU CXR in 4w Shoulder arthritis 08/26/2022 Chronic cough 07/23/2022 10/24/2022 Assessment & Plan (08/30/2022 12:13 PM EST): Most likely residual from recent PNA + COPD. Educated about using albuterol every 6 hours PRN cough and SOB. 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 Assessment & Plan (07/23/2022 2:56 PM EST): Patient started with symptoms last , he visited er on 07/19, found with covid, patient is not a candidate for paxlovid due to 5 day window period after starting covid symptoms. He denied shortness of breath, will provide benzonatate for cough relief. Discussed in case of worseing symptoms to visit er. Low back pain 06/12/2015 10/27/2024 Encounters Date Type Department Care Team Description 11/18/2024 Refill [facility] [address] [place] [address] Susy Rashid DO 11/14/2024 Refill [facility] [address] [place] [address] Farzana Winter MD Insomnia, unspecified type 11/02/2024 Orders Only [facility] [address] [place] [phone] Susy Rashid DO 10/28/2024 Telephone [facility] [address] [place] [phone] Susy Rashid DO Results 10/27/2024 10:45 AM EDT Office Visit [facility] [address] [place] [phone] Susy Rashid DO Type 2 diabetes mellitus with stage 3 chronic kidney disease, with long-term current use of insulin, unspecified whether stage 3a or 3b CKD (CMS/HCC) (Primary Dx); Neurogenic orthostatic hypotension ([facility]/HCC); Other hyperlipidemia; Stage 3b chronic kidney disease (CMS/HCC); Chronic systolic heart failure (CMS/HCC); Chronic obstructive pulmonary disease, unspecified COPD type ([facility]/HCC); Alzheimer's disease ([facility]); Fatty liver; Peripheral polyneuropathy; Chronic allergic rhinitis; Healthcare maintenance; Screening for colon cancer; Dietary counseling; Exercise counseling; Osteopenia, unspecified location 10/27/2024 Telephone [facility] [address] [place] [phone] Veronika Small, MONICA CGM PA 10/27/2024 Travel 10/17/2024 Refill [facility] [address] [place] [phone] Susy Rashid DO Anemia, unspecified type 09/19/2024 Refill [facility] [address] [place] [phone] Susy Rashid DO Insomnia, unspecified type 09/16/2024 Refill [facility] [address] [place] [phone] Susy Rashid DO Osteopenia, unspecified location 09/13/2024 Travel 09/10/2024 Telephone [facility] [address] [place] [phone] Susy Rashid DO Appointment Request 09/02/2024 Refill [facility] [address] [place] [address] Susy Rashid, Type 2 diabetes mellitus with stage 3 chronic kidney disease, with long-term current use of insulin, unspecified whether stage 3a or 3b CKD ([facility]) from Last 3 Months Immunizations Name Administration Dates Next Due Hep B, adult 12/07/2009,12/29/2008,11/28/2008 Influenza High-dose Quadriva lent Preservative Free 07/08/2023,09/03/2022,04/23/2022 Influenza Quadrivalent Adjuvanted 05/07/2020 Influenza Whole 06/23/2007 Influenza injectable quadriv alent IIV4 with preservative 05/21/2016,06/12/2015 Influenza injectable quadriv alent preservative free 04/26/2019,04/30/2017 Influenza, High Dose Seasona l, Preservative Free 04/29/2024,06/16/2018 Influenza, IIV3, injectable 04/23/2022,1 ,04/26/2019,06/16,04/30/2017,05/21/2016,06/12/2015 ,05/24/2014,05/30/2012,05/09/2011 Influenza, Split (incl. mando fied surface antigen) 12/12/2014,05/17/2013 Influenza, seasonal, injecta ble, preservative free 05/30/2012 Art SARS-CoV-2 Vaccination 10/25/2020 Pertussis 07/27/2009 Pfizer Covid-19 Vaccine 12+ 04/29/2024,1 09/08/2022,10/24/2022,12/10,07/09/2021 Pfizer Covid-19 Vaccine 12+ Bivalent 03/03/2023 Pfizer Covid-19 Vaccine 12+ es-sucrose (Shepherd Cap) 12/10/2021 Pneumococcal Conjugate PCV 13 09/11/2016 Pneumococcal Conjugate PCV 20 11/28/2022 Pneumococcal Polysaccharide PPSV23 02/23,06/12/2015,12/12/2014,04/11,06/23/2007,06/04/2007 Pneumococcal, Unspecified 06/23/2017 RSV Bivalent 12/15/2023 TD (adult), 2 Lf tetanus tox oid, preservative free, adsorbed 03/31/2002 Td (adult), unspecified 03/31/2002 Tdap 06/12/2015 Zoster, Recombinant 12/15/2023,04/23/2022 Social History Tobacco Use Types Packs/Day Years Used Date Smoking Tobacco: Former Cigarettes Passive Smoke Exposure: Never Smokeless Tobacco: Never Tobacco Cessation:Counseling Given: Not Answered Comments:Stop 10 years ago Alcohol Use Standard Drinks/Week Comments Never 0 (1 standard drink = 0.6 oz pur e alcohol) Depression Answer Date Recorded Patient Health Questionnaire-9 Score 3 10/27/2024 Patient Health Questionnaire-9 Score 3 10/27/2024 Last PHQ-9: Questionnaire Data Not on file 0 10/27/2024 Housing Stability Answer Date Recorded What is [...] Answer Date Recorded Patient Health Questionnaire-2 Score 0 10/27/2024 Sex and Gender Information Value Date Recorded Sex Assigned at Male 06/03/2022 10:16 AM EDT Legal Sex Male 10:16 AM EDT Gender Identity Male 06/03/2022 10:16 AM EDT Sexual Orientation Straight 06/03/2022 10 :16 AM EDT Last Filed Vital Signs Vital Sign Reading Time Taken Comments Blood Pressure 120/60 10/27/2024 10:38 AM EDT Pulse 62 10/27/2024 10:38 AM EDT Temperature 36.3 ??C (97.3 ??F) 10/27/2024 10:38 AM E DT Respiratory Rate 19 10/27/2024 10:38 AM EDT Oxygen Saturation 98% 10/27/2024 10:38 AM EDT Inhaled Oxygen Concentration - - Weight 69.6 kg (153 lb 8 oz) 10/27/2024 10:38 AM EDT Height 165.1 cm (5' 5 ) 10/27/2024 10:38 AM EDT Body Mass Index 25.54 10/27/2024 10:38 AM EDT Plan of Treatment Health Maintenance Due Date Last Done Comments CT Colonography 1951 Colonoscopy 1951 Colorectal Cancer Screening 1951 Dental Prophylaxis 1951 Dental X-Ray: Bitewings 1951 FIT DNA/Cologuard 1951 FIT 1951 FOBT 1951 Sigmoidoscopy 1951 Diabetes: Foot Exam 1961 Eye Exam 1961 Hepatitis C Screening 1969 Hepatitis A Vaccines (1 of 2 - Risk 2-dose series) 1970 SDOH Screening 11/20/2024 11/21/2023 Dental Oral Exam 12/07/2024 06/08/2024, 12/25/2023 Diabetes: Hemoglobin A1C 04/29/2025 025, 10/27/2024, 04/29/2024, Additional history exists DTaP/Tdap/Td Vaccines (2 - Td or Tdap) 06/12/2025 06/12/2015, 03/31/2002, 03/31/2002 Alcohol/Substance Use Screening 10/27/2025 10/27/2024 Depression Screening 10/27/2025 10/27/2024, 10/28/19 Lipid Panel 10/27/2025 10/27/2024, 04/0 12/2022, 08/15/2020 Tobacco Screening 10/27/2025 10/27/2024 Dental X-Ray: Full Mouth 12/25/2026 12/25/2023 Hepatitis B Vaccines Completed 12/07/2009, 12/29/2008, 11/28/2008 Pneumococcal Vaccine: 50+ Years Completed 11/28/2022, 02/23/2021, 06/23/2017, Additional history exists RSV Patients and Patients Aged 60 years or older Completed 12/15/2023 Zoster Vaccines Completed 12/15/2023, 04/23/2022 COVID-19 Vaccine Completed 04/29/2024, 12/2022, 03/03/2023, Additional history exists Influenza Vaccine Completed 04/29/2024, , 09/03/2022, Additional history exists HIB Vaccines Aged Out No longer eligi ble based on patient's age to complete this topic HPV Vaccines Aged Out No longer eligi ble based on patient's age to complete this topic IPV Vaccines Aged Out No longer eligi ble based on patient's age to complete this topic Meningococcal Vaccine Aged Out No lucho frank eligible based on patient's age to complete this topic RSV under 20 months Aged Out No longe r eligible based on patient's age to complete this topic Rotavirus Vaccines Aged Out No longer eligible based on patient's age to complete this topic Procedures Procedure Name Priority Date/Time Associated Diagnosis Comments ALPHA FETOPROTEIN, TUMOR MARKER Routine 10/27/2024 11:31 AM EDT Fatty liver CBC WITH AUTO DIFFERENTIAL Routine 10/27/2024 11:31 AM EDT Type 2 diabetes mellitus with stage 3 chronic kidney disease, with long-term current use of insulin, unspecified whether stage 3a or 3b CKD (CMS/HCC) IRON AND TOTAL IRON BINDING CAPACITY Routine 10/27/2024 11:31 AM EDT Type 2 diabetes mellitus with stage 3 chronic kidney disease, with long-term current use of insulin, unspecified whether stage 3a or 3b CKD (CMS/HCC) FERRITIN Routine 10/27/2024 11:31 AM EDT Type 2 diabetes mellitus with stage 3 chronic kidney disease, with long-term current use of insulin, unspecified whether stage 3a or 3b CKD (CMS/HCC) VITAMIN B12/FOLATE, SERUM PANEL Routine 10/27/2024 11:31 AM EDT Type 2 diabetes mellitus with stage 3 chronic kidney disease, with long-term current use of insulin, unspecified whether stage 3a or 3b CKD (CMS/HCC) BASIC METABOLIC PANEL Routine 10/27/2024 11:31 AM EDT Type 2 diabetes mellitus with stage 3 chronic kidney disease, with long-term current use of insulin, unspecified whether stage 3a or 3b CKD (CMS/HCC) HEMOGLOBIN A1C Routine 10/27/2024 11:31 AM EDT Type 2 diabetes mellitus with stage 3 chronic kidney disease, with long-term current use of insulin, unspecified whether stage 3a or 3b CKD (CMS/HCC) HEPATIC FUNCTION PANEL Routine 10/27/2024 11:31 AM EDT Type 2 diabetes mellitus with stage 3 chronic kidney disease, with long-term current use of insulin, unspecified whether stage 3a or 3b CKD (CMS/HCC) TSH Routine 10/27/2024 11:31 AM EDT Type 2 diabetes mellitus with stage 3 chronic kidney disease, with long-term current use of insulin, unspecified whether stage 3a or 3b CKD (CMS/HCC) LIPID PANEL, STANDARD Routine 10/27/2024 11:31 AM EDT Type 2 diabetes mellitus with stage 3 chronic kidney disease, with long-term current use of insulin, unspecified whether stage 3a or 3b CKD (CMS/HCC) VITAMIN D,25-OH,TOTAL,IA Routine 10/27/2024 11:31 AM EDT Type 2 diabetes mellitus with stage 3 chronic kidney disease, with long-term current use of insulin, unspecified whether stage 3a or 3b CKD (CMS/HCC) T4, FREE Routine 10/27/2024 11:31 AM EDT Type 2 diabetes mellitus with stage 3 chronic kidney disease, with long-term current use of insulin, unspecified whether stage 3a or 3b CKD (CMS/HCC) POCT GLYCATED HEMOGLOBIN, TOTAL Routine 10/27/2024 10:41 AM EDT Type 2 diabetes mellitus with stage 3 chronic kidney disease, with long-term current use of insulin, unspecified whether stage 3a or 3b CKD (CMS/HCC) POCT GLUCOSE Routine 10/27/2024 10:40 AM EDT Type 2 diabetes mellitus with stage 3 chronic kidney disease, with long-term current use of insulin, unspecified whether stage 3a or 3b CKD (CMS/HCC) PERIODIC ORAL EVALUATION - ESTABLISHED PATIENT Routine 06/08/2024 10:00 AM EST PANORAMIC RADIOGRAPHIC IMAGE Routine 12/25/2023 10:00 AM EDT from Last 3 Months or Most Recently Relevant to Health Maintenance Results * Vitamin D, 25-Hydroxy, Total, Immunoassay (10/27/2024 11:31 AM EDT) [facility] Vitamin D 25-OH Total 31.2 >30 ng/mL [facility] Comment: Health Based Reference Values*< 20 ??ng/mL ??[id number] ng/mL ??Insufficient> 30 ??ng/mL ??Sufficient*Elliott DIAZ. N Engl J Med. 2007;[id number] is no well-established upper level of normal vitamin Dlevels. Some laboratories use 50 ng/mL as an upper limit ofnormal. However, toxicity is patient-dependent and may occurat any level. Careful correlation with the patient'spresentation is necessary and, if there is concern forvitamin D toxicity, treatment should be consideredirrespective of the serum level.Care must be taken in interpreting Vitamin D results fromdifferent laboratories and methodologies. ??Published datademonstrated that results from patients undergoinghemodialysis may show a negative bias when tested withvarious automated 25-OH vitamin D assays when compared toLC- MS/MS.When testing samples from patients whose predominant form ofVitamin D is Vitamin D2, such as patients receiving VitaminD2 supplementation, results that are subtherapeutic shouldbe confirmed with another method such as LC-MS/MS. Blood Venous blood specimen / Unknown 10/27/2024 11:31 AM EDT 10/27/2024 1:36 PM EDT Susy Rashid DO LAB BLOOD ORDERABLES Final R esult [facility] [address] [place] [phone] * Vitamin B12 (Cobalamin) and Folate Panel, Serum (10/27/2024 11:31 AM EDT) Pathologist [facility] Vitamin B12 812 200 - 900 pg/mL [facility] Comment:NORMAL 200-900 PG/ML INDETERMINATE 160-199 PG/ML DEFICIENT < 160 PG/ML Folate 8.4 > or = 4.0 ng/mL [facility] Comment:Reference Values:> o r = 4.0 ng/mL< 4.0 ng/mL suggests folate deficiency Methotrexate, aminopterin and folinic acid(leucovorin) are chemotherapeutic agents whose molecularstructures are similar to folate; therefore, the Architectfolate assay cannot be used for patients using these drugs. Blood 10/27/2024 11:3 1 AM EDT 10/27/2024 1:36 PM EDT us Susy Rashid DO LAB BLOOD ORDERABLES Final R esult Performing Organization Address City/[facility]/ZIP Co de Phone Number [facility] [address] [place] [phone] [phone] * (ABNORMAL) CBC auto differential (10/27/2024 11:31 AM EDT) Pathologist [facility] White Blood Count 8.0 4.8 - 10.8 X10*3/uL [facility] Red Blood Count 4.09(L) 4.60 - 5.80 X10*6/uL [facility] Hemoglobin 12.0(L) 14.0 - 18.0 g/dl [facility] Hematocrit 38.5(L) 42.0 - 52.0 % [facility] Mean Corpuscular Volume 94.1 80.0 - 98.0 fL [facility] Mean Corpuscular Hemoglobin 29.3 27.0 - 33.0 pg [facility] Mean Corpuscular HGB Conc 31.2 31.0 - 36.0 g/dl [facility] Red Cell Distribution Width 15.1 11.0 - 16.0 % [facility] Platelet Count 314 160 - 400 X10*3/uL [facility] Mean Platelet Volume 11.5 9.4 - 12.4 fL [facility] Neutrophils Percent Auto 62.0 45 - 73 % [facility] Imm Gran Pct Auto 2.5(H) 0.0 - 0.4 % [facility] Lymphocytes Percent Auto 20.5 20 - 40 % [facility] Monocytes Percent Auto 14.1(H) 2 - 11 % [facility] Eosinophils Percent Auto 0.1 0 - 4 % [facility] Basophils Percent Auto 0.8 0 - 2 % [facility] NRBC Pct Auto 0.0 0.0 - 0.2 /100WBC [facility] Neutrophils Absolute Auto 5.0 2.0 - 8.3 x10*3/uL [facility] Imm Gran Abs Auto 0.20(H) 0.00 - 0.03 X10*3/uL [facility] Lymphocytes Absolute Auto 1.6 1.2 - 4.9 X10*3/uL [facility] Monocytes Absolute Auto 1.1 0.1 - 1.2 X10*3/uL [facility] Eosinophils Absolute Auto 0.0 0.0 - 0.4 X10*3/uL [facility] Basophils Absolute Auto 0.1 0.0 - 0.2 X10*3/uL [facility] NRBC Abs Auto 0.000 0.0 - 0.012 X10*3/uL [facility] Blood Venous blood specimen / Unknown 10/27/2024 11:31 AM EDT 10/27/2024 1:36 PM EDT us Susy Rashid DO LAB BLOOD ORDERABLES Final R esult [facility] [address], [place] [phone] * (ABNORMAL) Iron And Total Iron Binding Capacity (10/27/2024 11:31 AM EDT) Iron 43(L) 45 - 160 mcg/dL [facility] Total Iron Binding Capacity 241 228 - 428 mcg/dL [facility] Percent Iron Saturation 18 15 - 50 % [facility] Unsaturated Iron Binding 198 ug/dL [facility] [facility] Blood Venous blood specimen / Unknown 10/27/2024 11:31 AM EDT 10/27/2024 1:36 PM EDT [facility]iSusygarry VelásquezBl[facility] LAB BLOOD ORDERABLES Final R esult Performing Organization Address [facility] Co de Phone Number [facility] [address] [place] [phone] * Alpha-Fetoprotein, Tumor Marker (10/27/2024 11:31 AM EDT) Pathologist [facility] Alpha Fetoprotein 3.5 <6.1 ng/mL [facility] Comment:This test was perfor med using the Leslye Coulterchemiluminescent method. Values obtained fromdifferent assay methods cannot be usedinterchangeably. AFP levels, regardless ofvalue, should not be interpreted as absoluteevidence of the presence or absence of disease.THIS TEST WAS PERFORMED AT:[employer] [place] [phone] TAVERAS MD Blood Venous blood specimen / Unknown 10/27/2024 11:31 AM EDT 10/27/2024 1:36 PM EDT [facility] DO LAB BLOOD ORDERABLES Final R esult Performing Organization Address City/[facility]/ZIP Co de Phone Number [facility] [address] [place] [phone] * TSH (10/27/2024 11:31 AM EDT) Thyroid Stimulating Hormone 1.02 0.32 - 4.0 uIU/mL [facility] Comment:TSH 3rd Generation ( [facility]) Blood Venous blood specimen / Unknown 10/27/2024 11:31 AM EDT 10/27/2024 1:36 PM EDT Susy Rashid LAB BLOOD ORDERABLES Final R esult Performing Organization Address City/[facility]/ZIP Co de Phone Number [facility] [address] [place] [phone] * T4, Free (10/27/2024 11:31 AM EDT) Free T4 (Free Thyroxine) 1.10 0.71 - 1.85 ng/dL [facility] Blood Venous blood specimen / Unknown 10/27/2024 11:31 AM EDT 10/27/2024 1:36 PM EDT Susy Rashid LAB BLOOD ORDERABLES Final R esult Performing Organization Address [facility] Co de Phone Number [facility] [address] [place] [phone] * (ABNORMAL) Hemoglobin A1c (10/27/2024 11:31 AM EDT) Hemoglobin A1c 6.8(H) <6.0 % [facility] Comment:Hemoglobin A1C Refer ence Range Adults: 4.8 - 6.0 % Non diabetic: < 6.0 % Goal: < 7.0 %Additional Action Suggested: > 8.0 %Note: Hemoglobin A1c results are invalid for patients with abnormal amounts of HbF. Blood transfusions may impact the HbA1c concentration in the patient sample. Estimated Average Glucose 148 mg/dL [facility] Comment:eAG = Estimated ave rage glucose which is %A1C expressed asaverage glucose, using the formula of the L9Z-ZijcacwNmmijap Glucose study (ADAG), Diabetes Care, Vol.31,#8,Mar. 2007 Blood Venous blood specimen / Unknown 10/27/2024 11:31 AM EDT 10/27/2024 1:36 PM EDT us Susy Rashid DO LAB BLOOD ORDERABLES Final R esult Performing Organization Address City/[facility]/ZIP Co de Phone Number [facility] [address] [place] [phone] * Ferritin (10/27/2024 11:31 AM EDT) Ferritin 145 20 - 250 ng/mL [facility] Blood Venous blood specimen / Unknown 10/27/2024 11:31 AM EDT 10/27/2024 1:36 PM EDT Susy Rashid DO LAB BLOOD ORDERABLES Final R esult Performing Organization Address [facility] Co de Phone Number [facility] [address] [place] [phone] * (ABNORMAL) Hepatic Function Panel (10/27/2024 11:31 AM EDT) Bilirubin, Total 0.6 0.0 - 1.0 mg/dL [facility] Bilirubin, Direct 0.3 0.0 - 0.5 mg/dL [facility] Aspartate Amino Transferase 28 5 - 37 U/L [facility] Alanine Aminotransferase 18 0 - 40 U/L [facility] Total Protein 8.1(H) 6.5 - 8.0 g/dL [facility] Albumin Level 4.1 3.5 - 5.0 g/dL [facility] Alkaline Phosphatase 145(H) 39 - 117 U/L [facility] Blood Venous blood specimen / Unknown 10/27/2024 11:31 AM EDT 10/27/2024 1:36 PM EDT Susy Rashid DO LAB BLOOD ORDERABLES Final R esult Performing Organization Address [facility]/ZIP Co de Phone Number [facility] [address] [place] [phone] * (ABNORMAL) Lipid Panel, Standard (10/27/2024 11:31 AM EDT) Triglycerides 178(H) <150 mg/dL [facility] Comment:Slight Lipemia.Lisa able Triglyceride: less than 150 mg/dLBorderline High Triglyceride 150-199 mg/dLHigh Triglyceride: 200-499 mg/dLVery High Triglyceride: greater than or equal to 5OO mg/dL Cholesterol 142 <200 mg/dL [facility] Comment:Desirable Cholestero l: less than 200 mg/dLBorderline High Cholesterol: 200-239 mg/dLHigh Cholesterol: greater than 239 mg/dL LDL Cholesterol Calculated 77 <100 mg/dL [facility] Comment:Desirable LDL: less than 100 mg/dLNear Optimal/Above Optimal LDL: 110- 129 mg/dLBorderline High LDL: 130-159 mg/dLHigh LDL: 160-189 mg/dLVery High LDL: greater than or equal to 190 mg/dL HDL Cholesterol 30(L) >40 mg/dL [facility] Comment:Desirable HDL: great er than 40 mg/dL Note: This HDL assay may give artificially low results in patients with liver disease. Blood Venous blood specimen / Unknown 10/27/2024 11:31 AM EDT 10/27/2024 1:36 PM EDT us Susy Rashid DO LAB BLOOD ORDERABLES Final R esult [facility] [address] [place] [address] [phone] * (ABNORMAL) Basic Metabolic Panel (10/27/2024 11:31 AM EDT) Sodium 142 135 - 145 mmol/L [facility] Potassium 4.1 3.3 - 5.1 mmol/L [facility] Chloride 107 96 - 108 mmol/L [facility] Carbon Dioxide 27 22 - 29 mmol/L [facility] Anion Gap 12 12 - 20 [facility] Urea Nitrogen (BUN) 28(H) 9 - 16 mg/dL [facility] Creatinine, Serum 2.40(H) 0.5 - 1.4 mg/dL [facility] Estimated Glomerular Filt Rate 27 [facility] Comment:Chronic Kidney Disea se: Estimated GFR < 60 mL/min/1.12n1Mhyugq Kidney Disease: Estimated GFR < 15 mL/min/1.73m2 Glucose 179(H) 60 - 115 mg/dL [facility] Calcium 9.0 8.4 - 10.2 mg/dL [facility] Blood Venous blood specimen / Unknown 10/27/2024 11:31 AM EDT 10/27/2024 1:36 PM EDT Susy Rashid DO LAB BLOOD ORDERABLES Final R esult [facility] [address] [place] [address] [phone] * (ABNORMAL) POCT HGB A1C (10/27/2024 10:41 AM EDT) Hemoglobin A1C 6.9(A) 4.0 - 6.0 % QC Media Lot # [id number] Lot# Expiration Date Blood 10/27/2024 10:4 1 AM EDT Result [facility] Susy Gay DO POINT OF CARE TEST ENTER/PILAR T ORDERABLES Final Result * (ABNORMAL) POCT Glucose (10/27/2024 10:40 AM EDT) Glucose Blood, POC 213(A) 60 - 200 mg/dL [employer] Lot # [id number] Lot# Expiration Date Blood Capillary blood specimen / Unknown 10/27/2024 10:40 AM EDT Susy Gay DO POINT OF CARE TEST ENTER/PILAR T ORDERABLES Final Result from Last [address] [facility] - [facility] Care Teams Spiritual Counselor Relationship Specialty Start Date End Date Susy Rashid DO [address] [place] [phone] PCP - General Family Medicine 07/16/12
--- OUTSIDE RECORDS SUMMARY | 2024-11-26 11:16 | XMS_ITS | Encounter Summary ---
Author Organization [facility], Address [address] [place] [address] Phone Care Team Providers Care Logistics Intern Name Role Phone Susy Rashid DO Primary Care Provider Unava ilable Encounter Details Date Type Department Care Team (Late st Contact Info) Description 06/17/2022 Documentation Only [facility], [address] [place] [address] Leander Fernández PA Social History [...] on filedocumented in this encounter Care Teams Logistics Intern Relationship Specialty Start Date End Date Susy Rashid DO PCP - General 06/08/19 documented as of this encounter
--- OUTSIDE RECORDS SUMMARY | 2024-11-26 11:16 | XMS_ITS | Encounter Summary ---
Author Organization [facility], Address [address] [place] [address] Phone Care Team Providers Care Squirrel Man Name Role Phone Susy Rashid DO Primary Care Provider Unava ilable Encounter Details Date Type Department Care Team (Late st Contact Info) Description 08/07/2021 Documentation Only [facility], [address] [place] [phone] Alek Rinaldi MD [address] [place] [phone] Social History Tobacco Use Types Packs/Day Years [...] on filedocumented in this encounter Care Teams Squirrel Man Relationship Specialty Start Date End Date Susy Rashid DO PCP - General 06/08/19 documented as of this encounter
--- OUTSIDE RECORDS SUMMARY | 2024-11-26 11:16 | XMS_ITS | Encounter Summary ---
Author Organization [facility], Address [address] [place] [address] Phone Care Team Providers Care Family Dinner Service Specialist Name Role Phone Susy Rashid DO Primary Care Provider Unava ilable Encounter Details Date Type Department Care Team (Late st Contact Info) Description 02/13/2022 Office Communication [facility], [address] [place] [phone] Alek Rinaldi MD [address] [place] [phone] Social History Tobacco Use Types Packs/Day Years [...] on filedocumented in this encounter Care Teams Family Dinner Service Specialist Relationship Specialty Start Date End Date Susy Rashid DO PCP - General 06/08/19 documented as of this encounter
--- OUTSIDE RECORDS SUMMARY | 2024-11-26 11:16 | XMS_ITS | Encounter Summary ---
Author Organization [employer] [facility] Address [address]t [place] [address] Care Team Providers Care Steel Post Installer Supervisor Name Role Phone Susy Rashid DO Primary Care Provider [phone] Reason for Visit * Reason Onset Date Comments Nurse Triage 05/02/2023 Encounter Details Date Type Department Care Team ([facility] st Contact Info) Description 05/02/2023 Telephone [facility] [address] [place] [address] Susy Rashid DO [address] [place], [place] [phone] Nurse Triage Social History Tobacco Use Types Packs/Day Years [...] encounter Miscellaneous Notes * Telephone Encounter - Ariella Anguiano RN - 05/02/2023 2:02 PM EDT Called VNA nurse she states that pt. Blood sugars have been in the 200's in the whole month of April . This am nurse states fasting blood sugar- 260. When nurse checked blood sugar at 145pm pt. Blood sugar was 426. Pt stated to VNA nurse that he had just eaten a Tuna sandwich and a coffee with sugar. VNA nurse checked pt. Blood sugar again with her own glucometer pt. Blood sugar was 406. She states pt. Is not having any side effects from the reading that is noted. Pt. Did take his Lantus 5 units this am but VNA nurse is wondering if any extra Lantus is to be given. Pt. Is able to administer own Insulin but, VNA nurse wants a call back with orders at [phone] so that she can call pt.And give him instructions. Pt. Does not have any upcoming appts in [facility] with PCP. Please advise andve [facility] team nurse call back VNA nurse with any orders and possibly an upcoming appt. With provider may be necessary due to pt. Blood sugar log reporting blood sugars in the 200's all of April. * Telephone Encounter - Aline Gonzalez - 05/02/2023 1:43 PM EDT Symptom: High Blood Sugar - Caller Reports Outcome: Talk to a nurse or provider within 15 minutes Reason: blood sugar is currently at 406 The caller accepted this outcome Please contact visiting nurse anais at [phone] documented in this encounter Plan of Treatment Not on file documented as of this encounter Visit Diagnoses Not on filedocumented in this encounter Additional Health Concerns Assessment Noted Time PHQ-9 Depression Total Score: 2 10/25/19 23 12:24 PM EDT documented as of this encounter Care Teams Steel Post Installer Supervisor Relationship Specialty Start Date End Date Susy Rashid DO [address] [place] [address] PCP - General Family Medicine 07/16/12 documented as of this encounter
--- OUTSIDE RECORDS SUMMARY | 2024-11-26 11:16 | XMS_ITS | Encounter Summary ---
Author Organization [employer] Address [address] [place] [address] Care Team Providers Care Resource Recovery Specialist Name Role Phone Susy Rashid DO Primary Care Provider + [phone] Encounter Details Date Type Department Care Team ([facility] st Contact Info) Description 06/24/2023 Orders Only [facility] [address] [place] [address] Susy Rashid DO [address] [place] [address] Social History Tobacco Use Types Packs/Day Years [...] documented as of this encounter Care Teams Resource Recovery Specialist Relationship Specialty Start Date End Date Susy Rashid DO [address] [place] [phone] PCP - General Family Medicine 07/16/12 documented as of this encounter
--- OUTSIDE RECORDS SUMMARY | 2024-11-26 11:16 | XMS_ITS | Encounter Summary ---
Author Organization [facility], Address [address] [place] [address] Phone Care Team Providers Care Testing Manager Name Role Phone Susy Rashid DO Primary Care Provider Unava ilable Encounter Details Date Type Department Care Team (Late st Contact Info) Description 08/07/2021 Documentation Only [facility], [address] [place] [phone] Alek Rinaldi MD [address] [place] [phone] Social History Tobacco Use Types Packs/Day Years [...] on filedocumented in this encounter Care Teams Testing Manager Relationship Specialty Start Date End Date Susy Rashid DO PCP - General 06/08/19 documented as of this encounter
--- OUTSIDE RECORDS SUMMARY | 2024-11-26 11:16 | XMS_ITS | Encounter Summary ---
Author Organization [facility], Address [address] [place] [address] Phone Care Team Providers Care Staff Command And Control Officer Name Role Phone Susy Rashid DO Primary Care Provider Unava ilable Encounter Details Date Type Department Care Team (Late st Contact Info) Description 11/16/2024 Documentation Only [facility], [address] [place] [address] Marbella Kumar [address] [place] [phone] Social History Tobacco Use Types Packs/Day Years [...] on filedocumented in this encounter Care Teams Staff Command And Control Officer Relationship Specialty Start Date End Date Susy Rashid DO PCP - General 06/08/19 documented as of this encounter
--- OUTSIDE RECORDS SUMMARY | 2024-11-26 11:16 | XMS_ITS | Encounter Summary ---
Author Organization [employer] [facility] Address [address] [facility] [address] [address]t [place] [address] Care Team Providers Care Head Of Commission Department Name Role Phone Susy Rashid DO Primary Care Provider [phone] Reason for Visit * Reason Onset Date Comments Med Refill 09/16/2022 Encounter Details Date Type Department Care Team ([facility] Contact Info) Description 09/16/2022 Telephone [facility] [address] [place] [address] Susy Rashid DO [address] [place] [address] Med Refill Social History Tobacco Use Types Packs/Day Years Used Date Smoking Tobacco: Never Smokeless Tobacco: Never Alcohol Use Standard [...] suspected to have Coronavirus/COVID-19? No / Unsure 09/18/2022 9:29 AM EST documented as of this encounter Plan of Treatment Not on file documented as of this encounter Visit Diagnoses Not on filedocumented in this encounter Care Teams Head Of Commission Department Relationship Specialty Start Date End Date Susy Rashid DO [address] [place] [address] PCP - General Family Medicine 07/16/12 documented as of this encounter
--- OUTSIDE RECORDS SUMMARY | 2024-11-26 11:16 | XMS_ITS | Encounter Summary ---
Author Organization [employer] Address [address] [facility] 7t [place] [address] Care Team Providers Care Combination Presser Name Role Phone Susy Rashid DO Primary Care Provider [phone] Encounter Details Date Type Department Care Team ([facility] Contact Info) Description 01/29/2023 Abstract [facility] [address] [place] [address] Susy Rashid DO [address] [place] [address] Social History Tobacco Use Types Packs/Day Years [...] suspected to have Coronavirus/COVID-19? No / Unsure 01/17/2023 10:19 AM EDT documented as of this encounter Plan of Treatment Not on file documented as of this encounter Visit Diagnoses Not on filedocumented in this encounter Additional Health Concerns Assessment Noted Time PHQ-9 Depression Total Score: 2 10/25/19 23 12:24 PM EDT documented as of this encounter Care Teams Combination Presser Relationship Specialty Start Date End Date Susy Rashid DO [address] [place] [address] PCP - General Family Medicine 07/16/12 documented as of this encounter
--- OUTSIDE RECORDS SUMMARY | 2024-11-26 11:17 | XMS_ITS | Clinical Summary ---
Author Organization [facility], Address [address] [place] [address] [place] [address] Phone Care Team Providers Care Rn Surgical Pcu Name Role Phone Susy Rashid DO Primary Care Provider Unava ilable Allergies Active Allergy Reactions Criticality Noted Date Comments Lisinopril Other (see comments) 12/29/2020 Simvastatin 11/28/2022 Other reaction(s): increased liver enzymes Valsartan 11/28/2022 Other reaction(s): Unknown Medications amiodarone (PACERONE) 200 MG tablet Take 1 tablet by mouth 1 (one) time each day Active folic acid (FOLVITE) 1 MG tablet Take 1 tablet by mouth 1 (one) time each day Active glipiZIDE (GLUCOTROL) 10 MG tablet Take 2 tablets by mouth 2 (two) times a day Active SM Aspirin Adult Low Strength 81 MG EC tablet 08/31/19 21 Active amitriptyline (ELAVIL) 50 MG tablet Take 50 mg by mouth at bed time 08/02/20 20 Active Calcium Carb-Cholecalci ferol 600-400 MG-UNIT tablet 08/31/19 21 Active carvedilol (COREG) 3.125 MG tablet TAKE 1 TABLET BY MOUTH TWICE DAILY AT NOON AND IN THE EVENING 07/05/20 20 Active Cyanocobalamin (B-12) 1000 MCG tablet 08/31/19 21 Active Lantus SoloStar 100 UNIT/ML injection INJECT 10 UNITS SUBCUTANEOUSLY ONCE DAILY 07/05/20 20 Active atorvastatin (LIPITOR) 80 MG tablet TAKE 1 TABLET BY MOUTH EVERY EVENING (for cholesterol) 05/24/20 22 Active furosemide (LASIX) 40 MG tablet Take 40 mg by mouth 1 (one) time each day 09/06/19 Active Dapagliflozin Propanediol (Farxiga) 5 MG tablet Take 5 mg by mouth 1 (one) time each day in the morning Active Insulin Aspart (NOVOLOG SC) Inject under the skin Active Active Problems Problem Noted Date Diagnosed Date Systolic heart failure 05/18/2024 Hypotension 06/10/2022 Essential hypertension 11/01/2019 Stage 3b chronic kidney disease 09/17/2019 Renal disorder due to type 2 diabetes mellitus 0 09/17/2019 Congestive heart failure Other iron deficiency anemia Resolved Problems Problem Noted Date Diagnosed Date Resolved Date Diabetes mellitus 12/29/2020 03/06/2021 Coronary arteriosclerosis 12/29/2020 Blood in urine 09/17/2019 05/19/2021 Hyperlipidemia 09/17/2019 03/06/2021 Sleep apnea 09/17/2019 01/30/2020 Encounters Date Type Department Care Team Description 11/16/2024 Documentation Only [facility] [address] [place] [address] Marbella Kumar 11/16/2024 Documentation Only [facility] [address] [place] [address] Marbella Kumar from Last 3 Months Immunizations Immunization Administration Dates Next Due Influenza Vaccine, Quadrivalent, Adjuvanted 11/2019 Pneumococcal, Unspecified 06/23/2017 Family History Medical History Relation Comments Heart disease Father Heart disease Sibling Relation Status Comments Father Unknown Mother Unknown Sibling Social History Tobacco Use Types Packs/Day Years Used Date Smoking Tobacco: Former Tobacco Cessation:Counseling Given: Not Answered Comments:Smoking History Info:Every day Alcohol Use Standard Drinks/Week Comments No 0 (1 standard drink = 0.6 oz pur e alcohol) Sex and Gender Information Value Date Recorded Sex Assigned at Not on file Legal Sex Male 4:31 PM EST Gender Identity Not on file Sexual Orientation Not on file Last Filed Vital Signs Vital Sign Reading Time Taken Comments Blood Pressure 96/56 09/24/2023 1:25 PM EST Pulse 68 05/03/2019 12:00 PM EDT Temperature - - Respiratory Rate 16 05/03/2019 12:00 PM EDT Oxygen Saturation - - Inhaled Oxygen Concentration - - Weight 68.6 kg (151 lb 3.2 oz) 09/24/2023 1:25 P M EST Height 165.1 cm (5' 5 ) 09/24/2023 1:25 PM EST Body Mass Index 25.16 09/24/2023 1:25 PM EST Plan of Treatment Health Maintenance Due Date Last Done Comments Pneumococcal Vaccine: 50+ Ye ars (1 of 2 - PCV) 1970 06/23/2017 Colorectal Cancer Screening: Annual FOBT 02/08/2000 Colorectal Cancer Screening: Colonoscopy 02/08/2000 Colorectal Cancer Screening: Sigmoidoscopy 02/08/2000 Hepatitis B Vaccine (1 of 3 - Risk 3-dose series) 2011 Diabetes: Ophthalmology Exam 09/17/2019 Diabetes: Pedal Pulse Checked 09/17/2019 Diabetes: Sensory Foot Exam 09/17/2019 Diabetes: Visual Foot Exam 09/17/2019 Diabetes: Hemoglobin A1C 01/27/2025 025, 10/27/2024, 04/29/2024, Additional history exists Influenza Vaccine (Season Ended) 2025 05/07/20 Pneumococcal Vaccine: Peds ( 0 to 5 Years) and At-Risk Patients (6 to 49 Years) Discontinued 06/23/2017 Procedures Procedure Name Priority Date/Time Associated Diagnosis Comments HEMOGLOBIN A1C Routine 02/05/2022 5:00 PM EDT from Last 3 Months or Most Recently Relevant to Health Maintenance Results * (ABNORMAL) Hemoglobin A1c (02/05/2022 5:00 PM EDT) Hemoglobin A1C 7.0(H) (4.0-5.6) % [facility] Comment: MONITORING: In known diabetic patients, hemoglobin A1c targets should be discussed with health care provider. DIAGNOSTIC USE: ??The [place] Diabetes Association (ADA) and the World Health Organization (WHO) recommend the use of HbA1c to diagnose diabetes using a threshold of 6.5%. Patients who have an HbA1c between 5.7% and 6.4% are considered at increased risk for developing diabetes in the future. CAUTION: Falsely low HbA1c results may be observed in patients with hemolytic anemia, homozygous forms of abnormal hemoglobin (e.g. SS, CC, SC), , recent blood loss or hemoglobin F greater than 7%. Fructosamine may be used as an alternate test in these cases. REFERENCE: ADA: Standards of Medical Care in Diabetes 2020, The Journal of Clinical and Applied Research and Education Volume 43, Supplement 1 Testing performed or reported by [facility], a Service of [facility], [address] [place] [id number] Dilia Fink MD, Relationship Management Lead [facility]# [id number] 02/05/2022 5:00 PM EDT 02/05/2022 5:02 PM EDT us Alek Rinaldi MD LAB BLOOD ORDERABLES Final Resul t [facility] from Last 3 Months or Most Recently Relevant to Health Maintenance Insurance [facility] ([id number]) [facility] ([id number]) SUJATHA PEREZ [phone] [place] [address] [place] [address] Care Teams Rn Surgical Pcu Relationship Specialty Start Date End Date Susy Rashid DO PCP - General 06/08/19
== END 2024-11-26 11:01 | disposition home or self-care (01) ==
LOC: HO.HPS 10:38
PROVIDERS: PCP Family Medicine; Visit Provider Hospitalist
DX: J43.2 Centrilobular emphysema (principal); I42.9 Cardiomyopathy, unspecified; R06.09 Other forms of dyspnea; I50.9 Heart failure, unspecified
CPT/HCPCS: 99214

== ENCOUNTER → 2024-11-26 10:37 | Outpatient (BNVA) | payer OTHER, SELFPAY | PROVIDERS: PCP Family Medicine; Visit Provider Hospitalist | DX: J43.9 Emphysema, unspecified (principal); I42.9 Cardiomyopathy, unspecified; R06.09 Other forms of dyspnea; I50.9 Heart failure, unspecified | CPT/HCPCS: 99212 ==

== ENCOUNTER 2024-12-01 13:46 | Outpatient (REF) | payer OTHER, SELFPAY ==
--- NOTE | ~2024-12-01 | MM_ITS ---
EXAMINATION: DXA BONE DENSITY AXIAL HISTORY: osteopenia TECHNIQUE: [employer] Dual energy absorptiometry (DEXA) of the lumbar spine, total left hip, and femoral neck was performed. COMPARISON: Comparison is made with the prior examination dated 06/03/2013. FINDINGS: The bone mineral density of the lumbar spine is 1.413 with a T-score of 1.7, and a Z-score of 2.6. This is indicative of normal bone mineral density. This represents a BMD change of -6.9% compared to the prior exam. This is statistically significant. The bone mineral density of the left total hip is 0.826 with a T-score of -1.9, and a Z-score of -0.9. This is indicative of osteopenia. This represents a BMD change of -8.3% compared to the prior exam. This is statistically significant. The bone mineral density of the left femoral neck is 0.741 with a T-score of -2.5, and a Z-score of -1.0. This is indicative of osteoporosis. This represents a BMD change of -8.4% compared to the prior exam. MM/XR DEXA axial skeleton IMPRESSION: Based on bone mineral density, and according to World Health Organization (WHO) criteria, the diagnosis is consistent with osteoporosis. All bone density values are in grams per centimeter squared (g/cm2). Statistically, 68% of repeat scans fall within 1 SD (+/- 0.010 g/cm2 for AP spine L1-L4) and 1 SD (+/- 0.012 g/cm2 for femur total) [employer] is a trademark of the [employer]'s [employer] Met[employer], a World Health Organization (WHO) Collaborating Center. Electronically signed by: Dmitriy Maldonado MD 12/02/2024 07:30 AM EDT
--- OUTSIDE RECORDS SUMMARY | 2024-12-01 15:01 | XMS_ITS | Encounter Summary ---
Author Organization [facility] Address [address] [facility] 7t [place] [address] Care Team Providers Care Automation Controls Specialist Name Role Phone Susy Rashid DO Primary Care Provider [phone] Reason for Visit * Reason Comments Med Refill Encounter Details Date Type Department Care Team ([facility] Contact Info) Description 11/16/2022 Refill [facility] [address] [place], [place] [phone] Susy Rashid DO [address] [place] [address] Social History Tobacco Use Types Packs/Day Years [...] documented as of this encounter Care Teams Automation Controls Specialist Relationship Specialty Start Date End Date Susy Rashid DO [address] [place] [address] PCP - General Family Medicine 07/16/12 documented as of this encounter
--- OUTSIDE RECORDS SUMMARY | 2024-12-01 15:01 | XMS_ITS | Encounter Summary ---
Author Organization [employer] Address [address] [facility] 7[address] [place] [address] Care Team Providers Care Traffic Warehouse Supervisor Name Role Phone Susy Rashid DO Primary Care Provider + [phone] Reason for Visit * Reason Comments Med Refill Encounter Details Date Type Department Care Team ([facility] Contact Info) Description 04/07/2024 Refill [facility] 230 [place], [place] [phone] Susy Rashid DO 230 [place] [address] Neuropathy Social History Tobacco Use Types Packs/Day [...] documented as of this encounter Care Teams Traffic Warehouse Supervisor Relationship Specialty Start Date End Date Susy Rashid DO [address] [place] [address] PCP - General Family Medicine 07/16/12 documented as of this encounter
--- OUTSIDE RECORDS SUMMARY | 2024-12-01 15:01 | XMS_ITS | Encounter Summary ---
Author Organization [facility], Address [address] [place] [address] Phone Care Team Providers Care Blast Furnace Blower Name Role Phone Susy Rashid DO Primary Care Provider Unava ilable Encounter Details Date Type Department Care Team (Late st Contact Info) Description 08/07/2021 Documentation Only [facility], [address] [place] [phone] Alek Rinaldi MD [address] [place] [phone] Social History Tobacco Use Types Packs/Day Years [...] on filedocumented in this encounter Care Teams Blast Furnace Blower Relationship Specialty Start Date End Date Susy Rashid DO PCP - General 06/08/19 documented as of this encounter
--- OUTSIDE RECORDS SUMMARY | 2024-12-01 15:01 | XMS_ITS | Encounter Summary ---
Author Organization [facility], Address [address] [place] [address] Phone Care Team Providers Care Senior Center Manager Name Role Phone Susy Rashid DO Primary Care Provider Unava ilable Encounter Details Date Type Department Care Team (Late st Contact Info) Description 11/16/2024 Documentation Only [facility], [address] [place] [address] Marbella Kumar [address] [place] [phone] Social History Tobacco Use Types Packs/Day Years [...] on filedocumented in this encounter Care Teams Senior Center Manager Relationship Specialty Start Date End Date Susy Rashid DO PCP - General 06/08/19 documented as of this encounter
--- OUTSIDE RECORDS SUMMARY | 2024-12-01 15:01 | XMS_ITS | Encounter Summary ---
Author Organization [employer] Address [address] [address] 7t [place] [address] Care Team Providers Care Legal Writing Professor Name Role Phone Susy Rashid DO Primary Care Provider + [phone] Reason for Visit * Reason Comments Med Refill Encounter Details Date Type Department Care Team ([facility] Contact Info) Description 12/12/2023 Refill [facility] [address] [place], [place] [phone] Susy Rashid DO 230 [place], [place] [phone] Neuropathy Social History Tobacco Use Types Packs/Day [...] documented as of this encounter Care Teams Legal Writing Professor Relationship Specialty Start Date End Date Susy Rashid DO [address] [place] [address] PCP - General Family Medicine 07/16/12 documented as of this encounter
--- OUTSIDE RECORDS SUMMARY | 2024-12-01 15:01 | XMS_ITS | Encounter Summary ---
Author Organization [facility], Address [address] [place] [address] Phone Care Team Providers Care Box Annealer Name Role Phone Susy Rashid DO Primary Care Provider Unava ilable Encounter Details Date Type Department Care Team (Late st Contact Info) Description 08/07/2021 Documentation Only [facility], [address] [place] [phone] Alek Rinaldi MD [address] [place] [phone] Social History Tobacco Use Types Packs/Day Years [...] on filedocumented in this encounter Care Teams Box Annealer Relationship Specialty Start Date End Date Susy Rashid DO PCP - General 06/08/19 documented as of this encounter
--- OUTSIDE RECORDS SUMMARY | 2024-12-01 15:01 | XMS_ITS | Encounter Summary ---
Author Organization [facility], Address [address] [place] [address] Phone Care Team Providers Care Upper Extremity Surgeon Name Role Phone Susy Rashid DO Primary Care Provider Unava ilable Encounter Details Date Type Department Care Team (Late st Contact Info) Description 11/16/2024 Documentation Only [facility], [address] [place] [address] Marbella Kumar [address] [place] [phone] Social History Tobacco Use Types Packs/Day Years [...] on filedocumented in this encounter Care Teams Upper Extremity Surgeon Relationship Specialty Start Date End Date Susy Rashid DO PCP - General 06/08/19 documented as of this encounter
--- OUTSIDE RECORDS SUMMARY | 2024-12-01 15:01 | XMS_ITS | Encounter Summary ---
Author Organization [employer] Address [address] [facility] 7t [place] [address] Care Team Providers Care Commutator Presser Name Role Phone Susy Rashid DO Primary Care Provider [phone] Encounter Details Date Type Department Care Team ([facility] Contact Info) Description 01/29/2023 [facility] [address] [place] [address] Susy Rashid DO [address] [place] [address] Social History Tobacco Use Types Packs/Day Years [...] documented as of this encounter Care Teams Commutator Presser Relationship Specialty Start Date End Date Susy Rashid DO [address] [place] [address] PCP - General Family Medicine 07/16/12 documented as of this encounter
--- OUTSIDE RECORDS SUMMARY | 2024-12-01 15:01 | XMS_ITS | Data Portability ---
Author Organization [email or web address] Address [address] [place] [address] Care Team Providers Care Sanitarian Name Role Phone [facility] Referring Provider [phone] Assessment Encounter Date Assessment Date Assessment LastModified [...] CMP Cr 1.3, K 3.8 Given K [id number] and lasix 20mg IV x 1 with [...] in the field was performed by my material mixer colleague, as noted above, I provided real-time [...] in the field was performed by my material mixer colleague, as noted above, I provided real-time [...] Assessment and Plan as documented by the Bench Manager. Patient given the opportunity to ask questions. Advised if develops CP/severe SOB/turning blue/ AMS/ syncope/ hi fever to call 911- he verbalized understanding of instructions [id number] Not available 01/16/2023 17:29:50 Plan of Treatment Reminders Order Date Submit Date Provider Last Modified By Organization Details Last Modified Time Details Appointments None recorded. Lab cmp, whole blood + arden 2022 023 [facility], [address] [place] [address], [id number] 10:19:15 Referral None recorded. Procedures None recorded. Surgeries None recorded. Imaging None recorded. Medication Orders naproxen 250 mg tablet 2022 023 [facility], [address] [place] [address], [id number], 3 15:31:29 prednisone 20 mg tablet 2022 023 [facility], 230 [facility], [place], [id number], 3 16:11:27 furosemide 10 mg/mL injection syringe [...] URINE , ROUTI NE Micro Numbe r: [id number] Test Statu s: Final Speci men [...] Cultu re Trans port Tube. Not Available [facility] [address] [place] [address] B, [place], [address], 06/19/2022 23:28:52 06/14/20 22 06/14/2022 BMP, serum or plasm a BUN 16 Not Available Main - Ins m[facility] [address] [place] [address], [id number] 06/14/2022 14:44:53 06/14/20 22 06/14/2022 BMP, serum or plasm a Ca I ANNELIESE: 1. 19 Not Available Main - Inst ed [address] [place] [address], [phone] 06/14/2022 14:44:53 06/14/20 22 06/14/2022 BMP, serum or plasm a CI- 102 Not Available Main - Ins [address], [address] 06/14/2022 14:44:53 06/14/20 22 06/14/2022 BMP, serum or plasm a CRE 1.9( last in old record was 2) Not Available Main - Inst ed [address] [place] [address], [address] 06/14/2022 14:44:53 06/14/20 22 06/14/2022 BMP, serum or plasm a GLU 130 Not Available Main - Ins [address], [address] 06/14/2022 14:44:53 06/14/20 22 06/14/2022 BMP, serum or plasm a K+ 3.6 Not Available Main - Ins [address], [address] 06/14/2022 14:44:53 06/14/20 22 06/14/2022 BMP, serum or plasm a Na+ 143 Not Available Main - Ins [address], [address] 06/14/2022 14:44:53 06/14/20 22 06/14/2022 BMP, serum or plasm a tCO2 27 Not Available Main - Ins [address], [address] 06/14/2022 14:44:53 06/14/20 22 06/14/2022 urina lysis , dipst ick Leukocytes neg Not Available Main - [address], [address] 06/14/2022 14:39:48 06/14/20 22 06/14/2022 urina lysis , dipst ick Nitrite negati ve Not Available Main - Inst ed [address] [place] [address], [address] 06/14/2022 14:39:48 06/14/20 22 06/14/2022 urina lysis , dipst ick Urobilinogen neg Not Available [facility] [address] [place] [address], [address] 06/14/2022 14:39:48 06/14/20 22 06/14/2022 urina lysis , dipst ick Protein trace Not Available Main - Ins [address], [address] 06/14/2022 14:39:48 06/14/20 22 06/14/2022 urina lysis , dipst ick pH 5 Not Available Main - Ins [address], [address] 06/14/2022 14:39:48 06/14/20 22 06/14/2022 urina lysis , dipst ick Blood neg Not Available Main - Ins [address], [address] 06/14/2022 14:39:48 06/14/20 22 06/14/2022 urina lysis , dipst ick Specific [place] 1.010 Not Available Main - Insted [address] [place] [address], [address] 06/14/2022 14:39:48 06/14/20 22 06/14/2022 urina lysis , dipst ick Ketone neg Not Available Main - Ins [address], [address] 06/14/2022 14:39:48 06/14/20 22 06/14/2022 urina lysis , dipst ick Bilirubin neg Not Available Main - I nsted [address] [place] [address], [address] 06/14/2022 14:39:48 06/14/20 22 06/14/2022 urina lysis , dipst ick Glucose neg Not Available Main - Ins [address], [address] 06/14/2022 14:39:48 06/14/20 22 06/14/2022 urina lysis , dipst ick Appearance clear Not Available Main - Insted [address] [place] [address], [address] 06/14/2022 14:39:48 06/14/20 22 06/14/2022 urina lysis , dipst ick Color yellow Not Available Main - Ins [address], [address] 06/14/2022 14:39:48 Result Notes None recorded. Medical Equipment None Reported. Allergies Allergen ID Allergen Name Allergen Category Reaction Reaction Severity Criticality Documentation Date Start Date Code Code System Note Provider Name and Address Organization Details Recorded Time 1263 lisinopri l medicatio n cough Not available Not available 06/14/2022 99544 RxNorm Candi York MD [address] [facility],[address], [place], [address] , [employer], [employer] 2 14:37:41 Medications Name Sig Start Date Stop Date Status Note LastModified by Organization Details LastModified Time medbox status USE DIRECTED active Not Available Not Available No t Available pulse oximet airial [id number] USE EVERY MORNING AND AT BEDTIME DIRECTED [...] Available Not Available No t Available [employer] Lite kit TEST BLOOD SUGAR THREE TIMES [...] Details Last Updated DateTime 3 14 /min 68997.6 56 g 64 /min 100 % 100 % 98 [degF] 132 mm[Hg] 69 mm[Hg] Not Available [employer] - [employer] 3 15:21:11 Date Recorded Heart rate Body temperature Body weight Oxygen saturation Oxygen saturation in Arterial blood by Pulse oximetry Respiratory rate Systolic blood pressure Diastolic blood pressure Provider Name and Address Organization Details Last Updated DateTime 3 59 /min 97.7 [degF] 39073.8 4 g 99 % 99 % 16 /min 117 mm[Hg] 61 mm[Hg] Not Available [employer] - [employer] 3 17:24:58 Date Recorded Respiratory rate Heart rate Oxygen saturation Oxygen saturation in Arterial blood by Pulse oximetry Body temperature Systolic blood pressure Diastolic blood pressure Provider Name and Address Organization Details Last Updated DateTime 2 18 /min 67 /min 98 % 98 % 98.4 [degF] 112 mm[Hg] 68 mm[Hg] Not Available [employer] 2 14:21:54 Date Recorded Body [...] mm[Hg] 146 mm[Hg] 60 mm[Hg] Not Available [employer] - [employer] 3 13:25:40 Date Recorded Body [...] Address Organization Details Last Updated DateTime 3 32517.8 8 g 100 % 100 % 98 [degF] 14 /min 64 /min 14 /min 100 % 100 % 64 /min 16824.8 8 g 98 [degF] 112 mm[Hg] 58 [...] 5243 Pepe Hugo MD Main - instED [address] [place] [phone] 06/13/2022 16:47:10 06/17/2022 13:00:27 Dysuria 18139282 R30.0 Unable to urinate. Will request visit tomorrow for repeat visit to obtain and collect urine 5272 Candi Yokr MD Main - instED [address] [place] [phone] 06/14/2022 14:34:20 06/17/2022 12:23:23 Low back pain 193961699 M54.50 dark urine resolved-? if transient blood ? possible passed nephrolith iasis/will send uc to [facility] make sure no subtle infection- will call if +/ will check BUN cr- done and appears stable ckd- aware to f/u w/ PCP Friday- Advised if develops fever/ recurrent dark urine or increasing pain to be rechecked at once. 5964 Pepe Hugo MD Main - instED [address] [place] [phone] 07/11/2022 14:16:07 07/15/2022 11:03:24 Dyspnea 926623796 R06.00 Wellness check. Vitals stable. No s/s of heart failure. Continue on current meds 7173 Marina De Leon MD Main - instED [address] [place] [phone] 08/23/2022 11:30:25 08/27/2022 19:51:48 Acute on chronic systolic heart failure 179239039 I50.23 8574 Tripp Jean-Baptiste MD Main - instED [address] [place] [phone] 10/17/2022 16:01:49 10/21/2022 10:49:23 Exacerbation of moderate persistent asthma 939889141 J45.41 86770 ARMEN VARGAS MD Main - instED [address] [place] [phone] 01/09/2023 15:20:56 01/10/2023 10:53:49 Sciatica 73291839 M54.31 04325 Candi York MD Main - instED [address] [place] [phone] 01/16/2023 17:24:56 01/17/2023 10:03:16 Weight gain 7773768 R63.5 advised to monitor weight- continue meds-reinf [...] Garber Member ID Guarantor Name 07/11/2022 1 [facility] - DOS PRIOR TO 2022 - DUAL ELIGIBLE (MEDICARE REPLACEMENT/AD VANTAGE - HMO) Denzel Pendleton [id number] Denzel Pendleton 08/23/2022 1 [facility] - DOS PRIOR TO 2022 - DUAL ELIGIBLE (MEDICARE REPLACEMENT/AD VANTAGE - HMO) Denzel Pendleton [id number] Denzel Pendleton 10/17/2022 1 [facility] - DOS PRIOR TO 2022 - DUAL ELIGIBLE (MEDICARE REPLACEMENT/AD VANTAGE - HMO) Denzel Pendleton [id number] Denzel Pendleton 01/09/2023 1 [facility] - DOS ON OR AFTER 2022 - DUAL ELIGIBLE - LONG TERM OPTIONS AND ONE CARE (MEDICARE REPLACEMENT/AD VANTAGE - HMO) Denzel Pendleton [id number] Denzel Pendleton 01/16/2023 1 [facility] - DOS ON OR AFTER 2022 - DUAL ELIGIBLE - LONG TERM OPTIONS AND ONE CARE (MEDICARE REPLACEMENT/AD VANTAGE - HMO) Denzel Pendleton [id number] Denzel Pendleton Notes Date Note Type Note [...] ...................... ...................... ...................... ...................... ...................... ...................... ......... Bench Manager Note: Pt states he feels fine and just has his regular cough. Denies being SOB, CP, recent weight gain, edema or anything else out of normal. Pt states he gets a little sob when laying down flat, Pt advised to sleep in a more elevated position. C consulted. Red flags discussed ...................... ...................... ...................... ...................... ...................... ...................... ......... Disposition: Fulfilled Pepe Hugo MD [address] [place] [address],[address], [place], [address], [employer] 07/12/2022 00:27:12 08/23/2022 text/html HPI: [facility] [place] [facility] [place]22 for PNA, Lasix was decreased [...] ...................... ...................... ...................... ...................... ...................... ...................... ......... Bench Manager Note: ~ Narrative Pt found price to [...] ......... Disposition: Fulfilled Marina De Leon MD [address] [place] [address],[address], [place], [address], [employer] 08/23/2022 16:08:42 10/17/2022 text/html [facility] Nursing Assessment: Reason For Request: Covid Flu [...] ...................... ...................... ...................... ...................... ...................... ...................... ......... Bench Manager Note From Hosea Falcon: CO cold like [...] ......... Disposition: Fulfilled Tripp Jean-Baptiste MD 30 [facility],[address], [place], [address], [employer] 10/17/2022 20:11:39 01/09/2023 text/html HPI: [...] ...................... ...................... ...................... ...................... ...................... ...................... ......... Bench Manager Note From Quincy Hwang: Pt reports two days of traumatic [...] ......... Disposition: Fulfilled ARMEN VARGAS MD 30 [facility],[address], [place], [phone], [employer] 01/09/2023 21:07:18 01/16/2023 text/html HPI: Danish speaking, 72-year-old male member that was [facility] for CHF and Hypoxemia from 01/12/23 [...] kidney disease, unspecified CKD stage, unspecified whether snf insulin use - E11.22, Recommended by CDI [...] gain.................. ...................... ...................... ...................... ...................... ...................... ............. Bench Manager Note From Hosea Falcon: Follow - up [...] ......... Disposition: Fulfilled Candi York MD [address] [facility],[address], [place], [address], [employer] 01/16/2023 17:46:48
--- OUTSIDE RECORDS SUMMARY | 2024-12-01 15:01 | XMS_ITS | Encounter Summary ---
Author Organization [employer] [facility] Address [address] [facility] 7t [place] [address] Care Team Providers Care Physician Practice Coordinator Name Role Phone Susy Rashid DO Primary Care Provider [phone] Reason for Visit * Reason Onset Date Comments Med Refill 09/16/2022 Encounter Details Date Type Department Care Team ([facility] Contact Info) Description 09/16/2022 Telephone [facility] [address] [place] [address] Susy Rashid DO [address] [place] [address] Med Refill Social History Tobacco Use Types [...] on filedocumented in this encounter Care Teams Physician Practice Coordinator Relationship Specialty Start Date End Date Susy Rashid DO [address] [place] [address] PCP - General Family Medicine 07/16/12 documented as of this encounter
--- OUTSIDE RECORDS SUMMARY | 2024-12-01 15:01 | XMS_ITS | Encounter Summary ---
Author Organization [facility], Address [address] [place] [address] Phone Care Team Providers Care Human Resources Supervisor Name Role Phone Susy Rashid DO Primary Care Provider Unava ilable Encounter Details Date Type Department Care Team (Late st Contact Info) Description 08/08/2021 Documentation Only [facility], [address] [place] [phone] Alek Rinaldi MD [address] [place] [place] [phone] Social History Tobacco Use Types Packs/Day Years [...] on filedocumented in this encounter Care Teams Human Resources Supervisor Relationship Specialty Start Date End Date Susy Rashid DO PCP - General 06/08/19 documented as of this encounter
--- OUTSIDE RECORDS SUMMARY | 2024-12-01 15:02 | XMS_ITS | Encounter Summary ---
Author Organization [facility], Address [address] [place] [address] Phone Care Team Providers Care Process Machine Operator Name Role Phone Susy Rashid DO Primary Care Provider Unava ilable Encounter Details Date Type Department Care Team (Late st Contact Info) Description 08/06/2021 Documentation Only [facility], [address] [place] [phone] Alek Rinaldi MD [address] [place] [phone] Social History Tobacco Use Types Packs/Day Years [...] on filedocumented in this encounter Care Teams Process Machine Operator Relationship Specialty Start Date End Date Susy Rashid DO PCP - General 06/08/19 documented as of this encounter
--- OUTSIDE RECORDS SUMMARY | 2024-12-01 15:02 | XMS_ITS | Encounter Summary ---
Author Organization [facility], Address [address] [place] [address] Phone Care Team Providers Care Resource Recovery Engineer Name Role Phone Susy Rashid DO Primary Care Provider Unava ilable Encounter Details Date Type Department Care Team (Late st Contact Info) Description 08/07/2021 Documentation Only [facility], [address] [place] [phone] Alek Rinaldi MD [address] [place] [phone] Social History Tobacco Use Types Packs/Day Years [...] on filedocumented in this encounter Care Teams Resource Recovery Engineer Relationship Specialty Start Date End Date Susy Rashid DO PCP - General 06/08/19 documented as of this encounter
--- OUTSIDE RECORDS SUMMARY | 2024-12-01 15:02 | XMS_ITS | Encounter Summary ---
Author Organization [employer] Address [address] [facility] [address] 7t [place] [address] Care Team Providers Care Medical Doctor Nuclear Medicine Name Role Phone Susy Rashid DO Primary Care Provider + [phone] Encounter Details Date Type Department Care Team ([facility] st Contact Info) Description 06/24/[address] [facility] MEDICINE [address] [place] [address] Susy Rashid DO [address] [place] [address] Social History Tobacco Use Types Packs/Day Years Used Date Smoking Tobacco: Former Cigarettes Passive Smoke Exposure: Never Smokeless Tobacco: Never Comments:Stop 10 years ago Alcohol Use Standard Drinks/Week Comments Never 0 (1 standard drink = 0.6 oz pur e alcohol) Depression Answer Date Recorded Patient Health Questionnaire-9 Score 2 10/24/2022 Housing Stability Answer Date Recorded What is your housing situation today? I have mgao sarabia 05/20/[address] you [...] documented as of this encounter Care Teams Medical Doctor Nuclear Medicine Relationship Specialty Start Date End Date Susy Rashid DO [address] [place] [address] PCP - General Family Medicine 07/16/12 documented as of this encounter
--- OUTSIDE RECORDS SUMMARY | 2024-12-01 15:02 | XMS_ITS | Encounter Summary ---
Author Organization [facility], Address [address] [place] [address] Phone Care Team Providers Care Radar Technician Name Role Phone Susy Rashid DO Primary Care Provider Unava ilable Encounter Details Date Type Department Care Team (Late st Contact Info) Description 02/13/2022 Office Communication [facility], [address] [place] [phone] Alek Rinaldi MD [address] [place] [phone] Social History Tobacco Use Types Packs/Day Years [...] on filedocumented in this encounter Care Teams Radar Technician Relationship Specialty Start Date End Date Susy Rashid DO PCP - General 06/08/19 documented as of this encounter
--- OUTSIDE RECORDS SUMMARY | 2024-12-01 15:02 | XMS_ITS | Encounter Summary ---
Author Organization [facility], Address [address] [place] [address] Phone Care Team Providers Care Roll Plugger Name Role Phone Susy Rashid DO Primary Care Provider Unava ilable Encounter Details Date Type Department Care Team (Late st Contact Info) Description 02/18/2023 Documentation Only [facility], [address] [place] [address] Leander Fernández PA Social History [...] on filedocumented in this encounter Care Teams Roll Plugger Relationship Specialty Start Date End Date Susy Rashid DO PCP - General 06/08/19 documented as of this encounter
--- OUTSIDE RECORDS SUMMARY | 2024-12-01 15:02 | XMS_ITS | Encounter Summary ---
Author Organization [facility], Address [address] [place] [address] Phone Care Team Providers Care Bladder Blower Name Role Phone Susy Rashid DO Primary Care Provider Unava ilable Encounter Details Date Type Department Care Team (Late st Contact Info) Description 02/18/2023 Documentation Only [facility], [address] [place] [address] Leander Fernández PA Social History [...] on filedocumented in this encounter Care Teams Bladder Blower Relationship Specialty Start Date End Date Susy Rashid DO PCP - General 06/08/19 documented as of this encounter
--- OUTSIDE RECORDS SUMMARY | 2024-12-01 15:02 | XMS_ITS | Encounter Summary ---
Author Organization [facility], Address [address] [place] [address] Phone Care Team Providers Care Pay Per Click Strategist Name Role Phone Susy Rashid DO Primary Care Provider Unava ilable Encounter Details Date Type Department Care Team (Late st Contact Info) Description 06/17/2022 Documentation Only [facility], [address] [place] [address] Leander Fernández PA Social History [...] on filedocumented in this encounter Care Teams Pay Per Click Strategist Relationship Specialty Start Date End Date Susy Rashid DO PCP - General 06/08/19 documented as of this encounter
--- OUTSIDE RECORDS SUMMARY | 2024-12-01 15:02 | XMS_ITS | Encounter Summary ---
Author Organization [facility] [place], Address [address] [place] [address] Phone Care Team Providers Care Maintenance Pipefitter Name Role Phone Susy Rashid DO Primary Care Provider Unava ilable Encounter Details Date Type Department Care Team (Late st Contact Info) Description 08/07/2021 Documentation Only [facility], [address] [place] [phone] Alek Rinaldi MD [address] [place] [phone] Social History Tobacco Use Types Packs/Day Years [...] on filedocumented in this encounter Care Teams Maintenance Pipefitter Relationship Specialty Start Date End Date Susy Rashid DO PCP - General 06/08/19 documented as of this encounter
--- OUTSIDE RECORDS SUMMARY | 2024-12-01 15:02 | XMS_ITS | Encounter Summary ---
Author Organization [facility], Address [address] [place] [address] Phone Care Team Providers Care Wiring Mechanic Name Role Phone Susy Rashid DO Primary Care Provider Unava ilable Encounter Details Date Type Department Care Team (Late st Contact Info) Description 08/25/2023 Documentation Only [facility], [address] [place] [address] Kim De Luna [address] [place] [address] Social History Tobacco Use Types [...] on filedocumented in this encounter Care Teams Wiring Mechanic Relationship Specialty Start Date End Date Susy Rashid DO PCP - General 06/08/19 documented as of this encounter
--- OUTSIDE RECORDS SUMMARY | 2024-12-01 15:02 | XMS_ITS | Encounter Summary ---
Author Organization [facility], Address [address] [place] [address] Phone Care Team Providers Care Cork Compounder Name Role Phone Susy Rashid DO Primary Care Provider Unava ilable Encounter Details Date Type Department Care Team (Late st Contact Info) Description 02/13/2022 Office Communication [facility], [address] [place] [phone] Alek Rinaldi MD [address] [place] [phone] Social History Tobacco Use Types Packs/Day Years [...] on filedocumented in this encounter Care Teams Cork Compounder Relationship Specialty Start Date End Date Susy Rashid DO PCP - General 06/08/19 documented as of this encounter
--- OUTSIDE RECORDS SUMMARY | 2024-12-01 15:02 | XMS_ITS | Clinical Summary ---
Author Organization [facility], Address [address] [place] [address] [place] [address] Phone Care Team Providers Care Vending Route Driver Name Role Phone Susy Rashid DO Primary [...] Documentation Only [facility] [address] [place] [address] Marbella Kumar 11/16/2024 Documentation Only [facility] [address] [place] [address] Marbella Kumar from Last 3 Months Immunizations [...] PM EDT) Hemoglobin A1C 7.0(H) (4.0-5.6) % [facility] [employer] Comment: MONITORING: In known diabetic patients, hemoglobin A1c targets should be discussed with health care provider. DIAGNOSTIC USE: ??The [place] [employer] (ADA) and the World Health [...] Supplement 1 Testing performed or reported by [facility], a Service of [facility], [address] [place] [id number] Dilia Fink MD, Director Of Extension Work [facility]# [id number] 02/05/2022 5:00 PM EDT 02/05/2022 5:02 PM EDT us Alek Rinaldi MD LAB BLOOD ORDERABLES Final Resul t [facility] from Last 3 Months or Most Recently Relevant to Health Maintenance Insurance [facility] ([id number]) [facility] ([id number]) SUJATHA PEREZ [id number] [place] [address] [place] [address] Care Teams Vending Route Driver Relationship Specialty Start Date End Date Susy Rashid DO PCP - General 06/08/19
--- OUTSIDE RECORDS SUMMARY | 2024-12-01 15:02 | XMS_ITS | Encounter Summary ---
Author Organization [facility] [place], Address [address] [place] [address] Phone Care Team Providers Care Tier Lift Truck Operator Name Role Phone Susy Rashid DO Primary Care Provider Unava ilable Encounter Details Date Type Department Care Team (Late st Contact Info) Description 06/24/2022 Office Communication [facility], [address] [place] [phone] Alek Rinaldi MD [address] [place] [place] [phone] Social History Tobacco Use Types Packs/Day Years [...] on filedocumented in this encounter Care Teams Tier Lift Truck Operator Relationship Specialty Start Date End Date Susy Rashid DO PCP - General 06/08/19 documented as of this encounter
--- OUTSIDE RECORDS SUMMARY | 2024-12-01 15:02 | XMS_ITS | Encounter Summary ---
Author Organization [employer] Address [address] [place] [address] Care Team Providers Care Professor Of Archaeology Name Role Phone Susy Rashid DO Primary Care Provider [phone] Reason for Visit * Reason Onset Date Comments Call Back Request 06/09/2023 Encounter Details Date Type Department Care Team ([facility] Contact Info) Description 06/09/2023 Telephone [facility] MEDICINE [address] [place], [place] [phone] Susy Rashid DO [address] [place], [place] [phone] Call Back Request Social History Tobacco Use [...] not been signed. Please contact robert at [phone] documented in this encounter Plan of Treatment Not on file documented as of this encounter Visit Diagnoses Not on filedocumented in this encounter Additional Health Concerns Assessment Noted Time PHQ-9 Depression Total Score: 2 10/25/19 23 12:24 PM EDT documented as of this encounter Care Teams Professor Of Archaeology Relationship Specialty Start Date End Date Susy Rashid DO [address] [place] [address] PCP - General Family Medicine 07/16/12 documented as of this encounter
--- OUTSIDE RECORDS SUMMARY | 2024-12-01 15:02 | XMS_ITS | Encounter Summary ---
Author Organization [facility] [place], Address [address] [place] [address] Phone Care Team Providers Care Principal Hardware Architect Name Role Phone Susy Rashid DO Primary Care Provider Unava ilable Encounter Details Date Type Department Care Team (Late st Contact Info) Description 02/18/2023 Documentation Only [facility], [address] [place] [address] Leander Fernández PA Social History [...] on filedocumented in this encounter Care Teams Principal Hardware Architect Relationship Specialty Start Date End Date Susy Rashid DO PCP - General 06/08/19 documented as of this encounter
--- OUTSIDE RECORDS SUMMARY | 2024-12-01 15:02 | XMS_ITS | Encounter Summary ---
Author Organization [facility] [facility] Address [address] [facility] [address] [place] [address] Care Team Providers Care Lead Electrical Controls Engineer Name Role Phone Susy Rashid DO Primary Care Provider [phone] Reason for Visit * Reason Onset Date Comments Nurse Triage 05/02/2023 Encounter Details Date Type Department Care Team ([facility] st Contact Info) Description 05/02/2023 Telephone [facility] MEDICINE [address] [place] [address] Susy Rashid DO [address] [place], [place] [phone] Nurse Triage Social History Tobacco Use Types [...] wants a call back with orders at [phone] so that she can call pt.And give him instructions. Pt. Does not have any upcoming appts in [facility] with PCP. Please advise andve [facility] team nurse call back [facility] nurse [...] outcome Please contact visiting nurse anais at [phone] documented in this encounter Plan of Treatment Not on file documented as of this encounter Visit Diagnoses Not on filedocumented in this encounter Additional Health Concerns Assessment Noted Time PHQ-9 Depression Total Score: 2 10/25/19 23 12:24 PM EDT documented as of this encounter Care Teams Lead Electrical Controls Engineer Relationship Specialty Start Date End Date Susy Rashid DO [address] [place] [address] PCP - General Family Medicine 07/16/12 documented as of this encounter
--- OUTSIDE RECORDS SUMMARY | 2024-12-01 15:02 | XMS_ITS | Encounter Summary ---
Author Organization [employer] Address [address] [place] [address] Care Team Providers Care Financial Foundations Representative Name Role Phone Susy Rashid DO Primary Care Provider [phone] Encounter Details Date Type Department Care Team ([facility] st Contact Info) Description 08/15/2022 Orders Only [facility] [address] [place], [place] [phone] Susy Ayala LPN Social History Tobacco Use [...] on filedocumented in this encounter Care Teams Financial Foundations Representative Relationship Specialty Start Date End Date Susy Rashid DO [address] [place] [address] PCP - General Family Medicine 07/16/12 documented as of this encounter
--- OUTSIDE RECORDS SUMMARY | 2024-12-01 15:02 | XMS_ITS | Clinical Summary ---
Author Organization [employer] Address [address] [facility] [address] [place] [address] Care Team Providers Care Zipper Machine Operator Name Role Phone GaySusy Primary Care Provider + [phone] Allergies Active Allergy Reactions Criticality Noted Date Comments Lisinopril Cough Other reaction(s): Other (see comments) Simvastatin 11/28/2022 Other reaction(s): increased liver enzymes Valsartan 11/28/2022 Other reaction(s): Unknown Medications Misc. Devices (Pulse Oximeter For Finger) miscIndication s:COVID-19 virus infection 1 each in the morning and at bedtime. 1 each 022 Active Blood Glucose Monitoring Suppl (Mycell TechnologiesStyle Moffit Lite) w/Device kit TEST BLOOD SUGAR THREE [...] DAILY. 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 History of COVID-19 07/23/2022 Neurogenic orthostatic hypotension [...] if he needs to be referred to edger hand. Assessment & Plan (07/23/2022 2:56 PM EST): [...] Type Department Care Team Description 11/18/2024 Refill [facility] [address] [place] [address] Susy Rashid DO 11/14/2024 Refill [facility] [address] [place] [address] Farzana Winter MD Insomnia, unspecified type 11/02/2024 Orders Only [facility] [address] [place] [phone] Susy Rashid DO 10/28/2024 Telephone [facility] [address] [place] [phone] Susy Rashid DO Results 10/27/2024 10:45 AM EDT Office Visit [facility] [address] [place] [phone] Susy Rashid DO Type 2 diabetes mellitus with stage 3 chronic kidney disease, with long-term current use of insulin, unspecified whether stage 3a or 3b CKD (CMS/HCC) (Primary Dx); Neurogenic orthostatic hypotension ([facility]/HCC); Other hyperlipidemia; Stage 3b chronic kidney disease (CMS/HCC); Chronic systolic heart failure (CMS/HCC); Chronic obstructive pulmonary disease, unspecified COPD type ([facility]/HCC); Alzheimer's disease ([facility]); Fatty liver; Peripheral polyneuropathy; Chronic allergic rhinitis; Healthcare maintenance; Screening for colon cancer; Dietary counseling; Exercise counseling; Osteopenia, unspecified location 10/27/2024 Telephone [facility] [address] [place] [phone] Veronika Small, MONICA CGM PA 10/27/2024 Travel 10/17/2024 Refill [facility] [address] [place] [phone] Susy Rashid DO Anemia, unspecified type 09/19/2024 Refill [facility] [address] [place] [phone] Susy Rashid DO Insomnia, unspecified type 09/16/2024 Refill [facility] [address] [place] [phone] Susy Rashid DO Osteopenia, unspecified location 09/13/2024 Travel 09/10/2024 Telephone [facility] [address] [place] [phone] Susy Rashid DO Appointment Request 09/02/2024 Refill [facility] [address] [place] [address] Susy Rashid, Type 2 diabetes mellitus with stage 3 chronic kidney disease, with long-term current use of insulin, unspecified whether stage 3a or 3b CKD ([facility]) from Last 3 Months Immunizations Name Administration [...] 25-Hydroxy, Total, Immunoassay (10/27/2024 11:31 AM EDT) [facility] Vitamin D 25-OH Total 31.2 >30 ng/mL [facility] Comment: Health Based Reference Values*< 20 ??ng/mL ??Ynotrohrx90-97 ng/mL ??Insufficient> 30 ??ng/mL ??Sufficient*Elliott DIAZ. N [...] DO LAB BLOOD ORDERABLES Final R esult [facility] [address] [place] [phone] * Vitamin B12 (Cobalamin) and Folate Panel, Serum (10/27/2024 11:31 AM EDT) Pathologist [facility] Vitamin B12 812 200 - 900 pg/mL [facility] Comment:NORMAL 200-900 PG/ML INDETERMINATE 160-199 PG/ML DEFICIENT < 160 PG/ML Folate 8.4 > or = 4.0 ng/mL [facility] Comment:Reference Values:> o r = 4.0 ng/mL< 4.0 ng/mL suggests folate deficiency Methotrexate, aminopterin and folinic acid(leucovorin) are chemotherapeutic agents whose molecularstructures are similar to folate; therefore, the Architectfolate assay cannot be used for patients using these drugs. Blood 10/27/2024 11:3 1 AM EDT 10/27/2024 1:36 PM EDT us Susy Rashid DO LAB BLOOD ORDERABLES Final R esult Performing Organization Address City/[facility]/ZIP Co de Phone Number [facility] [address] [place] [phone] * (ABNORMAL) CBC auto differential (10/27/2024 11:31 AM EDT) Pathologist [facility] White Blood Count 8.0 4.8 - 10.8 X10*3/uL [facility] Red Blood Count 4.09(L) 4.60 - 5.80 X10*6/uL [facility] Hemoglobin 12.0(L) 14.0 - 18.0 g/dl [facility] Hematocrit 38.5(L) 42.0 - 52.0 % [facility] Mean Corpuscular Volume 94.1 80.0 - 98.0 fL [facility] Mean Corpuscular Hemoglobin 29.3 27.0 - 33.0 pg [facility] Mean Corpuscular HGB Conc 31.2 31.0 - 36.0 g/dl [facility] Red Cell Distribution Width 15.1 11.0 - 16.0 % [facility] Platelet Count 314 160 - 400 X10*3/uL [facility] Mean Platelet Volume 11.5 9.4 - 12.4 fL [facility] Neutrophils Percent Auto 62.0 45 - 73 % [facility] Imm Gran Pct Auto 2.5(H) 0.0 - 0.4 % [facility] Lymphocytes Percent Auto 20.5 20 - 40 % [facility] Monocytes Percent Auto 14.1(H) 2 - 11 % [facility] Eosinophils Percent Auto 0.1 0 - 4 % [facility] Basophils Percent Auto 0.8 0 - 2 % [facility] NRBC Pct Auto 0.0 0.0 - 0.2 /100WBC [facility] Neutrophils Absolute Auto 5.0 2.0 - 8.3 x10*3/uL [facility] Imm Gran Abs Auto 0.20(H) 0.00 - 0.03 X10*3/uL [facility] Lymphocytes Absolute Auto 1.6 1.2 - 4.9 X10*3/uL [facility] Monocytes Absolute Auto 1.1 0.1 - 1.2 X10*3/uL [facility] Eosinophils Absolute Auto 0.0 0.0 - 0.4 X10*3/uL [facility] Basophils Absolute Auto 0.1 0.0 - 0.2 X10*3/uL [facility] NRBC Abs Auto 0.000 0.0 - 0.012 X10*3/uL [facility] Blood Venous blood specimen / Unknown 10/27/2024 11:31 AM EDT 10/27/2024 1:36 PM EDT us Susy Rashid DO LAB BLOOD ORDERABLES Final R esult [facility] [address], [place] [phone] * (ABNORMAL) Iron And Total Iron Binding Capacity (10/27/2024 11:31 AM EDT) Iron 43(L) 45 - 160 mcg/dL [facility] Total Iron Binding Capacity 241 228 - 428 mcg/dL [facility] Percent Iron Saturation 18 15 - 50 % [facility] Unsaturated Iron Binding 198 ug/dL [facility] Blood Venous blood specimen / Unknown 10/27/2024 11:31 AM EDT 10/27/2024 1:36 PM EDT [facility] BLOOD ORDERABLES Final R esult Performing Organization Address [facility] Co de Phone Number [facility] [address] [place] [phone] * Alpha-Fetoprotein, Tumor Marker (10/27/2024 11:31 AM EDT) Pathologist [facility] Alpha Fetoprotein 3.5 <6.1 ng/mL [facility] Comment:This test was perfor med using the Leslye Coulterchemiluminescent method. Values obtained fromdifferent assay methods cannot be usedinterchangeably. AFP levels, regardless ofvalue, should not be interpreted as absoluteevidence of the presence or absence of disease.THIS TEST WAS PERFORMED AT:[facility] [place] [phone] TAVERAS MD Blood Venous blood specimen / Unknown 10/27/2024 11:31 AM EDT 10/27/2024 1:36 PM EDT Susy Kristyst. [facility] DO LAB BLOOD ORDERABLES Final R esult Performing Organization Address City/[facility]/ZIP Co de Phone Number [facility] [address] [place] [phone] * TSH (10/27/2024 11:31 AM EDT) Thyroid Stimulating Hormone 1.02 0.32 - 4.0 uIU/mL [facility] Comment:TSH 3rd Generation ( [facility]) Blood Venous blood specimen / Unknown 10/27/2024 11:31 AM EDT 10/27/2024 1:36 PM EDT Susy Rashid LAB BLOOD ORDERABLES Final R esult Performing Organization Address City/[facility]/ZIP Co de Phone Number [facility] [address] [place] [phone] * T4, Free (10/27/2024 11:31 AM EDT) Free T4 (Free Thyroxine) 1.10 0.71 - 1.85 ng/dL [facility] Blood Venous blood specimen / Unknown 10/27/2024 11:31 AM EDT 10/27/2024 1:36 PM EDT Susy Rashid LAB BLOOD ORDERABLES Final R esult Performing Organization Address City/[facility] Co de Phone Number [facility] [address] [place] [phone] * (ABNORMAL) Hemoglobin A1c (10/27/2024 11:31 AM EDT) Hemoglobin A1c 6.8(H) <6.0 % [facility] Comment:Hemoglobin A1C Refer ence Range Adults: 4.8 - 6.0 % Non diabetic: < 6.0 % Goal: < 7.0 %Additional Action Suggested: > 8.0 %Note: Hemoglobin A1c results are invalid for patients with abnormal amounts of HbF. Blood transfusions may impact the HbA1c concentration in the patient sample. Estimated Average Glucose 148 mg/dL [facility] Comment:eAG = Estimated ave rage glucose which is %A1C expressed asaverage glucose, using the formula of the E5T-VsnnmvrZfmiufn Glucose study (ADAG), Diabetes Care, Vol.31,#8,Mar. 2007 Blood Venous blood specimen / Unknown 10/27/2024 11:31 AM EDT 10/27/2024 1:36 PM EDT us Susy Rashid DO LAB BLOOD ORDERABLES Final R esult Performing Organization Address City/[facility]/ZIP Co de Phone Number [facility] [address] [place] [phone] * Ferritin (10/27/2024 11:31 AM EDT) Ferritin 145 20 - 250 ng/mL [facility] Blood Venous blood specimen / Unknown 10/27/2024 11:31 AM EDT 10/27/2024 1:36 PM EDT Susy Rashid DO LAB BLOOD ORDERABLES Final R esult Performing Organization Address [facility] Co de Phone Number [facility] [address] [place] [phone] * (ABNORMAL) Hepatic Function Panel (10/27/2024 11:31 AM EDT) Bilirubin, Total 0.6 0.0 - 1.0 mg/dL [facility] Bilirubin, Direct 0.3 0.0 - 0.5 mg/dL [facility] Aspartate Amino Transferase 28 5 - 37 U/L [facility] Alanine Aminotransferase 18 0 - 40 U/L [facility] Total Protein 8.1(H) 6.5 - 8.0 g/dL [facility] Albumin Level 4.1 3.5 - 5.0 g/dL [facility] Alkaline Phosphatase 145(H) 39 - 117 U/L [facility] Blood Venous blood specimen / Unknown 10/27/2024 11:31 AM EDT 10/27/2024 1:36 PM EDT Susy Rashid DO LAB BLOOD ORDERABLES Final R esult Performing Organization Address [facility]/ZIP Co de Phone Number [facility] [address] [place] [phone] * (ABNORMAL) Lipid Panel, Standard (10/27/2024 11:31 AM EDT) Triglycerides 178(H) <150 mg/dL [facility] Comment:Slight Lipemia.Lisa able Triglyceride: less than 150 mg/dLBorderline High Triglyceride 150-199 mg/dLHigh Triglyceride: 200-499 mg/dLVery High Triglyceride: greater than or equal to 5OO mg/dL Cholesterol 142 <200 mg/dL [facility] Comment:Desirable Cholestero l: less than 200 mg/dLBorderline High Cholesterol: 200-239 mg/dLHigh Cholesterol: greater than 239 mg/dL LDL Cholesterol Calculated 77 <100 mg/dL [facility] Comment:Desirable LDL: less than 100 mg/dLNear Optimal/Above Optimal LDL: 110- 129 mg/dLBorderline High LDL: 130-159 mg/dLHigh LDL: 160-189 mg/dLVery High LDL: greater than or equal to 190 mg/dL HDL Cholesterol 30(L) >40 mg/dL [facility] Comment:Desirable HDL: great er than 40 mg/dL Note: This HDL assay may give artificially low results in patients with liver disease. Blood Venous blood specimen / Unknown 10/27/2024 11:31 AM EDT 10/27/2024 1:36 PM EDT us Susy Rashid DO LAB BLOOD ORDERABLES Final R esult [facility] [address] [place] [phone] * (ABNORMAL) Basic Metabolic Panel (10/27/2024 11:31 AM EDT) Sodium 142 135 - 145 mmol/L [facility] Potassium 4.1 3.3 - 5.1 mmol/L [facility] Chloride 107 96 - 108 mmol/L [facility] Carbon Dioxide 27 22 - 29 mmol/L [facility] Anion Gap 12 12 - 20 [facility] Urea Nitrogen (BUN) 28(H) 9 - 16 mg/dL [facility] Creatinine, Serum 2.40(H) 0.5 - 1.4 mg/dL [facility] Estimated Glomerular Filt Rate 27 [facility] Comment:Chronic Kidney Disea se: Estimated GFR < 60 mL/min/[id number] Kidney Disease: Estimated GFR < 15 mL/min/1.73m2 Glucose 179(H) 60 - 115 mg/dL [facility] Calcium 9.0 8.4 - 10.2 mg/dL [facility] Blood Venous blood specimen / Unknown 10/27/2024 11:31 AM EDT 10/27/2024 1:36 PM EDT Susy Rashid DO LAB BLOOD ORDERABLES Final R esult [facility] [address] [place] [phone] * (ABNORMAL) POCT HGB A1C (10/27/2024 10:41 AM EDT) Hemoglobin A1C 6.9(A) 4.0 - 6.0 % [employer] Lot # [id number] Lot# Expiration Date Blood 10/27/2024 10:4 1 AM EDT Result [facility] Susy Gay DO POINT OF CARE TEST ENTER/PILAR T ORDERABLES Final Result * (ABNORMAL) POCT Glucose (10/27/2024 10:40 AM EDT) Glucose Blood, POC 213(A) 60 - 200 mg/dL [employer] Lot # [id number] Lot# Expiration Date Blood Capillary blood specimen / Unknown 10/27/2024 10:40 AM EDT Susy Gay DO POINT OF CARE TEST ENTER/PILAR T ORDERABLES Final Result from Last 3 Months Insurance [facility] [employer]ENT[employer] (HMO D-SNP) [facility] Care Teams Zipper Machine Operator Relationship Specialty Start Date End Date Susy Rashid DO [address] [place] [address] PCP - General Family Medicine 07/16/12
== END 2024-12-01 13:47 | disposition home or self-care (01) ==
LOC: HO.MAMMO 13:46
PROVIDERS: PCP Family Medicine; Visit Provider Family Medicine
DX: Z13.820 Encounter for screening for osteoporosis (principal); M85.89 Other specified disorders of bone density and structure, multiple sites
CPT/HCPCS: 77080

== ENCOUNTER → 2024-12-01 14:00 | Outpatient (BNV) | payer OTHER, SELFPAY | PROVIDERS: PCP Family Medicine; Visit Provider Radiology Diagnostic Radiology | DX: M85.80 Other specified disorders of bone density and structure, unspecified site (principal) | CPT/HCPCS: 77080 ==

== ENCOUNTER 2025-01-05 10:28 | Outpatient (AMB) | payer OTHER, SELFPAY ==
--- NOTE | 2025-01-05 10:31 | MHC.OFFVIS ---
Vital Signs 01/05/25 10:32 Height 5 ft 5 in Weight 157 lb 6.561 oz BMI 26.2 BP 108/50 L Blood Pressure Location Lt brachial Position Sitting Pulse 55 Pulse Source Pulse Oximeter Pulse Oximetry (%) 96 Oxygen Delivery Method Room Air Intake Visit Reasons: Osteoporosis Intake Note: Patient present today for Osteoporosis office visit. Fumigator And Sterilizer Required: No Accompanied by: Grand Child Allergies valsartan [Diovan] Allergy (Unknown, Verified 01/05/25 10:42) Unknown simvastatin Adverse Reaction (Unknown, Verified 01/05/25 10:42) increased liver enzymes Medication List - Last Reconciled 01/05/25 by Dmitriy Varma MD acetaminophen (Pain Relief Extra Strength (acetaminophen)) 500 mg PO Q6H PRN albuterol sulfate 90 mcg/actuation 2 puffs PO Q4-6H PRN albuterol sulfate 2.5 mg inhalation Q4H PRN albuterol sulfate 90 mcg/actuation 2 inhalations inhalation Q6H PRN 30 days amiodarone 1 tab PO DAILY aspirin 1 tab PO BEDTIME atorvastatin 80 mg PO DAILY blood sugar diagnostic (FreeStyle Lite Strips) As directed budesonide 0.5 mg inhalation BID calcium carbonate-vitamin D3 600 mg-10 mcg (400 unit) 1 tab PO DAILY cyanocobalamin (vitamin B-12) 1,000 mcg PO DAILY dapagliflozin propanediol (Farxiga) 5 mg PO DAILY docusate sodium 100 mg PO BID PRN donepezil 5 mg PO BEDTIME furosemide 40 mg PO DAILY@1200 glycopyrrolate-formoterol 9-4.8 mcg (Bevespi Aerosphere) 2 puffs inhalation Q12H 30 days insulin aspart U-100 (Novolog FlexPen U-100 Insulin aspart) 1 sliding scale dose subcut USEASDIRECTD insulin glargine (Lantus U-100 Insulin) 4 units subcut QAM lancets (TRUEplus Lancets) As directed nebulizers As directed pen needle, diabetic (BD Ultra-Fine Vidya Pen Needle) As directed pregabalin 50 mg PO TID trazodone 50 mg PO BEDTIME HPI Comments Details: The patient is a 74-year-old male presenting with osteoporosis. This condition was recently diagnosed, and this visit hernandez the patient's first specialist evaluation. He has no prior history of fractures, height loss, kidney stones, or family history of osteoporosis. He attends regular dental appointments and is planning for extractions. His bone mineral density test shows a T-score of negative 2.5, fitting the criteria for osteoporosis. The patient is under the care of a joss house keeper due to chronic kidney disease and is not on osteoporosis-specific treatment. . The patient maintains a non-active lifestyle without weightbearing exercises and abstains from smoking and heavy alcohol consumption. First diagnosed in newly diagnosed .Not seen specialist before . Sees Dr. Rinaldi for nephrology . Has appt in 03/2025 No history of pathologic fracture or ONJ. Has several servings of dietary calcium per day in the form of cheese, ice cream . Takes Calcium supplement 600 mg daily in divided doses. Takes 400 IU of Vitamin D daily. The patient's diet includes limited intake of dairy products, with primary consumption of cheese and occasional ice cream. He does not drink milk or eat yogurt and supplements his diet with calcium and vitamin D. Denies ever using PPI, anticoagulant, antiepileptic or glucocorticoid medication. Not Does weight bearing exercise Fracture history: None Height loss: No Denies history of Kidney stones: Denies family history of Osteoporosis or hip fracture. UTD on dental cleanings and sees dentist every 6 months. Has planned upcoming dental work with extractions. No tabaco use or heavy ETOH use DXA dated 12/01/24 :FINDINGS: The bone mineral density of the lumbar spine is 1.413 with a T-score of 1.7, and a Z-score of 2.6. This is indicative of normal bone mineral density. This represents a BMD change of -6.9% compared to the prior exam. This is statistically significant. The bone mineral density of the left total hip is 0.826 with a T-score of -1.9, and a Z-score of -0.9. This is indicative of osteopenia. This represents a BMD change of -8.3% compared to the prior exam. This is statistically significant. The bone mineral density of the left femoral neck is 0.741 with a T-score of -2.5, and a Z-score of -1.0. This is indicative of osteoporosis. This represents a BMD change of -8.4% compared to the prior exam. MM/XR DEXA axial skeleton IMPRESSION: Based on bone mineral density, and according to World Health Organization (WHO) criteria, the diagnosis is consistent with osteoporosis. Labs: [facility] Medical History (Updated 01/05/25 @ 10:48 by Dmitriy Varma MD) Osteoporosis Pleural effusion due to congestive heart failure Dyspnea Parkinson disease Diabetes GERD (gastroesophageal reflux disease) Hx of ventricular tachycardia Cardiomyopathy Pacemaker Hx of gastritis Spondylosis Chronic renal insufficiency Back pain COPD (chronic obstructive pulmonary disease) Elevated cholesterol CHF (congestive heart failure) CAD (coronary artery disease) HTN (hypertension) Surgical History Hx of colonoscopy H/O cystoscopy Hx of right inguinal hernia repair AICD (automatic cardioverter/defibrillator) present Family History Mother No known health problems Father No known health problems Social History Household Members: Spouse Housing: Apartment Do you presently have visiting nurse or other home services: Yes Alcohol intake: never Patient Tobacco Use Status: Former Tobacco user Second Hand Smoke Exposure: No service: No Current occupational status: disabled Physical Exam Vital Signs: Last Vital Signs Pulse 55 01/05/25 10:32 BP 108/50 L 01/05/25 10:32 Pulse Ox 96 01/05/25 10:32 Oxygen Delivery Method Room Air 01/05/25 10:32 BMI result Body Mass Index 26.2 There are no Cushingoid features. Absence of blue sclera. Absence of kyphosis. Thyroid gland is of nl size and weighs 15 gms. There are no thyroid nodules palpated. Lungs CTA. Heart S1 S2 Reg R/R Abdominal exam benign. Muscle strength 5/5 . Examination of spine reveals absence of tenderness on palpation Assessment & Plan Assessment & Plan (1) Osteoporosis: Code(s): M81.0 - Age-related osteoporosis without current pathological fracture Category: Medical Plan: This is a 74-year-old male with a history of borderline osteoporosis in the setting of CKD stage 4. Secondary workup has been negative but we will rule out hypercalciuria. Will complete secondary workup by checking 24 hour urine for calcium and creatinine. Will have patient follow up with Nephrology to optimize CKD-BMD. 1. Osteoporosis The osteoporosis diagnosis is confirmed with a bone mineral density T-score of negative 2.5. Despite no history of fractures, due to chronic kidney disease limiting treatment options, we will not start osteoporosis-specific medication currently. A 24-hour urine collection is arranged to evaluate calcium levels, with the plan to reevaluate after the patient consults with his joss house keeper. Any future treatment recommendations like Prolia will be carefully considered, especially in the context of the patient's renal health. 2. Chronic Kidney Disease The chronic kidney disease is addressed as part of the co-management with the joss house keeper, Dr. Rinaldi. Coordination of care and communication will be ensured by sharing this visit summary. The patient's medication regimen will be largely guided by renal assessments from Dr. Rinaldi and optimazation of CKD-BMD. During this encounter, I explained the diagnosis of osteoporosis and the implications given the patient's current chronic kidney disease status. The detailed risks and benefits of various osteoporosis treatments were discussed, notably the restrictions imposed by renal health on medication choice. I highlighted the potential for adverse effects, such as hypocalcemia, if drugs like Prolia were used. The patient consented to undergoing a 24-hour urine calcium collection to assist in evaluating his condition further. We agreed on a strategy to defer medication initiation pending further renal assessments and fracture status. Information exchange with Dr. Rinaldi was encouraged to harmonize care plans, ensuring renal function is at the forefront of the osteoporosis management strategy. - Continue taking calcium 600 mg and vitamin D 400 IU daily as part of the dietary supplementation. - Undergo the scheduled 24-hour urine collection. Follow the provided instructions on collecting and submitting the sample. - Follow-up with Dr. Rinaldi in March and ensure to bring a copy of this note to his appointment. - Notify of any new fractures or changes in bone health as soon as they occur. - Maintain regular dental check-ups and proceed with planned extractions. - Schedule a follow-up in four months to review progress after Dr. Rinaldi's clinic visit. - The patient had an opportunity to ask questions regarding treatment plan. The patient expressed understanding and agreement with the above treatment plan. Patient was informed and verbally consented to the use of an ambient scribe for clinic note documentation during this visit. Orders: Orders Calcium, 24 Hr Ur Today M81.0 - Age-related osteoporosis without current pathological fracture Creatinine, 24 Hr Group Today M81.0 - Age-related osteoporosis without current pathological fracture Coding Level of Care Code New Pt Level 4 (48857) Diagnoses Osteoporosis M81.0
[2025-01-05 10:32] VITALS: BP 108/50; PULSE 55; O2SAT 96; BMI 26.2
--- OUTSIDE RECORDS SUMMARY | 2025-01-05 11:09 | XMS_ITS | Encounter Summary ---
Author Organization [employer] Address [address] [place] [address] Care Team Providers Care Orthotist Prosthetist Name Role Phone Susy Rashid DO Primary Care Provider + [phone] Reason for Visit * Reason Comments Med Refill Encounter Details Date Type Department Care Team ([facility] Contact Info) Description 04/07/2024 Refill [facility] [address] [place], [place] [id number] Susy Rashid DO [address] [place] [address] Neuropathy Social History Tobacco Use Types Packs/Day [...] documented as of this encounter Care Teams Orthotist Prosthetist Relationship Specialty Start Date End Date Susy Rashid DO [address] [place] [id number] PCP - General Family Medicine 07/16/12 documented as of this encounter
== END 2025-01-05 11:09 | disposition home or self-care (01) ==
LOC: HO.ENCR 10:29
PROVIDERS: PCP Family Medicine; Visit Provider Internal Medicine Endocrinology, Diabetes & Metabolism
DX: M81.0 Age-related osteoporosis without current pathological fracture (principal)
CPT/HCPCS: 99204

== ENCOUNTER → 2025-01-05 10:28 | Outpatient (BNVA) | payer OTHER, SELFPAY | PROVIDERS: PCP Family Medicine; Visit Provider Internal Medicine Endocrinology, Diabetes & Metabolism | DX: M81.0 Age-related osteoporosis without current pathological fracture (principal) | CPT/HCPCS: 99202 ==

== ENCOUNTER 2025-05-02 13:14 | Outpatient (REF) | payer OTHER, SELFPAY ==
--- OUTSIDE RECORDS SUMMARY | 2025-03-16 06:30 | XMS_ITS ---
Author Organization [facility] Address [address] [place] [address] Care Team Providers Care Panel Beater Name Role Phone Susy Rashid Primary Care Provider UnavailDesmond Marroquin Unavailable [phone] Bess Encounters Encounter Location Date Provider Diagnosis [address] [address] 03/16/2025 Desmond Cee Plan Of Treatment Next Appt Details Provider Name:Desmond Cee , 05/18/2025 04:00:00 PM, [address] [place] [address], [phone], Progress Notes * Denzel PENDLETONDOB: [birth year] (75 yo M)Acc No.[id number]:03/16/2025 Progress Note Patient: Jose LO Denzel Provider: Ford Cee DPM :1950 A ge:75 Y S ex:Male Date:03/16/2025 Address:[address] [place] [address] Pcp:Susy Rashid Subjective: * Chief Complaints: * [...] 0 03/16/2025 Generated for Yolanda Rubi on: 05/02/2025 02:37 PM EDT
[2025-05-02 14:22] LABS: Creatinine, mg/dL 94.11
--- OUTSIDE RECORDS SUMMARY | 2025-05-02 14:37 | XMS_ITS | Encounter Summary ---
Author Organization [facility] Address [address] [facility] [facility] [address] [place] [phone] Phone Care Team Providers Care Finance Manager Name Role Phone Pcp, Unknown Primary Care Provider Susy Hahn DO Primary Care Provider [phone] Encounter Details Date Type Department Care Team (Late st Contact Info) Description 08/26/2022 Procedure Pass [facility] [address] [place] [address] Social History Tobacco Use Types Packs/Day Years Used Date Smoking Tobacco: Former Cigarettes Smokeless Tobacco: Never Alcohol Use Standard Drinks/Week Comments Not Currently 0 (1 standard drink = 0.6 oz pur e alcohol) Intimate Partner Violence Answer Date R ecorded Are you denied basic needs s uch as food, clothing, or medical care? No 08/26/2022 In the past 12 months have y ou been in a relationship with a person who hurts, threatens, or tries to control you? No 08/26/2022 Are you denied basic needs s uch as food, clothing, or medical care? No 08/26/2022 In the past 12 months have y ou been in a relationship with a person who hurts, threatens, or tries to control you? No 08/26/2022 Sex and Gender Information Value Date Recorded Sex Assigned at Male 08/10/2024 3:52 PM EST Legal Sex Male 10:56 AM EDT Gender Identity Male 08/10/2024 3:52 PM EST Sexual Orientation Straight 08/10/2024 3: 52 PM EST documented as of this encounter Plan of Treatment Not on file documented as of this encounter Visit Diagnoses Not on filedocumented in this encounter Care Teams Finance Manager Relationship Specialty Start Date End Date Pcp, Unknown PCP - General 05/31/22 08/09/24 Susy Rashid DO [address] [place] [address] PCP - General Family Medicine 08/10/24 documented as of this encounter Additional Source Comments The information contained in this document represents components of the legal health record. It is not the complete legal health record.[facility]
--- OUTSIDE RECORDS SUMMARY | 2025-05-02 14:37 | XMS_ITS | Patient Health Record ---
Author Organization [facility] Pam deysi Eldred Address [address] [place] [address] Care Team Providers Care Stencil Typist Name Role Phone Susy Rashid Primary Care Provider Troya Desmond Lyman Unavailable [phone] Allergies No Known Allergies Results Component Value Reference Range Notes HEMOGLOBIN A1C (GLYCOHEMOGLO BIN) Reviewed date:12/13/2024 10:40:56 AM Interpretation: Performing Lab: Notes/Report: HEMOGLOBIN A1C % (HH) 6.8 Reason For Referral No Information Medications Medication SIG (Take, Route, Frequency, Duration) Notes Start Date End Date Status traZODone HCl 50 MG 1 tablet at bedtime as needed Orally Once a day Active Furosemide 40 MG 1 tablet Orally Once a day Active NovoLOG Active Vitamin B12 Active Cetirizine HCl 10 MG 1 tablet Orally Once a day Active Calcium + D3 Active Farxiga 10 MG 1 tablet Orally Once a day Active Donepezil HCl 10 MG 1 tablet at bedtime Orally Once a day Active Aspir-81 Active Amiodarone HCl 200 MG 1 tablet Orally Once a day Active Extra Depth Orthopedic Shoes, (1) Pair With (3) Pair Custom Heat Molded Multidensity Innersoles Dx: NIDDM/PVD(E11.51), Hammertoe Foot Deformity(M20.41,M20.42), Preulcerative Skin Lesion(s)(L85.1) Wear Daily; Duration: 365 days 12/13/2024 Active Social History Tobacco Use: Social History Observation Description Date Details (start date - stop date) Never Smoker NA - NA Tobacco use other than smoking: Question Answer Notes Are you an other tobacco user? No Tobacco Control (Standard) Question Answer Notes Tobacco use: Nonsmoker Additional Findings: Tobacco non-user Current no nsmoker AUDIT-C (Standard) Question Answer Notes Did you have a drink containing alcohol in the p ast year? No Points 0 Interpretation Negative Problems Problem Type SNOMED Code ICD Code Onset Dates Problem Status W/U Status Risk Notes Problem Acquired hammer toe of right foot (8391380447674 105) Other hammer toe(s) (acquired), right foot (M20.41) Active confirmed Problem Type 2 diabetes mellitus with peripheral angiopathy (784711359) Type 2 diabetes mellitus with diabetic peripheral angiopathy without gangrene (E11.51) Active confirmed Q7(A), Q8(2B), Q9(1B,2C) Problem Acquired hammer toe of left foot (8272223300400 103) Other hammer toe(s) (acquired), left foot (M20.42) Active confirmed Vital Signs Height 5ft 5in in 12/13/2024 Weight 146 lbs 12/13/2024 BMI 24.29 kg/m2 12/13/2024 Procedures Procedure Date Ordered Date Performed Result Body Sit e 14272-KATLVHD NAIL, 6 OR MORE 12/13/2024 N/A 63958-UTNY SKIN LESIONS, OVER 4 12/13/2024 N/A Encounters Encounter Location Date Provider Diagnosis [facility] [address] [address] 12/13/2024 Desmond Cee Type 2 diabetes mellitus with diabetic peripheral angiopathy without gangrene E11.51 ; Other hammer toe(s) (acquired), right foot M20.41 ; Tinea unguium B35.1 ; Pain in right toe(s) M79.674 ; Pain in left toe(s) M79.675 and Other hammer toe(s) (acquired), left foot M20.42 Assessments Encounter Date Diagnosis (ICD Code) Assessment Notes Treatment Notes Treatment Clinical Notes Section Notes 12/13/2024 Other hammer toe(s) (acquired), right foot (ICD-10 - M20.41) Patient Educated with: DIABETIC FOOT CARE INSTRUCTIONS.p df (DIABETIC FOOT CARE INSTRUCTIONS.p df) 12/13/2024 Type 2 diabetes mellitus with diabetic peripheral angiopathy without gangrene (ICD-10 - E11.51) Q7(A), Q8(2B), Q9(1B,2C) 12/13/2024 Tinea unguium (ICD-10 - B35.1) 12/13/2024 Pain in right toe(s) (ICD-10 - M79.674) 12/13/2024 Pain in left toe(s) (ICD-10 - M79.675) 12/13/2024 Other hammer toe(s) (acquired), left foot (ICD-10 - M20.42) Plan Of Treatment Pending Test Test Name Order Date 40415-UAXQUEE NAIL, 6 OR MORE 12/13/2024 24438-AENF SKIN LESIONS, OVER 4 12/14/19 25 Next Appt Details Provider Name:Desmond Cee , 05/18/2025 04:00:00 PM, [address] [facility], [place] [address], [place], [address], Insurance Providers Payer Name Payer Address Payer Phone Subscriber Number Group Number Insured Name Patient Relationship to Insured Coverage Start Date Coverage End Date [facility] [employer] Claims [address] [place] [id number] Denzel Emerson Self - patient is the insured Medical (General) History Medical History History ICD Code Arthritis asthma Cataracts Diabetic Stroke Pacemaker Surgical History Surgery Date(Month/Year) cardiac pacemeker
--- OUTSIDE RECORDS SUMMARY | 2025-05-02 14:37 | XMS_ITS | Clinical Summary ---
Author Organization [facility] Address [address] [address] Phone Care Team Providers Care Secured Entrance Monitor Name Role Phone Susy Rashid Primary Care Provider [phone] Allergies No known active allergies Medications * This document contains information received from the source organization and may not represent a complete record from that organization. VENTOLIN HFA 90 mcg/actuation inhaler Inhale 2 puffs into the lungs 4 (four) times a day as needed. 2 Active amiodarone (PACERONE) 200 MG tablet Take 200 mg by mouth every morning. 2 Active amitriptyline (ELAVIL) 50 MG tablet Take 50 mg by mouth nightly at bedtime. at bedtime. 2 Active aspirin 81 MG EC tablet Take 81 mg by mouth nightly at bedtime. 2 Active atorvastatin (LIPITOR) 80 MG tablet Take 80 mg by mouth daily. 2 Active calcium carbonate-vitami n D3 1500 mg (600 mg elemental)-400 units per tablet Take 1 tablet by mouth daily. 2 Active cyanocobalamin, vitamin B-12, 1000 MCG tablet Take 1,000 mcg by mouth daily. 2 Active fludrocortisone (FLORINEF) 0.1 mg tablet Take 1 tablet by mouth every morning. 2 Active fluticasone propionate (FLONASE) 50 mcg/actuation nasal spray INHALE 2 SPRAYS IN EACH NOSTRIL ONCE DAILY 2 Active folic acid (FOLVITE) 1 MG tablet Take 1 tablet by mouth daily. 2 Active LANTUS SOLOSTAR U-100 INSULIN 100 unit/mL (3 mL) InPn injection pen Inject 7 Units under the skin daily. 2 Active COMBIVENT RESPIMAT 20-100 mcg/actuation Mist INHALE 1 PUFF 4 TIMES A DAY, MAY TAKE ADDITIONAL PUFFS NEEDED. (MAX OF 6 PUFFS PER DAY) 2 Active pregabalin (LYRICA) 50 MG capsule Take 1 capsule by mouth 3 (three) times a day. 2 Active ANORO ELLIPTA 62.5-25 mcg/actuation diskus inhaler Inhale 1 puff into the lungs daily. 2 Active torsemide (DEMADEX) 20 MG tablet Take 1 tablet (20 mg total) by mouth daily. Torsemide sliding scale 180 tablet 3 2 Active Additional Information Patient not taking.Reported on 08/10/2024 midodrine (PROAMATINE) 10 MG tablet Take 1 tablet (10 mg total) by mouth 3 (three) times a day. 180 tablet 3 2 Active Additional Information Patient not taking.Reported on 08/10/2024 furosemide (LASIX) 40 MG tablet TAKE 1 AND 1/2 TABLETS BY MOUTH IN THE MORNING and TAKE 1 TABLET BY MOUTH EVERYDAY AT NOON Active traZODone (DESYREL) 50 MG tablet Take 1 tablet by mouth nightly at bedtime. 4 Active dapagliflozin propanediol (FARXIGA) 5 mg tablet Take by mouth daily. Active vancomycin 25 mg/mL Soln Place 1 drop into the left eye Every two hours. 8 mL 5 Active tobramycin 13.6 mg/mL Place 1 drop into the left eye Every two hours. 14 mL 5 Active prednisoLONE acetate (PRED FORTE) 1 % ophthalmic suspension Place 1 drop into the left eye 4 (four) times a day. 5 mL 1 5 Active Active Problems Patient Care Coordination No te Formatting of this note migh t be different from the original. Denzel Pendleton has a case technician at [facility] Farzana Russo RN [phone] EXT. [id number] Transportation to medical appointments is coordinated through [facility] His granddaughter, Lula Lee is main source of support [phone] Problem Noted Date Diagnosed Date HF (heart failure) 08/10/2024 Social History Tobacco Use Types Packs/Day Years Used Date Smoking Tobacco: Former Cigarettes Smokeless Tobacco: Never Tobacco Cessation:Counseling Given: Not Answered Alcohol Use Standard Drinks/Week Comments Not Currently 0 (1 standard drink = 0.6 oz pur e alcohol) Education Answer Date Recorded Are you interested in more education? Not on david e 11/30/2022 Are you concerned about learning? Not on file 11/30/2022 No 11/30/2022 No 11/30/2022 Digital Access Answer Date Recorded No 12/29/2022 No 12/29/2022 Reliable internet access at home? Not on file 12/29/2022 Device with a working camera? Not on file Intimate Partner Violence Answer Date R ecorded Are you denied basic needs s uch as food, clothing, or medical care? No 08/10/2024 In the past 12 months have y ou been in a relationship with a person who hurts, threatens, or tries to control you? No 08/10/2024 Are you denied basic needs s uch as food, clothing, or medical care? No 08/10/2024 In the past 12 months have y ou been in a relationship with a person who hurts, threatens, or tries to control you? No 08/10/2024 Sex and Gender Information Value Date Recorded Sex Assigned at Male 08/10/2024 3:52 PM EST Legal Sex Male 10:56 AM EDT Gender Identity Male 08/10/2024 3:52 PM EST Sexual Orientation Straight 08/10/2024 3: 52 PM EST Last Filed Vital Signs Vital Sign Reading Time Taken Comments Blood Pressure 125/59 08/10/2024 4:26 PM EST Pulse 66 08/10/2024 4:26 PM EST Temperature 36.2 C (97.2 F) 08/10/2024 4:26 PM EST Respiratory Rate 18 08/10/2024 4:26 PM EST Oxygen Saturation 97% 08/10/2024 4:26 PM EST Inhaled Oxygen Concentration 2% 08/26/2022 9 :52 AM EST Weight 66.2 kg (146 lb) 08/10/2024 4:26 PM EST Height 165.1 cm (5' 5 ) 08/10/2024 4:26 PM EST Body Mass Index 24.3 08/10/2024 4:26 PM EST Plan of Treatment Health Maintenance Due Date Last Done Comments DEPRESSION SCREENING 1963 SMOKING Hx and SMOKELESS TOBACCO SCREENING 02/08/1964 HEPATITIS C SCREENING 1969 COLOGUARD 02/08/1996 COLONOSCOPY 02/08/1996 COLORECTAL CANCER SCREENING 02/08/1996 FIT TEST 02/08/1996 FOBT 02/08/1996 SIGMOIDOSCOPY 02/08/1996 VIRTUAL COLONOSCOPY 02/08/1996 RSV VACCINE (1 - Risk 60-74 years 1-dose series) 2011 ABDOMINAL AORTIC ANEURYSM (AAA) SCREENING 02/08/2016 ZOSTER VACCINES (2 of 2) 06/18/2022 04/23/2022 ALT LEVEL (ALANINE AMINOTRANSFERASE) 06/21/2023 06/21/2022 TSH LEVEL 06/21/2023 06/21/2022 INFLUENZA VACCINE (#1) 2025 , 04/23/2022, 05/07/2020, Additional history exists COVID-19 VACCINE ( season) 2025 12/10/2021, 07/09/2021, 10/25/2020 Adult Td,Tdap Booster 06/12/2025 06/12/2015, 002 LIPID PANEL 11/07/2027 11/06/2022 PNEUMOCOCCAL VACCINES (50+ years) Completed 02/23/2021, 09/11/2016, 06/12/2015, Additional history exists HEPATITIS A VACCINES Aged Out No long er eligible based on patient's age to complete this topic HIB VACCINES Aged Out No longer eligi ble based on patient's age to complete this topic MENINGOCOCCAL VACCINES (ACWY) Aged Out No longer eligible based on patient's age to complete this topic MENINGOCOCCAL VACCINES (B) Aged Out N o longer eligible based on patient's age to complete this topic Medical Devices Implanted Type Area Basket Machine Operator Device Identifier Shelf Expiration Date Model / Serial / Lot Sensor Pulmonary Artery Delivery System Cardiomems - Sxchzur Implanted:Qty : 1 on 08/26/2022 by Abraham Anderson DO at [facility] Implantable Monitor Left: Vein [employer] [id number] 05/07/2024 CM PATIENT SYSTEM / [id number] / Description:pulmonary vein l eft side Pacemaker-04/04 Implanted: (Quantity not on file) Pacemaker Procedures Procedure Name Priority Date/Time Associated Diagnosis Comments TSH Routine 06/21/2022 10:09 AM EST Heart failure with reduced ejection fraction Type 2 diabetes mellitus with hyperosmolarity without coma, with long-term current use of insulin CKD (chronic kidney disease) stage 4, GFR 15-29 ml/min COMPREHENSIVE METABOLIC PANEL Routine 06/21/2022 10:09 AM EST Heart failure with reduced ejection fraction Type 2 diabetes mellitus with hyperosmolarity without coma, with long-term current use of insulin CKD (chronic kidney disease) stage 4, GFR 15-29 ml/min from Last 3 Months or Most Recently Relevant to Health Maintenance Results * (ABNORMAL) Comprehensive metabolic panel (06/21/2022 10:09 AM EST) SODIUM 144 135 - 145 mmol/L [facility] POTASSIUM 3.2(L) 3.4 - 5.0 mmol/L [facility] CHLORIDE 106 98 - 108 mmol/L [facility] CO2 27 23 - 32 mmol/L [facility] BUN 15 8 - 25 mg/dL [facility] CREATININE 1.80(H) 0.60 - 1.50 mg/dL [facility] GLUCOSE 115(H) 70 - 110 mg/dL [facility] ALBUMIN 4.0 3.3 - 5.0 g/dL [facility] TOTAL PROTEIN 6.8 6.0 - 8.3 g/dL [facility] CALCIUM 9.4 8.5 - 10.5 mg/dL [facility] ALKALINE PHOSPHATASE 135(H) 45 - 115 U/L [facility] TOTAL BILIRUBIN 0.7 0.0 - 1.0 mg/dL [facility] AST 17 10 - 40 U/L [facility] ALT 14 10 - 55 U/L [facility] GLOBULIN 2.8 1.9 - 4.1 g/dL [facility] EGFR 40(L) >59 mL/min/1. 73m2 [facility] Comment:Estimated glomerular filtration rate calculated using the CKD-EPI refit equation. ANION GAP 11 3 - 17 mmol/L [facility] 06/21/2022 10:0 9 AM EST 06/21/2022 11:41 AM EST us Bhargavi Ruiz MD, PhD LAB BLOOD ORDERABLES Maria T l Result [address] [address] * TSH (06/21/2022 10:09 AM EST) TSH 3.19 0.40 - 5.00 uIU/mL [facility] 06/21/2022 10:0 9 AM EST 06/21/2022 11:46 AM EST us Bhargavi Ruiz MD, PhD LAB BLOOD ORDERABLES Maria T l Result Performing Organization Address [facility] Co de Phone Number [address] [address] from Last 3 Months or Most Recently Relevant to Health Maintenance Insurance MEDICARE REPLACEMENT SUJATHA PEREZ [id number] MEDICARE REPLACEMENT [facility] MEDICARE REPLACEMENT Advance Directives For more information, please contact: [phone] (9AM - 5PM [facility], Friday-Friday) * Full Code (Latest Code Status on File) Date Activated Date Inactivated Comments 08/26/2022 7:09 AM Question Answer Comments Code Status Confirmed With: Other (specify below ) Code Discussion Comments: Transcribed from the o rder Care Teams Secured Entrance Monitor Relationship Specialty Start Date End Date Susy Rashid DO [address] [place] [address] PCP - General Family Medicine 08/10/24 Additional Source Comments The information contained in this document represents components of the legal health record. It is not the complete legal health record.[facility]
--- OUTSIDE RECORDS SUMMARY | 2025-05-02 14:37 | XMS_ITS | Encounter Summary ---
Author Organization [facility] Address [address] [place] [address] Phone Care Team Providers Care Ripshear Operator Name Role Phone Pcp, Unknown Primary Care Provider Susy Hahn DO Primary Care Provider Encounter Details Date Type Department Care Team (Late st Contact Info) Description 06/05/2022 Telephone [facility] Heart Failure & Transplantation [address] 5th [address], [address] [place] [address] Jaden Hanna MD [address] [facility] [address] [place] [address] [email or web address] Social History Tobacco Use Types Packs/Day Years Used Date Smoking Tobacco: Never Assessed Sex and Gender Information Value Date Recorded Sex Assigned at Male 08/10/2024 3:52 PM EST Legal Sex Male 10:56 AM EDT Gender Identity Male 08/10/2024 3:52 PM EST Sexual Orientation Straight 08/10/2024 3: 52 PM EST documented as of this encounter Plan of Treatment Not on file documented as of this encounter Visit Diagnoses Not on filedocumented in this encounter Care Teams Ripshear Operator Relationship Specialty Start Date End Date Pcp, Unknown PCP - General 05/31/22 08/09/24 Susy Rashid DO [address] [place] [address] PCP - General Family Medicine 08/10/24 documented as of this encounter Additional Source Comments The information contained in this document represents components of the legal health record. It is not the complete legal health record.[facility]
--- OUTSIDE RECORDS SUMMARY | 2025-05-02 14:37 | XMS_ITS | Encounter Summary ---
Author Organization [facility] Address [address] [facility] [address] [place] [address] Phone Care Team Providers Care Putty Mixer Name Role Phone Susy Rashid DO Primary Care Provider Encounter Details Date Type Department Care Team (Late st Contact Info) Description 08/10/2024 Ophth Exam [facility] Emergency Department [address] [place] [address] Es Lainez MD [address] [place] [address] [email or web address] Social History Tobacco Use Types Packs/Day Years [...] PM EST documented as of this encounter Functional Status * Calculated C-SSRS Risk Score (Lifetime/Recent) Answer Date of Assessment Author No Risk Indicated 08/10/2024 4:24 PM Monica Medina RN * [place] Suicide Severity Rating Scale (Screener/Recent Self-Report) Question Answer Date of Assessment Author 1. Wish to be (Past 1 Month) No 08/10/2024 4:24 PM Monica Medina RN 2. Non-Specific Active Suicidal Thoughts (Past 1 Month) No 08/10/2024 4:24 PM Monica Medina RN 6. Suicidal Behavior (Lifetime) No 08/10/2024 4:24 PM Monica Medina RN documented as of this encounter Plan of Treatment Not on file documented as of this encounter Visit Diagnoses Not on filedocumented in this encounter Care Teams Putty Mixer Relationship Specialty Start Date End Date Susy Rahsid DO [address] [place] [id number] PCP - General Family Medicine 08/10/24 documented as of this encounter Additional Source Comments The information contained in this document represents components of the legal health record. It is not the complete legal health record.[facility]
[2025-05-02 14:52] LABS: Total Volume 24 Hour Urine 925 mL
[2025-05-10 21:06] LABS: Calcium/Creatinine Ratio 33 mg/g creat (30-210); Creatinine 24Hr Urine 0.90 g/24 h (0.50-2.15)
== END 2025-05-02 13:15 | disposition home or self-care (01) ==
LOC: HO.LNP 13:14
PROVIDERS: Visit Provider Internal Medicine Endocrinology, Diabetes & Metabolism
DX: M81.0 Age-related osteoporosis without current pathological fracture (principal)
CPT/HCPCS: 82340; 82570

== ENCOUNTER 2025-05-09 10:52 | Outpatient (AMB) | payer OTHER, SELFPAY ==
--- OUTSIDE RECORDS SUMMARY | 2025-03-16 06:30 | XMS_ITS ---
Author Organization [facility] Address [address] [place] [address] Care Team Providers Care Transporter Radiology Name Role Phone Susy Rashid Primary Care Provider UnavailDesmond Marroquin Unavailable [phone] Bess Encounters Encounter Location Date Provider Diagnosis [address] [address] 03/16/2025 Desmond Cee Plan Of Treatment Next Appt Details Provider Name:Desmond Cee , 05/18/2025 04:00:00 PM, [address] [place] [address], [phone], Progress Notes * Denzel PENDLETONDOB: [birth year] (75 yo M)Acc No.[id number]:03/16/2025 Progress Note Patient: Jose LO Denzel Provider: Ford Cee DPM :1950 A ge:75 Y S ex:Male Date:03/16/2025 Address:[address] [place] [address] Pcp:Susy Rashid Subjective: * Chief Complaints: * [address] Bess[address] * Medical History: Objective: * Vitals: Assessment: Plan: * Treatment: * Images: * The named appointment provid er may or may not be the originator of this progress note, and it is not deemed complete until electronically signed by the appointment provider. Sign off status: Pending * Provider: Ford Cee DPM Date: 0 03/16/2025 Generated for Yolanda Rubi on: 01:14 PM EDT
[2025-05-09 10:54] VITALS: BP 110/58; PULSE 64; O2SAT 95; BMI 26.4
--- NOTE | 2025-05-09 10:54 | A.OFFVIS_ITS ---
Vital Signs 05/09/25 10:54 Height 5 ft 5 in Weight 158 lb 11.725 oz BMI 26.4 BP 110/58 L Blood Pressure Location Rt brachial Position Sitting Pulse 64 Pulse Source Pulse Oximeter Pulse Oximetry (%) 95 Oxygen Delivery Method Room Air Intake Visit Reasons: f/u osteoporosis Intake Note: Patient present today for Osteoporosis office visit. Electrician Supervisor Required: Yes Electrician Supervisor Language: Kennel Operator Services: Electrician Supervisor Offered & Declined Accompanied by: Grand Child Allergies valsartan (Diovan) Allergy (Unknown, Verified 05/09/25 10:58) Unknown simvastatin Adverse Reaction (Unknown, Verified 05/09/25 10:58) increased liver enzymes Medication List - Last Reconciled 05/09/25 by Dmitriy Varma MD acetaminophen (Pain Relief Extra Strength (acetaminophen)) 500 mg PO Q6H PRN albuterol sulfate 90 mcg/actuation 2 puffs PO Q4-6H PRN albuterol sulfate 2.5 mg inhalation Q4H PRN albuterol sulfate 90 mcg/actuation 2 inhalations inhalation Q6H PRN 30 days amiodarone 1 tab PO DAILY aspirin 1 tab PO BEDTIME atorvastatin 80 mg PO DAILY blood sugar diagnostic (FreeStyle Lite Strips) As directed budesonide 0.5 mg inhalation BID calcium carbonate-vitamin D3 600 mg-10 mcg (400 unit) 1 tab PO DAILY cyanocobalamin (vitamin B-12) 1,000 mcg PO DAILY dapagliflozin propanediol (Farxiga) 5 mg PO DAILY docusate sodium 100 mg PO BID PRN donepezil 5 mg PO BEDTIME furosemide 40 mg PO DAILY@1200 glycopyrrolate-formoterol 9-4.8 mcg (Bevespi Aerosphere) 2 puffs inhalation Q12H 30 days insulin aspart U-100 (Novolog FlexPen U-100 Insulin aspart) 1 sliding scale dose subcut USEASDIRECTD insulin glargine (Lantus U-100 Insulin) 4 units subcut QAM lancets (TRUEplus Lancets) As directed nebulizers As directed pen needle, diabetic (BD Ultra-Fine Vidya Pen Needle) As directed pregabalin 50 mg PO TID trazodone 50 mg PO BEDTIME HPI Comments Details: The patient is a 75-year-old male presenting with osteoporosis. This condition was recently diagnosed, and this visit hernandez the patient's first specialist evaluation. He has no prior history of fractures, height loss, kidney stones, or family history of osteoporosis. He attends regular dental appointments and is planning for extractions. His bone mineral density test shows a T-score of negative 2.5, fitting the criteria for osteoporosis. The patient is under the care of a lumber stacker due to chronic kidney disease and is not on osteoporosis- specific treatment. . The patient maintains a non-active lifestyle without weightbearing exercises and abstains from smoking and heavy alcohol consumption. First diagnosed in newly diagnosed .Not seen specialist before . Sees Dr. Rinaldi for nephrology . Has appt in 03/2025 No history of pathologic fracture or ONJ. Has several servings of dietary calcium per day in the form of cheese, ice cream . Takes Calcium supplement 600 mg daily in divided doses. Takes 400 IU of Vitamin D daily. The patient's diet includes limited intake of dairy products, with primary consumption of cheese and occasional ice cream. He does not drink milk or eat yogurt and supplements his diet with calcium and vitamin D. Denies ever using PPI, anticoagulant, antiepileptic or glucocorticoid medicati on. Not Does weight bearing exercise Fracture history: None Height loss: No Denies history of Kidney stones: Denies family history of Osteoporosis or hip fracture. UTD on dental cleanings and sees dentist every 6 months. Has planned upcoming dental work with extractions. No tabaco use or heavy ETOH use DXA dated 12/01/24 :FINDINGS: The bone mineral density of the lumbar spine is 1.413 with a T-score of 1.7, and a Z-score of 2.6. This is indicative of normal bone mineral density. This represents a BMD change of -6.9% compared to the prior exam. This is statistically significant. The bone mineral density of the left total hip is 0.826 with a T-score of -1.9, and a Z-score of -0.9. This is indicative of osteopenia. This represents a BMD change of -8.3% compared to the prior exam. This is statistically significant. The bone mineral density of the left femoral neck is 0.741 with a T-score of -2.5, and a Z-score of -1.0. This is indicative of osteoporosis. This represents a BMD change of -8.4% compared to the prior exam. MM/XR DEXA axial skeleton IMPRESSION: Based on bone mineral density, and according to World Health Organization (WHO) criteria, the diagnosis is consistent with osteoporosis. Labs: [facility] Medical History (Updated 01/05/25 @ 10:48 by Dmitriy Varma MD) Osteoporosis Pleural effusion due to congestive heart failure Dyspnea Parkinson disease Diabetes GERD (gastroesophageal reflux disease) Hx of ventricular tachycardia Cardiomyopathy Pacemaker Hx of gastritis Spondylosis Chronic renal insufficiency Back pain COPD (chronic obstructive pulmonary disease) Elevated cholesterol CHF (congestive heart failure) CAD (coronary artery disease) HTN (hypertension) Surgical History Hx of colonoscopy H/O cystoscopy Hx of right inguinal hernia repair AICD (automatic cardioverter/defibrillator) present Family History Mother No known health problems Father No known health problems Social History Household Members: Spouse Housing: Apartment Do you presently have visiting nurse or other home services: Yes Alcohol intake: never Patient Tobacco Use Status: Former Tobacco user Second Hand Smoke Exposure: No service: No Current occupational status: disabled Physical Exam Vital Signs: Last Vital Signs Pulse 64 05/09/25 10:54 BP 110/58 L 05/09/25 10:54 Pulse Ox 95 05/09/25 10:54 Oxygen Delivery Method Room Air 05/09/25 10:54 BMI result Body Mass Index 26.4 Assessment & Plan Assessment & Plan (1) Osteoporosis: Code(s): M81.0 - Age-related osteoporosis without current pathological fracture Category: Medical Plan: This is a 75-year-old male with a history of borderline osteoporosis in the setting of CKD stage 4. Secondary workup has been negative Will have patient follow up with Nephrology to optimize CKD-BMD. At this point, would hold off on giving any anti resorptive therapy beyond calcium and vitamin-D. We will obtain office visit notes from Dr. Rinaldi Nephrology. Coding Level of Care Code Est Pt Level 3 (34448) Diagnoses Osteoporosis M81.0
--- OUTSIDE RECORDS SUMMARY | 2025-05-09 13:14 | XMS_ITS | Encounter Summary ---
Author Organization [facility] [employer] Address [address] [facility] [address] [place] [address] Care Team Providers Care Green End Man Name Role Phone Susy Rashid DO Primary Care Provider [phone] Reason for Visit * Reason Onset Date Comments Prior Authorization 05/09/2025 Encounter Details Date Type Department Care Team ([facility] Contact Info) Description 05/09/2025 Telephone [facility] MEDICINE [address] [place], [place] [phone] Susy Rashid DO [address] [place] [address] Prior Authorization Social History Tobacco Use Types Packs/Day Years Used Date Smoking Tobacco: Former Cigarettes Passive Smoke Exposure: Never Smokeless Tobacco: Never Comments:Stop 10 years ago Alcohol Use Standard Drinks/Week Comments Never 0 (1 standard drink = 0.6 oz pur e alcohol) Depression Answer Date Recorded Patient Health Questionnaire-9 Score 1 03/18/2025 Patient Health Questionnaire-9 Score 1 03/18/2025 Last PHQ-9: Questionnaire Data Not on file 0 03/18/2025 Housing Stability Answer Date Recorded What is your housing situation today? I have mago sarabia 03/18/[address] you li ve. Do you have problems with any of the following? None of the above 03/18/2025 Food Insecurity Answer Date Recorded Within the past 12 months, y ou worried that your food would run out before you got money to buy more: Never True 03/18/2025 Within the past 12 months,th e food you bought just didn't last and you didn't have enough money to get more: Never True Transportation Answer Date Recorded In the past 12 months, has l ack of transportation kept you from medical appts, meetings, work or from getting things needed for daily living? No 03/18/2025 Utilities Answer Date Recorded In the past 12 months, has t he electric, gas, oil or water company threatened to shut off services in your home? No 03/18/2025 Depression Answer Date Recorded Patient Health Questionnaire-2 Score 0 03/18/2025 Internet Access Answer Date Recorded Internet Access Q1 No 03/18/2025 Internet Access Q2 I do not want or need it 03/04 Sex and Gender Information Value Date Recorded Sex Assigned at Male 06/03/2022 10:16 AM EDT Legal Sex Male 10:16 AM EDT Gender Identity Male 06/03/2022 10:16 AM EDT Sexual Orientation Straight 06/03/2022 10 :16 AM EDT documented as of this encounter Miscellaneous Notes * Telephone Encounter - Hilton Carrizales - 05/09/2025 10:12 AM EDT PA needed for Continuous Glucose Sensor (FreeStyle Simón 3 Plus Sensor) misc documented in this encounter Plan of Treatment Not on file documented as of this encounter Visit Diagnoses Not on filedocumented in this encounter Additional Health Concerns Assessment Noted Time PHQ-9 Depression Total Score: 1 03/18/20 25 10:46 AM EDT documented as of this encounter Care Teams Green End Man Relationship Specialty Start Date End Date Susy Rashid DO [address] [place] [id number] PCP - General Family Medicine 07/16/12 documented as of this encounter
--- OUTSIDE RECORDS SUMMARY | 2025-05-09 13:14 | XMS_ITS | Encounter Summary ---
Author Organization [facility], Address [address] [place] [address] Phone Care Team Providers Care Fire Information Officer Name Role Phone KristySusy mae Primary Care Provider Unava ilable Encounter Details Date Type Department Care Team (Late Contact Info) Description 06/24/2022 Office Communication [facility] [address] [address] Alek Rinaldi MD [address] [facility] [place] [address] Social History Tobacco Use Types Packs/Day Years [...] documented in this encounter Plan of Treatment Upcoming Encounters Date Type Department Care Team (Late Contact Info) Description 10/18/2025 1:45 PM EDT Office Visit [facility] [address] [place] [address] Alek Rinaldi MD [address] [facility] [place] [address] documented as of this encounter Visit Diagnoses Not on filedocumented in this encounter Care Teams Fire Information Officer Relationship Specialty Start Date End Date Susy Rashid DO PCP - General 06/08/19 documented as of this encounter
--- OUTSIDE RECORDS SUMMARY | 2025-05-09 13:14 | XMS_ITS | Encounter Summary ---
Author Organization [employer] Address [address] [facility] 7t [place] [address] Care Team Providers Care Cavalry Scout Name Role Phone Susy Rashid DO Primary Care Provider [phone] Reason for Visit * Reason Onset Date Comments Call Back Request 06/09/2023 Encounter Details Date Type Department Care Team ([facility] Contact Info) Description 06/09/2023 Telephone [facility] MEDICINE [address] [place], [place] [phone] Susy Rashid DO 230 [place], [place] [phone] Call Back Request Social History Tobacco Use [...] PM EST Tc from robert with chloé huerta requesting a call in regards to orders. States they received recent orders but have yet to receive the older ones and would like to know why they have not been signed. Please contact robert at [phone] documented in this encounter Plan of Treatment Not on file documented as of this encounter Visit Diagnoses Not on filedocumented in this encounter Additional Health Concerns Assessment Noted Time PHQ-9 Depression Total Score: 2 10/25/19 23 12:24 PM EDT documented as of this encounter Care Teams Cavalry Scout Relationship Specialty Start Date End Date Susy Rashid DO [address] [place] [address] PCP - General Family Medicine 07/16/12 documented as of this encounter
--- OUTSIDE RECORDS SUMMARY | 2025-05-09 13:14 | XMS_ITS | Encounter Summary ---
Author Organization [facility] [place], Address [address] [place] [address] Phone Care Team Providers Care Doctor Of Dental Surgery Name Role Phone Susy Rashid DO Primary Care Provider Unava ilable Encounter Details Date Type Department Care Team (Late Contact Info) Description 11/16/2024 Documentation Only [facility] [address] [place] [address] Marbella Kumar [address] [place] [address] Social History Tobacco Use Types [...] as of this encounter Plan of Treatment Upcoming Encounters Date Type Department Care Team (Late Contact Info) Description 10/18/2025 1:45 PM EDT Office Visit [facility] [address] [place] [address] Alek Rinaldi MD [address] [place] [address] [place] [address] documented as of this encounter Visit Diagnoses Not on filedocumented in this encounter Care Teams Doctor Of Dental Surgery Relationship Specialty Start Date End Date Susy Rashid DO PCP - General 06/08/19 documented as of this encounter
--- OUTSIDE RECORDS SUMMARY | 2025-05-09 13:14 | XMS_ITS | Encounter Summary ---
Author Organization [employer] Address [address] [facility] 7t [place] [address] Care Team Providers Care Keyboard Specialist Name Role Phone Susy Rashid DO Primary Care Provider [phone] Encounter Details Date Type Department Care Team ([facility] Contact Info) Description 06/24/2023 Orders Only [facility] MEDICINE [address] [place] [address] Susy Rashid DO 230 [place], [place] [phone] Social History Tobacco Use Types Packs/Day Years [...] documented as of this encounter Care Teams Keyboard Specialist Relationship Specialty Start Date End Date Susy Rashid DO [address] [place] [address] PCP - General Family Medicine 07/16/12 documented as of this encounter
--- OUTSIDE RECORDS SUMMARY | 2025-05-09 13:14 | XMS_ITS | Encounter Summary ---
Author Organization [employer] Address [address] [facility] 7t [place] [address] Care Team Providers Care Sign Artist Name Role Phone Susy Rashid DO Primary Care Provider Encounter Details Date Type Department Care Team ([facility] Contact Info) Description 01/29/2023 Abstract [facility] [address] [place] [address] Susy Rashid DO [address] [place] [address] Social History Tobacco Use Types Packs/Day Years [...] documented as of this encounter Care Teams Sign Artist Relationship Specialty Start Date End Date Susy Rashid DO [address] [place] [address] PCP - General Family Medicine 07/16/12 documented as of this encounter
--- OUTSIDE RECORDS SUMMARY | 2025-05-09 13:14 | XMS_ITS | Encounter Summary ---
Author Organization [employer] Address [address] [facility] 7t [place] [address] Care Team Providers Care Manager Of Patient Name Role Phone Susy Rashid DO Primary Care Provider + [phone] Reason for Visit * Reason Comments Med Refill Encounter Details Date Type Department Care Team ([facility] Contact Info) Description 05/06/2025 Refill [facility] MEDICINE [address] [place], [place] [phone] Susy Rashid DO 230 [place], [place] [phone] Social History Tobacco Use Types Packs/Day Years [...] documented as of this encounter Care Teams Manager Of Patient Relationship Specialty Start Date End Date Susy Rashid DO [address] [place] [address] PCP - General Family Medicine 07/16/12 documented as of this encounter
--- OUTSIDE RECORDS SUMMARY | 2025-05-09 13:14 | XMS_ITS | Patient Health Record ---
Author Organization [facility] Pam deysi [place] Address [address] [facility] [place] [address] Care Team Providers Care Educational Interpreter Name Role Phone Susy Rashid Primary Care Provider Troya Desmond Lyman Unavailable [phone] Allergies No Known Allergies Results Component Value [...] Problem Acquired hammer toe of right foot (4640920292293 105) Other hammer toe(s) (acquired), right foot (M20.41) Active confirmed Problem Type 2 diabetes mellitus with peripheral angiopathy (438247322) Type 2 diabetes mellitus with diabetic peripheral angiopathy without gangrene (E11.51) Active confirmed Q7(A), Q8(2B), Q9(1B,2C) Problem Acquired hammer toe of left foot (8305901708555 103) Other hammer toe(s) (acquired), left foot (M20.42) Active confirmed Vital Signs Height 5ft 5in in 12/13/2024 Weight 146 lbs 12/13/2024 BMI 24.29 kg/m2 12/13/2024 Procedures Procedure Date Ordered Date Performed Result Body Sit e [id number] NAIL, 6 OR MORE 12/13/2024 N/A [id number] SKIN LESIONS, OVER 4 12/13/2024 N/A Encounters Encounter Location Date Provider Diagnosis [facility] [address] [address] 12/13/2024 Desmond Cee Type 2 diabetes mellitus [...] Treatment Pending Test Test Name Order Date [id number] NAIL, 6 OR MORE 12/13/2024 53950-IGIV SKIN LESIONS, OVER 4 12/14/19 25 Next Appt Details Provider Name:Desmond Cee , 05/18/2025 04:00:00 PM, [address] [facility], [place] [address], [place], [address], Insurance Providers Payer Name Payer Address Payer Phone Subscriber Number Group Number Insured Name Patient Relationship to Insured Coverage Start Date Coverage End Date [facility] [employer] Claims [address] SUJATHA Mckeon [id number] Denzel Emerson Self - patient is the insured Medical (General) History Medical History History ICD Code Arthritis asthma Cataracts Diabetic Stroke Pacemaker Surgical History Surgery Date(Month/Year) cardiac pacemeker
--- OUTSIDE RECORDS SUMMARY | 2025-05-09 13:14 | XMS_ITS | Encounter Summary ---
Author Organization [employer] Address [address] [facility] 7t [place] [address] Care Team Providers Care Brick Off Bearer Name Role Phone Susy Rashid DO Primary Care Provider [phone] Encounter Details Date Type Department Care Team ([facility] st Contact Info) Description 08/15/2022 Orders Only [facility] [address] [place], [place] [phone] Susy Ayala LPN Social History Tobacco Use [...] on filedocumented in this encounter Care Teams Brick Off Bearer Relationship Specialty Start Date End Date Susy Rashid DO 230 [place] [address] PCP - General Family Medicine 07/16/12 documented as of this encounter
--- OUTSIDE RECORDS SUMMARY | 2025-05-09 13:14 | XMS_ITS | Encounter Summary ---
Author Organization [facility] [place], Address [address] [place] [address] Phone Care Team Providers Care Ground Helper Street Railway Name Role Phone Susy Rashid DO Primary Care Provider Unava ilable Encounter Details Date Type Department Care Team (Late Contact Info) Description 08/07/2021 Documentation Only [facility] [address] [place] [address] Alek Rinaldi MD [address] [facility] [place] [place] [address] Social History Tobacco Use Types [...] Encounters Date Type Department Care Team (Late st Contact Info) Description 10/18/2025 1:45 PM EDT Office Visit [facility] [address] [place] [address] Alek Rinaldi MD [address] [facility] [place] [place] [address] documented as of this encounter Visit Diagnoses Not on filedocumented in this encounter Care Teams Ground Helper [address] Railway Relationship Specialty Start Date End Date Susy Rashid DO PCP - General 06/08/19 documented as of this encounter
--- OUTSIDE RECORDS SUMMARY | 2025-05-09 13:14 | XMS_ITS | Encounter Summary ---
Author Organization [facility] Address [address] [facility] [address] [place] [address] Phone Care Team Providers Care Food And Nutrition Services Assistant Name Role Phone Susy Rashid DO Primary Care Provider Encounter Details Date Type Department Care Team (Late st Contact Info) Description 08/10/2024 Ophth Exam [facility] [address] [place] [address] Es Lainez MD [address] [place] [address] [email or web address] Social History Tobacco Use Types Packs/Day Years [...] 08/10/2024 4:24 PM Monica Medina RN * [place] Suicide Severity Rating Scale (Screener/Recent Self-Report) Question [...] on filedocumented in this encounter Care Teams Food And Nutrition Services Assistant Relationship Specialty Start Date End Date Susy Rashid DO [address] [place] [address] PCP - General Family Medicine 08/10/24 documented as of this encounter Additional Source Comments The information contained in this document represents components of the legal health record. It is not the complete legal health record.[facility]
--- OUTSIDE RECORDS SUMMARY | 2025-05-09 13:14 | XMS_ITS | Encounter Summary ---
Author Organization [facility] [place], Address [address] [place] [address] Phone Care Team Providers Care Greens Planter Name Role Phone Susy Rashid DO Primary Care Provider Unava ilable Encounter Details Date Type Department Care Team (Late st Contact Info) Description 02/18/2023 Documentation Only [facility] [address] [facility] [place] [address] Leander Fernández PA [address] [place] [place] [address] Social History Tobacco Use Types Packs/Day Years [...] Visit [facility] [address] [place] [address] Alek Rinaldi MD [address] [facility] [place] [address] documented as of this encounter Visit Diagnoses Not on filedocumented in this encounter Care Teams Greens Planter Relationship Specialty Start Date End Date Susy Rashid DO PCP - General 06/08/19 documented as of this encounter
--- OUTSIDE RECORDS SUMMARY | 2025-05-09 13:14 | XMS_ITS | Encounter Summary ---
Author Organization [facility] [place], Address [address] [place] [address] Phone Care Team Providers Care Document Preparer Microfilming Name Role Phone Susy Rashid DO Primary Care Provider Unava ilable Encounter Details Date Type Department Care Team (Late st Contact Info) Description 02/18/2023 Documentation Only [facility] [address] [address] Leander Fernández PA [address] [place] [address] Social History Tobacco Use Types [...] Visit [facility] [address] [place] [address] Alek Rinaldi MD [address] [facility] [place] [place] [address] documented as of this encounter Visit Diagnoses Not on filedocumented in this encounter Care Teams Document Preparer Microfilming Relationship Specialty Start Date End Date Susy Rashid DO PCP - General 06/08/19 documented as of this encounter
--- OUTSIDE RECORDS SUMMARY | 2025-05-09 13:14 | XMS_ITS | Clinical Summary ---
Author Organization [facility] Address [address] [address] Phone Care Team Providers Care Interpreter Deaf Name Role Phone Susy Rashid Primary Care Provider [phone] Allergies No known active allergies Medications * [...] from the original. Denzel Pendleton has a director case at [facility] Farzana Russo RN [phone] EXT. [phone] Transportation to medical appointments is coordinated through [facility] His granddaughter, Lula Lee is main source of support [phone] Problem Noted Date Diagnosed Date HF (heart [...] COLONOSCOPY 02/08/1996 RSV VACCINE (1 - Risk 50-74 years 1-dose series) 2001 ABDOMINAL AORTIC ANEURYSM (AAA) SCREENING 02/08/2016 ZOSTER [...] this topic Medical Devices Implanted Type Area Barrel Bridge Assembler Device Identifier Shelf Expiration Date Model / Serial / Lot Sensor Pulmonary Artery Delivery System Cardiomems - Sxchzur Implanted:Qty : 1 on 08/26/2022 by Abraham Anderson DO at [facility] Implantable Monitor Left: Vein [employer] [id number] 05/07/2024 CM PATIENT SYSTEM / XCHZUR / [...] EST) SODIUM 144 135 - 145 mmol/L [facility] POTASSIUM 3.2(L) 3.4 - 5.0 mmol/L [facility] CHLORIDE 106 98 - 108 mmol/L [facility] CO2 27 23 - 32 mmol/L [facility] BUN 15 8 - 25 mg/dL [facility] CREATININE 1.80(H) 0.60 - 1.50 mg/dL [facility] GLUCOSE 115(H) 70 - 110 mg/dL [facility] ALBUMIN 4.0 3.3 - 5.0 g/dL [facility] TOTAL PROTEIN 6.8 6.0 - 8.3 g/dL [facility] CALCIUM 9.4 8.5 - 10.5 mg/dL [facility] ALKALINE PHOSPHATASE 135(H) 45 - 115 U/L [facility] TOTAL BILIRUBIN 0.7 0.0 - 1.0 mg/dL [facility] AST 17 10 - 40 U/L [facility] ALT 14 10 - 55 U/L [facility] GLOBULIN 2.8 1.9 - 4.1 g/dL [facility] EGFR 40(L) >59 mL/min/1. 73m2 [facility] Comment:Estimated glomerular filtration rate calculated using the CKD-EPI refit equation. ANION GAP 11 3 - 17 mmol/L [facility] 06/21/2022 10:0 9 AM EST 06/21/2022 11:41 AM EST us Bhargavi Ruiz MD, PhD LAB BLOOD ORDERABLES Maria T l Result [address] [address] * TSH (06/21/2022 10:09 AM EST) TSH 3.19 0.40 - 5.00 uIU/mL [facility] 06/21/2022 10:0 9 AM EST 06/21/2022 11:46 AM EST us Bhargavi Ruiz MD, PhD LAB BLOOD ORDERABLES Maria T l Result Performing Organization Address [facility] Co de Phone Number [address] [address] from Last 3 Months or Most Recently Relevant to Health Maintenance Insurance MEDICARE REPLACEMENT SUJATHA PEREZ [id number] MEDICARE REPLACEMENT [facility] SCO MEDICARE REPLACEMENT Advance Directives For more information, please contact: [phone] (9AM - 5PM [facility], Friday-Friday) * Full Code (Latest Code Status on File) Date Activated Date Inactivated Comments 08/26/2022 7:09 AM Question Answer Comments Code Status Confirmed With: Other (specify below ) Code Discussion Comments: Transcribed from the o rder Care Teams Interpreter Deaf Relationship Specialty Start Date End Date Susy Rashid DO [address] [place] [address] PCP - General Family Medicine 08/10/24 Additional Source Comments The information contained in this document represents components of the legal health record. It is not the complete legal health record.[facility]
--- OUTSIDE RECORDS SUMMARY | 2025-05-09 13:14 | XMS_ITS | Encounter Summary ---
Author Organization [facility] Address [address] [place] [address] Phone Care Team Providers Care Drop Board Worker Name Role Phone Pcp, Unknown Primary Care Provider Susy Hahn DO Primary Care Provider Encounter Details Date Type Department Care Team (Late st Contact Info) Description 06/05/2022 Telephone [facility] Heart Failure & Transplantation [address] [facility], 5th Floor, [address] [place] [address] Jaden [facility]anna MD [address] [facility] [address] [place] [address] [email or web address] Social History Tobacco Use Types Packs/Day Years [...] on filedocumented in this encounter Care Teams Drop Board Worker Relationship Specialty Start Date End Date Pcp, Unknown PCP - General 05/31/22 08/09/24 Susy Rashid DO [address] [place] [address] PCP - General Family Medicine 08/10/24 documented as of this encounter Additional Source Comments The information contained in this document represents components of the legal health record. It is not the complete legal health record.[facility]
--- OUTSIDE RECORDS SUMMARY | 2025-05-09 13:14 | XMS_ITS | Encounter Summary ---
Author Organization [employer] Address [address] [facility] 7t [place] [address] Care Team Providers Care Rapier Insertion Loom Fixer Name Role Phone Susy Rashid DO Primary Care Provider + [phone] Reason for Visit * Reason Comments Med Refill Encounter Details Date Type Department Care Team ([facility] Contact Info) Description 04/07/2024 Refill [facility] [address] [place], [place] [phone] Susy Rashid DO 230 [place] [address] Neuropathy Social History Tobacco Use Types Packs/Day [...] documented as of this encounter Care Teams Rapier Insertion Loom Fixer Relationship Specialty Start Date End Date Susy Rashid DO [address] [place] [address] PCP - General Family Medicine 07/16/12 documented as of this encounter
--- OUTSIDE RECORDS SUMMARY | 2025-05-09 13:14 | XMS_ITS | Encounter Summary ---
Author Organization [employer] [facility] Address [address] [facility] 7t [place] [address] Care Team Providers Care Flange Turner Name Role Phone Susy Rashid DO Primary Care Provider [phone] Reason for Visit * Reason Onset Date Comments Med Refill 09/16/2022 Encounter Details Date Type Department Care Team ([facility] Contact Info) Description 09/16/2022 Telephone [facility] MEDICINE [address] [place] [address] Susy Rashid DO [address] [place] [address] Med Refill Social History Tobacco Use Types [...] on filedocumented in this encounter Care Teams Flange Turner Relationship Specialty Start Date End Date Susy Rashid DO [address] [place] [address] PCP - General Family Medicine 07/16/12 documented as of this encounter
--- OUTSIDE RECORDS SUMMARY | 2025-05-09 13:14 | XMS_ITS | Encounter Summary ---
Author Organization [facility] [place], Address [address] [place] [address] Phone Care Team Providers Care Ergonomist Name Role Phone Susy Rashid DO Primary Care Provider Unava ilable Encounter Details Date Type Department Care Team (Late st Contact Info) Description 02/18/2023 Documentation Only [facility] [address] [facility] [place] [address] Leander Fernández PA [address] [facility] [place] [address] Social History Tobacco Use Types [...] Visit [facility] [address] [facility] [place] [address] Alek Rinaldi MD [address] [facility] [place] [address] documented as of this encounter Visit Diagnoses Not on filedocumented in this encounter Care Teams Ergonomist Relationship Specialty Start Date End Date Susy Rashid DO PCP - General 06/08/19 documented as of this encounter
--- OUTSIDE RECORDS SUMMARY | 2025-05-09 13:14 | XMS_ITS | Encounter Summary ---
Author Organization [employer] Address [address] [facility] 7t [place] [address] Care Team Providers Care Basket Mender Name Role Phone Susy Rashid DO Primary Care Provider Reason for Visit * Reason Onset Date Comments Nurse Triage 05/02/2023 Encounter Details Date Type Department Care Team ([facility] Contact Info) Description 05/02/2023 Telephone [facility] MEDICINE 230 [place] [address] Susy Rashid DO [address] [place] [address] Nurse Triage Social History Tobacco Use Types [...] wants a call back with orders at [phone] so that she can call pt.And give him instructions. Pt. Does not have any upcoming appts in [facility] with PCP. [facility] [...] outcome Please contact visiting nurse anais at [phone] documented in this encounter Plan of Treatment Not on file documented as of this encounter Visit Diagnoses Not on filedocumented in this encounter Additional Health Concerns Assessment Noted Time PHQ-9 Depression Total Score: 2 10/25/19 23 12:24 PM EDT documented as of this encounter Care Teams Basket Mender Relationship Specialty Start Date End Date Susy Rashid DO [address] [place] [address] PCP - General Family Medicine 07/16/12 documented as of this encounter
--- OUTSIDE RECORDS SUMMARY | 2025-05-09 13:14 | XMS_ITS | Encounter Summary ---
Author Organization [facility] [place], Address [address] [place] [address] Phone Care Team Providers Care Film And Video Editor Name Role Phone Susy Rashid DO Primary Care Provider Unava ilable Encounter Details Date Type Department Care Team (Late st Contact Info) Description 06/17/2022 Documentation Only [facility] [employer] [address] [facility] [place] [address] Leander Fernández PA [address] [facility] [place] [address] Social History Tobacco Use Types [...] Visit [facility] [employer] [address] [facility] [place] [address] Alek Rinaldi MD [address] [facility] [place] [address] documented as of this encounter Visit Diagnoses Not on filedocumented in this encounter Care Teams Film And Video Editor Relationship Specialty Start Date End Date Susy Rashid DO PCP - General 06/08/19 documented as of this encounter
--- OUTSIDE RECORDS SUMMARY | 2025-05-09 13:14 | XMS_ITS | Encounter Summary ---
Author Organization [facility], Address [address] [place] [address] Phone Care Team Providers Care Mine Motor Operator Name Role Phone Susy Rashid DO Primary Care Provider Unava ilable Encounter Details Date Type Department Care Team (Late Contact Info) Description 08/07/2021 Documentation Only [facility] [address] [address] Alek Rinaldi MD [address] [facility] [place] [address] Social History Tobacco Use Types [...] Visit [facility] [address] [place] [address] Alek Rinaldi MD [address] [facility] [place] [address] documented as of this encounter Visit Diagnoses Not on filedocumented in this encounter Care Teams Mine Motor Operator Relationship Specialty Start Date End Date Susy Rashid DO PCP - General 06/08/19 documented as of this encounter
--- OUTSIDE RECORDS SUMMARY | 2025-05-09 13:14 | XMS_ITS | Encounter Summary ---
Author Organization [facility], Address [address] [place] [address] Phone Care Team Providers Care Nursery Nurse Name Role Phone Susy Rashid DO Primary Care Provider Unava ilable Encounter Details Date Type Department Care Team (Late Contact Info) Description 11/16/2024 Documentation Only [facility] [address] [place] [address] Marbella Kumar [address] [place] [address] Social History Tobacco Use Types [...] Visit [facility] [address] [place] [address] Alek Rinaldi MD [address] [place] [address] [place] [address] documented as of this encounter Visit Diagnoses Not on filedocumented in this encounter Care Teams Nursery Nurse Relationship Specialty Start Date End Date Susy Rashid DO PCP - General 06/08/19 documented as of this encounter
--- OUTSIDE RECORDS SUMMARY | 2025-05-09 13:14 | XMS_ITS | Encounter Summary ---
Author Organization [facility], Address [address] [place] [address] Phone Care Team Providers Care Process Stripper Name Role Phone Susy Rashid DO Primary Care Provider Unava ilable Encounter Details Date Type Department Care Team (Late Contact Info) Description 08/07/2021 Documentation Only [facility] [address] [place] [address] Alek Rinaldi MD [address] [facility] [place] [address] Social History Tobacco Use Types [...] [facility] [address] [place] [address] Alek Rinaldi MD [address] [facility] [place] [address] documented as of this encounter Visit Diagnoses Not on filedocumented in this encounter Care Teams Process Stripper Relationship Specialty Start Date End Date Susy Rashid DO PCP - General 06/08/19 documented as of this encounter
--- OUTSIDE RECORDS SUMMARY | 2025-05-09 13:14 | XMS_ITS | Encounter Summary ---
Author Organization [facility] Address [address] [facility] [address] [place] [address] Phone Care Team Providers Care Steeple Jack Name Role Phone Pcp, Unknown Primary Care Provider Susy Hahn DO Primary Care Provider [phone] Encounter Details Date Type Department Care Team (Late st Contact Info) Description 08/26/2022 Procedure Pass [facility] [address] [place] [address] Social History Tobacco Use Types Packs/Day Years [...] on filedocumented in this encounter Care Teams Steeple Jack Relationship Specialty Start Date End Date Pcp, Unknown PCP - General 05/31/22 08/09/24 Susy Rashid DO [address] [place] [address] PCP - General Family Medicine 08/10/24 documented as of this encounter Additional Source Comments The information contained in this document represents components of the legal health record. It is not the complete legal health record.[facility]
--- OUTSIDE RECORDS SUMMARY | 2025-05-09 13:14 | XMS_ITS | Encounter Summary ---
Author Organization [facility], Address [address] [place] [address] Phone Care Team Providers Care Child Care Assistant Name Role Phone Susy Rashid DO Primary Care Provider Unava ilable Encounter Details Date Type Department Care Team (Late Contact Info) Description 08/06/2021 Documentation Only [facility] [address] [place] [address] Alek Rinaldi MD [address] [facility] [place] [address] Social History Tobacco Use Types [...] Visit [facility] [address] [place] [address] Alek Rinaldi MD [address] [facility] [place] [address] documented as of this encounter Visit Diagnoses Not on filedocumented in this encounter Care Teams Child Care Assistant Relationship Specialty Start Date End Date Susy Rashid DO PCP - General 06/08/19 documented as of this encounter
--- OUTSIDE RECORDS SUMMARY | 2025-05-09 13:14 | XMS_ITS | Encounter Summary ---
Author Organization [facility], Address [address] [place] [address] Phone Care Team Providers Care Manager Of Hospital Name Role Phone Susy Rashid DO Primary Care Provider Unava ilable Encounter Details Date Type Department Care Team (Late Contact Info) Description 08/25/2023 Documentation Only [facility] [address] [place] [address] Kim De Luna [address] [place] [address] Social History Tobacco Use Types [...] Visit [facility] [address] [facility] [place] [address] Alek Rinaldi MD [address] [place] [address] [place] [address] documented as of this encounter Visit Diagnoses Not on filedocumented in this encounter Care Teams Manager Of Hospital Relationship Specialty Start Date End Date Susy Rashid DO PCP - General 06/08/19 documented as of this encounter
--- OUTSIDE RECORDS SUMMARY | 2025-05-09 13:14 | XMS_ITS | Encounter Summary ---
Author Organization [facility] Address [address] [place] [address] Phone Care Team Providers Care Floater Operator Name Role Phone Susy Rashid DO Primary Care Provider Unava ilable Encounter Details Date Type Department Care Team (Late Contact Info) Description 02/13/2022 Office Communication [facility] [address] [place] [address] Alek Rinaldi MD [address] [facility] [place] [address] Social History Tobacco Use Types [...] Visit [facility] [address] [place] [address] Alek Rinaldi MD [address] [facility] [place] [address] documented as of this encounter Visit Diagnoses Not on filedocumented in this encounter Care Teams Floater Operator Relationship Specialty Start Date End Date Susy Rashid DO PCP - General 06/08/19 documented as of this encounter
--- OUTSIDE RECORDS SUMMARY | 2025-05-09 13:14 | XMS_ITS | Encounter Summary ---
Author Organization [facility], Address [address] [place] [address] Phone Care Team Providers Care Groundskeeping Maintenance Worker Name Role Phone Susy Rashid DO Primary Care Provider Unava ilable Encounter Details Date Type Department Care Team (Late Contact Info) Description 08/07/2021 Documentation Only [facility] [address] [place] [address] Alek Rinaldi MD [address] [facility] [place] [address] Social History Tobacco Use Types [...] Visit [facility] [address] [place] [address] Alek Rinaldi MD [address] [facility] [place] [address] documented as of this encounter Visit Diagnoses Not on filedocumented in this encounter Care Teams Groundskeeping Maintenance Worker Relationship Specialty Start Date End Date Susy Rashid DO PCP - General 06/08/19 documented as of this encounter
--- OUTSIDE RECORDS SUMMARY | 2025-05-09 13:14 | XMS_ITS | Encounter Summary ---
Author Organization [facility] Address [address] [place] [address] Phone Care Team Providers Care Pack Operator Name Role Phone Susy Rashid DO Primary Care Provider Unava ilable Encounter Details Date Type Department Care Team (Late Contact Info) Description 02/13/2022 Office Communication [facility] [address] [place] [address] Alek Rinaldi MD [address] [facility] [place] [address] Social History Tobacco Use Types [...] Visit [facility] [address] [place] [address] Alek Rinaldi MD [address] [facility] [place] [address] documented as of this encounter Visit Diagnoses Not on filedocumented in this encounter Care Teams Pack Operator Relationship Specialty Start Date End Date Susy Rashid DO PCP - General 06/08/19 documented as of this encounter
--- OUTSIDE RECORDS SUMMARY | 2025-05-09 13:14 | XMS_ITS | Clinical Summary ---
Author Organization [facility], Address [address] [place] [address] [place] [address] Phone Care Team Providers Care Managed Care Liaison Name Role Phone Susy Rashid DO Primary [...] by mouth 1 (one) time each day 02/03/20 23 Active Dapagliflozin Propanediol (Farxiga) 5 MG tablet [...] Encounters Date Type Department Care Team Description 03/22/2025 3:45 PM EDT Office Visit [facility] [address] [place] [address] Alek Rinaldi MD Stage 3b chronic kidney disease (HCC) (Primary Dx); Renal disorder due to type 2 diabetes mellitus <Other diabetic kidney complication> (HCC); Essential hypertension from Last 3 Months Immunizations Immunization Administration [...] 09/24/2023 1:25 PM EST Plan of Treatment Upcoming Encounters Date Type Department Care Team (Late st Contact Info) Description 10/18/2025 1:45 PM EDT Office Visit [facility], [address] [facility] [place] [address] Alek Rinaldi MD [address] [facility] [place] [phone] Health Maintenance Due Date Last Done Comments [...] Exam 09/17/2019 Diabetes: Visual Foot Exam 09/17/2019 Influenza Vaccine (#1) 2025 05/07/2020 Diabetes: Hemoglobin A1C 06/18/2025 025, 10/27/2024, 10/27/2024, Additional history exists Pneumococcal Vaccine: Peds ( 0 to 5 Years) and At-Risk Patients (6 to 49 Years) Discontinued 06/23/2017 Procedures Procedure Name Priority Date/Time Associated Diagnosis Comments HEMOGLOBIN A1C Routine 02/05/2022 5:00 PM EDT from Last 3 Months or Most Recently Relevant to Health Maintenance Results * (ABNORMAL) Hemoglobin A1c (02/05/2022 5:00 PM EDT) Hemoglobin A1C 7.0(H) (4.0-5.6) % [facility] Comment: MONITORING: In known diabetic patients, hemoglobin A1c targets should be discussed with health care provider. DIAGNOSTIC USE: The [place] [employer] (ADA) and the World Health [...] Supplement 1 Testing performed or reported by [facility], a Service of [facility], [address] [place] [address] Dilia Fink MD, Pipe Fittings Molder [facility]# [id number] 02/05/2022 5:00 PM EDT 02/05/2022 5:02 PM EDT us Alek Rinaldi MD LAB BLOOD ORDERABLES Final Resul t [facility] from Last 3 Months or Most Recently Relevant to Health Maintenance Insurance [address] [place] [id number] [facility] ([id number]) SUJATHA PEREZ [id number] [place] [id number] [facility] ([id number]) SUJATHA PEREZ [id number] [place] [address] Care Teams Managed Care Liaison Relationship Specialty Start Date End Date Susy Rashid DO PCP - General 06/08/19
--- OUTSIDE RECORDS SUMMARY | 2025-05-09 13:14 | XMS_ITS | Clinical Summary ---
Author Organization [employer] Address [address] [facility] 7[address] [place] [address] Care Team Providers Care Wire Spooler Name Role Phone Kay Rashidfer Primary Care Provider [phone] Allergies Active Allergy Reactions Criticality Noted Date Comments Lisinopril Cough Other reaction(s): Other (see comments) Simvastatin 11/28/2022 Other reaction(s): increased liver enzymes Valsartan 11/28/2022 Other reaction(s): Unknown Medications Misc. Devices (Pulse Oximeter For Finger) miscIndication s:COVID-19 virus infection 1 each in the morning and at bedtime. 1 each 022 Active Blood Glucose Monitoring Suppl (KuonaStyle [place] Lite) w/Device kit TEST BLOOD SUGAR THREE [...] not swallow. 120 mL 5 023 Active docusate sodium (Colace) 100 MG capsuleIndicat ions:Anemia, unspecified type Take 1 capsule (100 mg) by mouth if needed in the morning and at bedtime for constipation. 60 capsule Active Trelegy Ellipta 100-62.5-25 MCG/ACT aerosol powder Take 1 puff by mouth 1 (one) time each day at the same time. Active albuterol 108 (90 Base) MCG/ACT inhalerIndicat ions:Cough in adult patient INHALE 2 PUFFS BY MOUTH EVERY 4 HOURS NEEDED FOR WHEEZING OR SHORTNESS OF BREATH 8.5 g 1 023 Active FREESTYLE LITE test strip TEST BLOOD SUGAR THREE TIMES DAILY 100 strip 11 Active lidocaine (Lidoderm) 5 % patch APPLY 1 PATCH TO AFFECTED AREA NEEDED FOR MILD PAIN. WEAR FOR 12 HOURS THEN REMOVE FOR 12 HOURS. REPEAT DAILY. 30 patch 5 Active TRUEplus Lancets 33G misc TEST BLOOD SUGAR THREE TIMES DAILY 100 each 11 024 Active Farxiga 5 MG TAKE 1 TABLET BY MOUTH EVERY MORNING 30 tablet 11 Active glucose blood (FreeStyle Precision [place] Test) test strip Use to test blood sugar 3 times daily 100 each 12 025 2025 Active Ferrous Sulfate (iron) 325 (65 Fe) [...] 15MINUTES IF PATIENT DOES NOT RESPOND. Active cetirizine (ZyrTEC) 10 MG tablet Take 1 tablet (10 mg) by mouth Once per day. 30 tablet 025 2025 Active donepezil (Aricept) 10 MG tablet Take 1 tablet (10 mg) by mouth at bedtime. 30 tablet 11 025 2025 Active cyanocobalamin (Vitamin B-12) 1000 MCG tablet Take 1 tablet (1,000 mcg) by mouth every other day. 15 tablet 11 025 Active atorvastatin (Lipitor) 80 MG tablet TAKE 1 TABLET BY MOUTH EVERY EVENING ((for cholesterol)) 90 tablet 025 Active Eye Itch Relief 0.035 % solution INSTILL 1 DROP AFFECTED EYE(S) TWICE DAILY IN THE MORNING AND AT BEDTIME NEEDED FOR ALLERGIES 10 mL 2 Active insulin glargine (Lantus SoloStar) 100 UNIT/ML pen Inject 4 Units under the skin in the morning. 3 mL 025 2025 Active insulin aspart (NovoLOG FLEXPEN) 100 UNIT/ML pen INJECT 10 UNITS SUBCUTANEOUSLY BEFORE DINNER ONLY 15 mL 3 025 Active BD Pen Needle Vidya Ultrafine 32G X 4 MM [facility] USE DIRECTED THREE TIMES DAILY 100 each 5 025 Active Aspirin Low Dose 81 MG EC tablet TAKE 1 TABLET BY MOUTH EVERY EVENING 90 tablet 1 025 Active Calcium Carb-Cholecalc iferol 600-10 MG-MCG tabletIndicati ons:Osteopenia , unspecified location TAKE 1 TABLET BY MOUTH EVERYDAY AT NOON 90 tablet 1 025 Active Continuous Glucose Tree Planter (FreeStyle Simón 3 Gallion) deviceIndicati ons:Type 2 diabetes mellitus with stage 3 chronic kidney disease, with long-term current use of insulin, unspecified whether stage 3a or 3b CKD (HCC) 1 each Once per day. Use as directed for CGM 1 each 025 Active Continuous Glucose Sensor (FreeStyle Simón 3 Plus Sensor) miscIndication s:Type 2 diabetes mellitus with stage 3 chronic kidney disease, with long-term current use of insulin, unspecified whether stage 3a or 3b CKD (HCC) 1 each every 15 days. Apply 1 every 15 days as directed for CGM 2 each 11 025 Active traZODone (Desyrel) 50 MG tabletIndicati ons:Insomnia, unspecified type TAKE 1 TABLET BY MOUTH AT BEDTIME 30 tablet 1 025 Active pregabalin (Lyrica) 50 MG capsuleIndicat ions:Neuropath y TAKE 1 CAPSULE BY MOUTH THREE TIMES DAILY IN THE MORNING, EVENING, AND BEDTIME 90 capsule 3 025 Active Alcohol Swabs (Alcohol Prep) 70 % pads USE DIRECTED FOUR TIMES DAILY 100 each 11 Active triamcinolone (Nasacort) 55 MCG/ACT nasal inhaler Administer 2 sprays into each nostril Once per day. 16.5 g 11 024 2024 Alcohol Swabs (Alcohol Prep) 70 % pads USE DIRECTED FOUR TIMES DAILY 100 each 11 024 2024 Discontinued pregabalin (Lyrica) 50 MG capsuleIndicat ions:Neuropath y TAKE 1 CAPSULE BY MOUTH THREE TIMES DAILY IN THE MORNING, EVENING, AND BEDTIME 90 capsule 3 025 2024 Discontinued Active Problems Problem Noted Date Diagnosed Date Chronic allergic rhinitis 04/29/2024 Alzheimer's disease 12/08/2023 Healthcare maintenance 12/08/2023 Peripheral polyneuropathy 07/08/2023 CKD (chronic kidney disease), stage III ([facility] ) 05/09/2023 Chronic constipation 03/03/2023 Gastric intestinal metaplasia 03/03/2023 Parkinson's disease ([facility]) 03/03/2023 Lumbar spondylolysis 03/03/2023 Fatty liver 03/03/2023 History of CVA (cerebrovascular accident) 2022 Cerebral microvascular disease 03/03/2023 History of hypertension 10/24/2022 Microscopic hematuria 10/24/2022 Ischemic cardiomyopathy 10/24/2022 Peripheral vascular disease 10/24/2022 Osteoarthritis 09/18/2022 Assessment & Plan (09/18/2022 1:03 PM EST): Use tylenol prn Start home PT (already done initial eval) Counseled to use cane, DME at home Unclear if he has assistance for ADLs/MECHANICAL OXIDIZER? 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 Assessment & Plan (07/23/2022 2:56 PM EST): [...] Encounters Date Type Department Care Team Description 05/09/[address] [facility] [address] [place] [address] Susy Rashid DO Prior Authorization 05/06/[address] [facility] [address] [place] [address] Susy Rashid DO 04/13/[address] [facility] [address] [place] [phone] Susy Rashid DO Neuropathy 03/21/[address] [facility] [address] [place] [phone] Susy Rashid DO Insomnia, unspecified type 03/18/2025 10:15 AM EDT Office Visit [facility] [address] [place] [phone] Susy Rashid, Type 2 diabetes mellitus with stage 3 chronic kidney disease, with long-term current use of insulin, unspecified whether stage 3a or 3b CKD ([facility]) 03/18/2025 Travel 03/17/[address] [facility] [address] [place] [phone] Susy Rashid DO chart prep 03/17/[address] [facility] [address] [place] [phone] Susy Rashid DO Osteopenia, unspecified location from Last 3 Months Immunizations Immunization Administration Dates Next Due Hep B, adult [...] Sign Reading Time Taken Comments Blood Pressure 124/60 03/18/2025 10:34 AM EDT Pulse 64 03/18/2025 10:34 AM EDT Temperature 36.8 C (98.3 F) 03/18/2025 10:34 AM EDT Respiratory Rate 19 03/18/2025 10:34 AM EDT Oxygen Saturation 97% 03/18/2025 10:34 AM EDT Inhaled Oxygen Concentration - - Weight 72.6 kg (160 lb) 03/18/2025 10:34 AM EDT Height 165.1 cm (5' 5 ) 03/18/2025 10:34 AM EDT Body Mass Index 26.63 03/18/2025 10:34 AM EDT Plan of Treatment Health Maintenance Due Date Last Done Comments CT Colonography 1951 Colonoscopy 1951 Colorectal Cancer Screening 1951 Dental Prophylaxis 1951 Dental X-Ray: Bitewings 1951 FIT DNA/Cologuard 1951 FIT 1951 FOBT 1951 Sigmoidoscopy 1951 Diabetes: Foot Exam 1961 Eye Exam 1961 Hepatitis C Screening 1969 Hepatitis A Vaccines (1 of 2 - Risk 2-dose series) 1970 Dental Oral Exam 12/07/2024 06/08/2024, 12/25/2023 COVID-19 Vaccine ( season) 2025 04/29/2024, 07/08/2023, 03/03/2023, Additional history exists Influenza Vaccine (#1) 2025 , 07/08/2023, 09/03/2022, Additional history exists DTaP/Tdap/Td Vaccines (2 - Td or Tdap) 06/12/2025 06/12/2015, 03/31/2002, 03/31/2002 Diabetes: Hemoglobin A1C 09/18/2025 025, 12/17/2024, 10/27/2024, Additional history exists Lipid Panel 10/27/2025 10/27/2024, 04/0 12/2022, 08/15/2020 Alcohol/Substance Use Screening 03/18/2026 03/18/2025 Depression Screening 03/18/2026 03/18/2025, 03/18/20 SDOH Screening 03/18/2026 03/18/2025 Tobacco Screening 03/18/2026 03/18/2025 Dental X-Ray: Full Mouth 12/25/2026 12/25/2023 Hepatitis B Vaccines Completed 12/07/2009, 12/29/2008, 11/28/2008 Pneumococcal Vaccine: 50+ Years Completed 11/28/2022, 02/23/2021, 06/23/2017, Additional history exists RSV Patients and Patients Aged 60 years or older Completed 12/15/2023 Zoster Vaccines Completed 12/15/2023, 04/23/2022 HIB Vaccines Aged Out No longer eligi ble based on patient's age to complete this topic HPV Vaccines Aged Out No longer eligi ble based on patient's age to complete this topic IPV Vaccines Aged Out No longer eligi ble based on patient's age to complete this topic Meningococcal B Vaccine Aged Out No l onger eligible based on patient's age to complete [...] Procedure Name Priority Date/Time Associated Diagnosis Comments POCT GLYCATED HEMOGLOBIN, TOTAL Routine 03/18/2025 10:37 AM EDT Type 2 diabetes mellitus with stage 3 chronic kidney disease, with long-term current use of insulin, unspecified whether stage 3a or 3b CKD (CMS/HCC) POCT GLUCOSE Routine 03/18/2025 10:36 AM EDT Type 2 diabetes mellitus with [...] Relevant to Health Maintenance Results * (ABNORMAL) POCT HGB A1C (03/18/2025 10:37 AM EDT) Hemoglobin A1C 6.1(A) 4.0 - 5.7 % QC Media Lot # [id number] Lot# Expiration Date Blood 03/18/2025 10:3 7 AM EDT Susy Rashid DO POINT OF CARE TEST ENTER/PILAR T ORDERABLES Final Result * POCT Glucose (03/18/2025 10:36 AM EDT) Glucose Blood, POC 176 60 - 200 mg/dL QC Media Lot # [id number] Lot# Expiration Date , Blood Capillary blood specimen / Unknown 03/18/2025 10:36 AM EDT Susy Rashid DO POINT OF CARE TEST ENTER/PILAR T ORDERABLES Final Result * (ABNORMAL) Lipid Panel, Standard (10/27/2024 11:31 AM EDT) Triglycerides 178(H) <150 mg/dL [facility] Comment:Slight Lipemia.Lisa able Triglyceride: less than 150 mg/dLBorderline High Triglyceride 150-199 mg/dLHigh Triglyceride: 200-499 mg/dLVery High Triglyceride: greater than or equal to 5OO mg/dL Cholesterol 142 <200 mg/dL [facility] Comment:Desirable Cholestero l: less than 200 mg/dLBorderline High Cholesterol: 200-239 mg/dLHigh Cholesterol: greater than 239 mg/dL LDL Cholesterol Calculated 77 <100 mg/dL [facility] Comment:Desirable LDL: less than 100 mg/dLNear Optimal/Above Optimal LDL: 110- 129 mg/dLBorderline High LDL: 130-159 mg/dLHigh LDL: 160-189 mg/dLVery High LDL: greater than or equal to 190 mg/dL HDL Cholesterol 30(L) >40 mg/dL [facility] Comment:Desirable HDL: great er than 40 mg/dL Note: This HDL assay may give artificially low results in patients with liver disease. Blood Venous blood specimen / Unknown 10/27/2024 11:31 AM EDT 10/27/2024 1:36 PM EDT us Susy Rashid DO LAB BLOOD ORDERABLES Final R esult [facility] [address] [place] [address] [phone] from Last 3 Months or Most Recently Relevant to Health Maintenance Insurance [facility] [employer] [facility] [employer] OPTIONS (HMO D-SNP) MEDICARE [facility] Care Teams Wire Spooler Relationship Specialty Start Date End Date Susy Rashid DO [address] [place] [phone] PCP - General Family Medicine 07/16/12
--- OUTSIDE RECORDS SUMMARY | 2025-05-09 13:14 | XMS_ITS | Encounter Summary ---
Author Organization [facility], Address [address] [place] [address] Phone Care Team Providers Care Board Design Engineer Name Role Phone Susy Rashid DO Primary Care Provider Unava ilable Encounter Details Date Type Department Care Team (Late Contact Info) Description 08/08/2021 Documentation Only [facility] [address] [place] [address] Alek Rinaldi MD [address] [facility] [place] [address] Social History Tobacco Use Types [...] Visit [facility] [address] [place] [address] Alek Rinaldi MD [address] [facility] [place] [address] documented as of this encounter Visit Diagnoses Not on filedocumented in this encounter Care Teams Board Design Engineer Relationship Specialty Start Date End Date Susy Rashid DO PCP - General 06/08/19 documented as of this encounter
--- OUTSIDE RECORDS SUMMARY | 2025-05-09 13:15 | XMS_ITS | Encounter Summary ---
Author Organization [employer] Address [address] [facility] [address] [place] [address] Care Team Providers Care Fruit Loader Machine Operator Name Role Phone Susy Rashid DO Primary Care Provider [phone] Reason for Visit * Reason Comments Med Refill Encounter Details Date Type Department Care Team ([facility] Contact Info) Description 12/12/2023 Refill [facility] [address] [place], [place] [phone] Susy Rashid DO [address] [place], [place] [phone] Neuropathy Social History Tobacco Use Types Packs/Day [...] documented as of this encounter Care Teams Fruit Loader Machine Operator Relationship Specialty Start Date End Date Susy Rashid DO [address] [place] [phone] PCP - General Family Medicine 07/16/12 documented as of this encounter
--- OUTSIDE RECORDS SUMMARY | 2025-05-09 13:15 | XMS_ITS | Encounter Summary ---
Author Organization [employer] Address [address] [facility] 7t [place] [address] Care Team Providers Care Replenishment Associate Name Role Phone Susy Rashid DO Primary Care Provider [phone] Reason for Visit * Reason Comments Med Refill Encounter Details Date Type Department Care Team ([facility] Contact Info) Description 11/16/2022 Refill [facility] [address] [place], [place] [phone] Susy Rashid DO [address] [place] [address] Social History Tobacco Use Types Packs/Day Years [...] documented as of this encounter Care Teams Replenishment Associate Relationship Specialty Start Date End Date Susy Rashid DO [address] [place] [address] PCP - General Family Medicine 07/16/12 documented as of this encounter
== END 2025-05-09 11:08 | disposition home or self-care (01) ==
LOC: HO.ENCR 10:53
PROVIDERS: PCP Family Medicine; Visit Provider Internal Medicine Endocrinology, Diabetes & Metabolism
DX: M81.0 Age-related osteoporosis without current pathological fracture (principal)
CPT/HCPCS: 99213

== ENCOUNTER → 2025-05-09 10:52 | Outpatient (BNVA) | payer OTHER, SELFPAY | PROVIDERS: PCP Family Medicine; Visit Provider Internal Medicine Endocrinology, Diabetes & Metabolism | DX: M81.0 Age-related osteoporosis without current pathological fracture (principal) | CPT/HCPCS: 99212 ==